=== PATIENT | female | born 1955 | race Caucasian/White ===

== ENCOUNTER → 2016-06-06 | Outpatient (CLI) | payer BC ==
[2016-05-04 11:00] VITALS: BP 147/66
[~2016-06-06] MED LIST: AMLO10TA2 PO; AMOX1TAB10 PO; ASPI325T4 PO; BENA20TA16 PO; CALC1TAB PO; FERR-26 PO; FLUC200T4 PO; GABA-586 PO; GEMF600T3 PO; GLYB5TAB3 PO; HYDR-2672 PO; HYDR-971 PO; HYDR1TAB12 PO; HYDR200T PO; HYDR50TA6 PO; IBUP-1060 PO; IOHEXOL 180 MG/ML 10 ML VIAL. ONE; ISOS30TA17 PO; KRIL1CAP10 PO; LEVO75TA PO; MULT-658 PO; NYST30PO9 TP; PARO20TA55 PO; PHEN100C PO; PIOG1TAB15 PO; TOLT2CAP PO; VERA120T PO; methylPREDNISolone ACETATE 40 MG/ML VIAL. ONE; methylPREDNISolone ACETATE 80 MG/ML VIAL. ONE
--- NOTE | 2016-06-07 01:52 | PAIN ---
DATE OF SERVICE: 06/06/2016 DIAGNOSES: Lumbar radiculopathy with lumbar spinal stenosis and lumbar herniated disk with post-lumbar laminectomy syndrome. HISTORY OF PRESENT ILLNESS: The patient is a 61-year-old female who returns for followup status post lumbar epidural steroid injection x 1. The patient reports about 45% improvement in the low back and left lower extremity pain, still has some pain in that region, but only a dull ache at this time, which is much more improved and she has been getting around much more easily, walking with greater ease than she had previously, which is her main complaint at this time, much better in the low back and left leg. The patient reports it as a 4/5 on a scale of 10, dull aching pain, been sleeping better at night, increasing activity with greater comfort and especially walking with greater ease which she is very pleased about. The patient still reports some pain in the low back, radiating into the posterior gluteus, posterior thigh, lateral thigh, but much improved from previous exam. The patient reports no new motor or sensory deficits, no new bowel or bladder incontinence or other complaints. PHYSICAL EXAMINATION: VITAL SIGNS: The patient's blood pressure is 139/63, pulse is 87, respirations 18, temperature 97.8 degrees Fahrenheit, height is 5 feet 8 inches, weight is 277 pounds. GENERAL: The patient is awake, alert, oriented, appropriate, very pleasant demeanor. HEENT: Shows normocephalic, atraumatic. Extraocular movements are intact, symmetrical. Oral cavity, mucous membranes are moist and pink. Dentition is intact. NECK: Shows anterior throat supple without palpable lymphadenopathy noted. Swallow reflex is symmetrical. Neck shows full rotational motion of the cervical spine without difficulty or tenderness. CHEST: Shows normal on inspection. Breath sounds are clear to auscultation bilaterally. HEART: Shows S1 and S2 clear. ABDOMEN: Obese, soft, nontender, nondistended. No palpable organomegaly is noted. No rebound or guarding demonstrated. BACK: Shows spine grossly midline. Slight flattening of lumbar lordotic curvature. Again, well-healed surgical scar is noted. Lumbar paraspinous musculature shows some diffuse tenderness throughout the upper, middle and lower distribution of paraspinous muscles, but only very mildly, but is symmetrical with normal muscle girth, on palpation, firm, but without radiation or trigger points. No tenderness over the sacrum or sacroiliac regions. The patient shows good rotational motion of the lumbar spine, both laterally as well as extension and flexion without difficulty or pain reported. EXTREMITIES: Lower extremities show deep tendon reflexes at 1+ in the patellar and tendo calcaneus tendons are equal. Motor exam is 5/5 with dorsiflexion, extension and equal bilaterally. Options were discussed with the patient. The patient's old chart was reviewed as her current medication regimen updated. Current review of systems updated today as well. We will proceed with a second lumbar epidural steroid injection today with fluoroscopic guidance. Risks were again discussed including, but not limited to bleeding, infection, possibility of epidural hematoma and subsequent neurological compromise, dural puncture, headaches, spinal cord and/or nerve damage, side effects of steroid medication and poor results regarding pain control. The patient understands and wishes to proceed. The patient will return to clinic in approximately 2 weeks for followup, was counseled on return appointment, activity level and side effects to be aware of. DIAGNOSES: Lumbar radiculopathy with lumbar spinal stenosis, herniated lumbar disk and post-lumbar laminectomy syndrome. PROCEDURE: Lumbar epidural steroid injection, translaminar approach at the L4-L5 level with a C-arm fluoroscopic guidance under sterile prep and drape using local anesthetic. Medication injected is 120 mg Depo-Medrol plus 10 mL of preservative-free normal saline and 2 mL of Isovue for contrast. Condition at discharge is stable. The patient tolerated procedure well, had no complications. TONY SMITH MD DR: TOMMY/mariela JOB#: [id number] / [id number]
== END ==
LOC: PNCL 12:48
PROVIDERS: ATTEND Anesthesiology
DX: M51.16 Intervertebral disc disorders with radiculopathy, lumbar region (principal); M48.06 Spinal stenosis, lumbar region; M96.1 Postlaminectomy syndrome, not elsewhere classified; E78.00 Pure hypercholesterolemia, unspecified; E11.9 Type 2 diabetes mellitus without complications; F32.9 Major depressive disorder, single episode, unspecified; I10 Essential (primary) hypertension; I25.10 Atherosclerotic heart disease of native coronary artery without angina pectoris; G40.909 Epilepsy, unspecified, not intractable, without status epilepticus; E03.9 Hypothyroidism, unspecified; Z87.39 Personal history of other diseases of the musculoskeletal system and connective tissue; Z98.890 Other specified postprocedural states
CPT/HCPCS: 62323; J1030; J1040

== ENCOUNTER 2016-11-30 01:01 | Inpatient (IN) | payer BC ==
[~2016-11-30] VITALS: Ht 172.7 cm; Wt 127.7 kg
[~2016-11-30 01:01] MED LIST changes: -ASPI325T4 PO; +ASPI325T8 PO; -HYDR-2672 PO; +HYDR-2766 PO; -IOHEXOL 180 MG/ML 10 ML VIAL. ONE; -ISOS30TA17 PO; +ISOS30TA19 PO; -KRIL1CAP10 PO; +KRIL1CAP11 PO; +NYST15PO9 TP; -NYST30PO9 TP; -PARO20TA55 PO; +PARO20TA99 PO; -PIOG1TAB15 PO; +PIOG1TAB24 PO; -methylPREDNISolone ACETATE 40 MG/ML VIAL. ONE; -methylPREDNISolone ACETATE 80 MG/ML VIAL. ONE
--- NOTE | 2016-11-30 02:28 | PHYS DOC ---
Past Medical History Past Medical History: CAD, Diabetes-Type II, Hypertension, Hypothyroid, HI, Seizure Past Surgical History: Appendectomy, Tonsillectomy, Other Additional Past Surgical Histo: back, lap, I&D, r shoulder, Alcohol Use: None Drug Use: Opiates Adult General Chief Complaint Chief Complaint: CHEST PAIN HPI HPI Patient is a 61 year old [f__sex] who presents with [] Review of Systems Review of Systems Constitutional: Denies fever or chills [] Eyes: Denies change in visual acuity, redness, or eye pain [] HENT: Denies nasal congestion or sore throat [] Respiratory: Denies cough or shortness of breath [] Cardiovascular: No additional information not addressed in HPI [] GI: Denies abdominal pain, nausea, vomiting, bloody stools or diarrhea [] : Denies dysuria or hematuria [] Musculoskeletal: Denies back pain or joint pain [] Integument: Denies rash or skin lesions [] Neurologic: Denies headache, focal weakness or sensory changes [] Endocrine: Denies polyuria or polydipsia [] Allergies Allergies Allergies Coded Allergies Type Severity Reaction Last Updated Verified vancomycin Allergy Intermediate 02/06/14 Yes Physical Exam Physical Exam Constitutional: Well developed, well nourished, no acute distress, non-toxic appearance. [] HENT: Normocephalic, atraumatic, bilateral external ears normal, oropharynx moist, no oral exudates, nose normal. [] Eyes: PERRLA, EOMI, conjunctiva normal, no discharge. [] Neck: Normal range of motion, no tenderness, supple, no stridor. [] Cardiovascular:Heart rate regular rhythm, no murmur [] Lungs & Thorax: Bilateral breath sounds clear to auscultation [] Abdomen: Bowel sounds normal, soft, no tenderness, no masses, no pulsatile masses. [] Skin: Warm, dry, no erythema, no rash. [] Back: No tenderness, no CVA tenderness. [] Extremities: No tenderness, no cyanosis, no clubbing, ROM intact, no edema. [] Neurologic: Alert and oriented X 3, normal motor function, normal sensory function, no focal deficits noted. [] Psychologic: Affect normal, judgement normal, mood normal. [] Current Patient Data Vital Signs Vital Signs Date Time Temp Pulse Resp B/P (MAP) Pulse Ox O2 Delivery O2 Flow Rate FiO2 11/30/16 01:10 98.8 80 16 200/87 (124) 98 Room Air 98.8 EKG EKG [] Radiology/Procedures Radiology/Procedures [] Course & Med Decision Making Course & Med Decision Making Pertinent Labs and Imaging studies reviewed. (See chart for details) [] Dragon Disclaimer Dragon Disclaimer This electronic medical record was generated, in whole or in part, using a voice recognition dictation system. Departure Departure Impression: Primary Impression: Chest pain Additional Impression: Unstable angina Disposition: 01 HOME, SELF-CARE Admitting Physician: Other (reusch) Condition: STABLE Referrals: CARLOS RICK Jr, MD (PCP) Problem Qualifiers YOJANA VALENTIN MD Nov 30, 2016 02:28
[2016-11-30] MEDS ORDERED: ACETAMINOPHEN 325 MG TABLET. PO PRN ×2 (02:45→10:30)
[2016-11-30] MEDS ORDERED: NITROGLYCERIN SUBLINGUAL 0.4 MG BOTTLE OF 25. SL PRN (02:45)
[2016-11-30] MEDS ORDERED: ONDANSETRON PF 4 MG/2 ML VIAL. IV PRN ×2 (02:45→10:30)
[2016-11-30] MEDS ORDERED: MORPHINE SULFATE 2 MG/ML DISP.SYRIN. IV PRN (02:45)
[2016-11-30] MEDS ORDERED: NITROGLYCERIN OINT 1 GM PACKET. TP ONE (03:00)
[2016-11-30] MEDS ORDERED: ASPIRIN CHEWABLE 81 MG TABLET. PO ONE (03:00)
[2016-11-30 03:17] LABS: BASO % 0 % (0-3); EOS % 3 % (0-3); HEMATOCRIT 28.1 % (36.0-47.0); HEMOGLOBIN 9.1 g/dL (12.0-15.5); LYMPH # 0.8 x10^3/uL (1.0-4.8); LYMPH % 14 % (24-48); MEAN CORPUSCULAR HEMOGLOBIN 27 pg (25-35); MEAN CORPUSCULAR HGB CONC 32 g/dL (31-37); MEAN CORPUSCULAR VOLUME 85 fL (79-100); MONO % 9 % (0-9); NEUT % 75 % (31-73); PLATELET COUNT 202 x10^3/uL (140-400); RED BLOOD COUNT 3.31 x10^6/uL (3.50-5.40); RED CELL DISTRIBUTION WIDTH 15.1 % (11.5-14.5); WHITE BLOOD COUNT 5.9 x10^3/uL (4.0-11.0)
[2016-11-30 03:37] LABS: CALCIUM 9.3 mg/dL (8.5-10.1); CREATININE 0.7 mg/dL (0.6-1.0); GFR 85.4; POTASSIUM 4.1 mmol/L (3.5-5.1)
[2016-11-30 03:39] LABS: ALBUMIN 3.8 g/dL (3.4-5.0); TOTAL BILIRUBIN 0.2 mg/dL (0.2-1.0); TOTAL PROTEIN 7.5 g/dL (6.4-8.2)
[2016-11-30 05:11] VITALS: BP 162/69
[2016-11-30 07:36] VITALS: BP 166/77
--- NOTE | 2016-11-30 07:38 | EKG ---
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
--- NOTE | 2016-11-30 08:09 | RAD ---
Indication chest pain. A single view of the chest was obtained and is compared to an examination May 30, 2012. Heart size is slightly enlarged. There is probable mild pulmonary vascular congestion. A focal infiltrate is not seen. Significant pleural fluid is not present. There is no pneumothorax. IMPRESSION: Mild cardiomegaly. Suspect mild pulmonary vascular congestion. No focal consolidated pneumonia is seen
--- NOTE | 2016-11-30 10:19 | PDOC1 ---
History and Physical Past Medical History Past Medical History PAST MEDICAL HISTORY: Hypertension, hypothyroidism, seizures, coronary artery disease, low back pain, rheumatoid arthritis. PAST SURGICAL HISTORY: Laminectomy and tonsillectomy. PERSONAL HISTORY: Former smoker. Denies any substance abuse or alcohol abuse. FAMILY HISTORY: History of rheumatoid arthritis. ALLERGIES: VANCOMYCIN Cardiovascular: CAD, HTN, NC CENTRAL NERVOUS SYSTEM: Seizure Endocrine: Diabetes Past Surgical History Past Surgical History: Tonsillectomy, Other Family History Family History: No Significant Social History ALCOHOL: none Drugs: None Current Problem List Problem List Problems Medical Problems: (1) Chest pain Status: Acute (2) Unstable angina Status: Acute Current Medications Current Medications Current Medications Medications (Trade) Dose Ordered Sig/Kobe Start Time Stop Time Status Last Admin Dose Admin Acetaminophen (Tylenol) 650 mg PRN Q4HRS PRN 11/30/16 02:45 12/01/16 02:44 Aspirin (Children'S Aspirin) 324 mg 1X ONCE 11/30/16 03:00 11/30/16 03:01 DC 11/30/16 02:53 324 MG Morphine Sulfate 2 mg PRN Q2HR PRN 11/30/16 02:45 12/01/16 02:44 Nitroglycerin (Nitro-Bid Oint) 1 inch 1X ONCE 11/30/16 03:00 11/30/16 03:01 DC 11/30/16 02:53 1 INCH Nitroglycerin (Nitrostat) 0.4 mg PRN Q5MIN PRN 11/30/16 02:45 12/01/16 02:44 Ondansetron HCl (Zofran) 4 mg PRN Q8HRS PRN 11/30/16 02:45 12/01/16 02:44 Allergies Allergies Allergies Coded Allergies Type Severity Reaction Last Updated Verified vancomycin Allergy Intermediate 02/06/14 Yes ROS Review of System CONSTITUTIONAL: No fever or chills EYES: No recent changes SKIN: No rash or itching CARDIOVASCULAR: chest pain, no syncope, palpitations, or edema RESPIRATORY: No SOB or cough GASTROINTESTINAL: No nausea, vomiting or abdominal pain NEUROLOGICAL: No headaches or weakness ENDOCRINE: No cold or heat intolerance GENITOURINARY: No urgency or frequency of urination MUSCULOSKELETAL: No back pain or joint pain LYMPHATICS: No enlarged lymph nodes PSYCHIATRIC: No anxiety or depression Physical Exam Physical Exam GEN.: No apparent distress. Alert and oriented 3 HEENT: Head is normocephalic, atraumatic NECK: Supple. no jvd LUNGS: Clear to auscultation. normal airflow HEART: RRR, S1, S2 present. Peripheral pulses intact ABDOMEN: Soft, nontender. Positive bowel sounds. EXTREMITIES: Without any cyanosis. NEUROLOGIC: Normal speech, normal tone PSYCHIATRIC: Normal affect, normal mood. SKIN: No ulcerations Vitals Vitals Vital Signs Date Time Temp Pulse Resp B/P (MAP) Pulse Ox O2 Delivery O2 Flow Rate FiO2 11/30/16 07:36 97.4 78 18 166/77 (106) 94 Room Air 97.4 Labs Labs Laboratory Tests Test 11/30/16 03:08 11/30/16 08:46 White Blood Count 5.9 x10^3/uL (4.0-11.0) Red Blood Count 3.31 x10^6/uL (3.50-5.40) Hemoglobin 9.1 g/dL (12.0-15.5) Hematocrit 28.1 % (36.0-47.0) Mean Corpuscular Volume 85 fL (79-100) Mean Corpuscular Hemoglobin 27 pg (25-35) Mean Corpuscular Hemoglobin Concent 32 g/dL (31-37) Red Cell Distribution Width 15.1 % (11.5-14.5) Platelet Count 202 x10^3/uL (140-400) Neutrophils (%) (Auto) 75 % (31-73) Lymphocytes (%) (Auto) 14 % (24-48) Monocytes (%) (Auto) 9 % (0-9) Eosinophils (%) (Auto) 3 % (0-3) Basophils (%) (Auto) 0 % (0-3) Neutrophils # (Auto) 4.4 x10^3uL (1.8-7.7) Lymphocytes # (Auto) 0.8 x10^3/uL (1.0-4.8) Monocytes # (Auto) 0.5 x10^3/uL (0.0-1.1) Eosinophils # (Auto) 0.1 x10^3/uL (0.0-0.7) Basophils # (Auto) 0.0 x10^3/uL (0.0-0.2) Sodium Level 140 mmol/L (136-145) Potassium Level 4.1 mmol/L (3.5-5.1) Chloride Level 103 mmol/L (98-107) Carbon Dioxide Level 27 mmol/L (21-32) Anion Gap 10 (6-14) Blood Urea Nitrogen 15 mg/dL (7-20) Creatinine 0.7 mg/dL (0.6-1.0) Estimated GFR (Cockcroft-Gault) 85.4 BUN/Creatinine Ratio 21 (6-20) Glucose Level 112 mg/dL (70-99) Calcium Level 9.3 mg/dL (8.5-10.1) Total Bilirubin 0.2 mg/dL (0.2-1.0) Aspartate Amino Transf (AST/SGOT) 19 U/L (15-37) Alanine Aminotransferase (ALT/SGPT) 16 U/L (14-59) Alkaline Phosphatase 130 U/L (46-116) Troponin I Quantitative < 0.017 ng/mL (0.000-0.055) < 0.017 ng/mL (0.000-0.055) DY-Dvr-O-Type Natriuretic Peptide 105 pg/mL (0-124) Total Protein 7.5 g/dL (6.4-8.2) Albumin 3.8 g/dL (3.4-5.0) Albumin/Globulin Ratio 1.0 (1.0-1.7) Phenytoin (Dilantin) Level 9.4 mcg/mL (10.0-20.0) Phenytoin Last Dose Date Unknown Phenytoin Last Dose Time Unknown Laboratory Tests Test 11/30/16 03:08 11/30/16 08:46 White Blood Count 5.9 x10^3/uL (4.0-11.0) Red Blood Count 3.31 x10^6/uL (3.50-5.40) Hemoglobin 9.1 g/dL (12.0-15.5) Hematocrit 28.1 % (36.0-47.0) Mean Corpuscular Volume 85 fL (79-100) Mean Corpuscular Hemoglobin 27 pg (25-35) Mean Corpuscular Hemoglobin Concent 32 g/dL (31-37) Red Cell Distribution Width 15.1 % (11.5-14.5) Platelet Count 202 x10^3/uL (140-400) Neutrophils (%) (Auto) 75 % (31-73) Lymphocytes (%) (Auto) 14 % (24-48) Monocytes (%) (Auto) 9 % (0-9) Eosinophils (%) (Auto) 3 % (0-3) Basophils (%) (Auto) 0 % (0-3) Neutrophils # (Auto) 4.4 x10^3uL (1.8-7.7) Lymphocytes # (Auto) 0.8 x10^3/uL (1.0-4.8) Monocytes # (Auto) 0.5 x10^3/uL (0.0-1.1) Eosinophils # (Auto) 0.1 x10^3/uL (0.0-0.7) Basophils # (Auto) 0.0 x10^3/uL (0.0-0.2) Sodium Level 140 mmol/L (136-145) Potassium Level 4.1 mmol/L (3.5-5.1) Chloride Level 103 mmol/L (98-107) Carbon Dioxide Level 27 mmol/L (21-32) Anion Gap 10 (6-14) Blood Urea Nitrogen 15 mg/dL (7-20) Creatinine 0.7 mg/dL (0.6-1.0) Estimated GFR (Cockcroft-Gault) 85.4 BUN/Creatinine Ratio 21 (6-20) Glucose Level 112 mg/dL (70-99) Calcium Level 9.3 mg/dL (8.5-10.1) Total Bilirubin 0.2 mg/dL (0.2-1.0) Aspartate Amino Transf (AST/SGOT) 19 U/L (15-37) Alanine Aminotransferase (ALT/SGPT) 16 U/L (14-59) Alkaline Phosphatase 130 U/L (46-116) Troponin I Quantitative < 0.017 ng/mL (0.000-0.055) < 0.017 ng/mL (0.000-0.055) MT-Fjv-I-Type Natriuretic Peptide 105 pg/mL (0-124) Total Protein 7.5 g/dL (6.4-8.2) Albumin 3.8 g/dL (3.4-5.0) Albumin/Globulin Ratio 1.0 (1.0-1.7) Phenytoin (Dilantin) Level 9.4 mcg/mL (10.0-20.0) Phenytoin Last Dose Date Unknown Phenytoin Last Dose Time Unknown VTE Prophylaxis Ordered VTE Prophylaxis Devices: No VTE Pharmacological Prophylaxi: No MAREK CRANE MD Nov 30, 2016 10:19
[2016-11-30] MEDS ORDERED: hydrALAZINE 20 MG/ML VIAL. IVP PRN (10:30)
[2016-11-30] MEDS ORDERED: HYDROcodone/APAP 5/325MG 1 TAB TABLET PO PRN (10:30)
[2016-11-30] MEDS ORDERED: ALBUTEROL SULFATE 2.5 MG/3 ML NEBU. NEB PRN (10:30)
[2016-11-30 11:00] VITALS: BP 155/69
[2016-11-30] MEDS: VERAPAMIL SR 120 MG TABLET.ER. PO SCH (12:00)
--- NOTE | 2016-11-30 12:27 | HP ---
ADMIT DATE: 11/30/2016 CHIEF COMPLAINT: Chest pain. HISTORY OF PRESENT ILLNESS: A 61-year-old female with prior history of coronary artery disease, hypothyroidism, hypertension and diabetes mellitus, presented to the ER with complaints of chest pain located in the center of the chest, no nausea, vomiting, sweating, or no radiation to neck. No tingling or numbness. The patient has been feeling progressively shortness of breath for nearly 1 week. The shortness of breath is increased lately even she could not walk few steps, shortness of breath worse with taking stairs. She denies any syncope or palpitations. The patient denies any symptoms similar to her heart attack in the past. At the time of examination, symptoms resolved. Denies any aggravating or relieving factors. PAST MEDICAL HISTORY, REVIEW OF SYSTEMS AND PHYSICAL EXAMINATION: Please see my electronic H and P. LABORATORY FINDINGS: CBC: Hemoglobin is 9.1 and previous hemoglobin is 11.6, MCV is 85, platelets 202. Chemistry: Glucose is 112. Sodium 140, potassium 4.1, chloride is 103, anion gap is 10. Two sets of troponins negative. Toxicology, phenytoin level is 9.4. Urine blood negative, nitrites negative, bilirubin negative. EKG personally reviewed, no acute ST-T wave changes, sinus arrhythmia noted. IMAGING STUDIES: Chest x-ray: Mild cardiomegaly, suspected mild pulmonary congestion. ASSESSMENT: 1. Shortness of breath with possible differentials, coronary artery disease related or deconditioning versus congestive heart failure. 2. Type 2 diabetes mellitus non-insulin dependent. 3. Hypertension. 4. Prior history of rheumatoid arthritis, not on any medications. PLAN: 1. Cardiology has been consulted. Two sets of troponins negative. EKG did not suggestive of any acute STEMI or N-STEMI. 2. Continue telemetry. We are going to adjust her medications. I will try one-time dose of Lasix. 3. I will get an echocardiogram. 4. Dr. Suárez, has been consulted. 5. Home medications reviewed and reconciled. All her chronic conditions appears to be stable condition. 6. P.r.n. hydralazine for hypertension. 7. Physical therapy and occupational therapy. MAREK CRANE MD DR: ADRIANA/mariela JOB#: [id number] / [id number]
[2016-11-30] MEDS: OMEGA-3 FATTY ACIDS/FISH OIL 1,000 MG CAPSULE. PO SCH (12:32)
[2016-11-30] MEDS: PARoxetine 20 MG TABLET PO SCH (12:32)
[2016-11-30] MEDS: ASPIRIN 325 MG TABLET PO SCH (12:32)
[2016-11-30] MEDS: OXYBUTYNIN CHLORIDE 5 MG TABLET PO SCH ×2 (12:32→20:25)
[2016-11-30] MEDS: PANTOPRAZOLE 40 MG TABLET.DR. PO SCH (12:32)
[2016-11-30] MEDS: LISINOPRIL 20 MG TABLET PO SCH (12:32)
[2016-11-30] MEDS: GEMFIBROZIL 600 MG TABLET. PO SCH ×2 (12:32→20:24)
[2016-11-30] MEDS: MULTIVITAMIN with MINERAL TABLET. PO SCH (12:32)
[2016-11-30] MEDS: ISOSORBIDE MONONITRATE ER 30 MG TAB.ER.24H PO SCH (12:33)
[2016-11-30] MEDS: hydroCHLOROthiazide 25 MG TABLET PO SCH (12:33)
[2016-11-30 15:13] VITALS: BP 165/78
--- NOTE | 2016-11-30 15:58 | PDOC2 ---
CONSULT Date of Consult Date of Consult DATE: 11/30/16 TIME: 15:53 Reason for Consult Reason for Consult: Chest pain and dyspnea Identification/Chief Complaint Chief Complaint Chest pain and dyspnea Problems: History of Present Illness Reason for Visit: This patient is a very pleasant 61%-year-old lady with a known history of coronary artery disease, hypertension, diabetes. For about a week the patient has been having some mild dyspnea. And 3 days ago she started having some chest discomfort. The chest discomforts started getting worse and radiated to the back with associated dyspnea. In the past her angina caused her to have the discomfort radiating to the neck and down the left arm there was no radiation to neck or arm in the discomforts that she's had over the past couple of days. At the time that I saw the patient she denies having any chest discomfort or rest dyspnea. After admission the enzymes have been negative and the EKG did not show any acute changes. Past Medical History Cardiovascular: CAD, HTN, LA CENTRAL NERVOUS SYSTEM: Seizure Endocrine: Diabetes Past Surgical History Past Surgical History: Tonsillectomy, Other Family History Family History: No Significant Social History ALCOHOL: none Drugs: None Lives: with Family Current Problem List Problem List Problems Medical Problems: (1) Chest pain Status: Acute (2) Unstable angina Status: Acute Current Medications Current Medications Current Medications Ondansetron HCl (Zofran) 4 mg PRN Q8HRS PRN IV NAUSEA/VOMITING; Start 11/30/16 at 02:45; Stop 12/01/16 at 02:44 Morphine Sulfate 2 mg PRN Q2HR PRN IV SEVERE PAIN; Start 11/30/16 at 02:45; Stop 12/01/16 at 02:44 Acetaminophen (Tylenol) 650 mg PRN Q4HRS PRN PO FEVER; Start 11/30/16 at 02:45 ; Stop 12/01/16 at 02:44 Nitroglycerin (Nitrostat) 0.4 mg PRN Q5MIN PRN SL CHEST PAIN; Start 11/30/16 at 02:45; Stop 12/01/16 at 02:44 Aspirin (Children'S Aspirin) 324 mg 1X ONCE PO Last administered on 11/30/16t 02:53; Start 11/30/16 at 03:00; Stop 11/30/16 at 03:01; Status DC Nitroglycerin (Nitro-Bid Oint) 1 inch 1X ONCE TP Last administered on 02:53; Start 11/30/16 at 03:00; Stop 11/30/16 at 03:01; Status DC Acetaminophen (Tylenol) 325 mg PRN Q6HRS PRN PO MILD PAIN / TEMP; Start at 10:30 Acetaminophen/ Hydrocodone Bitart (Lortab 5/325) 1 tab PRN Q6HRS PRN PO MODERATE TO SEVERE PAIN; Start 11/30/16 at 10:30 Hydralazine HCl (Apresoline) 10 mg PRN Q4HRS PRN IVP ELEVATED BP, SEE COMMENTS ; Start 11/30/16 at 10:30 Ondansetron HCl (Zofran) 4 mg PRN Q8HRS PRN IV NAUSEA/VOMITING; Start 11/30/16 at 10:30 Albuterol Sulfate (Ventolin Neb Soln) 2.5 mg PRN Q4HRS PRN NEB SHORTNESS OF BREATH Last administered on 11/30/16 12:19; Start 11/30/16 at 10:30 Aspirin (Pretty Aspirin) 325 mg DAILY PO Last administered on 11/30/16 12:32; Start 11/30/16 at 12:00 Gemfibrozil (Lopid) 600 mg BID PO Last administered on 11/30/16 12:32; Start 11/30/16 at 12:00 Glyburide (Diabeta) 10 mg BIDWMEALS PO ; Start 11/30/16 at 21:00 Paroxetine HCl (Paxil) 20 mg DAILY PO Last administered on 11/30/16 12:32; Start 11/30/16 at 12:00 Phenytoin Sodium (Dilantin) 300 mg BID PO ; Start 11/30/16 at 21:00 Lisinopril (Prinivil) 20 mg DAILY PO Last administered on 11/30/16 12:32; Start 11/30/16 at 12:00 Calcium/Vitamin D (Oscal D 500mg/ 200uts) 1 tab DAILYWBKFT PO ; Start 11/30/16 at 17:00 Hydrochlorothiazide (Hydrodiuril) 25 mg DAILY PO Last administered on 12:33; Start 11/30/16 at 12:00 Isosorbide Mononitrate (Imdur) 30 mg DAILY PO Last administered on 11/30/16 12 :33; Start 11/30/16 at 12:00 Fish Oil (Fish Oil) 1,000 mg DAILY PO Last administered on 11/30/16 12:32; Start 11/30/16 at 12:00 Multivitamins (Thera M Plus) 1 tab DAILY PO Last administered on 11/30/16 12: 32; Start 11/30/16 at 12:00 Pioglitazone HCl (Actos) 15 mg TIDWMEALS PO ; Start 11/30/16 at 17:00 Oxybutynin Chloride (Ditropan) 5 mg BID PO Last administered on 11/30/16 12:32 ; Start 11/30/16 at 12:00 Verapamil HCl (Calan Sr) 240 mg DAILY PO ; Start 11/30/16 at 12:00 Pantoprazole Sodium (Protonix) 40 mg DAILYAC PO Last administered on 11/30/16 12:32; Start 11/30/16 at 12:00 Metformin HCl (Glucophage) 850 mg TIDWMEALS PO ; Start 11/30/16 at 17:00 Active Scripts Active Reported Krill Oil 300 Mg Softgel (Krill/[place]-3/Dha/Epa/Lipids) 1 Each Capsule 1 Each PO DAILY Aspirin 325 Mg Tablet 1 Tab PO DAILY Caltrate 600 + D Tablet (Calcium Carbonate/Vitamin D3) 1 Each Tablet 1 Each PO DAILY Centrum Silver Tablet (Multivits-Min/Fa/Lycopene/Lut) 1 Each Tablet 1 Each PO DAILY Detrol La (Tolterodine Tartrate) 2 Mg Cap.er.24h 2 Mg PO DAILY Isosorbide Dinitrate 30 Mg Tablet 30 Mg PO DAILY Lotensin (Benazepril Hcl) 20 Mg Tablet 20 Mg PO DAILY Hydrochlorothiazide Tablet (Hydrochlorothiazide) 50 Mg Tablet 25 Mg PO DAILY Calan (Verapamil Hcl) 120 Mg Tablet 240 Mg PO DAILY Paxil (Paroxetine Hcl) 20 Mg Tablet 1 Tab PO DAILY Dilantin (Phenytoin Sodium Extended) 100 Mg Capsule 3 Cap PO BID Actoplus Met 15 Mg-850 Mg Tab (Pioglitazone Hcl/Metformin Hcl) 1 Each Tablet 3 Tab PO UD Gemfibrozil 600 Mg Tablet 600 Mg PO BID Glyburide 5 Mg Tablet 2 Tab PO BID Allergies Allergies: Coded Allergies: vancomycin (Verified Allergy, Intermediate, 02/06/14) Physical Exam General: Alert HEENT: PERRLA Lungs: Other (a few crackles but no wheezing no Rales) Heart: Regular rate, Normal S1, Normal S2 Abdomen: Normal bowel sounds, Soft Extremities: Other (1+ edema) Vitals VITALS Vital Signs Date Time Temp Pulse Resp B/P (MAP) Pulse Ox O2 Delivery O2 Flow Rate FiO2 11/30/16 15:13 97.7 80 20 165/78 (107) 98 97.7 11/30/16 12:21 Room Air Labs Labs Laboratory Tests Test 11/30/16 03:08 11/30/16 08:46 11/30/16 14:30 White Blood Count 5.9 x10^3/uL (4.0-11.0) Red Blood Count 3.31 x10^6/uL (3.50-5.40) Hemoglobin 9.1 g/dL (12.0-15.5) Hematocrit 28.1 % (36.0-47.0) Mean Corpuscular Volume 85 fL (79-100) Mean Corpuscular Hemoglobin 27 pg (25-35) Mean Corpuscular Hemoglobin Concent 32 g/dL (31-37) Red Cell Distribution Width 15.1 % (11.5-14.5) Platelet Count 202 x10^3/uL (140-400) Neutrophils (%) (Auto) 75 % (31-73) Lymphocytes (%) (Auto) 14 % (24-48) Monocytes (%) (Auto) 9 % (0-9) Eosinophils (%) (Auto) 3 % (0-3) Basophils (%) (Auto) 0 % (0-3) Neutrophils # (Auto) 4.4 x10^3uL (1.8-7.7) Lymphocytes # (Auto) 0.8 x10^3/uL (1.0-4.8) Monocytes # (Auto) 0.5 x10^3/uL (0.0-1.1) Eosinophils # (Auto) 0.1 x10^3/uL (0.0-0.7) Basophils # (Auto) 0.0 x10^3/uL (0.0-0.2) Sodium Level 140 mmol/L (136-145) Potassium Level 4.1 mmol/L (3.5-5.1) Chloride Level 103 mmol/L (98-107) Carbon Dioxide Level 27 mmol/L (21-32) Anion Gap 10 (6-14) Blood Urea Nitrogen 15 mg/dL (7-20) Creatinine 0.7 mg/dL (0.6-1.0) Estimated GFR (Cockcroft-Gault) 85.4 BUN/Creatinine Ratio 21 (6-20) Glucose Level 112 mg/dL (70-99) Calcium Level 9.3 mg/dL (8.5-10.1) Total Bilirubin 0.2 mg/dL (0.2-1.0) Aspartate Amino Transf (AST/SGOT) 19 U/L (15-37) Alanine Aminotransferase (ALT/SGPT) 16 U/L (14-59) Alkaline Phosphatase 130 U/L (46-116) Troponin I Quantitative < 0.017 ng/mL (0.000-0.055) < 0.017 ng/mL (0.000-0.055) < 0.017 ng/mL (0.000-0.055) KX-Exw-M-Type Natriuretic Peptide 105 pg/mL (0-124) Total Protein 7.5 g/dL (6.4-8.2) Albumin 3.8 g/dL (3.4-5.0) Albumin/Globulin Ratio 1.0 (1.0-1.7) Phenytoin (Dilantin) Level 9.4 mcg/mL (10.0-20.0) Phenytoin Last Dose Date Unknown Phenytoin Last Dose Time Unknown Laboratory Tests Test 11/30/16 03:08 11/30/16 08:46 11/30/16 14:30 White Blood Count 5.9 x10^3/uL (4.0-11.0) Red Blood Count 3.31 x10^6/uL (3.50-5.40) Hemoglobin 9.1 g/dL (12.0-15.5) Hematocrit 28.1 % (36.0-47.0) Mean Corpuscular Volume 85 fL (79-100) Mean Corpuscular Hemoglobin 27 pg (25-35) Mean Corpuscular Hemoglobin Concent 32 g/dL (31-37) Red Cell Distribution Width 15.1 % (11.5-14.5) Platelet Count 202 x10^3/uL (140-400) Neutrophils (%) (Auto) 75 % (31-73) Lymphocytes (%) (Auto) 14 % (24-48) Monocytes (%) (Auto) 9 % (0-9) Eosinophils (%) (Auto) 3 % (0-3) Basophils (%) (Auto) 0 % (0-3) Neutrophils # (Auto) 4.4 x10^3uL (1.8-7.7) Lymphocytes # (Auto) 0.8 x10^3/uL (1.0-4.8) Monocytes # (Auto) 0.5 x10^3/uL (0.0-1.1) Eosinophils # (Auto) 0.1 x10^3/uL (0.0-0.7) Basophils # (Auto) 0.0 x10^3/uL (0.0-0.2) Sodium Level 140 mmol/L (136-145) Potassium Level 4.1 mmol/L (3.5-5.1) Chloride Level 103 mmol/L (98-107) Carbon Dioxide Level 27 mmol/L (21-32) Anion Gap 10 (6-14) Blood Urea Nitrogen 15 mg/dL (7-20) Creatinine 0.7 mg/dL (0.6-1.0) Estimated GFR (Cockcroft-Gault) 85.4 BUN/Creatinine Ratio 21 (6-20) Glucose Level 112 mg/dL (70-99) Calcium Level 9.3 mg/dL (8.5-10.1) Total Bilirubin 0.2 mg/dL (0.2-1.0) Aspartate Amino Transf (AST/SGOT) 19 U/L (15-37) Alanine Aminotransferase (ALT/SGPT) 16 U/L (14-59) Alkaline Phosphatase 130 U/L (46-116) Troponin I Quantitative < 0.017 ng/mL (0.000-0.055) < 0.017 ng/mL (0.000-0.055) < 0.017 ng/mL (0.000-0.055) HV-Pfj-K-Type Natriuretic Peptide 105 pg/mL (0-124) Total Protein 7.5 g/dL (6.4-8.2) Albumin 3.8 g/dL (3.4-5.0) Albumin/Globulin Ratio 1.0 (1.0-1.7) Phenytoin (Dilantin) Level 9.4 mcg/mL (10.0-20.0) Phenytoin Last Dose Date Unknown Phenytoin Last Dose Time Unknown Assessment/Plan Assessment/Plan This patient with a known history of coronary artery disease comes in with some chest discomfort and dyspnea. The chest discomfort is somewhat different to her previous angina. So far the workup has been negative to rule out an LA. I would like to get a Lexiscan MPI as well as an echocardiogram. I have discussed this with the patient. Thank you very much for asking me to participate in the care of this patient. CHANCE WAHL MD Nov 30, 2016 15:58
[2016-11-30] MEDS: metFORMIN 850 MG TABLET PO SCH (17:00)
[2016-11-30] MEDS: glyBURIDE 5 MG TABLET PO SCH (17:00)
[2016-11-30] MEDS: PIOGLITAZONE 15 MG TABLET. PO SCH (17:00)
[2016-11-30] MEDS: CALCIUM CARB/VIT D3 500/200 TABLET. PO SCH (17:00)
[2016-11-30 19:00] VITALS: BP 132/55
[2016-11-30] MEDS: PHENYTOIN SODIUM EXTENDED 100 MG CAPSULE PO SCH (20:25)
[2016-11-30] MEDS ORDERED: glyBURIDE 5 MG TABLET PO SCH (21:00)
[2016-11-30 23:03] VITALS: BP 116/48
[2016-12-01 03:00] VITALS: BP 141/64
--- NOTE | 2016-12-01 03:08 | ACF ---
Admission Forms Criteria CHEST PAIN Clinical Indications for Admission to Inpatient Care (Place 'X' for any and all applicable criteria): Admission is indicated for chest pain and ANY ONE of the following(1)(2)(3)(4)(5 ): [ ]I. Angina with acute coronary syndrome (Also use Myocardial Infarction or Angina guideline) [ ]II. Hemodynamic instability [ X]III. Angina needing acute intervention as indicated by ALL of the following (11)(12): [ X]a) Unstable angina is present as indicated by angina that is ANY ONE of the following: [ ]i) New onset [ ]ii) Nocturnal [ ]iii) Prolonged at rest [X ]iv) Progressive [X ]b) Angina warrants acute intervention as indicated by ANY ONE of the following: [ ]i) Recurrent angina (e.g, not responding as previously to treatment) [ ]ii) Angina at rest or with low-level activities despite initial medical therapy [ ]iii) New or presumably new ST-segment depression on ECG [ ]iv) Signs or symptoms of heart failure (eg, dyspnea, pulmonary edema) [ ]v) New or worsening mitral regurgitation [ ]vi) Hemodynamic instability [ ]vii) Dangerous arrhythmia (eg, sustained ventricular tachycardia) [ ]viii) History of percutaneous coronary intervention within 6 months [ ]ix) History of coronary artery bypass graft surgery [ ]x) JUAN risk score of 2 or greater[A] [ X]xi) History of Diabetes(14) [ ]xii) High-risk cardiac ischemia findings on noninvasive testing (e.g, echocardiogram, treadmill testing, nuclear scan) [ ]xiii) Chronic renal insufficiency (ie, estimated GFR less than 60 mL/min/1.732m) [ ]xiv) Left ventricular ejection fraction less than 40% [ ]IV. Evidence of OR (eg, cardiac biomarkers positive, ST-segment elevation on ECG) also use Myocardial Infarction Criteria Form. [ ]V. Pulmonary edema [ ]. Respiratory distress [ ]VII. Chest pain indicative of serious diagnosis other than coronary artery disease (eg, aortic dissection) [ ]VIII. Contraindications and/or Inappropriate clinical situations for Observational Care in patients with Chest Pain, when ANY ONE of the following is required: [ ]a) Patient with risk factor for pulmonary embolism, acute coronary syndrome and myocardial infarction (18) [ ]b) Patient with Pulmonary embolism require an average LOS of 4.3 days, therefore emergency department observation management is inappropriate 18,23 [ ]c) Painful condition/s in the elderly, have the highest rate of recidivism after emergency department observation management (10.8%) 20,21,22 [ ]d) Elevated cardiac biomarker requires intensive and exhaustive care (19) [ ]IX. General contraindications and/or Inappropriate clinical situations for Observational Care in patients with Chest Pain, when ANY ONE of the following is required: [ ]a) Prediction of prolongation of LOS based on ANY ONE of the following may be considered as a contraindication for observational care 2, 3, 4, 5, 6, 7, 8, 9, 10, 11 [ ]i) Age > 65 yrs. [ ]ii) Patient arriving by ambulance [ ]iii) Patient with high acuity [ ]iv) Patient requiring vital sign monitoring [ ]v) Patient on IV medication [ ]b) Systolic blood pressures 180mmHg 3,12 [ ]c) Patient with altered mental status including delirium and other alteration of consciousness, (3) [ ]d) Patient whose discharge disposition will be to a [facility] home or rehabilitation home should not be managed in Emergency Department Observation Unit. CMS rule requires 3 days hospital stay before such placement. 3,13 [ ]e) Patient with failure to thrive due to broad array of etiologies 3,16,17 [ ]f) Inability to ambulate 3,14 Extended stay beyond goal length of stay may be needed for (1)(28): [ ]a) Specific condition diagnosed after evaluation (eg, pulmonary embolism, aortic dissection) [ ]b) Unstable angina [ ]c) Continued suspicion of acute coronary syndrome with inability to complete needed cardiac evaluation (eg, patient clinically unable to undergo stress testing) [ ]d) Myocardial infarction (Contents from ANGINA and CHEST PAIN clinical indications for admission to inpatient care have been integrated in this form) The original [employer] content created by [employer] has been revised. The portions of the content which have been revised are identified through the use of italic text or in bold, and [facility] has neither reviewed nor approved the modified material. All other unmodified content is copyright [employer]. Please see references footnoted in the original [facility] edition 2016 Admission Criteria Met?: Yes JACQUES TOURE Dec 01, 2016 03:08
[2016-12-01 05:41] LABS: BASO % 0 % (0-3); EOS % 2 % (0-3); LYMPH # 0.8 x10^3/uL (1.0-4.8); LYMPH % 13 % (24-48); MEAN CORPUSCULAR HEMOGLOBIN 27 pg (25-35); MEAN CORPUSCULAR HGB CONC 32 g/dL (31-37); MEAN CORPUSCULAR VOLUME 85 fL (79-100); MONO % 8 % (0-9); NEUT % 76 % (31-73); PLATELET COUNT 196 x10^3/uL (140-400); RED BLOOD COUNT 3.31 x10^6/uL (3.50-5.40); RED CELL DISTRIBUTION WIDTH 14.9 % (11.5-14.5)
[2016-12-01 06:09] LABS: CALCIUM 8.6 mg/dL (8.5-10.1); CREATININE 0.7 mg/dL (0.6-1.0); GFR 85.4; POTASSIUM 4.2 mmol/L (3.5-5.1)
[2016-12-01 07:00] VITALS: BP 165/79
[2016-12-01] MEDS: PIOGLITAZONE 15 MG TABLET. PO SCH ×3 (08:00→16:32)
[2016-12-01] MEDS: glyBURIDE 5 MG TABLET PO SCH ×2 (08:00→16:32)
[2016-12-01] MEDS: metFORMIN 850 MG TABLET PO SCH ×3 (08:00→16:32)
[2016-12-01] MEDS ORDERED: REGADENOSON 0.4 MG/5 ML DISP.SYRIN. IV ONE (09:30)
[2016-12-01 11:18] VITALS: BP 170/75
[2016-12-01] MEDS: PANTOPRAZOLE 40 MG TABLET.DR. PO SCH (12:28)
[2016-12-01] MEDS: MULTIVITAMIN with MINERAL TABLET. PO SCH (12:29)
[2016-12-01] MEDS: ASPIRIN 325 MG TABLET PO SCH (12:29)
[2016-12-01] MEDS: VERAPAMIL SR 120 MG TABLET.ER. PO SCH (12:29)
[2016-12-01] MEDS: GEMFIBROZIL 600 MG TABLET. PO SCH ×2 (12:29→20:56)
[2016-12-01] MEDS: PARoxetine 20 MG TABLET PO SCH (12:29)
[2016-12-01] MEDS: CALCIUM CARB/VIT D3 500/200 TABLET. PO SCH (12:29)
[2016-12-01] MEDS: OXYBUTYNIN CHLORIDE 5 MG TABLET PO SCH ×2 (12:29→20:56)
[2016-12-01] MEDS: LISINOPRIL 20 MG TABLET PO SCH (12:30)
[2016-12-01] MEDS: ISOSORBIDE MONONITRATE ER 30 MG TAB.ER.24H PO SCH (12:30)
[2016-12-01] MEDS: hydroCHLOROthiazide 25 MG TABLET PO SCH (12:30)
[2016-12-01] MEDS: OMEGA-3 FATTY ACIDS/FISH OIL 1,000 MG CAPSULE. PO SCH (12:30)
[2016-12-01] MEDS: PHENYTOIN SODIUM EXTENDED 100 MG CAPSULE PO SCH ×2 (12:31→20:57)
--- NOTE | 2016-12-01 13:02 | PDOC ---
PROGRESS NOTES Chief Complaint Chief Complaint Chief complaint chest pain assessment and plan 1. Shortness of breath 2. Type 2 diabetes mellitus non-insulin dependent. 3. Hypertension. 4. Prior history of rheumatoid arthritis, not on any medications. Plan Echo cardigan pending Nuclear stress test pending Continue current regimen As needed oxygen Physical therapy occupational therapy before discharge Discharge planning based on the stress test results Vitals Vitals Vital Signs Date Time Temp Pulse Resp B/P (MAP) Pulse Ox O2 Delivery O2 Flow Rate FiO2 12/01/16 12:30 91 170/75 12/01/16 11:18 14 95 Room Air 12/01/16 07:00 97.6 97.6 Physical Exam General: Alert, Oriented X3 Heart: Regular rate, Normal S1, Normal S2 Lungs: Clear Abdomen: Normal bowel sounds, Soft Extremities: Other (1+ edema) Labs LABS Laboratory Tests Test 11/30/16 14:30 12/01/16 04:00 12/01/16 07:57 Troponin I Quantitative < 0.017 ng/mL (0.000-0.055) White Blood Count 6.0 x10^3/uL (4.0-11.0) Red Blood Count 3.31 x10^6/uL (3.50-5.40) Hemoglobin 9.0 g/dL (12.0-15.5) Hematocrit 28.0 % (36.0-47.0) Mean Corpuscular Volume 85 fL (79-100) Mean Corpuscular Hemoglobin 27 pg (25-35) Mean Corpuscular Hemoglobin Concent 32 g/dL (31-37) Red Cell Distribution Width 14.9 % (11.5-14.5) Platelet Count 196 x10^3/uL (140-400) Neutrophils (%) (Auto) 76 % (31-73) Lymphocytes (%) (Auto) 13 % (24-48) Monocytes (%) (Auto) 8 % (0-9) Eosinophils (%) (Auto) 2 % (0-3) Basophils (%) (Auto) 0 % (0-3) Neutrophils # (Auto) 4.5 x10^3uL (1.8-7.7) Lymphocytes # (Auto) 0.8 x10^3/uL (1.0-4.8) Monocytes # (Auto) 0.5 x10^3/uL (0.0-1.1) Eosinophils # (Auto) 0.1 x10^3/uL (0.0-0.7) Basophils # (Auto) 0.0 x10^3/uL (0.0-0.2) Sodium Level 141 mmol/L (136-145) Potassium Level 4.2 mmol/L (3.5-5.1) Chloride Level 105 mmol/L (98-107) Carbon Dioxide Level 27 mmol/L (21-32) Anion Gap 9 (6-14) Blood Urea Nitrogen 16 mg/dL (7-20) Creatinine 0.7 mg/dL (0.6-1.0) Estimated GFR (Cockcroft-Gault) 85.4 Glucose Level 122 mg/dL (70-99) Calcium Level 8.6 mg/dL (8.5-10.1) Glucose (Fingerstick) 120 mg/dL (70-99) Assessment and Plan Assessmemt and Plan Problems Medical Problems: (1) Chest pain Status: Acute (2) Unstable angina Status: Acute Problems: Comment Review of Relevant I have reviewed the following items sheri (where applicable) has been applied. Labs Laboratory Tests Test 11/30/16 03:08 11/30/16 08:46 11/30/16 14:30 12/01/16 04:00 White Blood Count 5.9 x10^3/uL (4.0-11.0) 6.0 x10^3/uL (4.0-11.0) Red Blood Count 3.31 x10^6/uL (3.50-5.40) 3.31 x10^6/uL (3.50-5.40) Hemoglobin 9.1 g/dL (12.0-15.5) 9.0 g/dL (12.0-15.5) Hematocrit 28.1 % (36.0-47.0) 28.0 % (36.0-47.0) Mean Corpuscular Volume 85 fL (79-100) 85 fL (79-100) Mean Corpuscular Hemoglobin 27 pg (25-35) 27 pg (25-35) Mean Corpuscular Hemoglobin Concent 32 g/dL (31-37) 32 g/dL (31-37) Red Cell Distribution Width 15.1 % (11.5-14.5) 14.9 % (11.5-14.5) Platelet Count 202 x10^3/uL (140-400) 196 x10^3/uL (140-400) Neutrophils (%) (Auto) 75 % (31-73) 76 % (31-73) Lymphocytes (%) (Auto) 14 % (24-48) 13 % (24-48) Monocytes (%) (Auto) 9 % (0-9) 8 % (0-9) Eosinophils (%) (Auto) 3 % (0-3) 2 % (0-3) Basophils (%) (Auto) 0 % (0-3) 0 % (0-3) Neutrophils # (Auto) 4.4 x10^3uL (1.8-7.7) 4.5 x10^3uL (1.8-7.7) Lymphocytes # (Auto) 0.8 x10^3/uL (1.0-4.8) 0.8 x10^3/uL (1.0-4.8) Monocytes # (Auto) 0.5 x10^3/uL (0.0-1.1) 0.5 x10^3/uL (0.0-1.1) Eosinophils # (Auto) 0.1 x10^3/uL (0.0-0.7) 0.1 x10^3/uL (0.0-0.7) Basophils # (Auto) 0.0 x10^3/uL (0.0-0.2) 0.0 x10^3/uL (0.0-0.2) Sodium Level 140 mmol/L (136-145) 141 mmol/L (136-145) Potassium Level 4.1 mmol/L (3.5-5.1) 4.2 mmol/L (3.5-5.1) Chloride Level 103 mmol/L (98-107) 105 mmol/L (98-107) Carbon Dioxide Level 27 mmol/L (21-32) 27 mmol/L (21-32) Anion Gap 10 (6-14) 9 (6-14) Blood Urea Nitrogen 15 mg/dL (7-20) 16 mg/dL (7-20) Creatinine 0.7 mg/dL (0.6-1.0) 0.7 mg/dL (0.6-1.0) Estimated GFR (Cockcroft-Gault) 85.4 85.4 BUN/Creatinine Ratio 21 (6-20) Glucose Level 112 mg/dL (70-99) 122 mg/dL (70-99) Calcium Level 9.3 mg/dL (8.5-10.1) 8.6 mg/dL (8.5-10.1) Total Bilirubin 0.2 mg/dL (0.2-1.0) Aspartate Amino Transf (AST/SGOT) 19 U/L (15-37) Alanine Aminotransferase (ALT/SGPT) 16 U/L (14-59) Alkaline Phosphatase 130 U/L (46-116) Troponin I Quantitative < 0.017 ng/mL (0.000-0.055) < 0.017 ng/mL (0.000-0.055) < 0.017 ng/mL (0.000-0.055) [id number]-C-Type Natriuretic Peptide 105 pg/mL (0-124) Total Protein 7.5 g/dL (6.4-8.2) Albumin 3.8 g/dL (3.4-5.0) Albumin/Globulin Ratio 1.0 (1.0-1.7) Phenytoin (Dilantin) Level 9.4 mcg/mL (10.0-20.0) Phenytoin Last Dose Date Unknown Phenytoin Last Dose Time Unknown Test 12/01/16 07:57 Glucose (Fingerstick) 120 mg/dL (70-99) Laboratory Tests Test 11/30/16 14:30 12/01/16 04:00 12/01/16 07:57 Troponin I Quantitative < 0.017 ng/mL (0.000-0.055) White Blood Count 6.0 x10^3/uL (4.0-11.0) Red Blood Count 3.31 x10^6/uL (3.50-5.40) Hemoglobin 9.0 g/dL (12.0-15.5) Hematocrit 28.0 % (36.0-47.0) Mean Corpuscular Volume 85 fL (79-100) Mean Corpuscular Hemoglobin 27 pg (25-35) Mean Corpuscular Hemoglobin Concent 32 g/dL (31-37) Red Cell Distribution Width 14.9 % (11.5-14.5) Platelet Count 196 x10^3/uL (140-400) Neutrophils (%) (Auto) 76 % (31-73) Lymphocytes (%) (Auto) 13 % (24-48) Monocytes (%) (Auto) 8 % (0-9) Eosinophils (%) (Auto) 2 % (0-3) Basophils (%) (Auto) 0 % (0-3) Neutrophils # (Auto) 4.5 x10^3uL (1.8-7.7) Lymphocytes # (Auto) 0.8 x10^3/uL (1.0-4.8) Monocytes # (Auto) 0.5 x10^3/uL (0.0-1.1) Eosinophils # (Auto) 0.1 x10^3/uL (0.0-0.7) Basophils # (Auto) 0.0 x10^3/uL (0.0-0.2) Sodium Level 141 mmol/L (136-145) Potassium Level 4.2 mmol/L (3.5-5.1) Chloride Level 105 mmol/L (98-107) Carbon Dioxide Level 27 mmol/L (21-32) Anion Gap 9 (6-14) Blood Urea Nitrogen 16 mg/dL (7-20) Creatinine 0.7 mg/dL (0.6-1.0) Estimated GFR (Cockcroft-Gault) 85.4 Glucose Level 122 mg/dL (70-99) Calcium Level 8.6 mg/dL (8.5-10.1) Glucose (Fingerstick) 120 mg/dL (70-99) Medications Current Medications Ondansetron HCl (Zofran) 4 mg PRN Q8HRS PRN IV NAUSEA/VOMITING; Start 11/30/16 at 02:45; Stop 12/01/16 at 02:44; Status DC Morphine Sulfate 2 mg PRN Q2HR PRN IV SEVERE PAIN; Start 11/30/16 at 02:45; Stop 12/01/16 at 02:44; Status DC Acetaminophen (Tylenol) 650 mg PRN Q4HRS PRN PO FEVER; Start 11/30/16 at 02:45 ; Stop 12/01/16 at 02:44; Status DC Nitroglycerin (Nitrostat) 0.4 mg PRN Q5MIN PRN SL CHEST PAIN; Start 11/30/16 at 02:45; Stop 12/01/16 at 02:44; Status DC Aspirin (Children'S Aspirin) 324 mg 1X ONCE PO Last administered on 11/30/16 02:53; Start 11/30/16 at 03:00; Stop 11/30/16 at 03:01; Status DC Nitroglycerin (Nitro-Bid Oint) 1 inch 1X ONCE TP Last administered on 02:53; Start 11/30/16 at 03:00; Stop 11/30/16 at 03:01; Status DC Acetaminophen (Tylenol) 325 mg PRN Q6HRS PRN PO MILD PAIN / TEMP; Start at 10:30 Acetaminophen/ Hydrocodone Bitart (Lortab 5/325) 1 tab PRN Q6HRS PRN PO MODERATE TO SEVERE PAIN; Start 11/30/16 at 10:30 Hydralazine HCl (Apresoline) 10 mg PRN Q4HRS PRN IVP ELEVATED BP, SEE COMMENTS ; Start 11/30/16 at 10:30 Ondansetron HCl (Zofran) 4 mg PRN Q8HRS PRN IV NAUSEA/VOMITING; Start 11/30/16 at 10:30 Albuterol Sulfate (Ventolin Neb Soln) 2.5 mg PRN Q4HRS PRN NEB SHORTNESS OF BREATH Last administered on 11/30/16 12:19; Start 11/30/16 at 10:30 Aspirin (Pretty Aspirin) 325 mg DAILY PO Last administered on 12/01/16 12:29; Start 11/30/16 at 12:00 Gemfibrozil (Lopid) 600 mg BID PO Last administered on 12/01/16 12:29; Start 11/30/16 at 12:00 Glyburide (Diabeta) 10 mg BIDWMEALS PO ; Start 11/30/16 at 21:00; Stop 11/30/16 at 21:00; Status DC Paroxetine HCl (Paxil) 20 mg DAILY PO Last administered on 12/01/16 12:29; Start 11/30/16 at 12:00 Phenytoin Sodium (Dilantin) 300 mg BID PO Last administered on 12/01/16 12:31 ; Start 11/30/16 at 21:00 Lisinopril (Prinivil) 20 mg DAILY PO Last administered on 12/01/16 12:30; Start 11/30/16 at 12:00 Calcium/Vitamin D (Oscal D 500mg/ 200uts) 1 tab DAILYWBKFT PO Last administered on 12/01/16 12:29; Start 11/30/16 at 17:00 Hydrochlorothiazide (Hydrodiuril) 25 mg DAILY PO Last administered on 12:30; Start 11/30/16 at 12:00 Isosorbide Mononitrate (Imdur) 30 mg DAILY PO Last administered on 12/01/16 12 :30; Start 11/30/16 at 12:00 Fish Oil (Fish Oil) 1,000 mg DAILY PO Last administered on 12/01/16 12:30; Start 11/30/16 at 12:00 Multivitamins (Thera M Plus) 1 tab DAILY PO Last administered on 12/01/16 12: 29; Start 11/30/16 at 12:00 Pioglitazone HCl (Actos) 15 mg TIDWMEALS PO ; Start 11/30/16 at 17:00 Oxybutynin Chloride (Ditropan) 5 mg BID PO Last administered on 12/01/16 12:29 ; Start 11/30/16 at 12:00 Verapamil HCl (Calan Sr) 240 mg DAILY PO Last administered on 12/01/16 12:29; Start 11/30/16 at 12:00 Pantoprazole Sodium (Protonix) 40 mg DAILYAC PO Last administered on 12/01/16 12:28; Start 11/30/16 at 12:00 Metformin HCl (Glucophage) 850 mg TIDWMEALS PO ; Start 11/30/16 at 17:00 Glyburide (Diabeta) 10 mg BIDWMEALS PO ; Start 11/30/16 at 17:00 Regadenoson (Lexiscan) 0.4 mg 1X ONCE IV Last administered on 12/01/16 09:30 ; Start 12/01/16 at 09:30; Stop 12/01/16 at 09:31; Status DC Active Scripts Active Reported Krill Oil 300 Mg Softgel (Krill/Elba-3/Dha/Epa/Lipids) 1 Each Capsule 1 Each PO DAILY Aspirin 325 Mg Tablet 1 Tab PO DAILY Caltrate 600 + D Tablet (Calcium Carbonate/Vitamin D3) 1 Each Tablet 1 Each PO DAILY Centrum Silver Tablet (Multivits-Min/Fa/Lycopene/Lut) 1 Each Tablet 1 Each PO DAILY Detrol La (Tolterodine Tartrate) 2 Mg Cap.er.24h 2 Mg PO DAILY Isosorbide Dinitrate 30 Mg Tablet 30 Mg PO DAILY Lotensin (Benazepril Hcl) 20 Mg Tablet 20 Mg PO DAILY Hydrochlorothiazide Tablet (Hydrochlorothiazide) 50 Mg Tablet 25 Mg PO DAILY Calan (Verapamil Hcl) 120 Mg Tablet 240 Mg PO DAILY Paxil (Paroxetine Hcl) 20 Mg Tablet 1 Tab PO DAILY Dilantin (Phenytoin Sodium Extended) 100 Mg Capsule 3 Cap PO BID Actoplus Met 15 Mg-850 Mg Tab (Pioglitazone Hcl/Metformin Hcl) 1 Each Tablet 3 Tab PO UD Gemfibrozil 600 Mg Tablet 600 Mg PO BID Glyburide 5 Mg Tablet 2 Tab PO BID Vitals/I & O Vital Sign - Last 24 Hours 11/30/16 11/30/16 11/30/16 11/30/16 15:13 19:00 20:00 23:03 Temp 97.7 98.5 98.4 97.7 98.5 98.4 Pulse 80 79 80 Resp 20 20 22 B/P (MAP) 165/78 (107) 132/55 (80) 116/48 (70) Pulse Ox 98 98 94 O2 Delivery Room Air Room Air Room Air 12/01/16 12/01/16 12/01/16 12/01/16 03:00 07:00 08:00 11:18 Temp 98.0 97.6 98.0 97.6 Pulse 68 79 91 Resp 20 16 14 B/P (MAP) 141/64 (89) 165/79 (107) 170/75 (106) Pulse Ox 97 98 95 O2 Delivery Room Air Room Air Room Air Room Air 12/01/16 12/01/16 12/01/16 12:29 12:30 12:30 Pulse 91 91 91 B/P (MAP) 170/75 170/75 170/75 Intake and Output 11/30/16 11/30/16 12/01/16 15:00 23:00 07:00 Intake Total 600 ml 400 ml Output Total 650 ml 300 ml 2300 ml Balance -650 ml 300 ml -1900 ml VASIREDDI,MAREK R MD Dec 01, 2016 13:02
[2016-12-01 15:00] VITALS: BP 156/70
--- NOTE | 2016-12-01 15:43 | RAD ---
APPROVED REPORT Test Type: Pharmacological Stress Nurse/Tech: denzel hernandez Test Indications: unstable angina Cardiac History: CAD, HTN, CHOLESTEROLEMIA, PVD, SEE EHR Medications: SEE EHR Medical History: REMOTE SMOKING HISTORY, DIABETES,EPILEPSY, SEE EHR Resting ECG: SR Resting Heart Rate: 79 bpm Resting Blood Pressure: 151/72mmHg Pretest Chest Pain: No chest pain Nurse/Tech Notes NO SIGNS OF RESPIRATOY DISTRESS, NSR UPON INITIAL EKG READING. Consent: The procedure was explained to the patient in lay terms. Informed consent was witnessed. Satinder eout was entered into [employer]. History and Stress Test performed by SHAINA Patel Pharm. Details Pharmacologic stress testing was performed using 0.4mg per 5ml of regadenoson given intravenously ove r 7-10 seconds. Stress Symptoms HEADACHE POST EXERCISE Reason for Termination: Infusion complete Max HR: 86 bpm Max Blood Pressure: 151/72mmHg Chest Pain: No. Arrhythmia: No. ST Change: No. Imaging Protocol IMAGE PROTOCOL: Stress Tc-99m/rest Tc-99m 2 days Rest: Stress: Viability: Radiopharm.Tc99m Sestamibi [id number] Duration 12min. Img Date 12/01/2016 Inj-Img [id number]. STRESS DATA End Diast. Vol.138.0mlAv. Heart Rate84.0bpm End Syst. Vol.39.0mlCO Index BSA0.0L/min Myocardial Okmy527.0gEject. Wyyppwkl85.0% Stress Rates Pk. Fill Rate2.34EDV/secLVtime Pk. Fill 176.54msec Pk. Empty Rate3.06ESV/secLVtime Pk. Otkfr938.05msec 05/14 Pk. Fill1.58EDV/sec Stress Scores Regional WT0.00Summed WT4.00 Regional WM0.00Summed WM0.00 LV Perf. Quant 17 Seg. SSS1.00 Stress Defect Extent (% LAD)0.00Rest Defect Extent (% LAD)Rev. Defect Extent (% LAD)0.00 Stress Defect Extent (% LCX) 11.30Rest Defect Extent (% LCX)Rev. Defect Extent (% LCX)0.00 Stress Defect Extent (% RCA)0.00Rest Defect Extent (% RCA)Rev. Defect Extent (% RCA)0.00 Stress Defect Extent (% VINICIUS)2.80Rest Defect Extent (% VINICIUS)Rev. Defect Extent (% VINICIUS)0.00 Conclusion 1. No electrocardiographic changes suggestive of myocardial ischemiawith pharmacological stress 2. No significant perfusion defects to siggeast myocardial ischemia or scar with stress imagin 3. There is thus no need to do rest imaging 4. Normal wall motion and wall thickening with an ejection fraction of 72%. 5. Scan indicates low risk for future cardiac events
--- NOTE | 2016-12-01 16:35 | PDOC ---
Provider Note Provider Note Covering for Dr. Downs MPI shows no significant perfusion defects . No CP since admission. OK with me to discharge today. Follow up with FILOMENA Mcclain MD Dec 01, 2016 16:35
[2016-12-01 19:53] VITALS: BP 142/63
[2016-12-01 22:11] VITALS: BP 122/64
[2016-12-02 03:37] VITALS: BP 164/75
[2016-12-02 04:53] LABS: BASO % 0 % (0-3); EOS % 2 % (0-3); HEMATOCRIT 27.4 % (36.0-47.0); LYMPH # 0.8 x10^3/uL (1.0-4.8); LYMPH % 12 % (24-48); MEAN CORPUSCULAR HEMOGLOBIN 27 pg (25-35); MEAN CORPUSCULAR HGB CONC 33 g/dL (31-37); MEAN CORPUSCULAR VOLUME 83 fL (79-100); MONO % 8 % (0-9); NEUT % 78 % (31-73); PLATELET COUNT 198 x10^3/uL (140-400); WHITE BLOOD COUNT 6.7 x10^3/uL (4.0-11.0)
[2016-12-02 05:17] LABS: CALCIUM 8.5 mg/dL (8.5-10.1); CREATININE 0.7 mg/dL (0.6-1.0); GFR 85.4; POTASSIUM 3.8 mmol/L (3.5-5.1)
[2016-12-02 07:00] VITALS: BP 139/75
[2016-12-02] MEDS: metFORMIN 850 MG TABLET PO SCH ×2 (08:42→13:01)
[2016-12-02] MEDS: GEMFIBROZIL 600 MG TABLET. PO SCH (08:42)
[2016-12-02] MEDS: OMEGA-3 FATTY ACIDS/FISH OIL 1,000 MG CAPSULE. PO SCH (08:42)
[2016-12-02] MEDS: CALCIUM CARB/VIT D3 500/200 TABLET. PO SCH (08:42)
[2016-12-02] MEDS: PANTOPRAZOLE 40 MG TABLET.DR. PO SCH (08:42)
[2016-12-02] MEDS: MULTIVITAMIN with MINERAL TABLET. PO SCH (08:43)
[2016-12-02] MEDS: hydroCHLOROthiazide 25 MG TABLET PO SCH (08:43)
[2016-12-02] MEDS: glyBURIDE 5 MG TABLET PO SCH (08:43)
[2016-12-02] MEDS: ASPIRIN 325 MG TABLET PO SCH (08:43)
[2016-12-02] MEDS: VERAPAMIL SR 120 MG TABLET.ER. PO SCH (08:43)
[2016-12-02] MEDS: PARoxetine 20 MG TABLET PO SCH (08:44)
[2016-12-02] MEDS: PHENYTOIN SODIUM EXTENDED 100 MG CAPSULE PO SCH (08:44)
[2016-12-02] MEDS: LISINOPRIL 20 MG TABLET PO SCH (08:44)
[2016-12-02] MEDS: OXYBUTYNIN CHLORIDE 5 MG TABLET PO SCH (08:44)
[2016-12-02] MEDS: ISOSORBIDE MONONITRATE ER 30 MG TAB.ER.24H PO SCH (08:44)
[2016-12-02] MEDS: PIOGLITAZONE 15 MG TABLET. PO SCH ×2 (08:45→13:01)
[2016-12-02 11:00] VITALS: BP 129/62
--- NOTE | 2016-12-02 11:21 | PDOC ---
PROGRESS NOTES Subjective Subjective Ms Fleming is lying comfortably in bed this AM. She reports no chest pain or shortness of breath. She is hoping to go home today. Objective Objective Vital Signs Date Time Temp Pulse Resp B/P (MAP) Pulse Ox O2 Delivery O2 Flow Rate FiO2 12/02/16 11:00 98.2 67 18 129/62 (84) 94 Room Air 98.2 Intake and Output 12/02/16 07:00 Intake Total 2400 ml Output Total 5400 ml Balance -3000 ml Intake Oral 2400 ml Output Urine Total 5400 ml # Voids 1 Physical Exam Heart: Regular rate (and rhythm), Normal S1, Normal S2 Extremities: Normal pulses (2/4 radial b/l) General: Alert, No acute distress Lungs: Clear to auscultation (b/l), Normal air movement Assessment Assessment Ms Fleming reports no chest pain or shortness of breath Her Lexiscan was (-) for ischemia and showed EF of 72% Echo results pending If negative, patient is stable from cardiac standpoint for discharge Comment Review of Relevant I have reviewed the following items sheri (where applicable) has been applied. Labs Laboratory Tests Test 11/30/16 14:30 12/01/16 04:00 12/01/16 07:57 12/01/16 16:16 Troponin I Quantitative < 0.017 ng/mL (0.000-0.055) White Blood Count 6.0 x10^3/uL (4.0-11.0) Red Blood Count 3.31 x10^6/uL (3.50-5.40) Hemoglobin 9.0 g/dL (12.0-15.5) Hematocrit 28.0 % (36.0-47.0) Mean Corpuscular Volume 85 fL (79-100) Mean Corpuscular Hemoglobin 27 pg (25-35) Mean Corpuscular Hemoglobin Concent 32 g/dL (31-37) Red Cell Distribution Width 14.9 % (11.5-14.5) Platelet Count 196 x10^3/uL (140-400) Neutrophils (%) (Auto) 76 % (31-73) Lymphocytes (%) (Auto) 13 % (24-48) Monocytes (%) (Auto) 8 % (0-9) Eosinophils (%) (Auto) 2 % (0-3) Basophils (%) (Auto) 0 % (0-3) Neutrophils # (Auto) 4.5 x10^3uL (1.8-7.7) Lymphocytes # (Auto) 0.8 x10^3/uL (1.0-4.8) Monocytes # (Auto) 0.5 x10^3/uL (0.0-1.1) Eosinophils # (Auto) 0.1 x10^3/uL (0.0-0.7) Basophils # (Auto) 0.0 x10^3/uL (0.0-0.2) Sodium Level 141 mmol/L (136-145) Potassium Level 4.2 mmol/L (3.5-5.1) Chloride Level 105 mmol/L (98-107) Carbon Dioxide Level 27 mmol/L (21-32) Anion Gap 9 (6-14) Blood Urea Nitrogen 16 mg/dL (7-20) Creatinine 0.7 mg/dL (0.6-1.0) Estimated GFR (Cockcroft-Gault) 85.4 Glucose Level 122 mg/dL (70-99) Calcium Level 8.6 mg/dL (8.5-10.1) Glucose (Fingerstick) 120 mg/dL (70-99) 308 mg/dL (70-99) Test 12/01/16 20:59 12/02/16 04:24 12/02/16 07:42 Glucose (Fingerstick) 144 mg/dL (70-99) 79 mg/dL (70-99) White Blood Count 6.7 x10^3/uL (4.0-11.0) Red Blood Count 3.30 x10^6/uL (3.50-5.40) Hemoglobin 9.0 g/dL (12.0-15.5) Hematocrit 27.4 % (36.0-47.0) Mean Corpuscular Volume 83 fL (79-100) Mean Corpuscular Hemoglobin 27 pg (25-35) Mean Corpuscular Hemoglobin Concent 33 g/dL (31-37) Red Cell Distribution Width 15.0 % (11.5-14.5) Platelet Count 198 x10^3/uL (140-400) Neutrophils (%) (Auto) 78 % (31-73) Lymphocytes (%) (Auto) 12 % (24-48) Monocytes (%) (Auto) 8 % (0-9) Eosinophils (%) (Auto) 2 % (0-3) Basophils (%) (Auto) 0 % (0-3) Neutrophils # (Auto) 5.2 x10^3uL (1.8-7.7) Lymphocytes # (Auto) 0.8 x10^3/uL (1.0-4.8) Monocytes # (Auto) 0.6 x10^3/uL (0.0-1.1) Eosinophils # (Auto) 0.1 x10^3/uL (0.0-0.7) Basophils # (Auto) 0.0 x10^3/uL (0.0-0.2) Sodium Level 138 mmol/L (136-145) Potassium Level 3.8 mmol/L (3.5-5.1) Chloride Level 103 mmol/L (98-107) Carbon Dioxide Level 25 mmol/L (21-32) Anion Gap 10 (6-14) Blood Urea Nitrogen 17 mg/dL (7-20) Creatinine 0.7 mg/dL (0.6-1.0) Estimated GFR (Cockcroft-Gault) 85.4 Glucose Level 103 mg/dL (70-99) Calcium Level 8.5 mg/dL (8.5-10.1) Laboratory Tests Test 12/01/16 16:16 12/01/16 20:59 12/02/16 04:24 12/02/16 07:42 Glucose (Fingerstick) 308 mg/dL (70-99) 144 mg/dL (70-99) 79 mg/dL (70-99) White Blood Count 6.7 x10^3/uL (4.0-11.0) Red Blood Count 3.30 x10^6/uL (3.50-5.40) Hemoglobin 9.0 g/dL (12.0-15.5) Hematocrit 27.4 % (36.0-47.0) Mean Corpuscular Volume 83 fL (79-100) Mean Corpuscular Hemoglobin 27 pg (25-35) Mean Corpuscular Hemoglobin Concent 33 g/dL (31-37) Red Cell Distribution Width 15.0 % (11.5-14.5) Platelet Count 198 x10^3/uL (140-400) Neutrophils (%) (Auto) 78 % (31-73) Lymphocytes (%) (Auto) 12 % (24-48) Monocytes (%) (Auto) 8 % (0-9) Eosinophils (%) (Auto) 2 % (0-3) Basophils (%) (Auto) 0 % (0-3) Neutrophils # (Auto) 5.2 x10^3uL (1.8-7.7) Lymphocytes # (Auto) 0.8 x10^3/uL (1.0-4.8) Monocytes # (Auto) 0.6 x10^3/uL (0.0-1.1) Eosinophils # (Auto) 0.1 x10^3/uL (0.0-0.7) Basophils # (Auto) 0.0 x10^3/uL (0.0-0.2) Sodium Level 138 mmol/L (136-145) Potassium Level 3.8 mmol/L (3.5-5.1) Chloride Level 103 mmol/L (98-107) Carbon Dioxide Level 25 mmol/L (21-32) Anion Gap 10 (6-14) Blood Urea Nitrogen 17 mg/dL (7-20) Creatinine 0.7 mg/dL (0.6-1.0) Estimated GFR (Cockcroft-Gault) 85.4 Glucose Level 103 mg/dL (70-99) Calcium Level 8.5 mg/dL (8.5-10.1) Medications Current Medications Ondansetron HCl (Zofran) 4 mg PRN Q8HRS PRN IV NAUSEA/VOMITING; Start 11/30/16 at 02:45; Stop 12/01/16 at 02:44; Status DC Morphine Sulfate 2 mg PRN Q2HR PRN IV SEVERE PAIN; Start 11/30/16 at 02:45; Stop 12/01/16 at 02:44; Status DC Acetaminophen (Tylenol) 650 mg PRN Q4HRS PRN PO FEVER; Start 11/30/16 at 02:45 ; Stop 12/01/16 at 02:44; Status DC Nitroglycerin (Nitrostat) 0.4 mg PRN Q5MIN PRN SL CHEST PAIN; Start 11/30/16 at 02:45; Stop 12/01/16 at 02:44; Status DC Aspirin (Children'S Aspirin) 324 mg 1X ONCE PO Last administered on 11/30/16 02:53; Start 11/30/16 at 03:00; Stop 11/30/16 at 03:01; Status DC Nitroglycerin (Nitro-Bid Oint) 1 inch 1X ONCE TP Last administered on 02:53; Start 11/30/16 at 03:00; Stop 11/30/16 at 03:01; Status DC Acetaminophen (Tylenol) 325 mg PRN Q6HRS PRN PO MILD PAIN / TEMP; Start at 10:30 Acetaminophen/ Hydrocodone Bitart (Lortab 5/325) 1 tab PRN Q6HRS PRN PO MODERATE TO SEVERE PAIN; Start 11/30/16 at 10:30 Hydralazine HCl (Apresoline) 10 mg PRN Q4HRS PRN IVP ELEVATED BP, SEE COMMENTS ; Start 11/30/16 at 10:30 Ondansetron HCl (Zofran) 4 mg PRN Q8HRS PRN IV NAUSEA/VOMITING; Start 11/30/16 at 10:30 Albuterol Sulfate (Ventolin Neb Soln) 2.5 mg PRN Q4HRS PRN NEB SHORTNESS OF BREATH Last administered on 11/30/16 12:19; Start 11/30/16 at 10:30 Aspirin (Pretty Aspirin) 325 mg DAILY PO Last administered on 12/02/16 08:43; Start 11/30/16 at 12:00 Gemfibrozil (Lopid) 600 mg BID PO Last administered on 12/02/16 08:42; Start 11/30/16 at 12:00 Glyburide (Diabeta) 10 mg BIDWMEALS PO ; Start 11/30/16 at 21:00; Stop 11/30/16 at 21:00; Status DC Paroxetine HCl (Paxil) 20 mg DAILY PO Last administered on 12/02/16 08:44; Start 11/30/16 at 12:00 Phenytoin Sodium (Dilantin) 300 mg BID PO Last administered on 12/02/16 08:44 ; Start 11/30/16 at 21:00 Lisinopril (Prinivil) 20 mg DAILY PO Last administered on 12/02/16 08:44; Start 11/30/16 at 12:00 Calcium/Vitamin D (Oscal D 500mg/ 200uts) 1 tab DAILYWBKFT PO Last administered on 12/02/16 08:42; Start 11/30/16 at 17:00 Hydrochlorothiazide (Hydrodiuril) 25 mg DAILY PO Last administered on 08:43; Start 11/30/16 at 12:00 Isosorbide Mononitrate (Imdur) 30 mg DAILY PO Last administered on 12/02/16 08 :44; Start 11/30/16 at 12:00 Fish Oil (Fish Oil) 1,000 mg DAILY PO Last administered on 12/02/16 08:42; Start 11/30/16 at 12:00 Multivitamins (Thera M Plus) 1 tab DAILY PO Last administered on 12/02/16 08: 43; Start 11/30/16 at 12:00 Pioglitazone HCl (Actos) 15 mg TIDWMEALS PO Last administered on 12/02/16 08: 45; Start 11/30/16 at 17:00 Oxybutynin Chloride (Ditropan) 5 mg BID PO Last administered on 12/02/16 08:44 ; Start 11/30/16 at 12:00 Verapamil HCl (Calan Sr) 240 mg DAILY PO Last administered on 12/02/16 08:43; Start 11/30/16 at 12:00 Pantoprazole Sodium (Protonix) 40 mg DAILYAC PO Last administered on 12/02/16 08:42; Start 11/30/16 at 12:00 Metformin HCl (Glucophage) 850 mg TIDWMEALS PO Last administered on 12/02/16 08:42; Start 11/30/16 at 17:00 Glyburide (Diabeta) 10 mg BIDWMEALS PO Last administered on 12/02/16 08:43; Start 11/30/16 at 17:00 Regadenoson (Lexiscan) 0.4 mg 1X ONCE IV Last administered on 12/01/16 09:30 ; Start 12/01/16 at 09:30; Stop 12/01/16 at 09:31; Status DC Active Scripts Active Reported Krill Oil 300 Mg Softgel (Krill/Webster-3/Dha/Epa/Lipids) 1 Each Capsule 1 Each PO DAILY Aspirin 325 Mg Tablet 1 Tab PO DAILY Caltrate 600 + D Tablet (Calcium Carbonate/Vitamin D3) 1 Each Tablet 1 Each PO DAILY Centrum Silver Tablet (Multivits-Min/Fa/Lycopene/Lut) 1 Each Tablet 1 Each PO DAILY Detrol La (Tolterodine Tartrate) 2 Mg Cap.er.24h 2 Mg PO DAILY Isosorbide Dinitrate 30 Mg Tablet 30 Mg PO DAILY Lotensin (Benazepril Hcl) 20 Mg Tablet 20 Mg PO DAILY Hydrochlorothiazide Tablet (Hydrochlorothiazide) 50 Mg Tablet 25 Mg PO DAILY Calan (Verapamil Hcl) 120 Mg Tablet 240 Mg PO DAILY Paxil (Paroxetine Hcl) 20 Mg Tablet 1 Tab PO DAILY Dilantin (Phenytoin Sodium Extended) 100 Mg Capsule 3 Cap PO BID Actoplus Met 15 Mg-850 Mg Tab (Pioglitazone Hcl/Metformin Hcl) 1 Each Tablet 3 Tab PO UD Gemfibrozil 600 Mg Tablet 600 Mg PO BID Glyburide 5 Mg Tablet 2 Tab PO BID Vitals/I & O Vital Sign - Last 24 Hours 12/01/16 12/01/16 12/01/16 12/01/16 12:29 12:30 12:30 15:00 Temp 97.5 97.5 Pulse 91 91 91 70 Resp 16 B/P (MAP) 170/75 170/75 170/75 156/70 (98) Pulse Ox 96 O2 Delivery Room Air 12/01/16 12/01/16 12/01/16 12/02/16 19:53 20:09 22:11 03:37 Temp 98.3 98.5 98.3 98.5 Pulse 78 73 84 Resp 20 18 16 B/P (MAP) 142/63 (89) 122/64 (83) 164/75 (104) Pulse Ox 98 98 96 O2 Delivery Room Air Room Air Room Air Room Air 12/02/16 12/02/16 12/02/16 12/02/16 07:00 08:34 08:43 08:44 Temp 97.7 97.7 Pulse 68 66 68 Resp 20 B/P (MAP) 139/75 (96) 135/75 139/75 Pulse Ox 100 O2 Delivery Room Air Room Air 12/02/16 12/02/16 08:44 11:00 Temp 98.2 98.2 Pulse 68 67 Resp 18 B/P (MAP) 139/75 129/62 (84) Pulse Ox 94 O2 Delivery Room Air Intake and Output 12/01/16 12/01/16 12/02/16 15:00 23:00 07:00 Intake Total 1500 ml 500 ml 400 ml Output Total 2300 ml 1900 ml 1200 ml Balance -800 ml -1400 ml -800 ml CHANCE WAHL MD Dec 02, 2016 11:21
--- NOTE | 2016-12-02 14:00 | PDOC3 ---
Discharge Summary [facility] Date of Admission: Nov 30, 2016 Discharge Date: Dec 02, 2016 Admitting Diagnosis 1. Shortness of breath with chest pain 2/2 anxiety? 2. Type 2 diabetes mellitus non-insulin dependent. 3. Hypertension. 4. Prior history of rheumatoid arthritis, not on any medications. Problems: Final Diagnosis CONSULTS card Brief Hospital Course Ms. Fleming is a 61 old F, dm2, COMES for some sob and chest pain, MPI neg. Echo done today, result pending. dc home if ok with card dc tiem 35min General: Alert, Oriented X3 Heart: Regular rate, Normal S1, Normal S2 Lungs: Clear Abdomen: Normal bowel sounds, Soft Extremities: Other (1+ edema) Patient History: FHx: breast cancer 32 MOTHER FHx: cardiovascular disease 33 FATHER 32 MOTHER FHx: diabetes mellitus 33 FATHER 32 MOTHER FHx: skin cancer 33 FATHER Hypertension Problems: Disposition home CONDITION AT DISCHARGE: Improved Diet ada Scheduled Aspirin (Aspirin), 1 TAB PO DAILY, (Reported) Benazepril Hcl (Lotensin), 20 MG PO DAILY, (Reported) Calcium Carbonate/Vitamin D3 (Caltrate 600 + D Tablet), 1 EACH PO DAILY, ( Reported) Gemfibrozil (Gemfibrozil), 600 MG PO BID, (Reported) Glyburide (Glyburide), 2 TAB PO BID, (Reported) Hydrochlorothiazide (Hydrochlorothiazide Tablet), 25 MG PO DAILY, (Reported) Isosorbide Dinitrate (Isosorbide Dinitrate), 30 MG PO DAILY, (Reported) Krill/[place]-3/Dha/Epa/Lipids (Krill Oil 300 Mg Softgel), 1 EACH PO DAILY, ( Reported) Multivits-Min/Fa/Lycopene/Lut (Centrum Silver Tablet), 1 EACH PO DAILY, ( Reported) Paroxetine Hcl (Paxil), 1 TAB PO DAILY, (Reported) Phenytoin Sodium Extended (Dilantin), 3 CAP PO BID, (Reported) Pioglitazone Hcl/Metformin Hcl (Actoplus Met 15 Mg-850 Mg Tab), 3 TAB PO UD, ( Reported) Tolterodine Tartrate (Detrol La), 2 MG PO DAILY, (Reported) Verapamil Hcl (Calan), 240 MG PO DAILY, (Reported) Follow Up pcp and card in2 weeks SUSAN GUIDRY MD Dec 02, 2016 14:00
--- NOTE | 2016-12-02 19:02 | CARD ---
APPROVED REPORT EXAM: Two-dimensional and M-mode echocardiogram with Doppler and color Doppler. Other Information Quality : AverageFair INDICATION SOA 2D DIMENSIONS RVDd3.3 (2.9-3.5cm)Left Atrium(2D)3.1 (1.6-4.0cm) IVSd1.0 (0.7-1.1cm)Aortic Root(2D)2.6 (2.0-3.7cm) LVDd6.0 (3.9-5.9cm)LVOT Diameter1.8 (1.8-2.4cm) PWd1.0 (0.7-1.1cm)LVDs4.9 (2.5-4.0cm) SV72.5 mlLVEF(%)55.0 (>50%) Aortic Valve AoV Peak Ramón.166.2cm/sAoV VTI32.7cm AO Peak GR.11.1mmHgLVOT Peak Ramón.100.5cm/s LVOT VTI 23.78cmAO Mean GR.6mmHg CAL (VMAX)1.17xt3XLJ (VTI)1.83cm2 Mitral Valve MV E Oipcvkpl44.5cm/sMV DECEL [id number] MV A Qwffujkp245.4cm/sMV E Mean Gr.3mmHg MV ZAC55uwZ/A Ratio1.0 MV A Kgmwsuhq475szHPX (PHT)3.27cm2 TDI E/Lateral E'11.7E/Medial E'9.8 Pulmonary Valve PV Peak Abxtaedr96.8cm/sPV Peak Grad.4mmHg RVOT VTI16.5cm Tricuspid Valve TR P. Gwilusnk920vp/sTR Peak Gr.36mmHg Pulmonary Vein S1 Pklylnfw14.7cm/sD2 Qaltcnem99.9cm/s LEFT VENTRICLE The Left Ventricle is borderline dilated. There is normal left ventricular wall thickness. The left v entricular systolic function is normal and the ejection fraction is within normal range. There is nor mal LV segmental wall motion. The left ventricular diastolic function and filling is normal for age. RIGHT VENTRICLE The right ventricle is normal size. There is normal right ventricular wall thickness. The right ventr icular systolic function is normal. ATRIA The left atrium size is normal. The right atrium size is normal. The interatrial septum is intact wit h no evidence for an atrial septal defect or patent foramen ovale as noted on 2-D or Doppler imaging. AORTIC VALVE The aortic valve is normal in structure and function. Doppler and Color Flow revealed no significant aortic regurgitation. MITRAL VALVE The mitral valve is normal in structure and function. Doppler and Color Flow revealed no mitral valve regurgitation noted. TRICUSPID VALVE The tricuspid valve is normal in structure Doppler and Color Flow revealed mild tricuspid regurgitati on. The PA pressure was estimated at 39 mmHg. PULMONIC VALVE The pulmonary valve is normal in structure Doppler and Color Flow revealed trace pulmonic valvular re gurgitation. GREAT VESSELS The aortic root is normal in size. Normal pulmonary venous flow (Doppler). The IVC is normal in size and collapses >50% with inspiration. PERICARDIAL EFFUSION There is no pleural effusion. There is no evidence of significant pericardial effusion. Critical Notification Critical Value: No <Conclusion> The Left Ventricle is borderline dilated. The left ventricular systolic function is normal and the ejection fraction is within normal range. The left atrium size is normal. The right atrium size is normal. The aortic valve is normal in structure and function. The mitral valve is normal in structure and function. Doppler and Color Flow revealed no mitral valve regurgitation noted. Doppler and Color Flow revealed mild tricuspid regurgitation. The PA pressure was estimated at 39 mmHg. The pulmonary valve is normal in structure Doppler and Color Flow revealed trace pulmonic valvular regurgitation. There is no evidence of significant pericardial effusion.
== END 2016-12-02 15:35 | disposition home or self-care (01) | DRG 880 ==
LOC: ER 01:01 → 2 SOUTH 02:26
PROVIDERS: ADMIT Internal Medicine Hematology & Oncology; ATTEND Internal Medicine Hematology & Oncology
DX: F41.9 Anxiety disorder, unspecified (principal); I25.110 Atherosclerotic heart disease of native coronary artery with unstable angina pectoris; E03.9 Hypothyroidism, unspecified; E11.9 Type 2 diabetes mellitus without complications; I10 Essential (primary) hypertension; M06.9 Rheumatoid arthritis, unspecified; Z87.891 Personal history of nicotine dependence; Z90.49 Acquired absence of other specified parts of digestive tract; I25.2 Old myocardial infarction; Z88.1 Allergy status to other antibiotic agents; Z80.3 Family history of malignant neoplasm of breast; Z80.8 Family history of malignant neoplasm of other organs or systems; Z82.49 Family history of ischemic heart disease and other diseases of the circulatory system; Z83.3 Family history of diabetes mellitus; M54.5 Low back pain; Z90.89 Acquired absence of other organs
CPT/HCPCS: 36415; 71010; 78452; 80048; 80053; 80185; 82962; 83880; 84484; 85027; 93005; 93017; 93306; 94250; 94640; 96374; 96375; A9500; J2785; J7613; 99285-25; A6539

== ENCOUNTER 2017-03-17 09:20 | Inpatient (IN) | payer BC ==
[~2017-03-17] VITALS: Ht 175.3 cm; Wt 139.7 kg
[~2017-03-17 09:20] MED LIST changes: +KRIL1CAP10 PO; -KRIL1CAP11 PO
--- NOTE | 2017-03-17 09:32 | PHYS DOC ---
Past Medical History Past Medical History: CAD, Diabetes-Type II, Hypertension, Hypothyroid, PA, Seizure Past Surgical History: Appendectomy, Tonsillectomy, Other Additional Past Surgical Histo: back, lap, I&D, r shoulder, Alcohol Use: None Drug Use: Opiates Adult General Chief Complaint Chief Complaint: right knee pain [facility] HPI Patient is a 62 year old female who presents with a fall. She states she tripped and fell forwards landing on her right knee. She states she heard something pop. She states she's got pain right above her right knee. She also complains about right elbow pain. She denies hitting her head neck. She denies about any new back pain other than her chronic pain. Review of Systems Review of Systems Constitutional: Denies fever or chills [] Eyes: Denies change in visual acuity, redness, or eye pain [] HENT: Denies nasal congestion or sore throat [] Respiratory: Denies cough or shortness of breath [] Cardiovascular: No additional information not addressed in HPI [] GI: Denies abdominal pain, nausea, vomiting, bloody stools or diarrhea [] : Denies dysuria or hematuria [] Musculoskeletal: Positive if her right knee and elbow pain Integument: Denies rash or skin lesions [] Neurologic: Denies headache, focal weakness or sensory changes [] Endocrine: Denies polyuria or polydipsia [] Allergies Allergies Allergies Coded Allergies Type Severity Reaction Last Updated Verified vancomycin Allergy Intermediate 02/06/14 Yes Physical Exam Physical Exam Constitutional: Well developed, well nourished, no acute distress, non-toxic appearance. [] HENT: Normocephalic, atraumatic, bilateral external ears normal, oropharynx moist, no oral exudates, nose normal. [] Eyes: PERRLA, EOMI, conjunctiva normal, no discharge. [] Neck: Normal range of motion, no tenderness, supple, no stridor. [] Cardiovascular:Heart rate regular rhythm, no murmur [] Lungs & Thorax: Bilateral breath sounds clear to auscultation [] Abdomen: Bowel sounds normal, soft, no tenderness, no masses, no pulsatile masses. [] Skin: Warm, dry, no erythema, no rash. [] Back: No tenderness, no CVA tenderness. [] Extremities: Tender palpation about the right knee, no obvious deformity noted secondary to body habitus dorsal pedis pulse 2+ in the right lower extremities, mild tender palpation over the right elbow without any obvious deformity. Remaining extremities no cyanosis, no clubbing, ROM intact, no edema. [] Neurologic: Alert and oriented X 3, normal motor function, normal sensory function, no focal deficits noted. [] Psychologic: Affect normal, judgement normal, mood normal. [] Current Patient Data Vital Signs Vital Signs Date Time Temp Pulse Resp B/P (MAP) Pulse Ox O2 Delivery O2 Flow Rate FiO2 03/17/17 09:29 97.9 72 14 98 97.9 EKG EKG [] Radiology/Procedures Radiology/Procedures [facility] [address] [place], [place] [id number] IMAGING REPORT Signed PATIENT: JENNIFER MEDELLIN ACCOUNT: [id number] : 1955 LOCATION: ER AGE: 62 SEX: F EXAM [id number] STATUS: REG ER ORD. PHYSICIAN: DENNY SOLANO MD REASON: fall/pain PROCEDURE: ELBOW RIGHT 3V; RIGHT FEMUR XRAY Indications: Fall this a.m. Distal right femur pain. Right elbow pain. Two-view study of the right femur: There is a comminuted oblique fracture of the distal femoral shaft and metaphysis. No significant displacement or angulation is evident. No osteolytic process is seen. 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 IMPRESSION: Posttraumatic comminuted fracture of the distal right femur. 3 view right elbow study: No joint effusion is seen. However, there is a step-off deformity of the lateral aspect of the proximal right radial metaphysis. Therefore, this could represent a possible occult fracture. Alignment is normal. No osteolytic process is seen. IMPRESSION: Possible occult fracture of the proximal right radius. DICTATED and SIGNED BY: ALENA GIRALDO MD DATE: 03/17/17 1118 CC: DENNY SOLANO MD; CARLOS RICK Jr, MD ~ Impressions: Questionable right radius fracture Right femur fracture Coronary disease Course & Med Decision Making Course & Med Decision Making Pertinent Labs and Imaging studies reviewed. (See chart for details) X-rays show fractures of her right humerus and a possible right radial head fracture. Spoke with Dr. Mesa, regarding right humerus fracture. Patient was put in a knee immobilizer. Dorsal pedis pulses intact. She has sensation and motor intact. We'll put her in a sling for right upper extremities. He should be admitted to the hospitalist in stable condition this time. Dragon Disclaimer Dragon Disclaimer This electronic medical record was generated, in whole or in part, using a voice recognition dictation system. Departure Departure Impression: Primary Impression: Femur fracture Disposition: 09 ADMITTED INPATIENT Admitting Physician: Shayna Fletcher Condition: STABLE Referrals: CARLOS RICK Jr, MD (PCP) Problem Qualifiers Primary Impression: Femur fracture Encounter type: initial encounter Femur location: unspecified portion of femur Fracture type: closed Laterality: right DENNY SOLANO MD Mar 17, 2017 09:32
--- NOTE | 2017-03-17 11:29 | RAD ---
Indications: Fall this a.m. Distal right femur pain. Right elbow pain. Two-view study of the right femur: There is a comminuted oblique fracture of the distal femoral shaft and metaphysis. No significant displacement or angulation is evident. No osteolytic process is seen. 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 IMPRESSION: Posttraumatic comminuted fracture of the distal right femur. 3 view right elbow study: No joint effusion is seen. However, there is a step-off deformity of the lateral aspect of the proximal right radial metaphysis. Therefore, this could represent a possible occult fracture. Alignment is normal. No osteolytic process is seen. IMPRESSION: Possible occult fracture of the proximal right radius.
[2017-03-17] MEDS ORDERED: MORPHINE SULFATE 2 MG/ML DISP.SYRIN. IV/SQ ONE (11:45)
[2017-03-17 12:42] LABS: BASO % 0 % (0-3); EOS % 0 % (0-3); HEMOGLOBIN 8.9 g/dL (12.0-15.5); LYMPH # 0.6 x10^3/uL (1.0-4.8); LYMPH % 7 % (24-48); MEAN CORPUSCULAR HEMOGLOBIN 25 pg (25-35); MEAN CORPUSCULAR HGB CONC 32 g/dL (31-37); MEAN CORPUSCULAR VOLUME 77 fL (79-100); MONO % 5 % (0-9); NEUT % 87 % (31-73); PLATELET COUNT 193 x10^3/uL (140-400); RED BLOOD COUNT 3.63 x10^6/uL (3.50-5.40); WHITE BLOOD COUNT 8.5 x10^3/uL (4.0-11.0)
[2017-03-17] MEDS ORDERED: PIOGLITAZONE HCL PO SCH (12:45)
[2017-03-17] MEDS ORDERED: [UNRECOGNIZED DRUG - OTHER] PO SCH (12:45)
[2017-03-17] MEDS ORDERED: METFORMIN HCL PO SCH (12:45)
--- NOTE | 2017-03-17 12:52 | PDOC1 ---
History and Physical Date of Admission Date of Admission DATE: 03/17/17 TIME: 12:46 Identification/Chief Complaint Chief Complaint fall at home Problems: Source Source: Caregiver, Chart review, Patient History of Present Illness History of Present Illness 62 y.o obese female who has had her share of mSK issues like shoulder sprain.fx, back pain,etc last admit was here for the ff: 1. Severe degenerative disk disease with central canal stenosis at L4-L5, severe and moderate at L2 and L3. 2. Morbid obesity. 3. Type 2 diabetes mellitus. 4. Hypertension. 5. Hypothyroidism. 6. Rheumatoid arthritis. 7. Intractable pain requiring IV narcotics. HAd a mechanical fall at home today, hit her RT hip and was unable to bear weight since then, ER showed possible occult fx distal femur, Admitted with ortho consulted. PAin ok as long as not moving, No knwon hx CAD, but DM on OHA, at bedside. Agreeable to sx if needed, PAin ok with morphine from ER Past Medical History Cardiovascular: CAD, HTN, [place] CENTRAL NERVOUS SYSTEM: Seizure Endocrine: Diabetes Past Surgical History Past Surgical History: Tonsillectomy, Other Family History Family History: No Significant Social History Smoke: No ALCOHOL: none Drugs: None Current Medications Current Medications Current Medications Morphine Sulfate 2 mg 1X ONCE IV/SQ Last administered on 03/17/17t 11:46; Start 03/17/17 at 11:45; Stop 03/17/17 at 11:46; Status DC Fentanyl Citrate (Fentanyl 2ml Vial) 50 mcg PRN Q2HR PRN IV PAIN; Start at 12:45; Status UNV Acetaminophen/ Hydrocodone Bitart (Lortab 5/325) 1 tab PRN Q4HRS PRN PO PAIN; Start 03/17/17 at 12:45; Status UNV Acetaminophen/ Hydrocodone Bitart (Lortab 7.5/325) 1 tab PRN Q6HRS PRN PO PAIN ; Start 03/17/17 at 12:45; Status UNV Gemfibrozil (Lopid) 600 mg BID PO ; Start 03/17/17 at 21:00; Status UNV Glyburide (Diabeta) 10 mg BID PO ; Start 03/17/17 at 21:00; Status UNV Paroxetine HCl (Paxil) 20 mg DAILY PO ; Start 03/18/17 at 09:00; Status UNV Phenytoin Sodium (Dilantin) 300 mg BID PO ; Start 03/17/17 at 21:00; Status UNV Non-Formulary Medication 20 mg DAILY PO ; Start 03/18/17 at 09:00; Status UNV Non-Formulary Medication 1 each DAILY PO ; Start 03/18/17 at 09:00; Status UNV Active Scripts Active Reported Krill Oil 300 Mg Softgel (Krill/[place]-3/Dha/Epa/Lipids) 1 Each Capsule 1 Each PO DAILY Aspirin 325 Mg Tablet 1 Tab PO DAILY Caltrate 600 + D Tablet (Calcium Carbonate/Vitamin D3) 1 Each Tablet 1 Each PO DAILY Centrum Silver Tablet (Multivits-Min/Fa/Lycopene/Lut) 1 Each Tablet 1 Each PO DAILY Detrol La (Tolterodine Tartrate) 2 Mg Cap.er.24h 2 Mg PO DAILY Isosorbide Dinitrate 30 Mg Tablet 30 Mg PO DAILY Lotensin (Benazepril Hcl) 20 Mg Tablet 20 Mg PO DAILY Hydrochlorothiazide Tablet (Hydrochlorothiazide) 50 Mg Tablet 25 Mg PO DAILY Calan (Verapamil Hcl) 120 Mg Tablet 240 Mg PO DAILY Paxil (Paroxetine Hcl) 20 Mg Tablet 1 Tab PO DAILY Dilantin (Phenytoin Sodium Extended) 100 Mg Capsule 3 Cap PO BID Actoplus Met 15 Mg-850 Mg Tab (Pioglitazone Hcl/Metformin Hcl) 1 Each Tablet 3 Tab PO UD Gemfibrozil 600 Mg Tablet 600 Mg PO BID Glyburide 5 Mg Tablet 2 Tab PO BID Allergies Allergies: Coded Allergies: vancomycin (Verified Allergy, Intermediate, 02/06/14) ROS Review of System hip pain, chronic back pain, otherwise, no PC, SOA, abd pain, diarrhea etc all 14 pt reviewed Physical Exam General: Alert, Oriented X3, Cooperative, No acute distress HEENT: Atraumatic, PERRLA, EOMI Lungs: Clear to auscultation, Normal air movement Heart: S1S2, RRR, no thrills, no rubs, no gallops, no murmurs Cardiovascular: S1, S2 Breasts: Normal, Rt breast nml w/o mass, Lt breast nml w/o mass, Nipples normal Abdomen: Normal bowel sounds, Soft, No tenderness, No hepatosplenomegaly, No masses Male Genitals Exam: normal genitalia, normal prostate Rectal Exam: not examined Extremities: Other (RT leg externaly rotated) Skin: No rashes, No breakdown, No significant lesion, Other (nystatin podwer in between excessive skin folds) Neuro: Normal gait, Normal speech, Strength at 5/5 X4 ext, Normal tone, Sensation intact, Cranial nerves 3-12 NL, Reflexes 2+ Psych/Mental Status: Mental status NL, Mood NL Vitals Vitals Vital Signs Date Time Temp Pulse Resp B/P (MAP) Pulse Ox O2 Delivery O2 Flow Rate FiO2 03/17/17 11:46 18 96 Room Air 03/17/17 09:29 97.9 72 97.9 Labs Labs Laboratory Tests Test 03/17/17 11:37 White Blood Count 8.5 x10^3/uL (4.0-11.0) Red Blood Count 3.63 x10^6/uL (3.50-5.40) Hemoglobin 8.9 g/dL (12.0-15.5) Hematocrit 28.0 % (36.0-47.0) Mean Corpuscular Volume 77 fL (79-100) Mean Corpuscular Hemoglobin 25 pg (25-35) Mean Corpuscular Hemoglobin Concent 32 g/dL (31-37) Red Cell Distribution Width 16.0 % (11.5-14.5) Platelet Count 193 x10^3/uL (140-400) Neutrophils (%) (Auto) 87 % (31-73) Lymphocytes (%) (Auto) 7 % (24-48) Monocytes (%) (Auto) 5 % (0-9) Eosinophils (%) (Auto) 0 % (0-3) Basophils (%) (Auto) 0 % (0-3) Neutrophils # (Auto) 7.4 x10^3uL (1.8-7.7) Lymphocytes # (Auto) 0.6 x10^3/uL (1.0-4.8) Monocytes # (Auto) 0.5 x10^3/uL (0.0-1.1) Eosinophils # (Auto) 0.0 x10^3/uL (0.0-0.7) Basophils # (Auto) 0.0 x10^3/uL (0.0-0.2) Laboratory Tests Test 03/17/17 11:37 White Blood Count 8.5 x10^3/uL (4.0-11.0) Red Blood Count 3.63 x10^6/uL (3.50-5.40) Hemoglobin 8.9 g/dL (12.0-15.5) Hematocrit 28.0 % (36.0-47.0) Mean Corpuscular Volume 77 fL (79-100) Mean Corpuscular Hemoglobin 25 pg (25-35) Mean Corpuscular Hemoglobin Concent 32 g/dL (31-37) Red Cell Distribution Width 16.0 % (11.5-14.5) Platelet Count 193 x10^3/uL (140-400) Neutrophils (%) (Auto) 87 % (31-73) Lymphocytes (%) (Auto) 7 % (24-48) Monocytes (%) (Auto) 5 % (0-9) Eosinophils (%) (Auto) 0 % (0-3) Basophils (%) (Auto) 0 % (0-3) Neutrophils # (Auto) 7.4 x10^3uL (1.8-7.7) Lymphocytes # (Auto) 0.6 x10^3/uL (1.0-4.8) Monocytes # (Auto) 0.5 x10^3/uL (0.0-1.1) Eosinophils # (Auto) 0.0 x10^3/uL (0.0-0.7) Basophils # (Auto) 0.0 x10^3/uL (0.0-0.2) VTE Prophylaxis Ordered VTE Prophylaxis Devices: Yes VTE Pharmacological Prophylaxi: Yes Assessment/Plan Assessment/Plan 1. OCcult RT femur Fx after mechanical fall, traumatic, mechanical 2. Obese 3. hx Severe degenerative disk disease with central canal stenosis at L4-L5, severe and moderate at L2 and L3. 4. Type 2 diabetes mellitus. 5. Hypertension. 6. Hypothyroidism. 7. Rheumatoid arthritis. chronic stable PLAn: Admit 2 mN LIquid diet today, NPO post MN MOderate SSI Hold Glyburide for now NO basic labs yet Check vit D 25 OH levels Ortho consult OT.OT Resume home meds Seen at ER Dw pt,. and Dr, LIZBETH Tran MD Mar 17, 2017 12:52
[2017-03-17 12:58] LABS: ALBUMIN 3.2 g/dL (3.4-5.0); ALBUMIN/GLOBULIN RATIO 0.8 (1.0-1.7); CREATININE 0.7 mg/dL (0.6-1.0); GFR 85.1; POTASSIUM 4.2 mmol/L (3.5-5.1); TOTAL BILIRUBIN 0.3 mg/dL (0.2-1.0); TOTAL PROTEIN 7.1 g/dL (6.4-8.2)
[2017-03-17] MEDS: PARoxetine 20 MG TABLET PO SCH (13:00)
[2017-03-17] MEDS ORDERED: MORPHINE SULFATE 4 MG/ML DISP.SYRIN. IV PRN (13:00)
[2017-03-17] MEDS: LISINOPRIL 20 MG TABLET PO SCH (13:00)
[2017-03-17] MEDS: PIOGLITAZONE 15 MG TABLET. PO SCH ×2 (13:00→17:30)
[2017-03-17] MEDS: hydroCHLOROthiazide 25 MG TABLET PO SCH (13:00)
[2017-03-17] MEDS: ISOSORBIDE MONONITRATE ER 30 MG TAB.ER.24H PO SCH (13:00)
[2017-03-17] MEDS ORDERED: ONDANSETRON PF 4 MG/2 ML VIAL. IV PRN (13:00)
[2017-03-17] MEDS: INSULIN ASPART 300 UNITS/3 ML INSULN.PEN SQ SCH ×2 (13:00→17:35)
[2017-03-17] MEDS: VERAPAMIL SR 120 MG TABLET.ER. PO SCH (13:00)
[2017-03-17] MEDS: metFORMIN 850 MG TABLET PO SCH ×2 (13:00→17:30)
[2017-03-17 13:49] VITALS: BP 157/73
[2017-03-17 15:29] VITALS: BP 153/88
[2017-03-17] MEDS: fentaNYL PF VIAL 100 MCG/2 ML VIAL IV PRN ×2 (15:29→20:26)
[2017-03-17] MEDS: glyBURIDE 5 MG TABLET PO SCH (17:30)
[2017-03-17 17:33] LABS: INR 1.1 (0.8-1.1); PROTHROMBIN TIME PATIENT 13.5 SEC (11.7-14.0)
[2017-03-17 19:00] VITALS: BP 141/63
[2017-03-17] MEDS: GEMFIBROZIL 600 MG TABLET. PO SCH (22:10)
[2017-03-17] MEDS: OXYBUTYNIN CHLORIDE 5 MG TABLET PO SCH (22:10)
[2017-03-17] MEDS: HYDROcodone/APAP 5/325MG 1 TAB TABLET PO PRN (22:10)
[2017-03-17] MEDS: PHENYTOIN SODIUM EXTENDED 100 MG CAPSULE PO SCH (22:10)
--- NOTE | 2017-03-17 22:15 | CONS ---
DATE OF CONSULTATION: 03/17/2017 REFERRING PROVIDER: Dr. Fletcher. CONSULTING PROVIDER: Fernando Ackerman MD REASON FOR CONSULTATION: Right distal femur fracture and right elbow fracture. CHIEF COMPLAINT: Right leg pain. HISTORY OF PRESENT ILLNESS: The patient is a very pleasant 62-year-old female who had a ground-level fall with no preceding symptoms, then was unable to ambulate or move her leg secondary to pain. She was brought in to the Emergency Department for evaluation. She is also complaining of right elbow pain. She normally is able to ambulate well with a cane and a walker alternating from time to time. She denies any dizziness or lightheadedness or funny feelings in her chest prior to this fall. She tells me she has a history of degenerative disk disease and this causes her some numbness in bilateral legs and some difficulty walking from time to time, but overall she feels like she had been doing well before this. She is complaining of pain above her knee. It does radiate to her leg. It is worse with any movement. It is better at rest and in the knee brace. ALLERGIES: VANCOMYCIN. PAST MEDICAL HISTORY: Significant for coronary artery disease, hypertension, history of myocardial infarction, seizure disorder, type 2 diabetes. PAST SURGICAL HISTORY: Tonsillectomy. REVIEW OF SYSTEMS: Twelve point review of systems negative except as per HPI. FAMILY HISTORY: Noncontributory. SOCIAL HISTORY: No alcohol or tobacco. She is normally a community ambulator. MEDICATIONS: Reviewed, please see MRAD. PHYSICAL EXAMINATION: VITAL SIGNS: Reviewed. GENERAL: The patient is awake and alert. Speech is clear. Mood and affect are appropriate. Mild acute distress at rest secondary to pain. She is examined lying in hospital bed. HEENT: Normocephalic, atraumatic. Extraocular muscles are intact. CARDIOVASCULAR: Regular rate and rhythm. No edema at her ankles. Dorsalis pedis 2+ and symmetric. LUNGS: Respirations are unlabored and symmetric chest rise. ABDOMEN: Soft, obese. EXTREMITIES: Examination of bilateral upper extremities reveals tenderness and pain with range of motion in her right elbow. She is tender over her lateral elbow. Mild tenderness around her olecranon as well. Examination of her lower extremities reveals right lower extremity is slightly shorter and externally rotated. She does have an effusion in her knee present. She is tender globally around her knee. She can wiggle her toes and ankle. EHL and FHL are 5/5. Decreased sensation medial and lateral ankle and medial and lateral foot. This is symmetric with her contralateral side. LABORATORY DATA: Reviewed. CBC and CMP were reviewed. X-rays were interpreted by myself. Elbow x-rays show a nondisplaced radial neck fracture. Femur x-rays show a comminuted right distal femur fracture without any obvious intra-articular extension. Report for these studies was also reviewed. IMPRESSION: 1. Closed right comminuted distal femur fracture. 2. Closed right radial neck fracture. PLAN: She should be nonweightbearing for both of her injuries. I did talk about the risks, benefits, and alternatives to operative intervention and she elects to proceed with surgery. We will plan on operative intervention tomorrow morning. I did discuss with her the postop rehab. She does have degenerative changes present tricompartmentally in her knee, but she had been having some pain there, and I told her that her knee pain may get worse with this rehabilitation in the postoperative course. We did talk about the importance of blood sugar control as well as risks of blood clots, infection and non or delayed union as well amongst others. FERNANDO ACKERMAN MD DR: WAQAR/mariela JOB#: [id number] / [id number] CRYSTAL
[2017-03-17 22:32] VITALS: BP 144/66
[2017-03-18] VITALS (11 sets, daily range): BP systolic 132–151; BP diastolic 53–69
[2017-03-18] MEDS: fentaNYL PF VIAL 100 MCG/2 ML VIAL IV PRN ×4 (00:40→18:08)
[2017-03-18 05:31] LABS: BASO % 0 % (0-3); EOS % 2 % (0-3); HEMATOCRIT 25.4 % (36.0-47.0); HEMOGLOBIN 8.2 g/dL (12.0-15.5); LYMPH # 0.6 x10^3/uL (1.0-4.8); LYMPH % 7 % (24-48); MEAN CORPUSCULAR HEMOGLOBIN 24 pg (25-35); MEAN CORPUSCULAR HGB CONC 32 g/dL (31-37); MEAN CORPUSCULAR VOLUME 76 fL (79-100); MONO % 6 % (0-9); NEUT % 84 % (31-73); PLATELET COUNT 177 x10^3/uL (140-400); RED BLOOD COUNT 3.36 x10^6/uL (3.50-5.40); RED CELL DISTRIBUTION WIDTH 16.3 % (11.5-14.5); WHITE BLOOD COUNT 9.4 x10^3/uL (4.0-11.0)
[2017-03-18 05:40] LABS: CALCIUM 8.6 mg/dL (8.5-10.1); CREATININE 0.7 mg/dL (0.6-1.0); GFR 85.1; POTASSIUM 3.9 mmol/L (3.5-5.1)
[2017-03-18] MEDS ORDERED: ceFAZolin SODIUM 3 GM in IV DEXTROSE 5% 100 ML IV ONE (06:00)
[2017-03-18] MEDS ORDERED: BUPIVACAINE MPF 0.5% 30 ML VIAL. ONE ×2 (06:54→10:04)
[2017-03-18] MEDS ORDERED: LIDOCAINE 1% PF 30 ML VIAL. ONE (06:54)
[2017-03-18] MEDS ORDERED: fentaNYL PF VIAL 100 MCG/2 ML VIAL IV PRN ×2 (07:00)
[2017-03-18] MEDS ORDERED: MORPHINE SULFATE 2 MG/ML DISP.SYRIN. IV PRN (07:00)
[2017-03-18] MEDS ORDERED: IV RINGERS,LACTATED 1000ML 1,000 ML IV SCH (07:00)
[2017-03-18] MEDS ORDERED: HYDROmorphone 2 MG/ML VIAL IV PRN (07:00)
[2017-03-18] MEDS ORDERED: LIDOCAINE 1% PF 2 ML VIAL. ID PRN (07:00)
[2017-03-18] MEDS ORDERED: ONDANSETRON PF 4 MG/2 ML VIAL. IV PRN (07:00)
[2017-03-18] MEDS ORDERED: PROCHLORPERAZINE 10 MG/2 ML VIAL. IV PRN (07:00)
[2017-03-18] MEDS: metFORMIN 850 MG TABLET PO SCH ×3 (08:00→18:02)
[2017-03-18] MEDS: PIOGLITAZONE 15 MG TABLET. PO SCH ×3 (08:00→18:02)
[2017-03-18] MEDS: glyBURIDE 5 MG TABLET PO SCH ×2 (08:00→18:03)
[2017-03-18] MEDS: INSULIN ASPART 300 UNITS/3 ML INSULN.PEN SQ SCH ×3 (08:00→18:11)
[2017-03-18] MEDS: CALCIUM CARB/VIT D3 500/200 TABLET. PO SCH (09:00)
[2017-03-18] MEDS: VERAPAMIL SR 120 MG TABLET.ER. PO SCH (09:00)
[2017-03-18] MEDS: hydroCHLOROthiazide 25 MG TABLET PO SCH (09:00)
[2017-03-18] MEDS: LISINOPRIL 20 MG TABLET PO SCH (09:00)
[2017-03-18] MEDS: PARoxetine 20 MG TABLET PO SCH (09:00)
[2017-03-18] MEDS: OMEGA-3 FATTY ACIDS/FISH OIL 1,000 MG CAPSULE. PO SCH (09:00)
[2017-03-18] MEDS: OXYBUTYNIN CHLORIDE 5 MG TABLET PO SCH ×2 (09:00→22:37)
[2017-03-18] MEDS: PHENYTOIN SODIUM EXTENDED 100 MG CAPSULE PO SCH ×2 (09:00→22:38)
[2017-03-18] MEDS: GEMFIBROZIL 600 MG TABLET. PO SCH ×2 (09:00→22:37)
[2017-03-18] MEDS: MULTIVITAMIN with MINERAL TABLET. PO SCH (09:00)
[2017-03-18] MEDS: ISOSORBIDE MONONITRATE ER 30 MG TAB.ER.24H PO SCH (09:00)
[2017-03-18] MEDS ORDERED: INSULIN ASPART 100 UNIT/ML 10ML VIAL. SQ ONE (09:45)
[2017-03-18] MEDS ORDERED: INSULIN ASPART 100 UNIT/ML 10ML VIAL. SQ STA (09:49)
[2017-03-18] MEDS ORDERED: ONDANSETRON PF 4 MG/2 ML VIAL. ONE (10:01)
[2017-03-18] MEDS ORDERED: PROPOFOL 20 ML IV ONE (10:01)
[2017-03-18] MEDS ORDERED: MIDAZOLAM HCL/PF 2 MG/2 ML VIAL. ONE (10:01)
[2017-03-18] MEDS ORDERED: DEXAMETHASONE SOD PHOS 20 MG/5 ML VIAL. ONE (10:01)
[2017-03-18] MEDS ORDERED: LIDOCAINE 2% PF Vial for OR 5 ML VIAL. ONE (10:01)
[2017-03-18] MEDS ORDERED: FAMOTIDINE 20 MG/2 ML VIAL ONE (10:01)
[2017-03-18] MEDS ORDERED: fentaNYL PF VIAL 100 MCG/2 ML VIAL ONE ×2 (10:01→11:37)
[2017-03-18] MEDS ORDERED: SUCCINYLCHOLINE 200 MG/10 ML VIAL. ONE (10:04)
--- NOTE | 2017-03-18 11:40 | PDOC ---
BRIEF OPERATIVE NOTE Date: Mar 18, 2017 Pre-Op Diagnosis R distal femur fx Closed R radial neck fracture Post-Op Diagnosis same Procedure Performed ORIF R distal femur Nonoperative treatment of Right radial neck fracture Surgeon Bonita Roes Anesthesiologist Sandoval Anesthesia Type: General, Local Blood Loss see op report Complications none SENG ACKERMAN II, MD Mar 18, 2017 11:40
[2017-03-18] MEDS ORDERED: MORPHINE SULFATE 5 MG, KETOROLAC 30 MG, ROPIVacaine 0.5% PF 60 ML, EPINEPHrine 0.5 MG i... INT ART ONE ×5 (12:00)
[2017-03-18] MEDS ORDERED: VASOPRESSIN 20 UNIT/ML VIAL. ONE (12:15)
--- NOTE | 2017-03-18 12:34 | PDOC ---
PROGRESS NOTES Chief Complaint Chief Complaint 1. OCcult RT femur Fx after mechanical fall, traumatic, mechanical 2. Obese 3. hx Severe degenerative disk disease with central canal stenosis at L4-L5, severe and moderate at L2 and L3. 4. Type 2 diabetes mellitus. 5. Hypertension. 6. Hypothyroidism. 7. Rheumatoid arthritis. chronic stable 8. Vit D deficiency History of Present Illness History of Present Illness VIt D levels only 8 Out having OR PLAn: LAbs post op PT/OT Sw dc plans - Start ergocalciferol q weekly x 12 weeks Vitals Vitals Vital Signs Date Time Temp Pulse Resp B/P (MAP) Pulse Ox O2 Delivery O2 Flow Rate FiO2 03/18/17 09:31 98.6 95 20 155/66 94 Room Air 98.6 Physical Exam General: Alert, Oriented X3, Cooperative, No acute distress Lungs: Clear Abdomen: Normal bowel sounds, Soft, No tenderness, No hepatosplenomegaly, No masses Extremities: Other (RT leg externaly rotated) Skin: No rashes, No breakdown, No significant lesion, Other (nystatin podwer in between excessive skin folds) Labs LABS Laboratory Tests Test 03/17/17 16:40 03/17/17 16:48 03/17/17 22:22 03/18/17 04:50 Nasal Screen MRSA (PCR) Positive (Negative) Glucose (Fingerstick) 269 mg/dL (70-99) 281 mg/dL (70-99) White Blood Count 9.4 x10^3/uL (4.0-11.0) Red Blood Count 3.36 x10^6/uL (3.50-5.40) Hemoglobin 8.2 g/dL (12.0-15.5) Hematocrit 25.4 % (36.0-47.0) Mean Corpuscular Volume 76 fL (79-100) Mean Corpuscular Hemoglobin 24 pg (25-35) Mean Corpuscular Hemoglobin Concent 32 g/dL (31-37) Red Cell Distribution Width 16.3 % (11.5-14.5) Platelet Count 177 x10^3/uL (140-400) Neutrophils (%) (Auto) 84 % (31-73) Lymphocytes (%) (Auto) 7 % (24-48) Monocytes (%) (Auto) 6 % (0-9) Eosinophils (%) (Auto) 2 % (0-3) Basophils (%) (Auto) 0 % (0-3) Neutrophils # (Auto) 7.9 x10^3uL (1.8-7.7) Lymphocytes # (Auto) 0.6 x10^3/uL (1.0-4.8) Monocytes # (Auto) 0.6 x10^3/uL (0.0-1.1) Eosinophils # (Auto) 0.2 x10^3/uL (0.0-0.7) Basophils # (Auto) 0.0 x10^3/uL (0.0-0.2) Sodium Level 134 mmol/L (136-145) Potassium Level 3.9 mmol/L (3.5-5.1) Chloride Level 100 mmol/L (98-107) Carbon Dioxide Level 24 mmol/L (21-32) Anion Gap 10 (6-14) Blood Urea Nitrogen 17 mg/dL (7-20) Creatinine 0.7 mg/dL (0.6-1.0) Estimated GFR (Cockcroft-Gault) 85.1 Glucose Level 228 mg/dL (70-99) Calcium Level 8.6 mg/dL (8.5-10.1) Test 03/18/17 07:26 03/18/17 09:36 Glucose (Fingerstick) 237 mg/dL (70-99) 260 mg/dL (70-99) Review of Systems Review of Systems out having OR Assessment and Plan Assessmemt and Plan Problems Medical Problems: (1) Femur fracture Status: Acute Problems: Comment Review of Relevant I have reviewed the following items sheri (where applicable) has been applied. Labs Laboratory Tests Test 03/17/17 11:37 03/17/17 16:40 03/17/17 16:48 03/17/17 22:22 White Blood Count 8.5 x10^3/uL (4.0-11.0) Red Blood Count 3.63 x10^6/uL (3.50-5.40) Hemoglobin 8.9 g/dL (12.0-15.5) Hematocrit 28.0 % (36.0-47.0) Mean Corpuscular Volume 77 fL (79-100) Mean Corpuscular Hemoglobin 25 pg (25-35) Mean Corpuscular Hemoglobin Concent 32 g/dL (31-37) Red Cell Distribution Width 16.0 % (11.5-14.5) Platelet Count 193 x10^3/uL (140-400) Neutrophils (%) (Auto) 87 % (31-73) Lymphocytes (%) (Auto) 7 % (24-48) Monocytes (%) (Auto) 5 % (0-9) Eosinophils (%) (Auto) 0 % (0-3) Basophils (%) (Auto) 0 % (0-3) Neutrophils # (Auto) 7.4 x10^3uL (1.8-7.7) Lymphocytes # (Auto) 0.6 x10^3/uL (1.0-4.8) Monocytes # (Auto) 0.5 x10^3/uL (0.0-1.1) Eosinophils # (Auto) 0.0 x10^3/uL (0.0-0.7) Basophils # (Auto) 0.0 x10^3/uL (0.0-0.2) Prothrombin Time 13.5 SEC (11.7-14.0) Prothromb Time International Ratio 1.1 (0.8-1.1) Sodium Level 135 mmol/L (136-145) Potassium Level 4.2 mmol/L (3.5-5.1) Chloride Level 101 mmol/L (98-107) Carbon Dioxide Level 27 mmol/L (21-32) Anion Gap 7 (6-14) Blood Urea Nitrogen 15 mg/dL (7-20) Creatinine 0.7 mg/dL (0.6-1.0) Estimated GFR (Cockcroft-Gault) 85.1 BUN/Creatinine Ratio 21 (6-20) Glucose Level 237 mg/dL (70-99) Calcium Level 9.0 mg/dL (8.5-10.1) Total Bilirubin 0.3 mg/dL (0.2-1.0) Aspartate Amino Transf (AST/SGOT) 20 U/L (15-37) Alanine Aminotransferase (ALT/SGPT) 21 U/L (14-59) Alkaline Phosphatase 122 U/L (46-116) Total Protein 7.1 g/dL (6.4-8.2) Albumin 3.2 g/dL (3.4-5.0) Albumin/Globulin Ratio 0.8 (1.0-1.7) 25-Hydroxy Vitamin D Total 8.6 ng/mL (30.0-100.0) Nasal Screen MRSA (PCR) Positive (Negative) Glucose (Fingerstick) 269 mg/dL (70-99) 281 mg/dL (70-99) Test 03/18/17 04:50 03/18/17 07:26 03/18/17 09:36 White Blood Count 9.4 x10^3/uL (4.0-11.0) Red Blood Count 3.36 x10^6/uL (3.50-5.40) Hemoglobin 8.2 g/dL (12.0-15.5) Hematocrit 25.4 % (36.0-47.0) Mean Corpuscular Volume 76 fL (79-100) Mean Corpuscular Hemoglobin 24 pg (25-35) Mean Corpuscular Hemoglobin Concent 32 g/dL (31-37) Red Cell Distribution Width 16.3 % (11.5-14.5) Platelet Count 177 x10^3/uL (140-400) Neutrophils (%) (Auto) 84 % (31-73) Lymphocytes (%) (Auto) 7 % (24-48) Monocytes (%) (Auto) 6 % (0-9) Eosinophils (%) (Auto) 2 % (0-3) Basophils (%) (Auto) 0 % (0-3) Neutrophils # (Auto) 7.9 x10^3uL (1.8-7.7) Lymphocytes # (Auto) 0.6 x10^3/uL (1.0-4.8) Monocytes # (Auto) 0.6 x10^3/uL (0.0-1.1) Eosinophils # (Auto) 0.2 x10^3/uL (0.0-0.7) Basophils # (Auto) 0.0 x10^3/uL (0.0-0.2) Sodium Level 134 mmol/L (136-145) Potassium Level 3.9 mmol/L (3.5-5.1) Chloride Level 100 mmol/L (98-107) Carbon Dioxide Level 24 mmol/L (21-32) Anion Gap 10 (6-14) Blood Urea Nitrogen 17 mg/dL (7-20) Creatinine 0.7 mg/dL (0.6-1.0) Estimated GFR (Cockcroft-Gault) 85.1 Glucose Level 228 mg/dL (70-99) Calcium Level 8.6 mg/dL (8.5-10.1) Glucose (Fingerstick) 237 mg/dL (70-99) 260 mg/dL (70-99) Laboratory Tests Test 03/17/17 16:40 03/17/17 16:48 03/17/17 22:22 03/18/17 04:50 Nasal Screen MRSA (PCR) Positive (Negative) Glucose (Fingerstick) 269 mg/dL (70-99) 281 mg/dL (70-99) White Blood Count 9.4 x10^3/uL (4.0-11.0) Red Blood Count 3.36 x10^6/uL (3.50-5.40) Hemoglobin 8.2 g/dL (12.0-15.5) Hematocrit 25.4 % (36.0-47.0) Mean Corpuscular Volume 76 fL (79-100) Mean Corpuscular Hemoglobin 24 pg (25-35) Mean Corpuscular Hemoglobin Concent 32 g/dL (31-37) Red Cell Distribution Width 16.3 % (11.5-14.5) Platelet Count 177 x10^3/uL (140-400) Neutrophils (%) (Auto) 84 % (31-73) Lymphocytes (%) (Auto) 7 % (24-48) Monocytes (%) (Auto) 6 % (0-9) Eosinophils (%) (Auto) 2 % (0-3) Basophils (%) (Auto) 0 % (0-3) Neutrophils # (Auto) 7.9 x10^3uL (1.8-7.7) Lymphocytes # (Auto) 0.6 x10^3/uL (1.0-4.8) Monocytes # (Auto) 0.6 x10^3/uL (0.0-1.1) Eosinophils # (Auto) 0.2 x10^3/uL (0.0-0.7) Basophils # (Auto) 0.0 x10^3/uL (0.0-0.2) Sodium Level 134 mmol/L (136-145) Potassium Level 3.9 mmol/L (3.5-5.1) Chloride Level 100 mmol/L (98-107) Carbon Dioxide Level 24 mmol/L (21-32) Anion Gap 10 (6-14) Blood Urea Nitrogen 17 mg/dL (7-20) Creatinine 0.7 mg/dL (0.6-1.0) Estimated GFR (Cockcroft-Gault) 85.1 Glucose Level 228 mg/dL (70-99) Calcium Level 8.6 mg/dL (8.5-10.1) Test 03/18/17 07:26 03/18/17 09:36 Glucose (Fingerstick) 237 mg/dL (70-99) 260 mg/dL (70-99) Medications Current Medications Morphine Sulfate 2 mg 1X ONCE IV/SQ Last administered on 03/17/17 11:46; Start 03/17/17 at 11:45; Stop 03/17/17 at 11:46; Status DC Fentanyl Citrate (Fentanyl 2ml Vial) 50 mcg PRN Q2HR PRN IV PAIN Last administered on 03/18/17 08:34; Start 03/17/17 at 12:45 Acetaminophen/ Hydrocodone Bitart (Lortab 5/325) 1 tab PRN Q4HRS PRN PO PAIN Last administered on 03/17/17 22:10; Start 03/17/17 at 12:45 Acetaminophen/ Hydrocodone Bitart (Lortab 7.5/325) 1 tab PRN Q6HRS PRN PO PAIN ; Start 03/17/17 at 12:45 Gemfibrozil (Lopid) 600 mg BID PO Last administered on 03/17/17 22:10; Start 03/17/17 at 21:00 Glyburide (Diabeta) 10 mg BIDWMEALS PO Last administered on 03/17/17 17:30; Start 03/17/17 at 17:00 Paroxetine HCl (Paxil) 20 mg DAILY PO ; Start 03/17/17 at 13:00 Phenytoin Sodium (Dilantin) 300 mg BID PO Last administered on 03/17/17 22:10 ; Start 03/17/17 at 21:00 Lisinopril (Prinivil) 20 mg DAILY PO ; Start 03/17/17 at 13:00 Calcium/Vitamin D (Oscal D 500mg/ 200uts) 1 tab DAILY PO ; Start 03/18/17 at 09: 00 Hydrochlorothiazide (Hydrodiuril) 25 mg DAILY PO ; Start 03/17/17 at 13:00 Isosorbide Mononitrate (Imdur) 30 mg DAILY PO ; Start 03/17/17 at 13:00 Fish Oil (Fish Oil) 1,000 mg DAILY PO ; Start 03/18/17 at 09:00 Multivitamins (Thera M Plus) 1 tab DAILY PO ; Start 03/18/17 at 09:00 Non-Formulary Medication 3 tab UD PO ; Start 03/17/17 at 12:45; Status UNV Oxybutynin Chloride (Ditropan) 5 mg BID PO Last administered on 03/17/17 22:10 ; Start 03/17/17 at 21:00 Verapamil HCl (Calan Sr) 240 mg DAILY PO ; Start 03/17/17 at 13:00 Insulin Aspart (NovoLOG) 0-7 UNITS TIDWMEALS SQ Last administered on 03/17/17 17:35; Start 03/17/17 at 13:00 Dextrose (Dextrose 50%-Water Syringe) 12.5 gm PRN Q15MIN PRN IV SEE COMMENTS; Start 03/17/17 at 12:45 Ondansetron HCl (Zofran) 4 mg PRN Q8HRS PRN IV NAUSEA/VOMITING; Start 03/17/17 at 13:00; Stop 03/18/17 at 12:59 Morphine Sulfate 2 mg PRN Q2HR PRN IV PAIN; Start 03/17/17 at 13:00; Stop 03/18 at 12:59 Pioglitazone HCl (Actos) 15 mg TIDWMEALS PO Last administered on 03/17/17 17: 30; Start 03/17/17 at 13:00 Metformin HCl (Glucophage) 850 mg TIDWMEALS PO Last administered on 03/17/17 17:30; Start 03/17/17 at 13:00 Cefazolin Sodium 3 gm/Dextrose 100 ml @ 200 mls/hr 1X ONCE IV ; Start at 06:00; Stop 03/18/17 at 06:29; Status DC Ondansetron HCl (Zofran) 4 mg PRN Q6HRS PRN IV NAUSEA/VOMITING; Start 03/18/17 at 07:00; Stop 03/19/17 at 06:59 Fentanyl Citrate (Fentanyl 2ml Vial) 25 mcg PRN Q5MIN PRN IV MILD PAIN; Start 03/18/17 at 07:00; Stop 03/19/17 at 06:59 Fentanyl Citrate (Fentanyl 2ml Vial) 50 mcg PRN Q5MIN PRN IV MODERATE PAIN; Start 03/18/17 at 07:00; Stop 03/19/17 at 06:59 Morphine Sulfate 1 mg PRN Q10MIN PRN IV SEVERE PAIN; Start 03/18/17 at 07:00; Stop 03/19/17 at 06:59 Ringer's Solution 1,000 ml @ 0 mls/hr Q0M IV Last administered on 03/18/17 09 :55; Start 03/18/17 at 07:00; Stop 03/18/17 at 18:59 Lidocaine HCl (Xylocaine-Mpf 1% Vial) 2 ml PRN 1X PRN ID PRIOR TO IV START; Start 03/18/17 at 07:00; Stop 03/19/17 at 06:59 Hydromorphone HCl (Dilaudid) 0.5 mg PRN Q10MIN PRN IV SEV PAIN, Second choice; Start 03/18/17 at 07:00; Stop 03/19/17 at 06:59 Prochlorperazine Edisylate (Compazine) 5 mg PACU PRN PRN IV NAUSEA, MRX1; Start 03/18/17 at 07:00; Stop 03/19/17 at 06:59 Lidocaine HCl 30 ml STK-MED ONCE .ROUTE ; Start 03/18/17 at 06:54; Stop at 06:55; Status DC Bupivacaine HCl (Sensorcaine Mpf 0.5%) 30 ml STK-MED ONCE .ROUTE ; Start at 06:54; Stop 03/18/17 at 06:55; Status DC Insulin Aspart (NovoLOG VIAL) 100 unit STK-MED ONCE SQ ; Start 03/18/17 at 09:45 ; Stop 03/18/17 at 09:46; Status DC Insulin Aspart (NovoLOG VIAL) 8 unit 1X STAT SQ Last administered on 09:52; Start 03/18/17 at 09:49; Stop 03/18/17 at 09:50; Status DC Propofol 20 ml @ As Directed STK-MED ONCE IV ; Start 03/18/17 at 10:01; Stop at 10:03; Status DC Dexamethasone Sodium Phosphate (Decadron) 20 mg STK-MED ONCE .ROUTE ; Start 03/18/17 at 10:01; Stop 03/18/17 at 10:03; Status DC Famotidine (Pepcid) 20 mg STK-MED ONCE .ROUTE ; Start 03/18/17 at 10:01; Stop 03/18/17 at 10:03; Status DC Lidocaine HCl (Lidocaine Pf 2% Vial) 5 ml STK-MED ONCE .ROUTE ; Start 03/18/17 at 10:01; Stop 03/18/17 at 10:03; Status DC Ondansetron HCl (Zofran) 4 mg STK-MED ONCE .ROUTE ; Start 03/18/17 at 10:01; Stop 03/18/17 at 10:03; Status DC Fentanyl Citrate (Fentanyl 2ml Vial) 100 mcg STK-MED ONCE .ROUTE ; Start at 10:01; Stop 03/18/17 at 10:03; Status DC Midazolam HCl (Versed) 2 mg STK-MED ONCE .ROUTE ; Start 03/18/17 at 10:01; Stop 03/18/17 at 10:03; Status DC Bupivacaine HCl (Sensorcaine Mpf 0.5%) 30 ml STK-MED ONCE .ROUTE ; Start at 10:04; Stop 03/18/17 at 10:05; Status DC Succinylcholine Chloride (Anectine) 200 mg STK-MED ONCE .ROUTE ; Start 03/18/17 at 10:04; Stop 03/18/17 at 10:05; Status DC Fentanyl Citrate (Fentanyl 2ml Vial) 100 mcg STK-MED ONCE .ROUTE ; Start at 11:37; Stop 03/18/17 at 11:38; Status DC Enoxaparin Sodium (Lovenox 40mg Syringe) 40 mg Q12HR SQ ; Start 03/18/17 at 21: 00 Cefazolin Sodium 3 gm/Dextrose 100 ml @ 200 mls/hr Q6H IV ; Start 03/18/17 at 11:45; Stop 03/19/17 at 00:14; Status UNV Ergocalciferol (Vitamin D2) 50,000 unit WEEKLY PO ; Start 03/19/17 at 09:00 Morphine Sulfate 5 mg/Ketorolac Tromethamine 30 mg/Ropivacaine 60 ml/ Epinephrine HCl 0.5 mg/Sodium Chloride 100 ml @ 100 mls/hr 1X PERIOP ONCE INT ART ; Start 03/18/17 at 12:00; Stop 03/18/17 at 12:59 Vasopressin (Vasostrict) 20 unit STK-MED ONCE .ROUTE ; Start 03/18/17 at 12:15; Stop 03/18/17 at 12:16; Status DC Active Scripts Active Reported Krill Oil 300 Mg Softgel (Krill/[place]-3/Dha/Epa/Lipids) 1 Each Capsule 1 Each PO DAILY Aspirin 325 Mg Tablet 1 Tab PO DAILY Caltrate 600 + D Tablet (Calcium Carbonate/Vitamin D3) 1 Each Tablet 1 Each PO DAILY Centrum Silver Tablet (Multivits-Min/Fa/Lycopene/Lut) 1 Each Tablet 1 Each PO DAILY Detrol La (Tolterodine Tartrate) 2 Mg Cap.er.24h 2 Mg PO DAILY Isosorbide Dinitrate 30 Mg Tablet 30 Mg PO DAILY Lotensin (Benazepril Hcl) 20 Mg Tablet 20 Mg PO DAILY Hydrochlorothiazide Tablet (Hydrochlorothiazide) 50 Mg Tablet 25 Mg PO DAILY Calan (Verapamil Hcl) 120 Mg Tablet 240 Mg PO DAILY Paxil (Paroxetine Hcl) 20 Mg Tablet 1 Tab PO DAILY Dilantin (Phenytoin Sodium Extended) 100 Mg Capsule 3 Cap PO BID Actoplus Met 15 Mg-850 Mg Tab (Pioglitazone Hcl/Metformin Hcl) 1 Each Tablet 3 Tab PO UD Gemfibrozil 600 Mg Tablet 600 Mg PO BID Glyburide 5 Mg Tablet 2 Tab PO BID Vitals/I & O Vital Sign - Last 24 Hours 03/17/17 03/17/17 03/17/17 03/17/17 12:53 12:54 13:49 15:29 Temp 98.1 97.7 98.1 97.7 Pulse 86 84 89 93 Resp 16 18 24 24 B/P (MAP) 155/70 (98) 155/70 (98) 157/73 (101) 153/88 (109) Pulse Ox 95 95 94 92 O2 Delivery Room Air Room Air Room Air Room Air 03/17/17 03/17/17 03/17/17 03/17/17 15:29 17:09 19:00 20:00 Temp 98.5 98.5 Pulse 99 Resp 19 B/P (MAP) 141/63 (89) Pulse Ox 93 O2 Delivery Room Air Room Air Room Air Room Air 03/17/17 03/17/17 03/17/17 03/17/17 20:26 22:10 22:32 23:10 Temp 97.9 97.9 Pulse 98 Resp 20 20 18 20 B/P (MAP) 144/66 (92) Pulse Ox 93 93 96 95 O2 Delivery Room Air Room Air Room Air Room Air 03/18/17 03/18/17 03/18/17 03/18/17 00:40 02:33 05:21 05:51 Temp 98.2 98.2 Pulse 88 Resp 20 18 20 20 B/P (MAP) 146/69 (94) Pulse Ox 96 95 95 O2 Delivery Room Air Room Air Room Air 03/18/17 03/18/17 03/18/17 03/18/17 07:00 07:30 08:34 09:15 Temp 98.7 98.7 Pulse 95 Resp 18 B/P (MAP) 133/67 (89) Pulse Ox 95 95 94 O2 Delivery Room Air Room Air Room Air Room Air 03/18/17 09:31 Temp 98.6 98.6 Pulse 95 Resp 20 B/P (MAP) 155/66 Pulse Ox 94 O2 Delivery Room Air LIZBETH PARSONS MD Mar 18, 2017 12:34
[2017-03-18] MEDS ORDERED: SEVOFLURANE 61 TO 120 MINUTES. IH ONE (12:43)
[2017-03-18] MEDS ORDERED: INSULIN ASPART 100 UNIT/ML 10ML VIAL. SQ PRN (13:45)
[2017-03-18] MEDS ORDERED: FLU VACC QS2017-18 (36MOS+)/PF 0.5 ML SYRINGE. VAX IM ONE (16:00)
--- NOTE | 2017-03-18 17:39 | OP ---
DATE OF SURGERY: 03/18/2017 SURGEON: Fernando Ackerman MD FUR BUYER: Sana Rose. ANESTHESIA: General plus local at the end. PREOPERATIVE DIAGNOSES: 1. Closed right comminuted distal femoral fracture. 2. Closed right radial neck fracture. POSTOPERATIVE DIAGNOSES: 1. Closed right comminuted distal femoral fracture. 2. Closed right radial neck fracture. PROCEDURE PERFORMED: 1. ORIF right distal femur fracture. 2. Nonoperative treatment of closed right radial neck fracture. COMPONENTS INSERTED: [employer] 8-hole distal femur locking plate. COMPLICATIONS: None. TOURNIQUET TIME: 50 minutes. ESTIMATED BLOOD LOSS: 250 mL. REASON FOR PROCEDURE: The patient is a 62-year-old female who was able to ambulate with the assistance of a cane or walker and had a ground level fall. Please see my full dictated outpatient consult note for further details. We had discussion of risks, benefits, alternatives of the above surgery and she elected to proceed. DESCRIPTION OF PROCEDURE: The patient was greeted in the preoperative area by myself. The correct extremity was marked and verified. She was taken back to the Operative Suite and antibiotics were started en route. Once in the OR, she was transferred gently supine to the OR table and secured to the bed with all pressure points padded after a large bump placed under her right hip. We then proceeded to prep and drape her right lower extremity in our usual sterile fashion and conducted a standard preoperative timeout. We then applied a sterile tourniquet to her right upper thigh and held it in place with Ioban. After this, I palpated and marked with surface anatomy, of course I was able to and made a straight lateral incision over distal femur and knee region. I incised skin with a scalpel and dissected a subcutaneous tissue with electrocautery until I encountered the fascia. At this point, I put some laps over the area and then we put the tourniquet up to save some tourniquet time. I then continued on with my dissection. I used a Garcia to remove some of the adherent subcutaneous tissues off of the IT band and fascia for later identification and repair. I then incised the fascia in line with skin incision and bluntly dissected down to the lateral epicondyle and then to the fracture site. She had stripped lot of the vastus lateralis off of this area and there was a large amount of hematoma, which I evacuated. Using a metal tip suction device, I debrided the hematoma from the fracture site. I then used electrocautery to essentially lift the vastus lateralis off the lateral intermuscular septum. Perforators were cauterized as they were visualized. I then placed self-retaining retractors and continued on with my exposure. I then pulled traction and held a valgus force at the fracture site and checked my AP and was happy with this alignment. She has a little bit of extension, so I placed a towel wrapped bump underneath her posterior distal femur and this helped restore her more natural alignment. I then provisionally held the plate against bone and checked AP and lateral and then pinned into place once I was happy with my position. I then placed a nonlocking screw through the distal holes and then filled the remainder of the distal holes distal to the fracture site with locking screws. I then had an blacksmith assistant pulled traction and hold the reduction and that will be checked under biplanar fluoroscopy. Then, I secured the plate to the bone proximally with a nonlocking screw. I then filled the remainder of the holes with locking screws with the exception of a nonlocking screw proximally. I then traded out my initial reduction screw for a locking screw after remeasuring this. I then checked my final AP and lateral images and was happy with the fracture reduction and hardware position. We then irrigated out the operative field with sterile normal saline. I let the tourniquet down and there was some venous oozing, but no overt bleeding. I then placed a 1/8 inch Hemovac exiting anterolaterally from her knee region and then closed the IT band and fascia with [id number] in simple interrupted #1 Vicryls. I made sure the drain was freely mobile. After this, we used inverted interrupted 2-0 in a multilayered fashion for subcutaneous tissue and patrick for skin. I then infiltrated the sharan-incisional area with my periarticular local anesthetic mixture, 60 mL. She tolerated surgery well. Prior to completion of wound closure, all counts were reported correct x 2. No complications. At the conclusion of surgery, she was awakened from anesthesia, transferred gently supine to the hospital cart and taken to the PACU in stable and extubated condition. Postoperative plan is nonweightbearing x 6 weeks. She will receive DVT and antibiotic prophylaxis. She will be readmitted the hospitalist service. I will follow along with her care. FERNANDO ACKERMAN MD DR: WAQAR/mariela JOB#: [id number] / [id number] CRYSTAL
[2017-03-18] MEDS: ENOXAPARIN 40 MG/0.4 ML SYRINGE. SQ SCH (22:39)
[2017-03-19] MEDS: HYDROcodone/APAP 7.5/325MG 1 TAB TABLET PO PRN (01:07)
[2017-03-19 03:00] VITALS: BP 138/59
[2017-03-19] MEDS: fentaNYL PF VIAL 100 MCG/2 ML VIAL IV PRN ×7 (06:33→23:39)
[2017-03-19 07:00] VITALS: BP 132/60
[2017-03-19] MEDS: INSULIN ASPART 300 UNITS/3 ML INSULN.PEN SQ SCH ×3 (08:50→17:41)
[2017-03-19] MEDS: VERAPAMIL SR 120 MG TABLET.ER. PO SCH (10:02)
[2017-03-19] MEDS: OMEGA-3 FATTY ACIDS/FISH OIL 1,000 MG CAPSULE. PO SCH (10:03)
[2017-03-19] MEDS: ONDANSETRON PF 4 MG/2 ML VIAL. IV PRN (10:03)
[2017-03-19] MEDS: glyBURIDE 5 MG TABLET PO SCH ×2 (10:04→17:40)
[2017-03-19] MEDS: PIOGLITAZONE 15 MG TABLET. PO SCH ×3 (10:04→17:40)
[2017-03-19] MEDS: metFORMIN 850 MG TABLET PO SCH ×3 (10:04→17:40)
[2017-03-19] MEDS: ISOSORBIDE MONONITRATE ER 30 MG TAB.ER.24H PO SCH (10:04)
[2017-03-19] MEDS: CALCIUM CARB/VIT D3 500/200 TABLET. PO SCH (10:05)
[2017-03-19] MEDS: PHENYTOIN SODIUM EXTENDED 100 MG CAPSULE PO SCH ×2 (10:05→20:58)
[2017-03-19] MEDS: PARoxetine 20 MG TABLET PO SCH (10:05)
[2017-03-19] MEDS: ERGOCALCIFEROL (VITAMIN D2) 50,000 UNIT CAPSULE. PO SCH (10:05)
[2017-03-19] MEDS: GEMFIBROZIL 600 MG TABLET. PO SCH ×2 (10:05→20:58)
[2017-03-19] MEDS: OXYBUTYNIN CHLORIDE 5 MG TABLET PO SCH ×2 (10:06→20:58)
[2017-03-19] MEDS: LISINOPRIL 20 MG TABLET PO SCH (10:06)
[2017-03-19] MEDS: MULTIVITAMIN with MINERAL TABLET. PO SCH (10:06)
[2017-03-19] MEDS: hydroCHLOROthiazide 25 MG TABLET PO SCH (10:07)
[2017-03-19] MEDS: ENOXAPARIN 40 MG/0.4 ML SYRINGE. SQ SCH ×2 (10:10→20:59)
[2017-03-19] MEDS ORDERED: IBUPROFEN 600 MG TABLET. PO PRN (10:45)
[2017-03-19 11:00] VITALS: BP 148/64
--- NOTE | 2017-03-19 11:16 | PDOC ---
JORGEEDGARDO J CABIN AGENT 03/19/17 1116: ORTHO PROGRESS NOTES Subjective Patient is doing ok. Pain is moderately controlled with oral pain meds. Complains of some nausea, not sure if it is from the pain meds. Admits to a history of Gerd and taking carafate. Denies SOB/CP Post-op Day: 1 (ORIF right distal femur fracture) Vitals Vital Signs Date Time Temp Pulse Resp B/P (MAP) Pulse Ox O2 Delivery O2 Flow Rate FiO2 03/19/17 10:11 Nasal Cannula 03/19/17 10:06 78 132/60 03/19/17 07:00 98.4 18 98 98.4 03/19/17 06:33 2.0 Labs Laboratory Tests Test 03/17/17 11:37 03/17/17 16:40 03/17/17 16:48 03/17/17 22:22 White Blood Count 8.5 x10^3/uL (4.0-11.0) Red Blood Count 3.63 x10^6/uL (3.50-5.40) Hemoglobin 8.9 g/dL (12.0-15.5) Hematocrit 28.0 % (36.0-47.0) Mean Corpuscular Volume 77 fL (79-100) Mean Corpuscular Hemoglobin 25 pg (25-35) Mean Corpuscular Hemoglobin Concent 32 g/dL (31-37) Red Cell Distribution Width 16.0 % (11.5-14.5) Platelet Count 193 x10^3/uL (140-400) Neutrophils (%) (Auto) 87 % (31-73) Lymphocytes (%) (Auto) 7 % (24-48) Monocytes (%) (Auto) 5 % (0-9) Eosinophils (%) (Auto) 0 % (0-3) Basophils (%) (Auto) 0 % (0-3) Neutrophils # (Auto) 7.4 x10^3uL (1.8-7.7) Lymphocytes # (Auto) 0.6 x10^3/uL (1.0-4.8) Monocytes # (Auto) 0.5 x10^3/uL (0.0-1.1) Eosinophils # (Auto) 0.0 x10^3/uL (0.0-0.7) Basophils # (Auto) 0.0 x10^3/uL (0.0-0.2) Prothrombin Time 13.5 SEC (11.7-14.0) Prothromb Time International Ratio 1.1 (0.8-1.1) Sodium Level 135 mmol/L (136-145) Potassium Level 4.2 mmol/L (3.5-5.1) Chloride Level 101 mmol/L (98-107) Carbon Dioxide Level 27 mmol/L (21-32) Anion Gap 7 (6-14) Blood Urea Nitrogen 15 mg/dL (7-20) Creatinine 0.7 mg/dL (0.6-1.0) Estimated GFR (Cockcroft-Gault) 85.1 BUN/Creatinine Ratio 21 (6-20) Glucose Level 237 mg/dL (70-99) Calcium Level 9.0 mg/dL (8.5-10.1) Total Bilirubin 0.3 mg/dL (0.2-1.0) Aspartate Amino Transf (AST/SGOT) 20 U/L (15-37) Alanine Aminotransferase (ALT/SGPT) 21 U/L (14-59) Alkaline Phosphatase 122 U/L (46-116) Total Protein 7.1 g/dL (6.4-8.2) Albumin 3.2 g/dL (3.4-5.0) Albumin/Globulin Ratio 0.8 (1.0-1.7) 25-Hydroxy Vitamin D Total 8.6 ng/mL (30.0-100.0) Nasal Screen MRSA (PCR) Positive (Negative) Glucose (Fingerstick) 269 mg/dL (70-99) 281 mg/dL (70-99) Test 03/18/17 04:50 03/18/17 07:26 03/18/17 09:36 03/18/17 13:38 White Blood Count 9.4 x10^3/uL (4.0-11.0) Red Blood Count 3.36 x10^6/uL (3.50-5.40) Hemoglobin 8.2 g/dL (12.0-15.5) Hematocrit 25.4 % (36.0-47.0) Mean Corpuscular Volume 76 fL (79-100) Mean Corpuscular Hemoglobin 24 pg (25-35) Mean Corpuscular Hemoglobin Concent 32 g/dL (31-37) Red Cell Distribution Width 16.3 % (11.5-14.5) Platelet Count 177 x10^3/uL (140-400) Neutrophils (%) (Auto) 84 % (31-73) Lymphocytes (%) (Auto) 7 % (24-48) Monocytes (%) (Auto) 6 % (0-9) Eosinophils (%) (Auto) 2 % (0-3) Basophils (%) (Auto) 0 % (0-3) Neutrophils # (Auto) 7.9 x10^3uL (1.8-7.7) Lymphocytes # (Auto) 0.6 x10^3/uL (1.0-4.8) Monocytes # (Auto) 0.6 x10^3/uL (0.0-1.1) Eosinophils # (Auto) 0.2 x10^3/uL (0.0-0.7) Basophils # (Auto) 0.0 x10^3/uL (0.0-0.2) Sodium Level 134 mmol/L (136-145) Potassium Level 3.9 mmol/L (3.5-5.1) Chloride Level 100 mmol/L (98-107) Carbon Dioxide Level 24 mmol/L (21-32) Anion Gap 10 (6-14) Blood Urea Nitrogen 17 mg/dL (7-20) Creatinine 0.7 mg/dL (0.6-1.0) Estimated GFR (Cockcroft-Gault) 85.1 Glucose Level 228 mg/dL (70-99) Calcium Level 8.6 mg/dL (8.5-10.1) Glucose (Fingerstick) 237 mg/dL (70-99) 260 mg/dL (70-99) 269 mg/dL (70-99) Test 03/18/17 14:15 03/18/17 16:31 03/18/17 21:10 03/19/17 06:59 Glucose (Fingerstick) 298 mg/dL (70-99) 285 mg/dL (70-99) 251 mg/dL (70-99) 123 mg/dL (70-99) Laboratory Tests Test 03/18/17 13:38 03/18/17 14:15 03/18/17 16:31 03/18/17 21:10 Glucose (Fingerstick) 269 mg/dL (70-99) 298 mg/dL (70-99) 285 mg/dL (70-99) 251 mg/dL (70-99) Test 03/19/17 06:59 Glucose (Fingerstick) 123 mg/dL (70-99) Notes Patient is awake and alert, sitting in bed. breathing nonlabored, no acute distress. Incision covered with dressing, hemovac with dark red bloody drainage. Feet warm, PPP, able to wiggle toes, skin pink good cap refill. Problems: (1) Femur fracture Assessment and Plan Pain moderately controlled Nausea- zofran helping. Will start protonix NWB PT for transfers and gait training. Plan to DC to rehab because she does not have help at home SENG ACKERMAN II, MD 03/20/17 0926: Problem Qualifiers (1) Femur fracture: Encounter type: initial encounter Femur location: unspecified portion of femur Fracture type: closed Laterality: right EDGARDO PATEL APRN Mar 19, 2017 11:16 SENG ACKERMAN II, MD Mar 20, 2017 09:26
--- NOTE | 2017-03-19 12:00 | PDOC ---
PROGRESS NOTES Chief Complaint Chief Complaint 1. ORIF R distal femur Nonoperative treatment of Right radial neck fracture 2. Obese 3. hx Severe degenerative disk disease with central canal stenosis at L4-L5, severe and moderate at L2 and L3. 4. Type 2 diabetes mellitus. 5. Hypertension. 6. Hypothyroidism. 7. Rheumatoid arthritis. chronic stable 8. Vit D deficiency History of Present Illness History of Present Illness DOing ok Was instructed non weight bear on that RT leg Agreeable to SNU ON ergocalciferol bec vit D is only 8 LAbs post op so far ok plan: sw CONSULT for SNU - discussed LAbs tmr again - hgb slight drop today Vitals Vitals Vital Signs Date Time Temp Pulse Resp B/P (MAP) Pulse Ox O2 Delivery O2 Flow Rate FiO2 03/19/17 11:00 98.6 100 18 148/64 (92) 96 Room Air 98.6 03/19/17 06:33 2.0 Physical Exam General: Alert, Oriented X3, Cooperative, No acute distress Lungs: Clear Abdomen: Normal bowel sounds, Soft, No tenderness, No hepatosplenomegaly, No masses Extremities: Other (RT leg externaly rotated) Skin: No rashes, No breakdown, No significant lesion, Other (nystatin podwer in between excessive skin folds) Labs LABS Laboratory Tests Test 03/18/17 13:38 03/18/17 14:15 03/18/17 16:31 03/18/17 21:10 Glucose (Fingerstick) 269 mg/dL (70-99) 298 mg/dL (70-99) 285 mg/dL (70-99) 251 mg/dL (70-99) Test 03/19/17 06:59 03/19/17 10:41 Glucose (Fingerstick) 123 mg/dL (70-99) 144 mg/dL (70-99) Review of Systems Review of Systems post op pain, no cp, no soa, no abd pain Assessment and Plan Assessmemt and Plan Problems Medical Problems: (1) Femur fracture Status: Acute Problems: Comment Review of Relevant I have reviewed the following items sheri (where applicable) has been applied. Labs Laboratory Tests Test 03/17/17 16:40 03/17/17 16:48 03/17/17 22:22 03/18/17 04:50 Nasal Screen MRSA (PCR) Positive (Negative) Glucose (Fingerstick) 269 mg/dL (70-99) 281 mg/dL (70-99) White Blood Count 9.4 x10^3/uL (4.0-11.0) Red Blood Count 3.36 x10^6/uL (3.50-5.40) Hemoglobin 8.2 g/dL (12.0-15.5) Hematocrit 25.4 % (36.0-47.0) Mean Corpuscular Volume 76 fL (79-100) Mean Corpuscular Hemoglobin 24 pg (25-35) Mean Corpuscular Hemoglobin Concent 32 g/dL (31-37) Red Cell Distribution Width 16.3 % (11.5-14.5) Platelet Count 177 x10^3/uL (140-400) Neutrophils (%) (Auto) 84 % (31-73) Lymphocytes (%) (Auto) 7 % (24-48) Monocytes (%) (Auto) 6 % (0-9) Eosinophils (%) (Auto) 2 % (0-3) Basophils (%) (Auto) 0 % (0-3) Neutrophils # (Auto) 7.9 x10^3uL (1.8-7.7) Lymphocytes # (Auto) 0.6 x10^3/uL (1.0-4.8) Monocytes # (Auto) 0.6 x10^3/uL (0.0-1.1) Eosinophils # (Auto) 0.2 x10^3/uL (0.0-0.7) Basophils # (Auto) 0.0 x10^3/uL (0.0-0.2) Sodium Level 134 mmol/L (136-145) Potassium Level 3.9 mmol/L (3.5-5.1) Chloride Level 100 mmol/L (98-107) Carbon Dioxide Level 24 mmol/L (21-32) Anion Gap 10 (6-14) Blood Urea Nitrogen 17 mg/dL (7-20) Creatinine 0.7 mg/dL (0.6-1.0) Estimated GFR (Cockcroft-Gault) 85.1 Glucose Level 228 mg/dL (70-99) Calcium Level 8.6 mg/dL (8.5-10.1) Test 03/18/17 07:26 03/18/17 09:36 03/18/17 13:38 03/18/17 14:15 Glucose (Fingerstick) 237 mg/dL (70-99) 260 mg/dL (70-99) 269 mg/dL (70-99) 298 mg/dL (70-99) Test 03/18/17 16:31 03/18/17 21:10 03/19/17 06:59 03/19/17 10:41 Glucose (Fingerstick) 285 mg/dL (70-99) 251 mg/dL (70-99) 123 mg/dL (70-99) 144 mg/dL (70-99) Laboratory Tests Test 03/18/17 13:38 03/18/17 14:15 03/18/17 16:31 03/18/17 21:10 Glucose (Fingerstick) 269 mg/dL (70-99) 298 mg/dL (70-99) 285 mg/dL (70-99) 251 mg/dL (70-99) Test 03/19/17 06:59 03/19/17 10:41 Glucose (Fingerstick) 123 mg/dL (70-99) 144 mg/dL (70-99) Medications Current Medications Morphine Sulfate 2 mg 1X ONCE IV/SQ Last administered on 03/17/17 11:46; Start 03/17/17 at 11:45; Stop 03/17/17 at 11:46; Status DC Fentanyl Citrate (Fentanyl 2ml Vial) 50 mcg PRN Q2HR PRN IV PAIN Last administered on 03/19/17 08:49; Start 03/17/17 at 12:45 Acetaminophen/ Hydrocodone Bitart (Lortab 5/325) 1 tab PRN Q4HRS PRN PO PAIN Last administered on 03/17/17 22:10; Start 03/17/17 at 12:45 Acetaminophen/ Hydrocodone Bitart (Lortab 7.5/325) 1 tab PRN Q6HRS PRN PO PAIN Last administered on 03/19/17 01:07; Start 03/17/17 at 12:45 Gemfibrozil (Lopid) 600 mg BID PO Last administered on 03/19/17 10:05; Start 03/17/17 at 21:00 Glyburide (Diabeta) 10 mg BIDWMEALS PO Last administered on 03/19/17 10:04; Start 03/17/17 at 17:00 Paroxetine HCl (Paxil) 20 mg DAILY PO Last administered on 03/19/17 10:05; Start 03/17/17 at 13:00 Phenytoin Sodium (Dilantin) 300 mg BID PO Last administered on 03/19/17 10:05 ; Start 03/17/17 at 21:00 Lisinopril (Prinivil) 20 mg DAILY PO Last administered on 03/19/17 10:06; Start 03/17/17 at 13:00 Calcium/Vitamin D (Oscal D 500mg/ 200uts) 1 tab DAILY PO Last administered on 03/19/17 10:05; Start 03/18/17 at 09:00 Hydrochlorothiazide (Hydrodiuril) 25 mg DAILY PO Last administered on 10:07; Start 03/17/17 at 13:00 Isosorbide Mononitrate (Imdur) 30 mg DAILY PO Last administered on 03/19/17 10 :04; Start 03/17/17 at 13:00 Fish Oil (Fish Oil) 1,000 mg DAILY PO Last administered on 03/19/17 10:03; Start 03/18/17 at 09:00 Multivitamins (Thera M Plus) 1 tab DAILY PO Last administered on 03/19/17 10: 06; Start 03/18/17 at 09:00 Non-Formulary Medication 3 tab UD PO ; Start 03/17/17 at 12:45; Status UNV Oxybutynin Chloride (Ditropan) 5 mg BID PO Last administered on 03/19/17 10:06 ; Start 03/17/17 at 21:00 Verapamil HCl (Calan Sr) 240 mg DAILY PO Last administered on 03/19/17 10:02; Start 03/17/17 at 13:00 Insulin Aspart (NovoLOG) 0-7 UNITS TIDWMEALS SQ Last administered on 03/18/17 18:11; Start 03/17/17 at 13:00 Dextrose (Dextrose 50%-Water Syringe) 12.5 gm PRN Q15MIN PRN IV SEE COMMENTS; Start 03/17/17 at 12:45 Ondansetron HCl (Zofran) 4 mg PRN Q8HRS PRN IV NAUSEA/VOMITING; Start 03/17/17 at 13:00; Stop 03/18/17 at 12:59; Status DC Morphine Sulfate 2 mg PRN Q2HR PRN IV PAIN; Start 03/17/17 at 13:00; Stop 03/18 at 12:59; Status DC Pioglitazone HCl (Actos) 15 mg TIDWMEALS PO Last administered on 03/19/17 10: 04; Start 03/17/17 at 13:00 Metformin HCl (Glucophage) 850 mg TIDWMEALS PO Last administered on 03/19/17 10:04; Start 03/17/17 at 13:00 Cefazolin Sodium 3 gm/Dextrose 100 ml @ 200 mls/hr 1X ONCE IV ; Start at 06:00; Stop 03/18/17 at 06:29; Status DC Ondansetron HCl (Zofran) 4 mg PRN Q6HRS PRN IV NAUSEA/VOMITING; Start 03/18/17 at 07:00; Stop 03/19/17 at 06:59; Status DC Fentanyl Citrate (Fentanyl 2ml Vial) 25 mcg PRN Q5MIN PRN IV MILD PAIN; Start 03/18/17 at 07:00; Stop 03/19/17 at 06:59; Status DC Fentanyl Citrate (Fentanyl 2ml Vial) 50 mcg PRN Q5MIN PRN IV MODERATE PAIN; Start 03/18/17 at 07:00; Stop 03/19/17 at 06:59; Status DC Morphine Sulfate 1 mg PRN Q10MIN PRN IV SEVERE PAIN Last administered on 13:35; Start 03/18/17 at 07:00; Stop 03/19/17 at 06:59; Status DC Ringer's Solution 1,000 ml @ 0 mls/hr Q0M IV Last administered on 03/18/17 09 :55; Start 03/18/17 at 07:00; Stop 03/18/17 at 18:59; Status DC Lidocaine HCl (Xylocaine-Mpf 1% Vial) 2 ml PRN 1X PRN ID PRIOR TO IV START; Start 03/18/17 at 07:00; Stop 03/19/17 at 06:59; Status DC Hydromorphone HCl (Dilaudid) 0.5 mg PRN Q10MIN PRN IV SEV PAIN, Second choice Last administered on 11/7/17at 13:56; Start 03/18/17 at 07:00; Stop 03/19/17 at 06:59; Status DC Prochlorperazine Edisylate (Compazine) 5 mg PACU PRN PRN IV NAUSEA, MRX1; Start 03/18/17 at 07:00; Stop 03/19/17 at 06:59; Status DC Lidocaine HCl 30 ml STK-MED ONCE .ROUTE ; Start 03/18/17 at 06:54; Stop at 06:55; Status DC Bupivacaine HCl (Sensorcaine Mpf 0.5%) 30 ml STK-MED ONCE .ROUTE ; Start at 06:54; Stop 03/18/17 at 06:55; Status DC Insulin Aspart (NovoLOG VIAL) 100 unit STK-MED ONCE SQ ; Start 03/18/17 at 09:45 ; Stop 03/18/17 at 09:46; Status DC Insulin Aspart (NovoLOG VIAL) 8 unit 1X STAT SQ Last administered on t 09:52; Start 03/18/17 at 09:49; Stop 03/18/17 at 09:50; Status DC Propofol 20 ml @ As Directed STK-MED ONCE IV ; Start 03/18/17 at 10:01; Stop at 10:03; Status DC Dexamethasone Sodium Phosphate (Decadron) 20 mg STK-MED ONCE .ROUTE ; Start 03/18/17 at 10:01; Stop 03/18/17 at 10:03; Status DC Famotidine (Pepcid) 20 mg STK-MED ONCE .ROUTE ; Start 03/18/17 at 10:01; Stop 03/18/17 at 10:03; Status DC Lidocaine HCl (Lidocaine Pf 2% Vial) 5 ml STK-MED ONCE .ROUTE ; Start 03/18/17 at 10:01; Stop 03/18/17 at 10:03; Status DC Ondansetron HCl (Zofran) 4 mg STK-MED ONCE .ROUTE ; Start 03/18/17 at 10:01; Stop 03/18/17 at 10:03; Status DC Fentanyl Citrate (Fentanyl 2ml Vial) 100 mcg STK-MED ONCE .ROUTE ; Start at 10:01; Stop 03/18/17 at 10:03; Status DC Midazolam HCl (Versed) 2 mg STK-MED ONCE .ROUTE ; Start 03/18/17 at 10:01; Stop 03/18/17 at 10:03; Status DC Bupivacaine HCl (Sensorcaine Mpf 0.5%) 30 ml STK-MED ONCE .ROUTE ; Start at 10:04; Stop 03/18/17 at 10:05; Status DC Succinylcholine Chloride (Anectine) 200 mg STK-MED ONCE .ROUTE ; Start 03/18/17 at 10:04; Stop 03/18/17 at 10:05; Status DC Fentanyl Citrate (Fentanyl 2ml Vial) 100 mcg STK-MED ONCE .ROUTE ; Start at 11:37; Stop 03/18/17 at 11:38; Status DC Enoxaparin Sodium (Lovenox 40mg Syringe) 40 mg Q12HR SQ Last administered on 10:10; Start 03/18/17 at 21:00 Cefazolin Sodium 3 gm/Sodium Chloride 100 ml @ 200 mls/hr Q6H IV Last administered on 03/19/17 06:34; Start 03/18/17 at 15:30; Stop 03/19/17 at 06:59 ; Status DC Ergocalciferol (Vitamin D2) 50,000 unit WEEKLY PO Last administered on 10:05; Start 03/19/17 at 09:00 Morphine Sulfate 5 mg/Ketorolac Tromethamine 30 mg/Ropivacaine 60 ml/ Epinephrine HCl 0.5 mg/Sodium Chloride 100 ml @ 100 mls/hr 1X PERIOP ONCE INT ART Last administered on 03/18/17 12:33; Start 03/18/17 at 12:00; Stop at 12:59; Status DC Vasopressin (Vasostrict) 20 unit STK-MED ONCE .ROUTE ; Start 03/18/17 at 12:15; Stop 03/18/17 at 12:16; Status DC Sevoflurane (Ultane) 60 ml STK-MED ONCE IH ; Start 03/18/17 at 12:43; Stop 03/18 at 12:44; Status DC Insulin Aspart (NovoLOG VIAL) 8 unit 1X PACU PRN SQ SEE COMMENTS Last administered on 03/18/17 13:50; Start 03/18/17 at 13:45; Stop 03/18/17 at 18:00 ; Status DC Influenza Virus Vaccine Quadrival (Fluarix Quad [id number] Syringe) 0.5 ml ONCE ONCE VAX IM ; Start 03/18/17 at 16:00; Stop 03/18/17 at 16:01; Status DC Ondansetron HCl (Zofran) 4 mg PRN Q6HRS PRN IV NAUSEA/VOMITING Last administered on 03/19/17t 10:03; Start 03/19/17 at 09:15 Ibuprofen (Motrin) 600 mg PRN Q6HRS PRN PO INFLAMMATION; Start 03/19/17 at 10: 45 Pantoprazole Sodium (Protonix) 40 mg DAILYAC PO ; Start 03/19/17 at 11:30 Active Scripts Active Reported Krill Oil 300 Mg Softgel (Krill/[place]-3/Dha/Epa/Lipids) 1 Each Capsule 1 Each PO DAILY Aspirin 325 Mg Tablet 1 Tab PO DAILY Caltrate 600 + D Tablet (Calcium Carbonate/Vitamin D3) 1 Each Tablet 1 Each PO DAILY Centrum Silver Tablet (Multivits-Min/Fa/Lycopene/Lut) 1 Each Tablet 1 Each PO DAILY Detrol La (Tolterodine Tartrate) 2 Mg Cap.er.24h 2 Mg PO DAILY Isosorbide Dinitrate 30 Mg Tablet 30 Mg PO DAILY Lotensin (Benazepril Hcl) 20 Mg Tablet 20 Mg PO DAILY Hydrochlorothiazide Tablet (Hydrochlorothiazide) 50 Mg Tablet 25 Mg PO DAILY Calan (Verapamil Hcl) 120 Mg Tablet 240 Mg PO DAILY Paxil (Paroxetine Hcl) 20 Mg Tablet 1 Tab PO DAILY Dilantin (Phenytoin Sodium Extended) 100 Mg Capsule 3 Cap PO BID Actoplus Met 15 Mg-850 Mg Tab (Pioglitazone Hcl/Metformin Hcl) 1 Each Tablet 3 Tab PO UD Gemfibrozil 600 Mg Tablet 600 Mg PO BID Glyburide 5 Mg Tablet 2 Tab PO BID Vitals/I & O Vital Sign - Last 24 Hours 03/18/17 03/18/17 03/18/17 03/18/17 13:24 13:24 13:35 13:39 Temp 99.8 99.8 Pulse 84 80 Resp 16 20 21 B/P (MAP) 146/59 134/60 Pulse Ox 99 93 91 O2 Delivery Simple Mask Nasal Cannula Room Air O2 Flow Rate 10 10 2.0 03/18/17 03/18/17 03/18/17 03/18/17 13:54 13:56 14:09 14:24 Temp 98.5 98.5 Pulse 80 80 80 Resp 21 21 18 18 B/P (MAP) 137/62 158/65 148/61 Pulse Ox 96 98 96 96 O2 Delivery Nasal Cannula Nasal Cannula Nasal Cannula Nasal Cannula O2 Flow Rate 3 2.0 3 3 03/18/17 03/18/17 03/18/17 03/18/17 15:30 16:45 17:00 17:15 Temp 97.5 97.5 97.5 97.5 Pulse 84 84 86 78 Resp 18 18 18 18 B/P (MAP) 132/53 (79) 132/53 (79) 140/58 (85) 151/63 (92) Pulse Ox 94 94 94 94 O2 Delivery Room Air Room Air Room Air Room Air 03/18/17 03/18/17 03/18/17 03/18/17 17:30 17:45 18:00 18:08 Pulse 82 79 78 Resp 18 18 18 B/P (MAP) 136/63 (87) 135/60 (85) 148/55 (86) Pulse Ox 97 95 96 94 O2 Delivery Room Air Room Air Room Air Room Air O2 Flow Rate 3.0 03/18/17 03/18/17 03/18/17 03/18/17 18:50 19:00 20:00 23:00 Temp 98.7 98.3 98.7 98.3 Pulse 81 87 Resp 18 18 B/P (MAP) 137/62 (87) 143/67 (92) Pulse Ox 94 93 90 O2 Delivery Room Air Nasal Cannula Room Air O2 Flow Rate 3.0 3.0 03/19/17 03/19/17 03/19/17 03/19/17 01:07 02:07 03:00 06:33 Temp 97.9 97.9 Pulse 88 Resp 18 18 18 18 B/P (MAP) 138/59 (85) Pulse Ox 97 O2 Delivery Nasal Cannula Nasal Cannula Room Air Nasal Cannula O2 Flow Rate 2.0 2.0 2.0 03/19/17 03/19/17 03/19/17 03/19/17 07:00 08:49 10:02 10:04 Temp 98.4 98.4 Pulse 78 78 78 Resp 18 B/P (MAP) 132/60 (84) 132/60 132/60 Pulse Ox 98 O2 Delivery Room Air Nasal Cannula 03/19/17 03/19/17 03/19/17 10:06 10:11 11:00 Temp 98.6 98.6 Pulse 78 100 Resp 18 B/P (MAP) 132/60 148/64 (92) Pulse Ox 96 O2 Delivery Nasal Cannula Room Air LIZBETH PARSONS MD Mar 19, 2017 12:00
[2017-03-19] MEDS: PANTOPRAZOLE 40 MG TABLET.DR. PO SCH (12:03)
[2017-03-19 15:00] VITALS: BP 112/46
[2017-03-19 19:00] VITALS: BP 107/49
[2017-03-19 23:00] VITALS: BP 103/47
[2017-03-20] VITALS (16 sets, daily range): BP systolic 97–151; BP diastolic 48–94
[2017-03-20] MEDS: fentaNYL PF VIAL 100 MCG/2 ML VIAL IV PRN ×5 (02:44→18:38)
[2017-03-20 06:19] LABS: CALCIUM 8.3 mg/dL (8.5-10.1); CREATININE 0.9 mg/dL (0.6-1.0); GFR 63.7; HEMOGLOBIN 6.5 g/dL (12.0-15.5); POTASSIUM 3.5 mmol/L (3.5-5.1)
[2017-03-20 06:20] LABS: HEMATOCRIT 20.4 % (36.0-47.0)
[2017-03-20] MEDS: ONDANSETRON PF 4 MG/2 ML VIAL. IV PRN ×2 (07:55→18:38)
[2017-03-20] MEDS: MULTIVITAMIN with MINERAL TABLET. PO SCH (07:58)
[2017-03-20] MEDS: OMEGA-3 FATTY ACIDS/FISH OIL 1,000 MG CAPSULE. PO SCH (07:58)
[2017-03-20] MEDS: PARoxetine 20 MG TABLET PO SCH (07:59)
[2017-03-20] MEDS: ENOXAPARIN 40 MG/0.4 ML SYRINGE. SQ SCH (07:59)
[2017-03-20] MEDS: OXYBUTYNIN CHLORIDE 5 MG TABLET PO SCH ×2 (07:59→20:16)
[2017-03-20] MEDS: INSULIN ASPART 300 UNITS/3 ML INSULN.PEN SQ SCH ×3 (08:00→16:52)
[2017-03-20] MEDS: LISINOPRIL 20 MG TABLET PO SCH (08:00)
[2017-03-20] MEDS: metFORMIN 850 MG TABLET PO SCH ×3 (08:00→16:52)
[2017-03-20] MEDS: glyBURIDE 5 MG TABLET PO SCH ×2 (08:00→16:52)
[2017-03-20] MEDS: PIOGLITAZONE 15 MG TABLET. PO SCH ×3 (08:00→16:52)
[2017-03-20] MEDS: VERAPAMIL SR 120 MG TABLET.ER. PO SCH (08:07)
[2017-03-20] MEDS: PHENYTOIN SODIUM EXTENDED 100 MG CAPSULE PO SCH ×2 (08:07→20:15)
[2017-03-20] MEDS: hydroCHLOROthiazide 25 MG TABLET PO SCH (08:08)
[2017-03-20] MEDS: ISOSORBIDE MONONITRATE ER 30 MG TAB.ER.24H PO SCH (08:08)
[2017-03-20] MEDS: GEMFIBROZIL 600 MG TABLET. PO SCH ×2 (08:08→20:16)
[2017-03-20] MEDS: CALCIUM CARB/VIT D3 500/200 TABLET. PO SCH (08:08)
[2017-03-20] MEDS: PANTOPRAZOLE 40 MG TABLET.DR. PO SCH (08:08)
--- NOTE | 2017-03-20 08:18 | PDOC ---
ORTHO PROGRESS NOTES Subjective c/o R buttock pain. Knee pain tolerable. Feels pretty tired Vitals Vital Signs Date Time Temp Pulse Resp B/P (MAP) Pulse Ox O2 Delivery O2 Flow Rate FiO2 03/20/17 08:08 85 114/48 03/20/17 08:01 Nasal Cannula 2.0 03/20/17 07:00 97.8 18 96 97.8 Labs Laboratory Tests Test 03/18/17 09:36 03/18/17 13:38 03/18/17 14:15 03/18/17 16:31 Glucose (Fingerstick) 260 mg/dL (70-99) 269 mg/dL (70-99) 298 mg/dL (70-99) 285 mg/dL (70-99) Test 03/18/17 21:10 03/19/17 06:59 03/19/17 10:41 03/19/17 17:00 Glucose (Fingerstick) 251 mg/dL (70-99) 123 mg/dL (70-99) 144 mg/dL (70-99) 131 mg/dL (70-99) Test 03/19/17 21:36 03/20/17 04:55 03/20/17 05:10 03/20/17 07:14 Glucose (Fingerstick) 124 mg/dL (70-99) 70 mg/dL (70-99) 73 mg/dL (70-99) Hemoglobin 6.5 g/dL (12.0-15.5) Hematocrit 20.4 % (36.0-47.0) Mean Corpuscular Hemoglobin Concent 32 g/dL (31-37) Sodium Level 128 mmol/L (136-145) Potassium Level 3.5 mmol/L (3.5-5.1) Chloride Level 95 mmol/L (98-107) Carbon Dioxide Level 24 mmol/L (21-32) Anion Gap 9 (6-14) Blood Urea Nitrogen 24 mg/dL (7-20) Creatinine 0.9 mg/dL (0.6-1.0) Estimated GFR (Cockcroft-Gault) 63.7 Glucose Level 87 mg/dL (70-99) Calcium Level 8.3 mg/dL (8.5-10.1) Laboratory Tests Test 03/19/17 10:41 03/19/17 17:00 03/19/17 21:36 11/9/17 04:55 Glucose (Fingerstick) 144 mg/dL (70-99) 131 mg/dL (70-99) 124 mg/dL (70-99) 70 mg/dL (70-99) Test 03/20/17 05:10 03/20/17 07:14 Hemoglobin 6.5 g/dL (12.0-15.5) Hematocrit 20.4 % (36.0-47.0) Mean Corpuscular Hemoglobin Concent 32 g/dL (31-37) Sodium Level 128 mmol/L (136-145) Potassium Level 3.5 mmol/L (3.5-5.1) Chloride Level 95 mmol/L (98-107) Carbon Dioxide Level 24 mmol/L (21-32) Anion Gap 9 (6-14) Blood Urea Nitrogen 24 mg/dL (7-20) Creatinine 0.9 mg/dL (0.6-1.0) Estimated GFR (Cockcroft-Gault) 63.7 Glucose Level 87 mg/dL (70-99) Calcium Level 8.3 mg/dL (8.5-10.1) Glucose (Fingerstick) 73 mg/dL (70-99) Notes A and A speech clear RLE: DP palp wiggles toes incision looks good Assessment and Plan blood loss anemia, transfusion today supine exercises with PT? I do not think she will be able to comply with the strict NWB RLE Aquacel over incision today SENG ACKERMAN II, MD Mar 20, 2017 08:18
--- NOTE | 2017-03-20 10:37 | PDOC ---
PROGRESS NOTES Chief Complaint Chief Complaint 1. ORIF R distal femur Nonoperative treatment of Right radial neck fracture 2. Obese 3. hx Severe degenerative disk disease with central canal stenosis at L4-L5, severe and moderate at L2 and L3. 4. Type 2 diabetes mellitus. 5. Hypertension. 6. Hypothyroidism. 7. Rheumatoid arthritis. chronic stable 8. Vit D deficiency 9. Acute precipitous drop in hgb History of Present Illness History of Present Illness Hgb 6 today DOesnt feel well Right side back is hurting Rt shoulder is hurting - but can elevate above head CLaims SOA, no desats NO tachy Auscultation, diminished PLAN: Transfuse 1 pRBC for now, recheck HH 2 hrs post BT LIdoderm patch to shoulder/back NOt ready for dc to SNu today REcheck labs tmr If SOA persists, CXR Vitals Vitals Vital Signs Date Time Temp Pulse Resp B/P (MAP) Pulse Ox O2 Delivery O2 Flow Rate FiO2 03/20/17 08:30 Nasal Cannula 2.0 03/20/17 08:08 85 114/48 03/20/17 07:00 97.8 18 96 97.8 Physical Exam General: Alert, Oriented X3, Cooperative, No acute distress Lungs: Clear Abdomen: Normal bowel sounds, Soft, No tenderness, No hepatosplenomegaly, No masses Extremities: Other (RT leg externaly rotated) Skin: No rashes, No breakdown, No significant lesion, Other (nystatin podwer in between excessive skin folds) Labs LABS Laboratory Tests Test 03/19/17 10:41 03/19/17 17:00 03/19/17 21:36 03/20/17 04:55 Glucose (Fingerstick) 144 mg/dL (70-99) 131 mg/dL (70-99) 124 mg/dL (70-99) 70 mg/dL (70-99) Test 03/20/17 05:10 03/20/17 07:14 Hemoglobin 6.5 g/dL (12.0-15.5) Hematocrit 20.4 % (36.0-47.0) Mean Corpuscular Hemoglobin Concent 32 g/dL (31-37) Sodium Level 128 mmol/L (136-145) Potassium Level 3.5 mmol/L (3.5-5.1) Chloride Level 95 mmol/L (98-107) Carbon Dioxide Level 24 mmol/L (21-32) Anion Gap 9 (6-14) Blood Urea Nitrogen 24 mg/dL (7-20) Creatinine 0.9 mg/dL (0.6-1.0) Estimated GFR (Cockcroft-Gault) 63.7 Glucose Level 87 mg/dL (70-99) Calcium Level 8.3 mg/dL (8.5-10.1) Glucose (Fingerstick) 73 mg/dL (70-99) Review of Systems Review of Systems as per HPI< no cp, some SOA, post op pain and mSK pain Assessment and Plan Assessmemt and Plan Problems Medical Problems: (1) Femur fracture Status: Acute Problems: Comment Review of Relevant I have reviewed the following items sheri (where applicable) has been applied. Labs Laboratory Tests Test 03/18/17 13:38 03/18/17 14:15 03/18/17 16:31 03/18/17 21:10 Glucose (Fingerstick) 269 mg/dL (70-99) 298 mg/dL (70-99) 285 mg/dL (70-99) 251 mg/dL (70-99) Test 03/19/17 06:59 03/19/17 10:41 03/19/17 17:00 03/19/17 21:36 Glucose (Fingerstick) 123 mg/dL (70-99) 144 mg/dL (70-99) 131 mg/dL (70-99) 124 mg/dL (70-99) Test 03/20/17 04:55 03/20/17 05:10 03/20/17 07:14 Glucose (Fingerstick) 70 mg/dL (70-99) 73 mg/dL (70-99) Hemoglobin 6.5 g/dL (12.0-15.5) Hematocrit 20.4 % (36.0-47.0) Mean Corpuscular Hemoglobin Concent 32 g/dL (31-37) Sodium Level 128 mmol/L (136-145) Potassium Level 3.5 mmol/L (3.5-5.1) Chloride Level 95 mmol/L (98-107) Carbon Dioxide Level 24 mmol/L (21-32) Anion Gap 9 (6-14) Blood Urea Nitrogen 24 mg/dL (7-20) Creatinine 0.9 mg/dL (0.6-1.0) Estimated GFR (Cockcroft-Gault) 63.7 Glucose Level 87 mg/dL (70-99) Calcium Level 8.3 mg/dL (8.5-10.1) Laboratory Tests Test 03/19/17 10:41 03/19/17 17:00 03/19/17 21:36 03/20/17 04:55 Glucose (Fingerstick) 144 mg/dL (70-99) 131 mg/dL (70-99) 124 mg/dL (70-99) 70 mg/dL (70-99) Test 03/20/17 05:10 03/20/17 07:14 Hemoglobin 6.5 g/dL (12.0-15.5) Hematocrit 20.4 % (36.0-47.0) Mean Corpuscular Hemoglobin Concent 32 g/dL (31-37) Sodium Level 128 mmol/L (136-145) Potassium Level 3.5 mmol/L (3.5-5.1) Chloride Level 95 mmol/L (98-107) Carbon Dioxide Level 24 mmol/L (21-32) Anion Gap 9 (6-14) Blood Urea Nitrogen 24 mg/dL (7-20) Creatinine 0.9 mg/dL (0.6-1.0) Estimated GFR (Cockcroft-Gault) 63.7 Glucose Level 87 mg/dL (70-99) Calcium Level 8.3 mg/dL (8.5-10.1) Glucose (Fingerstick) 73 mg/dL (70-99) Medications Current Medications Morphine Sulfate 2 mg 1X ONCE IV/SQ Last administered on 03/17/17 11:46; Start 03/17/17 at 11:45; Stop 03/17/17 at 11:46; Status DC Fentanyl Citrate (Fentanyl 2ml Vial) 50 mcg PRN Q2HR PRN IV PAIN Last administered on 03/20/17 08:01; Start 03/17/17 at 12:45 Acetaminophen/ Hydrocodone Bitart (Lortab 5/325) 1 tab PRN Q4HRS PRN PO MILD - MODERATE PAIN Last administered on 03/17/17 22:10; Start 03/17/17 at 12:45 Acetaminophen/ Hydrocodone Bitart (Lortab 7.5/325) 1 tab PRN Q6HRS PRN PO SEVERE PAIN Last administered on 03/19/17 01:07; Start 03/17/17 at 12:45 Gemfibrozil (Lopid) 600 mg BID PO Last administered on 03/20/17 08:08; Start 03/17/17 at 21:00 Glyburide (Diabeta) 10 mg BIDWMEALS PO Last administered on 03/19/17 17:40; Start 03/17/17 at 17:00 Paroxetine HCl (Paxil) 20 mg DAILY PO Last administered on 03/20/17 07:59; Start 03/17/17 at 13:00 Phenytoin Sodium (Dilantin) 300 mg BID PO Last administered on 03/20/17 08:07 ; Start 03/17/17 at 21:00 Lisinopril (Prinivil) 20 mg DAILY PO Last administered on 03/20/17 08:00; Start 03/17/17 at 13:00 Calcium/Vitamin D (Oscal D 500mg/ 200uts) 1 tab DAILY PO Last administered on 03/20/17 08:08; Start 03/18/17 at 09:00 Hydrochlorothiazide (Hydrodiuril) 25 mg DAILY PO Last administered on 08:08; Start 03/17/17 at 13:00 Isosorbide Mononitrate (Imdur) 30 mg DAILY PO Last administered on 03/20/17 08 :08; Start 03/17/17 at 13:00 Fish Oil (Fish Oil) 1,000 mg DAILY PO Last administered on 03/20/17 07:58; Start 03/18/17 at 09:00 Multivitamins (Thera M Plus) 1 tab DAILY PO Last administered on 03/20/17 07: 58; Start 03/18/17 at 09:00 Non-Formulary Medication 3 tab UD PO ; Start 03/17/17 at 12:45; Status UNV Oxybutynin Chloride (Ditropan) 5 mg BID PO Last administered on 03/20/17 07:59 ; Start 03/17/17 at 21:00 Verapamil HCl (Calan Sr) 240 mg DAILY PO Last administered on 03/20/17 08:07; Start 03/17/17 at 13:00 Insulin Aspart (NovoLOG) 0-7 UNITS TIDWMEALS SQ Last administered on 03/18/17 18:11; Start 03/17/17 at 13:00 Dextrose (Dextrose 50%-Water Syringe) 12.5 gm PRN Q15MIN PRN IV SEE COMMENTS; Start 03/17/17 at 12:45 Ondansetron HCl (Zofran) 4 mg PRN Q8HRS PRN IV NAUSEA/VOMITING; Start 03/17/17 at 13:00; Stop 03/18/17 at 12:59; Status DC Morphine Sulfate 2 mg PRN Q2HR PRN IV PAIN; Start 03/17/17 at 13:00; Stop 03/18 at 12:59; Status DC Pioglitazone HCl (Actos) 15 mg TIDWMEALS PO Last administered on 03/19/17 17: 40; Start 03/17/17 at 13:00 Metformin HCl (Glucophage) 850 mg TIDWMEALS PO Last administered on 03/19/17 17:40; Start 03/17/17 at 13:00 Cefazolin Sodium 3 gm/Dextrose 100 ml @ 200 mls/hr 1X ONCE IV ; Start at 06:00; Stop 03/18/17 at 06:29; Status DC Ondansetron HCl (Zofran) 4 mg PRN Q6HRS PRN IV NAUSEA/VOMITING; Start 03/18/17 at 07:00; Stop 03/19/17 at 06:59; Status DC Fentanyl Citrate (Fentanyl 2ml Vial) 25 mcg PRN Q5MIN PRN IV MILD PAIN; Start 03/18/17 at 07:00; Stop 03/19/17 at 06:59; Status DC Fentanyl Citrate (Fentanyl 2ml Vial) 50 mcg PRN Q5MIN PRN IV MODERATE PAIN; Start 03/18/17 at 07:00; Stop 03/19/17 at 06:59; Status DC Morphine Sulfate 1 mg PRN Q10MIN PRN IV SEVERE PAIN Last administered on 13:35; Start 03/18/17 at 07:00; Stop 03/19/17 at 06:59; Status DC Ringer's Solution 1,000 ml @ 0 mls/hr Q0M IV Last administered on 03/18/17 09 :55; Start 03/18/17 at 07:00; Stop 03/18/17 at 18:59; Status DC Lidocaine HCl (Xylocaine-Mpf 1% Vial) 2 ml PRN 1X PRN ID PRIOR TO IV START; Start 03/18/17 at 07:00; Stop 03/19/17 at 06:59; Status DC Hydromorphone HCl (Dilaudid) 0.5 mg PRN Q10MIN PRN IV SEV PAIN, Second choice Last administered on 03/18/17t 13:56; Start 03/18/17 at 07:00; Stop 03/19/17 at 06:59; Status DC Prochlorperazine Edisylate (Compazine) 5 mg PACU PRN PRN IV NAUSEA, MRX1; Start 03/18/17 at 07:00; Stop 03/19/17 at 06:59; Status DC Lidocaine HCl 30 ml STK-MED ONCE .ROUTE ; Start 03/18/17 at 06:54; Stop at 06:55; Status DC Bupivacaine HCl (Sensorcaine Mpf 0.5%) 30 ml STK-MED ONCE .ROUTE ; Start at 06:54; Stop 03/18/17 at 06:55; Status DC Insulin Aspart (NovoLOG VIAL) 100 unit STK-MED ONCE SQ ; Start 03/18/17 at 09:45 ; Stop 03/18/17 at 09:46; Status DC Insulin Aspart (NovoLOG VIAL) 8 unit 1X STAT SQ Last administered on 09:52; Start 03/18/17 at 09:49; Stop 03/18/17 at 09:50; Status DC Propofol 20 ml @ As Directed STK-MED ONCE IV ; Start 03/18/17 at 10:01; Stop at 10:03; Status DC Dexamethasone Sodium Phosphate (Decadron) 20 mg STK-MED ONCE .ROUTE ; Start 03/18/17 at 10:01; Stop 03/18/17 at 10:03; Status DC Famotidine (Pepcid) 20 mg STK-MED ONCE .ROUTE ; Start 03/18/17 at 10:01; Stop 03/18/17 at 10:03; Status DC Lidocaine HCl (Lidocaine Pf 2% Vial) 5 ml STK-MED ONCE .ROUTE ; Start 03/18/17 at 10:01; Stop 03/18/17 at 10:03; Status DC Ondansetron HCl (Zofran) 4 mg STK-MED ONCE .ROUTE ; Start 03/18/17 at 10:01; Stop 03/18/17 at 10:03; Status DC Fentanyl Citrate (Fentanyl 2ml Vial) 100 mcg STK-MED ONCE .ROUTE ; Start at 10:01; Stop 03/18/17 at 10:03; Status DC Midazolam HCl (Versed) 2 mg STK-MED ONCE .ROUTE ; Start 03/18/17 at 10:01; Stop 03/18/17 at 10:03; Status DC Bupivacaine HCl (Sensorcaine Mpf 0.5%) 30 ml STK-MED ONCE .ROUTE ; Start at 10:04; Stop 03/18/17 at 10:05; Status DC Succinylcholine Chloride (Anectine) 200 mg STK-MED ONCE .ROUTE ; Start 03/18/17 at 10:04; Stop 03/18/17 at 10:05; Status DC Fentanyl Citrate (Fentanyl 2ml Vial) 100 mcg STK-MED ONCE .ROUTE ; Start at 11:37; Stop 03/18/17 at 11:38; Status DC Enoxaparin Sodium (Lovenox 40mg Syringe) 40 mg Q12HR SQ Last administered on 07:59; Start 03/18/17 at 21:00; Stop 03/20/17 at 08:55; Status DC Cefazolin Sodium 3 gm/Sodium Chloride 100 ml @ 200 mls/hr Q6H IV Last administered on 03/19/17 06:34; Start 03/18/17 at 15:30; Stop 03/19/17 at 06:59 ; Status DC Ergocalciferol (Vitamin D2) 50,000 unit WEEKLY PO Last administered on 10:05; Start 03/19/17 at 09:00 Morphine Sulfate 5 mg/Ketorolac Tromethamine 30 mg/Ropivacaine 60 ml/ Epinephrine HCl 0.5 mg/Sodium Chloride 100 ml @ 100 mls/hr 1X PERIOP ONCE INT ART Last administered on 03/18/17 12:33; Start 03/18/17 at 12:00; Stop at 12:59; Status DC Vasopressin (Vasostrict) 20 unit STK-MED ONCE .ROUTE ; Start 03/18/17 at 12:15; Stop 03/18/17 at 12:16; Status DC Sevoflurane (Ultane) 60 ml STK-MED ONCE IH ; Start 03/18/17 at 12:43; Stop 03/18 at 12:44; Status DC Insulin Aspart (NovoLOG VIAL) 8 unit 1X PACU PRN SQ SEE COMMENTS Last administered on 03/18/17 13:50; Start 03/18/17 at 13:45; Stop 03/18/17 at 18:00 ; Status DC Influenza Virus Vaccine Quadrival (Fluarix Quad [id number] Syringe) 0.5 ml ONCE ONCE VAX IM ; Start 03/18/17 at 16:00; Stop 03/18/17 at 16:01; Status DC Ondansetron HCl (Zofran) 4 mg PRN Q6HRS PRN IV NAUSEA/VOMITING Last administered on 03/20/17 07:55; Start 03/19/17 at 09:15 Ibuprofen (Motrin) 600 mg PRN Q6HRS PRN PO INFLAMMATION; Start 03/19/17 at 10: 45; Stop 03/20/17 at 08:55; Status DC Pantoprazole Sodium (Protonix) 40 mg DAILYAC PO Last administered on 03/20/17 08:08; Start 03/19/17 at 11:30 Active Scripts Active Reported Krill Oil 300 Mg Softgel (Krill/Wrights-3/Dha/Epa/Lipids) 1 Each Capsule 1 Each PO DAILY Aspirin 325 Mg Tablet 1 Tab PO DAILY Caltrate 600 + D Tablet (Calcium Carbonate/Vitamin D3) 1 Each Tablet 1 Each PO DAILY Centrum Silver Tablet (Multivits-Min/Fa/Lycopene/Lut) 1 Each Tablet 1 Each PO DAILY Detrol La (Tolterodine Tartrate) 2 Mg Cap.er.24h 2 Mg PO DAILY Isosorbide Dinitrate 30 Mg Tablet 30 Mg PO DAILY Lotensin (Benazepril Hcl) 20 Mg Tablet 20 Mg PO DAILY Hydrochlorothiazide Tablet (Hydrochlorothiazide) 50 Mg Tablet 25 Mg PO DAILY Calan (Verapamil Hcl) 120 Mg Tablet 240 Mg PO DAILY Paxil (Paroxetine Hcl) 20 Mg Tablet 1 Tab PO DAILY Dilantin (Phenytoin Sodium Extended) 100 Mg Capsule 3 Cap PO BID Actoplus Met 15 Mg-850 Mg Tab (Pioglitazone Hcl/Metformin Hcl) 1 Each Tablet 3 Tab PO UD Gemfibrozil 600 Mg Tablet 600 Mg PO BID Glyburide 5 Mg Tablet 2 Tab PO BID Vitals/I & O Vital Sign - Last 24 Hours 03/19/17 03/19/17 03/19/17 03/19/17 11:00 12:03 14:23 15:00 Temp 98.6 97.9 98.6 97.9 Pulse 100 82 Resp 18 18 B/P (MAP) 148/64 (92) 112/46 (68) Pulse Ox 96 91 O2 Delivery Room Air Nasal Cannula Nasal Cannula Room Air 03/19/17 03/19/17 03/19/17 03/19/17 16:25 19:00 20:00 21:09 Temp 97.9 97.9 Pulse 100 Resp 18 18 B/P (MAP) 107/49 (68) Pulse Ox 93 O2 Delivery Nasal Cannula Room Air Nasal Cannula Nasal Cannula O2 Flow Rate 2.0 2.0 03/19/17 03/19/17 03/20/17 03/20/17 23:00 23:39 02:44 03:00 Temp 96.3 97.9 96.3 97.9 Pulse 85 Resp 20 18 18 20 B/P (MAP) 103/47 (65) 114/48 (70) Pulse Ox 65 94 O2 Delivery Room Air Nasal Cannula Nasal Cannula Room Air O2 Flow Rate 2.0 2.0 03/20/17 03/20/17 03/20/17 03/20/17 03:14 07:00 08:00 08:01 Temp 97.8 97.8 Pulse 84 85 Resp 18 18 B/P (MAP) 114/84 (94) 114/48 Pulse Ox 96 O2 Delivery Room Air Nasal Cannula O2 Flow Rate 2.0 03/20/17 03/20/17 03/20/17 08:07 08:08 08:30 Pulse 85 85 B/P (MAP) 114/48 114/48 O2 Delivery Nasal Cannula O2 Flow Rate 2.0 Intake and Output 03/20/17 03/20/17 03/21/17 15:00 23:00 07:00 Intake Total 300 ml Balance 300 ml LIZBETH PARSONS MD Mar 20, 2017 10:37
[2017-03-20] MEDS: DEXTROSE 50% 25 GM / 50ML DISP.SYRIN. IV PRN ×2 (11:59→16:50)
--- NOTE | 2017-03-20 15:47 | RAD ---
EXAM: Chest one view. HISTORY: Shortness of breath, left chest pain. COMPARISON: 11/30/2016. FINDINGS: A frontal view of the chest is obtained. There are small bilateral pleural effusions. Mild interstitial opacities in the bases indicate atelectasis and possibly mild pulmonary edema. There is no pneumothorax. The heart is not enlarged. IMPRESSION: 1. Small bilateral pleural effusions, likely with mild pulmonary edema.
[2017-03-20 16:21] LABS: HEMATOCRIT 21.4 % (36.0-47.0)
[2017-03-20 16:25] LABS: HEMOGLOBIN 6.8 g/dL (12.0-15.5)
[2017-03-20] MEDS: HYDROcodone/APAP 5/325MG 1 TAB TABLET PO PRN (20:15)
[2017-03-21 00:18] LABS: NEG OBC FOB NEG; POS OBC FOB POS
[2017-03-21] MEDS: HYDROcodone/APAP 5/325MG 1 TAB TABLET PO PRN (00:37)
[2017-03-21] MEDS: ONDANSETRON PF 4 MG/2 ML VIAL. IV PRN ×4 (00:38→15:47)
[2017-03-21 03:00] VITALS: BP 152/59
[2017-03-21] MEDS: DEXTROSE 50% 25 GM / 50ML DISP.SYRIN. IV PRN ×5 (05:01→19:10)
[2017-03-21] MEDS: PANTOPRAZOLE 40 MG TABLET.DR. PO SCH (06:16)
[2017-03-21] MEDS: fentaNYL PF VIAL 100 MCG/2 ML VIAL IV PRN ×3 (06:17→18:15)
[2017-03-21 06:28] LABS: CALCIUM 8.4 mg/dL (8.5-10.1); CREATININE 0.7 mg/dL (0.6-1.0); GFR 85.1; POTASSIUM 3.4 mmol/L (3.5-5.1)
[2017-03-21 06:42] LABS: BASO % 0 % (0-3); EOS % 0 % (0-3); HEMATOCRIT 24.7 % (36.0-47.0); LYMPH # 0.4 x10^3/uL (1.0-4.8); LYMPH % 4 % (24-48); MEAN CORPUSCULAR HEMOGLOBIN 26 pg (25-35); MEAN CORPUSCULAR HGB CONC 33 g/dL (31-37); MEAN CORPUSCULAR VOLUME 79 fL (79-100); MONO % 8 % (0-9); NEUT % 88 % (31-73); PLATELET COUNT 131 x10^3/uL (140-400); RED BLOOD COUNT 3.15 x10^6/uL (3.50-5.40); RED CELL DISTRIBUTION WIDTH 17.1 % (11.5-14.5); WHITE BLOOD COUNT 10.9 x10^3/uL (4.0-11.0)
[2017-03-21 07:00] VITALS: BP 126/65
[2017-03-21] MEDS: INSULIN ASPART 300 UNITS/3 ML INSULN.PEN SQ SCH ×3 (08:00→17:00)
[2017-03-21] MEDS: OMEGA-3 FATTY ACIDS/FISH OIL 1,000 MG CAPSULE. PO SCH (09:12)
[2017-03-21] MEDS: VERAPAMIL SR 120 MG TABLET.ER. PO SCH (09:12)
[2017-03-21] MEDS: OXYBUTYNIN CHLORIDE 5 MG TABLET PO SCH ×2 (09:12→21:03)
[2017-03-21] MEDS: PARoxetine 20 MG TABLET PO SCH (09:13)
[2017-03-21] MEDS: MULTIVITAMIN with MINERAL TABLET. PO SCH (09:13)
[2017-03-21] MEDS: PHENYTOIN SODIUM EXTENDED 100 MG CAPSULE PO SCH ×2 (09:14→21:03)
[2017-03-21] MEDS: GEMFIBROZIL 600 MG TABLET. PO SCH ×2 (09:14→21:02)
[2017-03-21] MEDS: LISINOPRIL 20 MG TABLET PO SCH (09:14)
[2017-03-21] MEDS: CALCIUM CARB/VIT D3 500/200 TABLET. PO SCH (09:14)
[2017-03-21] MEDS: metFORMIN 850 MG TABLET PO SCH ×3 (09:15→17:00)
[2017-03-21] MEDS: hydroCHLOROthiazide 25 MG TABLET PO SCH (09:15)
[2017-03-21] MEDS: ISOSORBIDE MONONITRATE ER 30 MG TAB.ER.24H PO SCH (09:15)
[2017-03-21] MEDS: PIOGLITAZONE 15 MG TABLET. PO SCH ×3 (09:15→17:00)
[2017-03-21] MEDS: glyBURIDE 5 MG TABLET PO SCH ×2 (09:27→17:00)
[2017-03-21] MEDS ORDERED: IV NORMAL SALINE 1000ML BAG 1,000 ML IV SCH (10:00)
[2017-03-21 10:52] VITALS: BP 129/64
[2017-03-21 12:12] LABS: % EOS 1 % (0-5); NUCLEATED RBC 1
[2017-03-21 12:15] LABS: ANISOCYTOSIS SLIGHT; HYPOCHROMIA SLIGHT; MICROCYTOSIS SLIGHT; PLT ESTIMATE DECREASED (ADEQUATE)
--- NOTE | 2017-03-21 13:30 | PDOC ---
PROGRESS NOTES Chief Complaint Chief Complaint 1. ORIF R distal femur Nonoperative treatment of Right radial neck fracture 2. Obese 3. hx Severe degenerative disk disease with central canal stenosis at L4-L5, severe and moderate at L2 and L3. 4. Type 2 diabetes mellitus. 5. Hypertension. 6. Hypothyroidism. 7. Rheumatoid arthritis. chronic stable 8. Vit D deficiency 9. Acute precipitous drop in hgb 10. HYponatremia History of Present Illness History of Present Illness Feels fair Needed 2 pRBC to raise hgb from 6 to normal range POst op site is dry, no hematoma appreciable clinically FOBT neg LAst c scope ok, due C scope ,. Pretty Apr 2017 Na 123, on SSRI and HCTZ for yrs Dw her will dc that bec of hyponatremia, she ok with that K 3.4 PLAN: STart NS 100c.hr Lytes on HIOld SSRI (paxil) and hCTz Replace Kcl orally COnt pT;OT SNU on - friday HH tmr Vitals Vitals Vital Signs Date Time Temp Pulse Resp B/P (MAP) Pulse Ox O2 Delivery O2 Flow Rate FiO2 03/21/17 10:52 97.9 71 18 129/64 (85) 98 Nasal Cannula 2.0 97.9 Physical Exam General: Alert, Oriented X3, Cooperative, No acute distress Lungs: Clear Abdomen: Normal bowel sounds, Soft, No tenderness, No hepatosplenomegaly, No masses Extremities: Other (RT leg externaly rotated) Skin: No rashes, No breakdown, No significant lesion, Other (nystatin podwer in between excessive skin folds) Labs LABS Laboratory Tests Test 03/20/17 16:10 03/20/17 16:26 03/20/17 17:03 03/20/17 20:19 Hemoglobin 6.8 g/dL (12.0-15.5) Hematocrit 21.4 % (36.0-47.0) Mean Corpuscular Hemoglobin Concent 32 g/dL (31-37) Glucose (Fingerstick) 68 mg/dL (70-99) 114 mg/dL (70-99) 67 mg/dL (70-99) Test 03/20/17 21:19 03/20/17 22:20 03/21/17 04:54 03/21/17 05:11 Glucose (Fingerstick) 84 mg/dL (70-99) 54 mg/dL (70-99) 111 mg/dL (70-99) Stool Occult Blood Negative (NEG) Test 03/21/17 05:50 03/21/17 07:02 03/21/17 11:14 03/21/17 13:00 White Blood Count 10.9 x10^3/uL (4.0-11.0) Red Blood Count 3.15 x10^6/uL (3.50-5.40) Hemoglobin 8.0 g/dL (12.0-15.5) Hematocrit 24.7 % (36.0-47.0) Mean Corpuscular Volume 79 fL (79-100) Mean Corpuscular Hemoglobin 26 pg (25-35) Mean Corpuscular Hemoglobin Concent 33 g/dL (31-37) Red Cell Distribution Width 17.1 % (11.5-14.5) Platelet Count 131 x10^3/uL (140-400) Neutrophils (%) (Auto) 88 % (31-73) Lymphocytes (%) (Auto) 4 % (24-48) Monocytes (%) (Auto) 8 % (0-9) Eosinophils (%) (Auto) 0 % (0-3) Basophils (%) (Auto) 0 % (0-3) Neutrophils # (Auto) 9.6 x10^3uL (1.8-7.7) Lymphocytes # (Auto) 0.4 x10^3/uL (1.0-4.8) Monocytes # (Auto) 0.9 x10^3/uL (0.0-1.1) Eosinophils # (Auto) 0.0 x10^3/uL (0.0-0.7) Basophils # (Auto) 0.0 x10^3/uL (0.0-0.2) Segmented Neutrophils % 78 % (35-66) Band Neutrophils % 15 % (0-9) Lymphocytes % 2 % (24-48) Monocytes % 4 % (0-10) Eosinophils % 1 % (0-5) Nucleated Red Blood Cells 1 Platelet Estimate Decreased (ADEQUATE) Hypochromasia Slight Anisocytosis Slight Microcytosis Slight Sodium Level 123 mmol/L (136-145) Potassium Level 3.4 mmol/L (3.5-5.1) Chloride Level 90 mmol/L (98-107) Carbon Dioxide Level 23 mmol/L (21-32) Anion Gap 10 (6-14) Blood Urea Nitrogen 23 mg/dL (7-20) Creatinine 0.7 mg/dL (0.6-1.0) Estimated GFR (Cockcroft-Gault) 85.1 Glucose Level 83 mg/dL (70-99) Calcium Level 8.4 mg/dL (8.5-10.1) Thyroid Stimulating Hormone (TSH) 0.025 uIU/mL (0.358-3.74) Glucose (Fingerstick) 75 mg/dL (70-99) 52 mg/dL (70-99) 68 mg/dL (70-99) Review of Systems Review of Systems weak, no soa, cp, abd pain, or emesis Assessment and Plan Assessmemt and Plan Problems Medical Problems: (1) Femur fracture Status: Acute Problems: Comment Review of Relevant I have reviewed the following items sheri (where applicable) has been applied. Labs Laboratory Tests Test 03/19/17 17:00 03/19/17 21:36 03/20/17 04:55 03/20/17 05:10 Glucose (Fingerstick) 131 mg/dL (70-99) 124 mg/dL (70-99) 70 mg/dL (70-99) Hemoglobin 6.5 g/dL (12.0-15.5) Hematocrit 20.4 % (36.0-47.0) Mean Corpuscular Hemoglobin Concent 32 g/dL (31-37) Sodium Level 128 mmol/L (136-145) Potassium Level 3.5 mmol/L (3.5-5.1) Chloride Level 95 mmol/L (98-107) Carbon Dioxide Level 24 mmol/L (21-32) Anion Gap 9 (6-14) Blood Urea Nitrogen 24 mg/dL (7-20) Creatinine 0.9 mg/dL (0.6-1.0) Estimated GFR (Cockcroft-Gault) 63.7 Glucose Level 87 mg/dL (70-99) Calcium Level 8.3 mg/dL (8.5-10.1) Test 03/20/17 07:14 03/20/17 10:15 03/20/17 10:34 03/20/17 11:56 Glucose (Fingerstick) 73 mg/dL (70-99) 61 mg/dL (70-99) 69 mg/dL (70-99) 68 mg/dL (70-99) Test 03/20/17 12:17 03/20/17 16:10 03/20/17 16:26 03/20/17 17:03 Glucose (Fingerstick) 106 mg/dL (70-99) 68 mg/dL (70-99) 114 mg/dL (70-99) Hemoglobin 6.8 g/dL (12.0-15.5) Hematocrit 21.4 % (36.0-47.0) Mean Corpuscular Hemoglobin Concent 32 g/dL (31-37) Test 03/20/17 20:19 03/20/17 21:19 03/20/17 22:20 03/21/17 04:54 Glucose (Fingerstick) 67 mg/dL (70-99) 84 mg/dL (70-99) 54 mg/dL (70-99) Stool Occult Blood Negative (NEG) Test 03/21/17 05:11 03/21/17 05:50 03/21/17 07:02 03/21/17 11:14 Glucose (Fingerstick) 111 mg/dL (70-99) 75 mg/dL (70-99) 52 mg/dL (70-99) White Blood Count 10.9 x10^3/uL (4.0-11.0) Red Blood Count 3.15 x10^6/uL (3.50-5.40) Hemoglobin 8.0 g/dL (12.0-15.5) Hematocrit 24.7 % (36.0-47.0) Mean Corpuscular Volume 79 fL (79-100) Mean Corpuscular Hemoglobin 26 pg (25-35) Mean Corpuscular Hemoglobin Concent 33 g/dL (31-37) Red Cell Distribution Width 17.1 % (11.5-14.5) Platelet Count 131 x10^3/uL (140-400) Neutrophils (%) (Auto) 88 % (31-73) Lymphocytes (%) (Auto) 4 % (24-48) Monocytes (%) (Auto) 8 % (0-9) Eosinophils (%) (Auto) 0 % (0-3) Basophils (%) (Auto) 0 % (0-3) Neutrophils # (Auto) 9.6 x10^3uL (1.8-7.7) Lymphocytes # (Auto) 0.4 x10^3/uL (1.0-4.8) Monocytes # (Auto) 0.9 x10^3/uL (0.0-1.1) Eosinophils # (Auto) 0.0 x10^3/uL (0.0-0.7) Basophils # (Auto) 0.0 x10^3/uL (0.0-0.2) Segmented Neutrophils % 78 % (35-66) Band Neutrophils % 15 % (0-9) Lymphocytes % 2 % (24-48) Monocytes % 4 % (0-10) Eosinophils % 1 % (0-5) Nucleated Red Blood Cells 1 Platelet Estimate Decreased (ADEQUATE) Hypochromasia Slight Anisocytosis Slight Microcytosis Slight Sodium Level 123 mmol/L (136-145) Potassium Level 3.4 mmol/L (3.5-5.1) Chloride Level 90 mmol/L (98-107) Carbon Dioxide Level 23 mmol/L (21-32) Anion Gap 10 (6-14) Blood Urea Nitrogen 23 mg/dL (7-20) Creatinine 0.7 mg/dL (0.6-1.0) Estimated GFR (Cockcroft-Gault) 85.1 Glucose Level 83 mg/dL (70-99) Calcium Level 8.4 mg/dL (8.5-10.1) Thyroid Stimulating Hormone (TSH) 0.025 uIU/mL (0.358-3.74) Test 03/21/17 13:00 Glucose (Fingerstick) 68 mg/dL (70-99) Laboratory Tests Test 03/20/17 16:10 03/20/17 16:26 03/20/17 17:03 03/20/17 20:19 Hemoglobin 6.8 g/dL (12.0-15.5) Hematocrit 21.4 % (36.0-47.0) Mean Corpuscular Hemoglobin Concent 32 g/dL (31-37) Glucose (Fingerstick) 68 mg/dL (70-99) 114 mg/dL (70-99) 67 mg/dL (70-99) Test 03/20/17 21:19 03/20/17 22:20 03/21/17 04:54 03/21/17 05:11 Glucose (Fingerstick) 84 mg/dL (70-99) 54 mg/dL (70-99) 111 mg/dL (70-99) Stool Occult Blood Negative (NEG) Test 03/21/17 05:50 03/21/17 07:02 03/21/17 11:14 03/21/17 13:00 White Blood Count 10.9 x10^3/uL (4.0-11.0) Red Blood Count 3.15 x10^6/uL (3.50-5.40) Hemoglobin 8.0 g/dL (12.0-15.5) Hematocrit 24.7 % (36.0-47.0) Mean Corpuscular Volume 79 fL (79-100) Mean Corpuscular Hemoglobin 26 pg (25-35) Mean Corpuscular Hemoglobin Concent 33 g/dL (31-37) Red Cell Distribution Width 17.1 % (11.5-14.5) Platelet Count 131 x10^3/uL (140-400) Neutrophils (%) (Auto) 88 % (31-73) Lymphocytes (%) (Auto) 4 % (24-48) Monocytes (%) (Auto) 8 % (0-9) Eosinophils (%) (Auto) 0 % (0-3) Basophils (%) (Auto) 0 % (0-3) Neutrophils # (Auto) 9.6 x10^3uL (1.8-7.7) Lymphocytes # (Auto) 0.4 x10^3/uL (1.0-4.8) Monocytes # (Auto) 0.9 x10^3/uL (0.0-1.1) Eosinophils # (Auto) 0.0 x10^3/uL (0.0-0.7) Basophils # (Auto) 0.0 x10^3/uL (0.0-0.2) Segmented Neutrophils % 78 % (35-66) Band Neutrophils % 15 % (0-9) Lymphocytes % 2 % (24-48) Monocytes % 4 % (0-10) Eosinophils % 1 % (0-5) Nucleated Red Blood Cells 1 Platelet Estimate Decreased (ADEQUATE) Hypochromasia Slight Anisocytosis Slight Microcytosis Slight Sodium Level 123 mmol/L (136-145) Potassium Level 3.4 mmol/L (3.5-5.1) Chloride Level 90 mmol/L (98-107) Carbon Dioxide Level 23 mmol/L (21-32) Anion Gap 10 (6-14) Blood Urea Nitrogen 23 mg/dL (7-20) Creatinine 0.7 mg/dL (0.6-1.0) Estimated GFR (Cockcroft-Gault) 85.1 Glucose Level 83 mg/dL (70-99) Calcium Level 8.4 mg/dL (8.5-10.1) Thyroid Stimulating Hormone (TSH) 0.025 uIU/mL (0.358-3.74) Glucose (Fingerstick) 75 mg/dL (70-99) 52 mg/dL (70-99) 68 mg/dL (70-99) Medications Current Medications Morphine Sulfate 2 mg 1X ONCE IV/SQ Last administered on 03/17/17 11:46; Start 03/17/17 at 11:45; Stop 03/17/17 at 11:46; Status DC Fentanyl Citrate (Fentanyl 2ml Vial) 50 mcg PRN Q2HR PRN IV PAIN Last administered on 03/21/17 09:28; Start 03/17/17 at 12:45 Acetaminophen/ Hydrocodone Bitart (Lortab 5/325) 1 tab PRN Q4HRS PRN PO MILD - MODERATE PAIN Last administered on 03/21/17 00:37; Start 03/17/17 at 12:45 Acetaminophen/ Hydrocodone Bitart (Lortab 7.5/325) 1 tab PRN Q6HRS PRN PO SEVERE PAIN Last administered on 03/19/17 01:07; Start 03/17/17 at 12:45 Gemfibrozil (Lopid) 600 mg BID PO Last administered on 03/21/17 09:14; Start 03/17/17 at 21:00 Glyburide (Diabeta) 10 mg BIDWMEALS PO Last administered on 03/21/17 09:27; Start 03/17/17 at 17:00 Paroxetine HCl (Paxil) 20 mg DAILY PO Last administered on 03/21/17 09:13; Start 03/17/17 at 13:00; Stop 03/21/17 at 09:45; Status DC Phenytoin Sodium (Dilantin) 300 mg BID PO Last administered on 03/21/17 09:14 ; Start 03/17/17 at 21:00 Lisinopril (Prinivil) 20 mg DAILY PO Last administered on 03/21/17 09:14; Start 03/17/17 at 13:00 Calcium/Vitamin D (Oscal D 500mg/ 200uts) 1 tab DAILY PO Last administered on 03/21/17 09:14; Start 03/18/17 at 09:00 Hydrochlorothiazide (Hydrodiuril) 25 mg DAILY PO Last administered on 09:15; Start 03/17/17 at 13:00; Stop 03/21/17 at 09:45; Status DC Isosorbide Mononitrate (Imdur) 30 mg DAILY PO Last administered on 03/21/17 09:15; Start 03/17/17 at 13:00 Fish Oil (Fish Oil) 1,000 mg DAILY PO Last administered on 03/21/17 09:12; Start 03/18/17 at 09:00 Multivitamins (Thera M Plus) 1 tab DAILY PO Last administered on 03/21/17 09: 13; Start 03/18/17 at 09:00 Non-Formulary Medication 3 tab UD PO ; Start 03/17/17 at 12:45; Status UNV Oxybutynin Chloride (Ditropan) 5 mg BID PO Last administered on 03/21/17 09: 12; Start 03/17/17 at 21:00 Verapamil HCl (Calan Sr) 240 mg DAILY PO Last administered on 03/21/17 09:12 ; Start 03/17/17 at 13:00 Insulin Aspart (NovoLOG) 0-7 UNITS TIDWMEALS SQ Last administered on 03/18/17 18:11; Start 03/17/17 at 13:00 Dextrose (Dextrose 50%-Water Syringe) 12.5 gm PRN Q15MIN PRN IV SEE COMMENTS Last administered on 03/21/17 11:33; Start 03/17/17 at 12:45 Ondansetron HCl (Zofran) 4 mg PRN Q8HRS PRN IV NAUSEA/VOMITING; Start 03/17/17 at 13:00; Stop 03/18/17 at 12:59; Status DC Morphine Sulfate 2 mg PRN Q2HR PRN IV PAIN; Start 03/17/17 at 13:00; Stop 03/18 at 12:59; Status DC Pioglitazone HCl (Actos) 15 mg TIDWMEALS PO Last administered on 03/21/17 09: 15; Start 03/17/17 at 13:00 Metformin HCl (Glucophage) 850 mg TIDWMEALS PO Last administered on 03/21/17 09:15; Start 03/17/17 at 13:00 Cefazolin Sodium 3 gm/Dextrose 100 ml @ 200 mls/hr 1X ONCE IV ; Start at 06:00; Stop 03/18/17 at 06:29; Status DC Ondansetron HCl (Zofran) 4 mg PRN Q6HRS PRN IV NAUSEA/VOMITING; Start 03/18/17 at 07:00; Stop 03/19/17 at 06:59; Status DC Fentanyl Citrate (Fentanyl 2ml Vial) 25 mcg PRN Q5MIN PRN IV MILD PAIN; Start 03/18/17 at 07:00; Stop 03/19/17 at 06:59; Status DC Fentanyl Citrate (Fentanyl 2ml Vial) 50 mcg PRN Q5MIN PRN IV MODERATE PAIN; Start 03/18/17 at 07:00; Stop 03/19/17 at 06:59; Status DC Morphine Sulfate 1 mg PRN Q10MIN PRN IV SEVERE PAIN Last administered on 13:35; Start 03/18/17 at 07:00; Stop 03/19/17 at 06:59; Status DC Ringer's Solution 1,000 ml @ 0 mls/hr Q0M IV Last administered on 03/18/17 09 :55; Start 03/18/17 at 07:00; Stop 03/18/17 at 18:59; Status DC Lidocaine HCl (Xylocaine-Mpf 1% Vial) 2 ml PRN 1X PRN ID PRIOR TO IV START; Start 03/18/17 at 07:00; Stop 03/19/17 at 06:59; Status DC Hydromorphone HCl (Dilaudid) 0.5 mg PRN Q10MIN PRN IV SEV PAIN, Second choice Last administered on 03/18/17 13:56; Start 03/18/17 at 07:00; Stop 03/19/17 at 06:59; Status DC Prochlorperazine Edisylate (Compazine) 5 mg PACU PRN PRN IV NAUSEA, MRX1; Start 03/18/17 at 07:00; Stop 03/19/17 at 06:59; Status DC Lidocaine HCl 30 ml STK-MED ONCE .ROUTE ; Start 03/18/17 at 06:54; Stop at 06:55; Status DC Bupivacaine HCl (Sensorcaine Mpf 0.5%) 30 ml STK-MED ONCE .ROUTE ; Start at 06:54; Stop 03/18/17 at 06:55; Status DC Insulin Aspart (NovoLOG VIAL) 100 unit STK-MED ONCE SQ ; Start 03/18/17 at 09:45 ; Stop 03/18/17 at 09:46; Status DC Insulin Aspart (NovoLOG VIAL) 8 unit 1X STAT SQ Last administered on t 09:52; Start 03/18/17 at 09:49; Stop 03/18/17 at 09:50; Status DC Propofol 20 ml @ As Directed STK-MED ONCE IV ; Start 03/18/17 at 10:01; Stop at 10:03; Status DC Dexamethasone Sodium Phosphate (Decadron) 20 mg STK-MED ONCE .ROUTE ; Start 03/18/17 at 10:01; Stop 03/18/17 at 10:03; Status DC Famotidine (Pepcid) 20 mg STK-MED ONCE .ROUTE ; Start 03/18/17 at 10:01; Stop 03/18/17 at 10:03; Status DC Lidocaine HCl (Lidocaine Pf 2% Vial) 5 ml STK-MED ONCE .ROUTE ; Start 03/18/17 at 10:01; Stop 03/18/17 at 10:03; Status DC Ondansetron HCl (Zofran) 4 mg STK-MED ONCE .ROUTE ; Start 03/18/17 at 10:01; Stop 03/18/17 at 10:03; Status DC Fentanyl Citrate (Fentanyl 2ml Vial) 100 mcg STK-MED ONCE .ROUTE ; Start at 10:01; Stop 03/18/17 at 10:03; Status DC Midazolam HCl (Versed) 2 mg STK-MED ONCE .ROUTE ; Start 03/18/17 at 10:01; Stop 03/18/17 at 10:03; Status DC Bupivacaine HCl (Sensorcaine Mpf 0.5%) 30 ml STK-MED ONCE .ROUTE ; Start at 10:04; Stop 03/18/17 at 10:05; Status DC Succinylcholine Chloride (Anectine) 200 mg STK-MED ONCE .ROUTE ; Start 03/18/17 at 10:04; Stop 03/18/17 at 10:05; Status DC Fentanyl Citrate (Fentanyl 2ml Vial) 100 mcg STK-MED ONCE .ROUTE ; Start at 11:37; Stop 03/18/17 at 11:38; Status DC Enoxaparin Sodium (Lovenox 40mg Syringe) 40 mg Q12HR SQ Last administered on 07:59; Start 03/18/17 at 21:00; Stop 03/20/17 at 08:55; Status DC Cefazolin Sodium 3 gm/Sodium Chloride 100 ml @ 200 mls/hr Q6H IV Last administered on 03/19/17 06:34; Start 03/18/17 at 15:30; Stop 03/19/17 at 06:59 ; Status DC Ergocalciferol (Vitamin D2) 50,000 unit WEEKLY PO Last administered on 10:05; Start 03/19/17 at 09:00 Morphine Sulfate 5 mg/Ketorolac Tromethamine 30 mg/Ropivacaine 60 ml/ Epinephrine HCl 0.5 mg/Sodium Chloride 100 ml @ 100 mls/hr 1X PERIOP ONCE INT ART Last administered on 03/18/17 12:33; Start 03/18/17 at 12:00; Stop at 12:59; Status DC Vasopressin (Vasostrict) 20 unit STK-MED ONCE .ROUTE ; Start 03/18/17 at 12:15; Stop 03/18/17 at 12:16; Status DC Sevoflurane (Ultane) 60 ml STK-MED ONCE IH ; Start 03/18/17 at 12:43; Stop 03/18 at 12:44; Status DC Insulin Aspart (NovoLOG VIAL) 8 unit 1X PACU PRN SQ SEE COMMENTS Last administered on 03/18/17 13:50; Start 03/18/17 at 13:45; Stop 03/18/17 at 18:00 ; Status DC Influenza Virus Vaccine Quadrival (Fluarix Quad 4753-5307 Syringe) 0.5 ml ONCE ONCE VAX IM ; Start 03/18/17 at 16:00; Stop 03/18/17 at 16:01; Status DC Ondansetron HCl (Zofran) 4 mg PRN Q6HRS PRN IV NAUSEA/VOMITING Last administered on 03/21/17 00:38; Start 03/19/17 at 09:15; Stop 03/21/17 at 01: 35; Status DC Ibuprofen (Motrin) 600 mg PRN Q6HRS PRN PO INFLAMMATION; Start 03/19/17 at 10: 45; Stop 03/20/17 at 08:55; Status DC Pantoprazole Sodium (Protonix) 40 mg DAILYAC PO Last administered on 06:16; Start 03/19/17 at 11:30 Ondansetron HCl (Zofran) 4 mg PRN Q4HRS PRN IV NAUSEA/VOMITING Last administered on 03/21/17 09:27; Start 03/21/17 at 01:30 Sodium Chloride 1,000 ml @ 100 mls/hr Q10H IV Last administered on 03/21/17 11:34; Start 03/21/17 at 10:00 Active Scripts Active Reported Krill Oil 300 Mg Softgel (Krill/[place]-3/Dha/Epa/Lipids) 1 Each Capsule 1 Each PO DAILY Aspirin 325 Mg Tablet 1 Tab PO DAILY Caltrate 600 + D Tablet (Calcium Carbonate/Vitamin D3) 1 Each Tablet 1 Each PO DAILY Centrum Silver Tablet (Multivits-Min/Fa/Lycopene/Lut) 1 Each Tablet 1 Each PO DAILY Detrol La (Tolterodine Tartrate) 2 Mg Cap.er.24h 2 Mg PO DAILY Isosorbide Dinitrate 30 Mg Tablet 30 Mg PO DAILY Lotensin (Benazepril Hcl) 20 Mg Tablet 20 Mg PO DAILY Hydrochlorothiazide Tablet (Hydrochlorothiazide) 50 Mg Tablet 25 Mg PO DAILY Calan (Verapamil Hcl) 120 Mg Tablet 240 Mg PO DAILY Paxil (Paroxetine Hcl) 20 Mg Tablet 1 Tab PO DAILY Dilantin (Phenytoin Sodium Extended) 100 Mg Capsule 3 Cap PO BID Actoplus Met 15 Mg-850 Mg Tab (Pioglitazone Hcl/Metformin Hcl) 1 Each Tablet 3 Tab PO UD Gemfibrozil 600 Mg Tablet 600 Mg PO BID Glyburide 5 Mg Tablet 2 Tab PO BID Vitals/I & O Vital Sign - Last 24 Hours 03/20/17 03/20/17 03/20/17 03/20/17 13:50 14:50 14:54 18:38 Temp 97.7 98.1 97.7 98.1 Pulse 79 90 Resp 20 16 B/P (MAP) 109/50 110/50 (70) Pulse Ox 94 O2 Delivery Nasal Cannula Nasal Cannula Nasal Cannula O2 Flow Rate 2.0 2.0 2.0 03/20/17 03/20/17 03/20/17 03/20/17 19:25 19:35 20:03 20:03 Temp 97.9 97.5 97.5 97.9 97.5 97.5 Pulse 76 80 80 Resp B/P (MAP) 113/58 (76) 111/55 111/55 (73) Pulse Ox 95 95 O2 Delivery Nasal Cannula Nasal Cannula Nasal Cannula O2 Flow Rate 2.0 2.0 2.0 03/20/17 03/20/17 03/20/17 03/20/17 20:15 20:18 20:18 21:18 Temp 98.1 98.1 97.5 98.1 98.1 97.5 Pulse 88 88 85 Resp B/P (MAP) 126/66 (86) 126/66 151/94 Pulse Ox 95 O2 Delivery Nasal Cannula Nasal Cannula O2 Flow Rate 2.0 2.0 03/20/17 03/20/17 03/20/17 03/20/17 21:20 22:18 22:20 23:20 Temp 97.5 97.5 97.5 97.9 97.5 97.5 97.5 97.9 Pulse 85 87 87 75 Resp B/P (MAP) 151/94 (113) 120/67 120/67 (84) 137/58 (84) Pulse Ox 94 96 95 O2 Delivery Nasal Cannula Nasal Cannula Nasal Cannula O2 Flow Rate 2.0 2.0 2.0 03/21/17 03/21/17 03/21/17 03/21/17 00:37 01:39 03:00 06:17 Temp 97.5 97.5 Resp 20 B/P (MAP) 152/59 (90) Pulse Ox 98 98 95 O2 Delivery Nasal Cannula Nasal Cannula Nasal Cannula Nasal Cannula O2 Flow Rate 2.0 2.0 2.0 2.0 03/21/17 03/21/17 03/21/17 03/21/17 07:00 08:00 09:12 09:14 Temp 98.0 98.0 Pulse 70 70 70 Resp 18 B/P (MAP) 126/65 (85) 126/65 126/65 Pulse Ox 96 O2 Delivery Nasal Cannula Nasal Cannula O2 Flow Rate 2.0 2.0 03/21/17 03/21/17 03/21/17 03/21/17 09:15 09:28 10:00 10:52 Temp 97.9 97.9 Pulse 70 71 Resp 20 20 18 B/P (MAP) 126/65 129/64 (85) Pulse Ox 96 98 98 O2 Delivery Nasal Cannula Nasal Cannula Nasal Cannula O2 Flow Rate 2.0 2.0 2.0 Intake and Output 03/21/17 03/21/17 03/22/17 14:59 22:59 06:59 Intake Total 300 ml Balance 300 ml LIZBETH PARSONS MD Mar 21, 2017 13:30
[2017-03-21 15:00] VITALS: BP 126/63
--- NOTE | 2017-03-21 15:21 | PDOC ---
ORTHO PROGRESS NOTES Subjective Pain controlled, feels tired Vitals Vital Signs Date Time Temp Pulse Resp B/P (MAP) Pulse Ox O2 Delivery O2 Flow Rate FiO2 03/21/17 10:52 97.9 71 18 129/64 (85) 98 Nasal Cannula 2.0 97.9 Labs Laboratory Tests Test 03/19/17 17:00 03/19/17 21:36 03/20/17 04:55 03/20/17 05:10 Glucose (Fingerstick) 131 mg/dL (70-99) 124 mg/dL (70-99) 70 mg/dL (70-99) Hemoglobin 6.5 g/dL (12.0-15.5) Hematocrit 20.4 % (36.0-47.0) Mean Corpuscular Hemoglobin Concent 32 g/dL (31-37) Sodium Level 128 mmol/L (136-145) Potassium Level 3.5 mmol/L (3.5-5.1) Chloride Level 95 mmol/L (98-107) Carbon Dioxide Level 24 mmol/L (21-32) Anion Gap 9 (6-14) Blood Urea Nitrogen 24 mg/dL (7-20) Creatinine 0.9 mg/dL (0.6-1.0) Estimated GFR (Cockcroft-Gault) 63.7 Glucose Level 87 mg/dL (70-99) Calcium Level 8.3 mg/dL (8.5-10.1) Test 03/20/17 07:14 03/20/17 10:15 03/20/17 10:34 03/20/17 11:56 Glucose (Fingerstick) 73 mg/dL (70-99) 61 mg/dL (70-99) 69 mg/dL (70-99) 68 mg/dL (70-99) Test 03/20/17 12:17 03/20/17 16:10 03/20/17 16:26 03/20/17 17:03 Glucose (Fingerstick) 106 mg/dL (70-99) 68 mg/dL (70-99) 114 mg/dL (70-99) Hemoglobin 6.8 g/dL (12.0-15.5) Hematocrit 21.4 % (36.0-47.0) Mean Corpuscular Hemoglobin Concent 32 g/dL (31-37) Test 03/20/17 20:19 03/20/17 21:19 03/20/17 22:20 03/21/17 04:54 Glucose (Fingerstick) 67 mg/dL (70-99) 84 mg/dL (70-99) 54 mg/dL (70-99) Stool Occult Blood Negative (NEG) Test 03/21/17 05:11 03/21/17 05:50 03/21/17 07:02 03/21/17 11:14 Glucose (Fingerstick) 111 mg/dL (70-99) 75 mg/dL (70-99) 52 mg/dL (70-99) White Blood Count 10.9 x10^3/uL (4.0-11.0) Red Blood Count 3.15 x10^6/uL (3.50-5.40) Hemoglobin 8.0 g/dL (12.0-15.5) Hematocrit 24.7 % (36.0-47.0) Mean Corpuscular Volume 79 fL (79-100) Mean Corpuscular Hemoglobin 26 pg (25-35) Mean Corpuscular Hemoglobin Concent 33 g/dL (31-37) Red Cell Distribution Width 17.1 % (11.5-14.5) Platelet Count 131 x10^3/uL (140-400) Neutrophils (%) (Auto) 88 % (31-73) Lymphocytes (%) (Auto) 4 % (24-48) Monocytes (%) (Auto) 8 % (0-9) Eosinophils (%) (Auto) 0 % (0-3) Basophils (%) (Auto) 0 % (0-3) Neutrophils # (Auto) 9.6 x10^3uL (1.8-7.7) Lymphocytes # (Auto) 0.4 x10^3/uL (1.0-4.8) Monocytes # (Auto) 0.9 x10^3/uL (0.0-1.1) Eosinophils # (Auto) 0.0 x10^3/uL (0.0-0.7) Basophils # (Auto) 0.0 x10^3/uL (0.0-0.2) Segmented Neutrophils % 78 % (35-66) Band Neutrophils % 15 % (0-9) Lymphocytes % 2 % (24-48) Monocytes % 4 % (0-10) Eosinophils % 1 % (0-5) Nucleated Red Blood Cells 1 Platelet Estimate Decreased (ADEQUATE) Hypochromasia Slight Anisocytosis Slight Microcytosis Slight Sodium Level 123 mmol/L (136-145) Potassium Level 3.4 mmol/L (3.5-5.1) Chloride Level 90 mmol/L (98-107) Carbon Dioxide Level 23 mmol/L (21-32) Anion Gap 10 (6-14) Blood Urea Nitrogen 23 mg/dL (7-20) Creatinine 0.7 mg/dL (0.6-1.0) Estimated GFR (Cockcroft-Gault) 85.1 Glucose Level 83 mg/dL (70-99) Calcium Level 8.4 mg/dL (8.5-10.1) Thyroid Stimulating Hormone (TSH) 0.025 uIU/mL (0.358-3.74) Test 03/21/17 13:00 03/21/17 13:29 03/21/17 14:12 03/21/17 14:36 Glucose (Fingerstick) 68 mg/dL (70-99) 73 mg/dL (70-99) 52 mg/dL (70-99) 73 mg/dL (70-99) Laboratory Tests Test 03/20/17 16:10 03/20/17 16:26 03/20/17 17:03 03/20/17 20:19 Hemoglobin 6.8 g/dL (12.0-15.5) Hematocrit 21.4 % (36.0-47.0) Mean Corpuscular Hemoglobin Concent 32 g/dL (31-37) Glucose (Fingerstick) 68 mg/dL (70-99) 114 mg/dL (70-99) 67 mg/dL (70-99) Test 03/20/17 21:19 03/20/17 22:20 03/21/17 04:54 03/21/17 05:11 Glucose (Fingerstick) 84 mg/dL (70-99) 54 mg/dL (70-99) 111 mg/dL (70-99) Stool Occult Blood Negative (NEG) Test 03/21/17 05:50 03/21/17 07:02 03/21/17 11:14 03/21/17 13:00 White Blood Count 10.9 x10^3/uL (4.0-11.0) Red Blood Count 3.15 x10^6/uL (3.50-5.40) Hemoglobin 8.0 g/dL (12.0-15.5) Hematocrit 24.7 % (36.0-47.0) Mean Corpuscular Volume 79 fL (79-100) Mean Corpuscular Hemoglobin 26 pg (25-35) Mean Corpuscular Hemoglobin Concent 33 g/dL (31-37) Red Cell Distribution Width 17.1 % (11.5-14.5) Platelet Count 131 x10^3/uL (140-400) Neutrophils (%) (Auto) 88 % (31-73) Lymphocytes (%) (Auto) 4 % (24-48) Monocytes (%) (Auto) 8 % (0-9) Eosinophils (%) (Auto) 0 % (0-3) Basophils (%) (Auto) 0 % (0-3) Neutrophils # (Auto) 9.6 x10^3uL (1.8-7.7) Lymphocytes # (Auto) 0.4 x10^3/uL (1.0-4.8) Monocytes # (Auto) 0.9 x10^3/uL (0.0-1.1) Eosinophils # (Auto) 0.0 x10^3/uL (0.0-0.7) Basophils # (Auto) 0.0 x10^3/uL (0.0-0.2) Segmented Neutrophils % 78 % (35-66) Band Neutrophils % 15 % (0-9) Lymphocytes % 2 % (24-48) Monocytes % 4 % (0-10) Eosinophils % 1 % (0-5) Nucleated Red Blood Cells 1 Platelet Estimate Decreased (ADEQUATE) Hypochromasia Slight Anisocytosis Slight Microcytosis Slight Sodium Level 123 mmol/L (136-145) Potassium Level 3.4 mmol/L (3.5-5.1) Chloride Level 90 mmol/L (98-107) Carbon Dioxide Level 23 mmol/L (21-32) Anion Gap 10 (6-14) Blood Urea Nitrogen 23 mg/dL (7-20) Creatinine 0.7 mg/dL (0.6-1.0) Estimated GFR (Cockcroft-Gault) 85.1 Glucose Level 83 mg/dL (70-99) Calcium Level 8.4 mg/dL (8.5-10.1) Thyroid Stimulating Hormone (TSH) 0.025 uIU/mL (0.358-3.74) Glucose (Fingerstick) 75 mg/dL (70-99) 52 mg/dL (70-99) 68 mg/dL (70-99) Test 03/21/17 13:29 03/21/17 14:12 03/21/17 14:36 Glucose (Fingerstick) 73 mg/dL (70-99) 52 mg/dL (70-99) 73 mg/dL (70-99) X-Rays CXR 03/20 reviewed Notes A and A in bed incision ok remains NVI RLE Assessment and Plan strict NWB d/w PT placement when medically stable SENG ACKERMAN II, MD Mar 21, 2017 15:21
[2017-03-21] MEDS: ENOXAPARIN 40 MG/0.4 ML SYRINGE. SQ SCH ×2 (15:47→21:03)
[2017-03-21] MEDS: IV DEXTROSE 5% - 0.9 % NACL 1,000 ML IV SCH (21:02)
[2017-03-21 23:23] VITALS: BP 120/69
[2017-03-22] MEDS: ONDANSETRON PF 4 MG/2 ML VIAL. IV PRN ×4 (01:18→21:20)
[2017-03-22] MEDS: fentaNYL PF VIAL 100 MCG/2 ML VIAL IV PRN ×7 (01:20→23:58)
[2017-03-22 03:00] VITALS: BP 119/54
[2017-03-22 04:46] LABS: BASO % 0 % (0-3); EOS % 0 % (0-3); HEMATOCRIT 22.2 % (36.0-47.0); HEMOGLOBIN 7.3 g/dL (12.0-15.5); LYMPH # 0.5 x10^3/uL (1.0-4.8); LYMPH % 4 % (24-48); MEAN CORPUSCULAR HEMOGLOBIN 26 pg (25-35); MEAN CORPUSCULAR HGB CONC 33 g/dL (31-37); MEAN CORPUSCULAR VOLUME 77 fL (79-100); MONO % 10 % (0-9); NEUT % 85 % (31-73); PLATELET COUNT 137 x10^3/uL (140-400); RED BLOOD COUNT 2.86 x10^6/uL (3.50-5.40); RED CELL DISTRIBUTION WIDTH 17.8 % (11.5-14.5); WHITE BLOOD COUNT 10.9 x10^3/uL (4.0-11.0)
[2017-03-22 05:46] LABS: CALCIUM 8.3 mg/dL (8.5-10.1); CREATININE 0.7 mg/dL (0.6-1.0); GFR 85.1
[2017-03-22] MEDS: PANTOPRAZOLE 40 MG TABLET.DR. PO SCH (06:23)
[2017-03-22 07:00] VITALS: BP 136/67
[2017-03-22] MEDS: metFORMIN 850 MG TABLET PO SCH ×3 (08:00→17:00)
[2017-03-22] MEDS: PIOGLITAZONE 15 MG TABLET. PO SCH ×3 (08:00→17:00)
[2017-03-22] MEDS: INSULIN ASPART 300 UNITS/3 ML INSULN.PEN SQ SCH ×3 (08:00→17:00)
[2017-03-22] MEDS: glyBURIDE 5 MG TABLET PO SCH ×2 (08:00→17:00)
[2017-03-22] MEDS: OMEGA-3 FATTY ACIDS/FISH OIL 1,000 MG CAPSULE. PO SCH (09:00)
[2017-03-22] MEDS: GEMFIBROZIL 600 MG TABLET. PO SCH ×2 (09:00→22:57)
[2017-03-22] MEDS: VERAPAMIL SR 120 MG TABLET.ER. PO SCH (09:00)
[2017-03-22] MEDS: MULTIVITAMIN with MINERAL TABLET. PO SCH (09:00)
[2017-03-22] MEDS: OXYBUTYNIN CHLORIDE 5 MG TABLET PO SCH ×2 (09:00→22:57)
[2017-03-22] MEDS: ISOSORBIDE MONONITRATE ER 30 MG TAB.ER.24H PO SCH (09:00)
[2017-03-22] MEDS: CALCIUM CARB/VIT D3 500/200 TABLET. PO SCH (09:00)
[2017-03-22] MEDS: LISINOPRIL 20 MG TABLET PO SCH (09:00)
[2017-03-22] MEDS: PHENYTOIN SODIUM EXTENDED 100 MG CAPSULE PO SCH ×2 (10:50→22:57)
[2017-03-22] MEDS: IV DEXTROSE 5% - 0.9 % NACL 1,000 ML IV SCH ×2 (10:50→21:19)
[2017-03-22] MEDS: ENOXAPARIN 40 MG/0.4 ML SYRINGE. SQ SCH ×2 (10:51→22:59)
[2017-03-22 11:09] VITALS: BP 137/61
--- NOTE | 2017-03-22 11:53 | PDOC ---
PROGRESS NOTES Chief Complaint Chief Complaint 1. ORIF R distal femur Nonoperative treatment of Right radial neck fracture 2. Obese 3. hx Severe degenerative disk disease with central canal stenosis at L4-L5, severe and moderate at L2 and L3. 4. Type 2 diabetes mellitus. 5. Hypertension. 6. Hypothyroidism. 7. Rheumatoid arthritis. chronic stable 8. Vit D deficiency 9. Acute precipitous drop in hgb 10. HYponatremia History of Present Illness History of Present Illness Pt is a pleasant 62 year old female who had an operative fixation on her right femur. Pt was seen at bedside resting comfortably. She has some nausea. Discussed plan with RN. Dressings are clean, dry, and intact. Discharge disposition pending to rehab. Pt is being followed by orthopedics. Will continue to monitor. Vitals Vitals Vital Signs Date Time Temp Pulse Resp B/P (MAP) Pulse Ox O2 Delivery O2 Flow Rate FiO2 03/22/17 11:09 98.1 77 16 137/61 (86) 97 Nasal Cannula 2.0 98.1 Physical Exam General: Alert, Oriented X3, Cooperative, No acute distress (Nausea) Heart: Regular rate, Normal S1, Normal S2 Lungs: Clear Abdomen: Normal bowel sounds, Soft, No tenderness, No hepatosplenomegaly, No masses Extremities: No clubbing, No cyanosis, Other (RT leg externaly rotated) Skin: No rashes, No breakdown, No significant lesion, Other (nystatin podwer in between excessive skin folds) Labs LABS Laboratory Tests Test 03/21/17 13:00 03/21/17 13:29 03/21/17 14:12 03/21/17 14:36 Glucose (Fingerstick) 68 mg/dL (70-99) 73 mg/dL (70-99) 52 mg/dL (70-99) 73 mg/dL (70-99) Test 03/21/17 16:00 03/21/17 16:58 03/21/17 19:02 03/21/17 19:49 Glucose (Fingerstick) 67 mg/dL (70-99) 86 mg/dL (70-99) 55 mg/dL (70-99) 66 mg/dL (70-99) Test 03/21/17 20:50 03/21/17 21:51 03/22/17 01:16 03/22/17 01:32 Glucose (Fingerstick) 57 mg/dL (70-99) 90 mg/dL (70-99) 67 mg/dL (70-99) 64 mg/dL (70-99) Test 03/22/17 01:46 03/22/17 02:01 03/22/17 03:55 03/22/17 05:46 Glucose (Fingerstick) 68 mg/dL (70-99) 82 mg/dL (70-99) 78 mg/dL (70-99) White Blood Count 10.9 x10^3/uL (4.0-11.0) Red Blood Count 2.86 x10^6/uL (3.50-5.40) Hemoglobin 7.3 g/dL (12.0-15.5) Hematocrit 22.2 % (36.0-47.0) Mean Corpuscular Volume 77 fL (79-100) Mean Corpuscular Hemoglobin 26 pg (25-35) Mean Corpuscular Hemoglobin Concent 33 g/dL (31-37) Red Cell Distribution Width 17.8 % (11.5-14.5) Platelet Count 137 x10^3/uL (140-400) Neutrophils (%) (Auto) 85 % (31-73) Lymphocytes (%) (Auto) 4 % (24-48) Monocytes (%) (Auto) 10 % (0-9) Eosinophils (%) (Auto) 0 % (0-3) Basophils (%) (Auto) 0 % (0-3) Neutrophils # (Auto) 9.3 x10^3uL (1.8-7.7) Lymphocytes # (Auto) 0.5 x10^3/uL (1.0-4.8) Monocytes # (Auto) 1.1 x10^3/uL (0.0-1.1) Eosinophils # (Auto) 0.0 x10^3/uL (0.0-0.7) Basophils # (Auto) 0.0 x10^3/uL (0.0-0.2) Sodium Level 122 mmol/L (136-145) Potassium Level 4.0 mmol/L (3.5-5.1) Chloride Level 90 mmol/L (98-107) Carbon Dioxide Level 23 mmol/L (21-32) Anion Gap 9 (6-14) Blood Urea Nitrogen 24 mg/dL (7-20) Creatinine 0.7 mg/dL (0.6-1.0) Estimated GFR (Cockcroft-Gault) 85.1 Glucose Level 77 mg/dL (70-99) Calcium Level 8.3 mg/dL (8.5-10.1) Test 03/22/17 07:23 03/22/17 10:51 Glucose (Fingerstick) 73 mg/dL (70-99) 60 mg/dL (70-99) Review of Systems Review of Systems Pt complains of nausea and pain at surgical site Assessment and Plan Assessmemt and Plan Problems Medical Problems: (1) Femur fracture Status: Acute Assessment: acute hypoxic respiratory failure ARDS sepsis 1. Epidural spinal abscess extending from L2/L3 through L5/S1 with moderate to severe central canal stenosis posterior to the L4 vertebral body. s/p NS on . recovering appropriately. dressing changes as per NS; MONET d/c.ed today 2. MRSA bacteremia: same as wound cult. on dapto. 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 Renal mass vs abscess: bx recommended; consider rpt CT in near future, dedicated renal , to r/o RCC 4. Facial swelling: w/o angioedema/globus/stridor; initially suspected to be allergic rxn to BRENDA-I; ? 2/2 infection 5. SHERRIE on CKD3: back to baseline creat. renal following 6. HTN: better controlled on increased BB. BRENDA-I remains on hold. 7. DM2: improved control with home metformin and increased levemir. cont ISS 8. Schizophrenia: continue home meds! 9. Agitation: better w/ IM geodon and now on Precedex with good results. 10. [facility] resident Plan: Continue home meds PT/OT Recheck labs Appreciate subspecialty input Discharge friday, disposition pending Problems: Comment Review of Relevant I have reviewed the following items sheri (where applicable) has been applied. Labs Laboratory Tests Test 03/20/17 11:56 03/20/17 12:17 03/20/17 16:10 03/20/17 16:26 Glucose (Fingerstick) 68 mg/dL (70-99) 106 mg/dL (70-99) 68 mg/dL (70-99) Hemoglobin 6.8 g/dL (12.0-15.5) Hematocrit 21.4 % (36.0-47.0) Mean Corpuscular Hemoglobin Concent 32 g/dL (31-37) Test 03/20/17 17:03 03/20/17 20:19 03/20/17 21:19 03/20/17 22:20 Glucose (Fingerstick) 114 mg/dL (70-99) 67 mg/dL (70-99) 84 mg/dL (70-99) Stool Occult Blood Negative (NEG) Clostridium difficile Toxin (PCR) Negative (Negative) Test 03/21/17 04:54 03/21/17 05:11 03/21/17 05:50 03/21/17 07:02 Glucose (Fingerstick) 54 mg/dL (70-99) 111 mg/dL (70-99) 75 mg/dL (70-99) White Blood Count 10.9 x10^3/uL (4.0-11.0) Red Blood Count 3.15 x10^6/uL (3.50-5.40) Hemoglobin 8.0 g/dL (12.0-15.5) Hematocrit 24.7 % (36.0-47.0) Mean Corpuscular Volume 79 fL (79-100) Mean Corpuscular Hemoglobin 26 pg (25-35) Mean Corpuscular Hemoglobin Concent 33 g/dL (31-37) Red Cell Distribution Width 17.1 % (11.5-14.5) Platelet Count 131 x10^3/uL (140-400) Neutrophils (%) (Auto) 88 % (31-73) Lymphocytes (%) (Auto) 4 % (24-48) Monocytes (%) (Auto) 8 % (0-9) Eosinophils (%) (Auto) 0 % (0-3) Basophils (%) (Auto) 0 % (0-3) Neutrophils # (Auto) 9.6 x10^3uL (1.8-7.7) Lymphocytes # (Auto) 0.4 x10^3/uL (1.0-4.8) Monocytes # (Auto) 0.9 x10^3/uL (0.0-1.1) Eosinophils # (Auto) 0.0 x10^3/uL (0.0-0.7) Basophils # (Auto) 0.0 x10^3/uL (0.0-0.2) Segmented Neutrophils % 78 % (35-66) Band Neutrophils % 15 % (0-9) Lymphocytes % 2 % (24-48) Monocytes % 4 % (0-10) Eosinophils % 1 % (0-5) Nucleated Red Blood Cells 1 Platelet Estimate Decreased (ADEQUATE) Hypochromasia Slight Anisocytosis Slight Microcytosis Slight Sodium Level 123 mmol/L (136-145) Potassium Level 3.4 mmol/L (3.5-5.1) Chloride Level 90 mmol/L (98-107) Carbon Dioxide Level 23 mmol/L (21-32) Anion Gap 10 (6-14) Blood Urea Nitrogen 23 mg/dL (7-20) Creatinine 0.7 mg/dL (0.6-1.0) Estimated GFR (Cockcroft-Gault) 85.1 Glucose Level 83 mg/dL (70-99) Calcium Level 8.4 mg/dL (8.5-10.1) Thyroid Stimulating Hormone (TSH) 0.025 uIU/mL (0.358-3.74) Test 03/21/17 11:14 03/21/17 13:00 03/21/17 13:29 03/21/17 14:12 Glucose (Fingerstick) 52 mg/dL (70-99) 68 mg/dL (70-99) 73 mg/dL (70-99) 52 mg/dL (70-99) Test 03/21/17 14:36 03/21/17 16:00 03/21/17 16:58 03/21/17 19:02 Glucose (Fingerstick) 73 mg/dL (70-99) 67 mg/dL (70-99) 86 mg/dL (70-99) 55 mg/dL (70-99) Test 03/21/17 19:49 03/21/17 20:50 03/21/17 21:51 03/22/17 01:16 Glucose (Fingerstick) 66 mg/dL (70-99) 57 mg/dL (70-99) 90 mg/dL (70-99) 67 mg/dL (70-99) Test 03/22/17 01:32 03/22/17 01:46 03/22/17 02:01 03/22/17 03:55 Glucose (Fingerstick) 64 mg/dL (70-99) 68 mg/dL (70-99) 82 mg/dL (70-99) White Blood Count 10.9 x10^3/uL (4.0-11.0) Red Blood Count 2.86 x10^6/uL (3.50-5.40) Hemoglobin 7.3 g/dL (12.0-15.5) Hematocrit 22.2 % (36.0-47.0) Mean Corpuscular Volume 77 fL (79-100) Mean Corpuscular Hemoglobin 26 pg (25-35) Mean Corpuscular Hemoglobin Concent 33 g/dL (31-37) Red Cell Distribution Width 17.8 % (11.5-14.5) Platelet Count 137 x10^3/uL (140-400) Neutrophils (%) (Auto) 85 % (31-73) Lymphocytes (%) (Auto) 4 % (24-48) Monocytes (%) (Auto) 10 % (0-9) Eosinophils (%) (Auto) 0 % (0-3) Basophils (%) (Auto) 0 % (0-3) Neutrophils # (Auto) 9.3 x10^3uL (1.8-7.7) Lymphocytes # (Auto) 0.5 x10^3/uL (1.0-4.8) Monocytes # (Auto) 1.1 x10^3/uL (0.0-1.1) Eosinophils # (Auto) 0.0 x10^3/uL (0.0-0.7) Basophils # (Auto) 0.0 x10^3/uL (0.0-0.2) Sodium Level 122 mmol/L (136-145) Potassium Level 4.0 mmol/L (3.5-5.1) Chloride Level 90 mmol/L (98-107) Carbon Dioxide Level 23 mmol/L (21-32) Anion Gap 9 (6-14) Blood Urea Nitrogen 24 mg/dL (7-20) Creatinine 0.7 mg/dL (0.6-1.0) Estimated GFR (Cockcroft-Gault) 85.1 Glucose Level 77 mg/dL (70-99) Calcium Level 8.3 mg/dL (8.5-10.1) Test 03/22/17 05:46 03/22/17 07:23 03/22/17 10:51 Glucose (Fingerstick) 78 mg/dL (70-99) 73 mg/dL (70-99) 60 mg/dL (70-99) Laboratory Tests Test 03/21/17 13:00 03/21/17 13:29 03/21/17 14:12 03/21/17 14:36 Glucose (Fingerstick) 68 mg/dL (70-99) 73 mg/dL (70-99) 52 mg/dL (70-99) 73 mg/dL (70-99) Test 03/21/17 16:00 03/21/17 16:58 03/21/17 19:02 03/21/17 19:49 Glucose (Fingerstick) 67 mg/dL (70-99) 86 mg/dL (70-99) 55 mg/dL (70-99) 66 mg/dL (70-99) Test 03/21/17 20:50 03/21/17 21:51 03/22/17 01:16 03/22/17 01:32 Glucose (Fingerstick) 57 mg/dL (70-99) 90 mg/dL (70-99) 67 mg/dL (70-99) 64 mg/dL (70-99) Test 03/22/17 01:46 03/22/17 02:01 03/22/17 03:55 03/22/17 05:46 Glucose (Fingerstick) 68 mg/dL (70-99) 82 mg/dL (70-99) 78 mg/dL (70-99) White Blood Count 10.9 x10^3/uL (4.0-11.0) Red Blood Count 2.86 x10^6/uL (3.50-5.40) Hemoglobin 7.3 g/dL (12.0-15.5) Hematocrit 22.2 % (36.0-47.0) Mean Corpuscular Volume 77 fL (79-100) Mean Corpuscular Hemoglobin 26 pg (25-35) Mean Corpuscular Hemoglobin Concent 33 g/dL (31-37) Red Cell Distribution Width 17.8 % (11.5-14.5) Platelet Count 137 x10^3/uL (140-400) Neutrophils (%) (Auto) 85 % (31-73) Lymphocytes (%) (Auto) 4 % (24-48) Monocytes (%) (Auto) 10 % (0-9) Eosinophils (%) (Auto) 0 % (0-3) Basophils (%) (Auto) 0 % (0-3) Neutrophils # (Auto) 9.3 x10^3uL (1.8-7.7) Lymphocytes # (Auto) 0.5 x10^3/uL (1.0-4.8) Monocytes # (Auto) 1.1 x10^3/uL (0.0-1.1) Eosinophils # (Auto) 0.0 x10^3/uL (0.0-0.7) Basophils # (Auto) 0.0 x10^3/uL (0.0-0.2) Sodium Level 122 mmol/L (136-145) Potassium Level 4.0 mmol/L (3.5-5.1) Chloride Level 90 mmol/L (98-107) Carbon Dioxide Level 23 mmol/L (21-32) Anion Gap 9 (6-14) Blood Urea Nitrogen 24 mg/dL (7-20) Creatinine 0.7 mg/dL (0.6-1.0) Estimated GFR (Cockcroft-Gault) 85.1 Glucose Level 77 mg/dL (70-99) Calcium Level 8.3 mg/dL (8.5-10.1) Test 03/22/17 07:23 03/22/17 10:51 Glucose (Fingerstick) 73 mg/dL (70-99) 60 mg/dL (70-99) Medications Current Medications Morphine Sulfate 2 mg 1X ONCE IV/SQ Last administered on 03/17/17 11:46; Start 03/17/17 at 11:45; Stop 03/17/17 at 11:46; Status DC Fentanyl Citrate (Fentanyl 2ml Vial) 50 mcg PRN Q2HR PRN IV PAIN Last administered on 03/22/17 10:48; Start 03/17/17 at 12:45 Acetaminophen/ Hydrocodone Bitart (Lortab 5/325) 1 tab PRN Q4HRS PRN PO MILD - MODERATE PAIN Last administered on 03/21/17 00:37; Start 03/17/17 at 12:45 Acetaminophen/ Hydrocodone Bitart (Lortab 7.5/325) 1 tab PRN Q6HRS PRN PO SEVERE PAIN Last administered on 03/19/17 01:07; Start 03/17/17 at 12:45 Gemfibrozil (Lopid) 600 mg BID PO Last administered on 03/21/17 21:02; Start 03/17/17 at 21:00 Glyburide (Diabeta) 10 mg BIDWMEALS PO Last administered on 03/21/17 09:27; Start 03/17/17 at 17:00 Paroxetine HCl (Paxil) 20 mg DAILY PO Last administered on 03/21/17 09:13; Start 03/17/17 at 13:00; Stop 03/21/17 at 09:45; Status DC Phenytoin Sodium (Dilantin) 300 mg BID PO Last administered on 03/22/17 10:50 ; Start 03/17/17 at 21:00 Lisinopril (Prinivil) 20 mg DAILY PO Last administered on 03/21/17 09:14; Start 03/17/17 at 13:00 Calcium/Vitamin D (Oscal D 500mg/ 200uts) 1 tab DAILY PO Last administered on 03/21/17 09:14; Start 03/18/17 at 09:00 Hydrochlorothiazide (Hydrodiuril) 25 mg DAILY PO Last administered on 09:15; Start 03/17/17 at 13:00; Stop 03/21/17 at 09:45; Status DC Isosorbide Mononitrate (Imdur) 30 mg DAILY PO Last administered on 03/21/17 09:15; Start 03/17/17 at 13:00 Fish Oil (Fish Oil) 1,000 mg DAILY PO Last administered on 03/21/17 09:12; Start 03/18/17 at 09:00 Multivitamins (Thera M Plus) 1 tab DAILY PO Last administered on 03/21/17 09: 13; Start 03/18/17 at 09:00 Non-Formulary Medication 3 tab UD PO ; Start 03/17/17 at 12:45; Status UNV Oxybutynin Chloride (Ditropan) 5 mg BID PO Last administered on 03/21/17 21: 03; Start 03/17/17 at 21:00 Verapamil HCl (Calan Sr) 240 mg DAILY PO Last administered on 03/21/17 09:12 ; Start 03/17/17 at 13:00 Insulin Aspart (NovoLOG) 0-7 UNITS TIDWMEALS SQ Last administered on 03/18/17 18:11; Start 03/17/17 at 13:00 Dextrose (Dextrose 50%-Water Syringe) 12.5 gm PRN Q15MIN PRN IV SEE COMMENTS Last administered on 03/21/17 19:10; Start 03/17/17 at 12:45 Ondansetron HCl (Zofran) 4 mg PRN Q8HRS PRN IV NAUSEA/VOMITING; Start 03/17/17 at 13:00; Stop 03/18/17 at 12:59; Status DC Morphine Sulfate 2 mg PRN Q2HR PRN IV PAIN; Start 03/17/17 at 13:00; Stop 03/18 at 12:59; Status DC Pioglitazone HCl (Actos) 15 mg TIDWMEALS PO Last administered on 03/21/17 09: 15; Start 03/17/17 at 13:00 Metformin HCl (Glucophage) 850 mg TIDWMEALS PO Last administered on 03/21/17 09:15; Start 03/17/17 at 13:00 Cefazolin Sodium 3 gm/Dextrose 100 ml @ 200 mls/hr 1X ONCE IV ; Start at 06:00; Stop 03/18/17 at 06:29; Status DC Ondansetron HCl (Zofran) 4 mg PRN Q6HRS PRN IV NAUSEA/VOMITING; Start 03/18/17 at 07:00; Stop 03/19/17 at 06:59; Status DC Fentanyl Citrate (Fentanyl 2ml Vial) 25 mcg PRN Q5MIN PRN IV MILD PAIN; Start 03/18/17 at 07:00; Stop 03/19/17 at 06:59; Status DC Fentanyl Citrate (Fentanyl 2ml Vial) 50 mcg PRN Q5MIN PRN IV MODERATE PAIN; Start 03/18/17 at 07:00; Stop 03/19/17 at 06:59; Status DC Morphine Sulfate 1 mg PRN Q10MIN PRN IV SEVERE PAIN Last administered on 13:35; Start 03/18/17 at 07:00; Stop 03/19/17 at 06:59; Status DC Ringer's Solution 1,000 ml @ 0 mls/hr Q0M IV Last administered on 03/18/17 09 :55; Start 03/18/17 at 07:00; Stop 03/18/17 at 18:59; Status DC Lidocaine HCl (Xylocaine-Mpf 1% Vial) 2 ml PRN 1X PRN ID PRIOR TO IV START; Start 03/18/17 at 07:00; Stop 03/19/17 at 06:59; Status DC Hydromorphone HCl (Dilaudid) 0.5 mg PRN Q10MIN PRN IV SEV PAIN, Second choice Last administered on 03/18/17 13:56; Start 03/18/17 at 07:00; Stop 03/19/17 at 06:59; Status DC Prochlorperazine Edisylate (Compazine) 5 mg PACU PRN PRN IV NAUSEA, MRX1; Start 03/18/17 at 07:00; Stop 03/19/17 at 06:59; Status DC Lidocaine HCl 30 ml STK-MED ONCE .ROUTE ; Start 03/18/17 at 06:54; Stop at 06:55; Status DC Bupivacaine HCl (Sensorcaine Mpf 0.5%) 30 ml STK-MED ONCE .ROUTE ; Start at 06:54; Stop 03/18/17 at 06:55; Status DC Insulin Aspart (NovoLOG VIAL) 100 unit STK-MED ONCE SQ ; Start 03/18/17 at 09:45 ; Stop 03/18/17 at 09:46; Status DC Insulin Aspart (NovoLOG VIAL) 8 unit 1X STAT SQ Last administered on 09:52; Start 03/18/17 at 09:49; Stop 03/18/17 at 09:50; Status DC Propofol 20 ml @ As Directed STK-MED ONCE IV ; Start 03/18/17 at 10:01; Stop at 10:03; Status DC Dexamethasone Sodium Phosphate (Decadron) 20 mg STK-MED ONCE .ROUTE ; Start 03/18/17 at 10:01; Stop 03/18/17 at 10:03; Status DC Famotidine (Pepcid) 20 mg STK-MED ONCE .ROUTE ; Start 03/18/17 at 10:01; Stop 03/18/17 at 10:03; Status DC Lidocaine HCl (Lidocaine Pf 2% Vial) 5 ml STK-MED ONCE .ROUTE ; Start 03/18/17 at 10:01; Stop 03/18/17 at 10:03; Status DC Ondansetron HCl (Zofran) 4 mg STK-MED ONCE .ROUTE ; Start 03/18/17 at 10:01; Stop 03/18/17 at 10:03; Status DC Fentanyl Citrate (Fentanyl 2ml Vial) 100 mcg STK-MED ONCE .ROUTE ; Start at 10:01; Stop 03/18/17 at 10:03; Status DC Midazolam HCl (Versed) 2 mg STK-MED ONCE .ROUTE ; Start 03/18/17 at 10:01; Stop 03/18/17 at 10:03; Status DC Bupivacaine HCl (Sensorcaine Mpf 0.5%) 30 ml STK-MED ONCE .ROUTE ; Start at 10:04; Stop 03/18/17 at 10:05; Status DC Succinylcholine Chloride (Anectine) 200 mg STK-MED ONCE .ROUTE ; Start 03/18/17 at 10:04; Stop 03/18/17 at 10:05; Status DC Fentanyl Citrate (Fentanyl 2ml Vial) 100 mcg STK-MED ONCE .ROUTE ; Start at 11:37; Stop 03/18/17 at 11:38; Status DC Enoxaparin Sodium (Lovenox 40mg Syringe) 40 mg Q12HR SQ Last administered on 07:59; Start 03/18/17 at 21:00; Stop 03/20/17 at 08:55; Status DC Cefazolin Sodium 3 gm/Sodium Chloride 100 ml @ 200 mls/hr Q6H IV Last administered on 03/19/17 06:34; Start 03/18/17 at 15:30; Stop 03/19/17 at 06:59 ; Status DC Ergocalciferol (Vitamin D2) 50,000 unit WEEKLY PO Last administered on 10:05; Start 03/19/17 at 09:00 Morphine Sulfate 5 mg/Ketorolac Tromethamine 30 mg/Ropivacaine 60 ml/ Epinephrine HCl 0.5 mg/Sodium Chloride 100 ml @ 100 mls/hr 1X PERIOP ONCE INT ART Last administered on 03/18/17 12:33; Start 03/18/17 at 12:00; Stop at 12:59; Status DC Vasopressin (Vasostrict) 20 unit STK-MED ONCE .ROUTE ; Start 03/18/17 at 12:15; Stop 03/18/17 at 12:16; Status DC Sevoflurane (Ultane) 60 ml STK-MED ONCE IH ; Start 03/18/17 at 12:43; Stop 03/18 at 12:44; Status DC Insulin Aspart (NovoLOG VIAL) 8 unit 1X PACU PRN SQ SEE COMMENTS Last administered on 03/18/17 13:50; Start 03/18/17 at 13:45; Stop 03/18/17 at 18:00 ; Status DC Influenza Virus Vaccine Quadrival (Fluarix Quad [id number] Syringe) 0.5 ml ONCE ONCE VAX IM ; Start 03/18/17 at 16:00; Stop 03/18/17 at 16:01; Status DC Ondansetron HCl (Zofran) 4 mg PRN Q6HRS PRN IV NAUSEA/VOMITING Last administered on 03/21/17 00:38; Start 03/19/17 at 09:15; Stop 03/21/17 at 01: 35; Status DC Ibuprofen (Motrin) 600 mg PRN Q6HRS PRN PO INFLAMMATION; Start 03/19/17 at 10: 45; Stop 03/20/17 at 08:55; Status DC Pantoprazole Sodium (Protonix) 40 mg DAILYAC PO Last administered on 06:23; Start 03/19/17 at 11:30 Ondansetron HCl (Zofran) 4 mg PRN Q4HRS PRN IV NAUSEA/VOMITING Last administered on 03/22/17 10:49; Start 03/21/17 at 01:30 Sodium Chloride 1,000 ml @ 100 mls/hr Q10H IV Last administered on 03/21/17 11:34; Start 03/21/17 at 10:00; Stop 03/21/17 at 20:01; Status DC Enoxaparin Sodium (Lovenox 40mg Syringe) 40 mg BID SQ Last administered on 10:51; Start 03/21/17 at 14:00 Dextrose/Sodium Chloride 1,000 ml @ 100 mls/hr Q10H IV Last administered on t 10:50; Start 03/21/17 at 20:15 Active Scripts Active Reported Krill Oil 300 Mg Softgel (Krill/Richton-3/Dha/Epa/Lipids) 1 Each Capsule 1 Each PO DAILY Aspirin 325 Mg Tablet 1 Tab PO DAILY Caltrate 600 + D Tablet (Calcium Carbonate/Vitamin D3) 1 Each Tablet 1 Each PO DAILY Centrum Silver Tablet (Multivits-Min/Fa/Lycopene/Lut) 1 Each Tablet 1 Each PO DAILY Detrol La (Tolterodine Tartrate) 2 Mg Cap.er.24h 2 Mg PO DAILY Isosorbide Dinitrate 30 Mg Tablet 30 Mg PO DAILY Lotensin (Benazepril Hcl) 20 Mg Tablet 20 Mg PO DAILY Hydrochlorothiazide Tablet (Hydrochlorothiazide) 50 Mg Tablet 25 Mg PO DAILY Calan (Verapamil Hcl) 120 Mg Tablet 240 Mg PO DAILY Paxil (Paroxetine Hcl) 20 Mg Tablet 1 Tab PO DAILY Dilantin (Phenytoin Sodium Extended) 100 Mg Capsule 3 Cap PO BID Actoplus Met 15 Mg-850 Mg Tab (Pioglitazone Hcl/Metformin Hcl) 1 Each Tablet 3 Tab PO UD Gemfibrozil 600 Mg Tablet 600 Mg PO BID Glyburide 5 Mg Tablet 2 Tab PO BID Vitals/I & O Vital Sign - Last 24 Hours 03/21/17 03/21/17 03/21/17 03/21/17 15:00 18:15 20:10 23:23 Temp 97.9 97.5 97.9 97.5 Pulse 70 80 Resp 18 20 20 B/P (MAP) 126/63 (84) 120/69 (86) Pulse Ox 98 98 96 O2 Delivery Nasal Cannula Nasal Cannula Nasal Cannula Nasal Cannula O2 Flow Rate 2.0 2.0 2.0 2.0 03/22/17 03/22/17 03/22/17 03/22/17 01:20 01:50 03:00 04:58 Temp 97.7 97.7 Pulse 84 Resp 20 18 20 20 B/P (MAP) 119/54 (75) Pulse Ox 96 96 95 95 O2 Delivery Nasal Cannula Nasal Cannula Nasal Cannula O2 Flow Rate 2.0 2.0 2.0 03/22/17 03/22/17 03/22/17 03/22/17 05:30 07:00 10:48 11:09 Temp 97.5 98.1 97.5 98.1 Pulse 75 77 Resp 20 20 16 B/P (MAP) 136/67 (90) 137/61 (86) Pulse Ox 96 97 O2 Delivery Nasal Cannula Room Air Nasal Cannula Nasal Cannula O2 Flow Rate 2.0 2.0 2.0 LORELEI HUMPHREYS III DO Mar 22, 2017 11:53
--- NOTE | 2017-03-22 14:23 | PDOC ---
ORTHO PROGRESS NOTES Subjective R knee pain tolerable. N and V, not much appetite Vitals Vital Signs Date Time Temp Pulse Resp B/P (MAP) Pulse Ox O2 Delivery O2 Flow Rate FiO2 03/22/17 11:18 20 97 Nasal Cannula 2.0 03/22/17 11:09 98.1 77 137/61 (86) 98.1 Labs Laboratory Tests Test 03/20/17 16:10 03/20/17 16:26 03/20/17 17:03 03/20/17 20:19 Hemoglobin 6.8 g/dL (12.0-15.5) Hematocrit 21.4 % (36.0-47.0) Mean Corpuscular Hemoglobin Concent 32 g/dL (31-37) Glucose (Fingerstick) 68 mg/dL (70-99) 114 mg/dL (70-99) 67 mg/dL (70-99) Test 03/20/17 21:19 03/20/17 22:20 03/21/17 04:54 03/21/17 05:11 Glucose (Fingerstick) 84 mg/dL (70-99) 54 mg/dL (70-99) 111 mg/dL (70-99) Stool Occult Blood Negative (NEG) Clostridium difficile Toxin (PCR) Negative (Negative) Test 03/21/17 05:50 03/21/17 07:02 03/21/17 11:14 03/21/17 13:00 White Blood Count 10.9 x10^3/uL (4.0-11.0) Red Blood Count 3.15 x10^6/uL (3.50-5.40) Hemoglobin 8.0 g/dL (12.0-15.5) Hematocrit 24.7 % (36.0-47.0) Mean Corpuscular Volume 79 fL (79-100) Mean Corpuscular Hemoglobin 26 pg (25-35) Mean Corpuscular Hemoglobin Concent 33 g/dL (31-37) Red Cell Distribution Width 17.1 % (11.5-14.5) Platelet Count 131 x10^3/uL (140-400) Neutrophils (%) (Auto) 88 % (31-73) Lymphocytes (%) (Auto) 4 % (24-48) Monocytes (%) (Auto) 8 % (0-9) Eosinophils (%) (Auto) 0 % (0-3) Basophils (%) (Auto) 0 % (0-3) Neutrophils # (Auto) 9.6 x10^3uL (1.8-7.7) Lymphocytes # (Auto) 0.4 x10^3/uL (1.0-4.8) Monocytes # (Auto) 0.9 x10^3/uL (0.0-1.1) Eosinophils # (Auto) 0.0 x10^3/uL (0.0-0.7) Basophils # (Auto) 0.0 x10^3/uL (0.0-0.2) Segmented Neutrophils % 78 % (35-66) Band Neutrophils % 15 % (0-9) Lymphocytes % 2 % (24-48) Monocytes % 4 % (0-10) Eosinophils % 1 % (0-5) Nucleated Red Blood Cells 1 Platelet Estimate Decreased (ADEQUATE) Hypochromasia Slight Anisocytosis Slight Microcytosis Slight Sodium Level 123 mmol/L (136-145) Potassium Level 3.4 mmol/L (3.5-5.1) Chloride Level 90 mmol/L (98-107) Carbon Dioxide Level 23 mmol/L (21-32) Anion Gap 10 (6-14) Blood Urea Nitrogen 23 mg/dL (7-20) Creatinine 0.7 mg/dL (0.6-1.0) Estimated GFR (Cockcroft-Gault) 85.1 Glucose Level 83 mg/dL (70-99) Calcium Level 8.4 mg/dL (8.5-10.1) Thyroid Stimulating Hormone (TSH) 0.025 uIU/mL (0.358-3.74) Glucose (Fingerstick) 75 mg/dL (70-99) 52 mg/dL (70-99) 68 mg/dL (70-99) Test 03/21/17 13:29 03/21/17 14:12 03/21/17 14:36 03/21/17 16:00 Glucose (Fingerstick) 73 mg/dL (70-99) 52 mg/dL (70-99) 73 mg/dL (70-99) 67 mg/dL (70-99) Test 03/21/17 16:58 03/21/17 19:02 03/21/17 19:49 03/21/17 20:50 Glucose (Fingerstick) 86 mg/dL (70-99) 55 mg/dL (70-99) 66 mg/dL (70-99) 57 mg/dL (70-99) Test 03/21/17 21:51 03/22/17 01:16 03/22/17 01:32 03/22/17 01:46 Glucose (Fingerstick) 90 mg/dL (70-99) 67 mg/dL (70-99) 64 mg/dL (70-99) 68 mg/dL (70-99) Test 03/22/17 02:01 03/22/17 03:55 03/22/17 05:46 03/22/17 07:23 Glucose (Fingerstick) 82 mg/dL (70-99) 78 mg/dL (70-99) 73 mg/dL (70-99) White Blood Count 10.9 x10^3/uL (4.0-11.0) Red Blood Count 2.86 x10^6/uL (3.50-5.40) Hemoglobin 7.3 g/dL (12.0-15.5) Hematocrit 22.2 % (36.0-47.0) Mean Corpuscular Volume 77 fL (79-100) Mean Corpuscular Hemoglobin 26 pg (25-35) Mean Corpuscular Hemoglobin Concent 33 g/dL (31-37) Red Cell Distribution Width 17.8 % (11.5-14.5) Platelet Count 137 x10^3/uL (140-400) Neutrophils (%) (Auto) 85 % (31-73) Lymphocytes (%) (Auto) 4 % (24-48) Monocytes (%) (Auto) 10 % (0-9) Eosinophils (%) (Auto) 0 % (0-3) Basophils (%) (Auto) 0 % (0-3) Neutrophils # (Auto) 9.3 x10^3uL (1.8-7.7) Lymphocytes # (Auto) 0.5 x10^3/uL (1.0-4.8) Monocytes # (Auto) 1.1 x10^3/uL (0.0-1.1) Eosinophils # (Auto) 0.0 x10^3/uL (0.0-0.7) Basophils # (Auto) 0.0 x10^3/uL (0.0-0.2) Sodium Level 122 mmol/L (136-145) Potassium Level 4.0 mmol/L (3.5-5.1) Chloride Level 90 mmol/L (98-107) Carbon Dioxide Level 23 mmol/L (21-32) Anion Gap 9 (6-14) Blood Urea Nitrogen 24 mg/dL (7-20) Creatinine 0.7 mg/dL (0.6-1.0) Estimated GFR (Cockcroft-Gault) 85.1 Glucose Level 77 mg/dL (70-99) Calcium Level 8.3 mg/dL (8.5-10.1) Test 03/22/17 10:51 03/22/17 12:08 Glucose (Fingerstick) 60 mg/dL (70-99) 69 mg/dL (70-99) Laboratory Tests Test 03/21/17 14:36 03/21/17 16:00 03/21/17 16:58 03/21/17 19:02 Glucose (Fingerstick) 73 mg/dL (70-99) 67 mg/dL (70-99) 86 mg/dL (70-99) 55 mg/dL (70-99) Test 03/21/17 19:49 03/21/17 20:50 03/21/17 21:51 03/22/17 01:16 Glucose (Fingerstick) 66 mg/dL (70-99) 57 mg/dL (70-99) 90 mg/dL (70-99) 67 mg/dL (70-99) Test 03/22/17 01:32 03/22/17 01:46 03/22/17 02:01 03/22/17 03:55 Glucose (Fingerstick) 64 mg/dL (70-99) 68 mg/dL (70-99) 82 mg/dL (70-99) White Blood Count 10.9 x10^3/uL (4.0-11.0) Red Blood Count 2.86 x10^6/uL (3.50-5.40) Hemoglobin 7.3 g/dL (12.0-15.5) Hematocrit 22.2 % (36.0-47.0) Mean Corpuscular Volume 77 fL (79-100) Mean Corpuscular Hemoglobin 26 pg (25-35) Mean Corpuscular Hemoglobin Concent 33 g/dL (31-37) Red Cell Distribution Width 17.8 % (11.5-14.5) Platelet Count 137 x10^3/uL (140-400) Neutrophils (%) (Auto) 85 % (31-73) Lymphocytes (%) (Auto) 4 % (24-48) Monocytes (%) (Auto) 10 % (0-9) Eosinophils (%) (Auto) 0 % (0-3) Basophils (%) (Auto) 0 % (0-3) Neutrophils # (Auto) 9.3 x10^3uL (1.8-7.7) Lymphocytes # (Auto) 0.5 x10^3/uL (1.0-4.8) Monocytes # (Auto) 1.1 x10^3/uL (0.0-1.1) Eosinophils # (Auto) 0.0 x10^3/uL (0.0-0.7) Basophils # (Auto) 0.0 x10^3/uL (0.0-0.2) Sodium Level 122 mmol/L (136-145) Potassium Level 4.0 mmol/L (3.5-5.1) Chloride Level 90 mmol/L (98-107) Carbon Dioxide Level 23 mmol/L (21-32) Anion Gap 9 (6-14) Blood Urea Nitrogen 24 mg/dL (7-20) Creatinine 0.7 mg/dL (0.6-1.0) Estimated GFR (Cockcroft-Gault) 85.1 Glucose Level 77 mg/dL (70-99) Calcium Level 8.3 mg/dL (8.5-10.1) Test 03/22/17 05:46 03/22/17 07:23 03/22/17 10:51 03/22/17 12:08 Glucose (Fingerstick) 78 mg/dL (70-99) 73 mg/dL (70-99) 60 mg/dL (70-99) 69 mg/dL (70-99) Notes A and A sitting up in bed dressing intact remains NVI RLE Assessment and Plan NWB x 6 wks PT/OT as sudeep placement when stable and available SENG ACKERMAN II, MD Mar 22, 2017 14:23
[2017-03-22 15:05] VITALS: BP 142/66
[2017-03-22 19:20] VITALS: BP 138/85
[2017-03-22 22:56] VITALS: BP 131/79
[2017-03-23] MEDS: IV DEXTROSE 5% - 0.9 % NACL 1,000 ML IV SCH ×2 (02:15→12:15)
[2017-03-23 03:25] VITALS: BP 135/69
[2017-03-23] MEDS: fentaNYL PF VIAL 100 MCG/2 ML VIAL IV PRN ×3 (03:37→14:06)
[2017-03-23 05:28] LABS: BASO % 0 % (0-3); EOS % 0 % (0-3); HEMATOCRIT 24.7 % (36.0-47.0); LYMPH # 0.4 x10^3/uL (1.0-4.8); LYMPH % 4 % (24-48); MEAN CORPUSCULAR HEMOGLOBIN 26 pg (25-35); MEAN CORPUSCULAR HGB CONC 33 g/dL (31-37); MEAN CORPUSCULAR VOLUME 79 fL (79-100); MONO % 10 % (0-9); NEUT % 85 % (31-73); PLATELET COUNT 147 x10^3/uL (140-400); RED BLOOD COUNT 3.13 x10^6/uL (3.50-5.40); RED CELL DISTRIBUTION WIDTH 17.6 % (11.5-14.5); WHITE BLOOD COUNT 8.3 x10^3/uL (4.0-11.0)
[2017-03-23 06:17] LABS: CALCIUM 8.5 mg/dL (8.5-10.1); CREATININE 0.5 mg/dL (0.6-1.0); GFR 125.4; POTASSIUM 4.1 mmol/L (3.5-5.1)
[2017-03-23 07:00] VITALS: BP 144/60
[2017-03-23] MEDS: ONDANSETRON PF 4 MG/2 ML VIAL. IV PRN (07:33)
[2017-03-23] MEDS: PANTOPRAZOLE 40 MG TABLET.DR. PO SCH (07:34)
[2017-03-23] MEDS: INSULIN ASPART 300 UNITS/3 ML INSULN.PEN SQ SCH ×3 (08:00→17:00)
[2017-03-23] MEDS: metFORMIN 850 MG TABLET PO SCH ×3 (08:00→17:24)
[2017-03-23] MEDS: glyBURIDE 5 MG TABLET PO SCH ×2 (08:00→17:24)
[2017-03-23] MEDS: PIOGLITAZONE 15 MG TABLET. PO SCH ×3 (08:00→17:24)
--- NOTE | 2017-03-23 08:10 | PDOC ---
ORTHO PROGRESS NOTES Subjective Pain tolerable. Eating breakfast, feels hungry. + flatus Vitals Vital Signs Date Time Temp Pulse Resp B/P (MAP) Pulse Ox O2 Delivery O2 Flow Rate FiO2 03/23/17 07:34 20 Nasal Cannula 2.0 03/23/17 03:25 97.8 81 135/69 (91) 93 97.8 Labs Laboratory Tests Test 03/21/17 11:14 03/21/17 13:00 03/21/17 13:29 03/21/17 14:12 Glucose (Fingerstick) 52 mg/dL (70-99) 68 mg/dL (70-99) 73 mg/dL (70-99) 52 mg/dL (70-99) Test 03/21/17 14:36 03/21/17 16:00 03/21/17 16:58 03/21/17 19:02 Glucose (Fingerstick) 73 mg/dL (70-99) 67 mg/dL (70-99) 86 mg/dL (70-99) 55 mg/dL (70-99) Test 03/21/17 19:49 03/21/17 20:50 03/21/17 21:51 03/22/17 01:16 Glucose (Fingerstick) 66 mg/dL (70-99) 57 mg/dL (70-99) 90 mg/dL (70-99) 67 mg/dL (70-99) Test 03/22/17 01:32 03/22/17 01:46 03/22/17 02:01 03/22/17 03:55 Glucose (Fingerstick) 64 mg/dL (70-99) 68 mg/dL (70-99) 82 mg/dL (70-99) White Blood Count 10.9 x10^3/uL (4.0-11.0) Red Blood Count 2.86 x10^6/uL (3.50-5.40) Hemoglobin 7.3 g/dL (12.0-15.5) Hematocrit 22.2 % (36.0-47.0) Mean Corpuscular Volume 77 fL (79-100) Mean Corpuscular Hemoglobin 26 pg (25-35) Mean Corpuscular Hemoglobin Concent 33 g/dL (31-37) Red Cell Distribution Width 17.8 % (11.5-14.5) Platelet Count 137 x10^3/uL (140-400) Neutrophils (%) (Auto) 85 % (31-73) Lymphocytes (%) (Auto) 4 % (24-48) Monocytes (%) (Auto) 10 % (0-9) Eosinophils (%) (Auto) 0 % (0-3) Basophils (%) (Auto) 0 % (0-3) Neutrophils # (Auto) 9.3 x10^3uL (1.8-7.7) Lymphocytes # (Auto) 0.5 x10^3/uL (1.0-4.8) Monocytes # (Auto) 1.1 x10^3/uL (0.0-1.1) Eosinophils # (Auto) 0.0 x10^3/uL (0.0-0.7) Basophils # (Auto) 0.0 x10^3/uL (0.0-0.2) Sodium Level 122 mmol/L (136-145) Potassium Level 4.0 mmol/L (3.5-5.1) Chloride Level 90 mmol/L (98-107) Carbon Dioxide Level 23 mmol/L (21-32) Anion Gap 9 (6-14) Blood Urea Nitrogen 24 mg/dL (7-20) Creatinine 0.7 mg/dL (0.6-1.0) Estimated GFR (Cockcroft-Gault) 85.1 Glucose Level 77 mg/dL (70-99) Calcium Level 8.3 mg/dL (8.5-10.1) Test 03/22/17 05:46 03/22/17 07:23 03/22/17 10:51 03/22/17 12:08 Glucose (Fingerstick) 78 mg/dL (70-99) 73 mg/dL (70-99) 60 mg/dL (70-99) 69 mg/dL (70-99) Test 03/22/17 16:33 03/22/17 21:08 03/23/17 04:45 Glucose (Fingerstick) 86 mg/dL (70-99) 75 mg/dL (70-99) White Blood Count 8.3 x10^3/uL (4.0-11.0) Red Blood Count 3.13 x10^6/uL (3.50-5.40) Hemoglobin 8.0 g/dL (12.0-15.5) Hematocrit 24.7 % (36.0-47.0) Mean Corpuscular Volume 79 fL (79-100) Mean Corpuscular Hemoglobin 26 pg (25-35) Mean Corpuscular Hemoglobin Concent 33 g/dL (31-37) Red Cell Distribution Width 17.6 % (11.5-14.5) Platelet Count 147 x10^3/uL (140-400) Neutrophils (%) (Auto) 85 % (31-73) Lymphocytes (%) (Auto) 4 % (24-48) Monocytes (%) (Auto) 10 % (0-9) Eosinophils (%) (Auto) 0 % (0-3) Basophils (%) (Auto) 0 % (0-3) Neutrophils # (Auto) 7.1 x10^3uL (1.8-7.7) Lymphocytes # (Auto) 0.4 x10^3/uL (1.0-4.8) Monocytes # (Auto) 0.8 x10^3/uL (0.0-1.1) Eosinophils # (Auto) 0.0 x10^3/uL (0.0-0.7) Basophils # (Auto) 0.0 x10^3/uL (0.0-0.2) Sodium Level 127 mmol/L (136-145) Potassium Level 4.1 mmol/L (3.5-5.1) Chloride Level 93 mmol/L (98-107) Carbon Dioxide Level 24 mmol/L (21-32) Anion Gap 10 (6-14) Blood Urea Nitrogen 16 mg/dL (7-20) Creatinine 0.5 mg/dL (0.6-1.0) Estimated GFR (Cockcroft-Gault) 125.4 Glucose Level 107 mg/dL (70-99) Calcium Level 8.5 mg/dL (8.5-10.1) Laboratory Tests Test 03/22/17 10:51 03/22/17 12:08 03/22/17 16:33 03/22/17 21:08 Glucose (Fingerstick) 60 mg/dL (70-99) 69 mg/dL (70-99) 86 mg/dL (70-99) 75 mg/dL (70-99) Test 03/23/17 04:45 White Blood Count 8.3 x10^3/uL (4.0-11.0) Red Blood Count 3.13 x10^6/uL (3.50-5.40) Hemoglobin 8.0 g/dL (12.0-15.5) Hematocrit 24.7 % (36.0-47.0) Mean Corpuscular Volume 79 fL (79-100) Mean Corpuscular Hemoglobin 26 pg (25-35) Mean Corpuscular Hemoglobin Concent 33 g/dL (31-37) Red Cell Distribution Width 17.6 % (11.5-14.5) Platelet Count 147 x10^3/uL (140-400) Neutrophils (%) (Auto) 85 % (31-73) Lymphocytes (%) (Auto) 4 % (24-48) Monocytes (%) (Auto) 10 % (0-9) Eosinophils (%) (Auto) 0 % (0-3) Basophils (%) (Auto) 0 % (0-3) Neutrophils # (Auto) 7.1 x10^3uL (1.8-7.7) Lymphocytes # (Auto) 0.4 x10^3/uL (1.0-4.8) Monocytes # (Auto) 0.8 x10^3/uL (0.0-1.1) Eosinophils # (Auto) 0.0 x10^3/uL (0.0-0.7) Basophils # (Auto) 0.0 x10^3/uL (0.0-0.2) Sodium Level 127 mmol/L (136-145) Potassium Level 4.1 mmol/L (3.5-5.1) Chloride Level 93 mmol/L (98-107) Carbon Dioxide Level 24 mmol/L (21-32) Anion Gap 10 (6-14) Blood Urea Nitrogen 16 mg/dL (7-20) Creatinine 0.5 mg/dL (0.6-1.0) Estimated GFR (Cockcroft-Gault) 125.4 Glucose Level 107 mg/dL (70-99) Calcium Level 8.5 mg/dL (8.5-10.1) Notes A and A sitting in bed RLE: incision ok remains NVI Assessment and Plan NWB RLE ok to transfer when stable SENG ACKERMAN II, MD Mar 23, 2017 08:10
[2017-03-23] MEDS: VERAPAMIL SR 120 MG TABLET.ER. PO SCH (08:45)
[2017-03-23] MEDS: PHENYTOIN SODIUM EXTENDED 100 MG CAPSULE PO SCH ×2 (08:45→21:29)
[2017-03-23] MEDS: ENOXAPARIN 40 MG/0.4 ML SYRINGE. SQ SCH ×2 (08:46→21:31)
[2017-03-23] MEDS: ISOSORBIDE MONONITRATE ER 30 MG TAB.ER.24H PO SCH (08:47)
[2017-03-23] MEDS: HYDROcodone/APAP 7.5/325MG 1 TAB TABLET PO PRN ×2 (08:47→21:29)
[2017-03-23] MEDS: LISINOPRIL 20 MG TABLET PO SCH (08:47)
[2017-03-23] MEDS: OMEGA-3 FATTY ACIDS/FISH OIL 1,000 MG CAPSULE. PO SCH (08:48)
[2017-03-23] MEDS: CALCIUM CARB/VIT D3 500/200 TABLET. PO SCH (08:48)
[2017-03-23] MEDS: OXYBUTYNIN CHLORIDE 5 MG TABLET PO SCH ×2 (08:48→21:29)
[2017-03-23] MEDS: GEMFIBROZIL 600 MG TABLET. PO SCH ×2 (08:48→21:29)
[2017-03-23] MEDS: MULTIVITAMIN with MINERAL TABLET. PO SCH (08:50)
[2017-03-23 11:00] VITALS: BP 119/75
--- NOTE | 2017-03-23 14:28 | PDOC ---
PROGRESS NOTES Chief Complaint Chief Complaint 1. ORIF R distal femur Nonoperative treatment of Right radial neck fracture 2. Obese 3. hx Severe degenerative disk disease with central canal stenosis at L4-L5, severe and moderate at L2 and L3. 4. Type 2 diabetes mellitus. 5. Hypertension. 6. Hypothyroidism. 7. Rheumatoid arthritis. chronic stable 8. Vit D deficiency 9. Acute precipitous drop in hgb 10. HYponatremia History of Present Illness History of Present Illness Pt is a pleasant 62 year old female who had an operative fixation on her right femur. Pt was seen at bedside resting comfortably. Dressings are clean, dry, and intact. Encourage PO intake. Recommend SNU eval. Pt has a soto catheter. Continue maintenance IV fluids. Pt is being followed by orthopedics. Will continue to monitor. Vitals Vitals Vital Signs Date Time Temp Pulse Resp B/P (MAP) Pulse Ox O2 Delivery O2 Flow Rate FiO2 03/23/17 14:06 20 Nasal Cannula 2.0 03/23/17 11:00 97.9 75 119/75 (90) 95 97.9 Physical Exam General: Alert, Oriented X3, Cooperative, No acute distress (Nausea) Heart: Regular rate, Normal S1, Normal S2, Other (Distant heart sounds) Lungs: Clear Abdomen: Normal bowel sounds, Soft, No tenderness, No hepatosplenomegaly, No masses Extremities: No clubbing, No cyanosis, Other (RT leg externaly rotated) Skin: No rashes, No breakdown, No significant lesion, Other (nystatin podwer in between excessive skin folds) Labs LABS Laboratory Tests Test 03/22/17 16:33 03/22/17 21:08 03/23/17 04:45 03/23/17 07:30 Glucose (Fingerstick) 86 mg/dL (70-99) 75 mg/dL (70-99) 127 mg/dL (70-99) White Blood Count 8.3 x10^3/uL (4.0-11.0) Red Blood Count 3.13 x10^6/uL (3.50-5.40) Hemoglobin 8.0 g/dL (12.0-15.5) Hematocrit 24.7 % (36.0-47.0) Mean Corpuscular Volume 79 fL (79-100) Mean Corpuscular Hemoglobin 26 pg (25-35) Mean Corpuscular Hemoglobin Concent 33 g/dL (31-37) Red Cell Distribution Width 17.6 % (11.5-14.5) Platelet Count 147 x10^3/uL (140-400) Neutrophils (%) (Auto) 85 % (31-73) Lymphocytes (%) (Auto) 4 % (24-48) Monocytes (%) (Auto) 10 % (0-9) Eosinophils (%) (Auto) 0 % (0-3) Basophils (%) (Auto) 0 % (0-3) Neutrophils # (Auto) 7.1 x10^3uL (1.8-7.7) Lymphocytes # (Auto) 0.4 x10^3/uL (1.0-4.8) Monocytes # (Auto) 0.8 x10^3/uL (0.0-1.1) Eosinophils # (Auto) 0.0 x10^3/uL (0.0-0.7) Basophils # (Auto) 0.0 x10^3/uL (0.0-0.2) Sodium Level 127 mmol/L (136-145) Potassium Level 4.1 mmol/L (3.5-5.1) Chloride Level 93 mmol/L (98-107) Carbon Dioxide Level 24 mmol/L (21-32) Anion Gap 10 (6-14) Blood Urea Nitrogen 16 mg/dL (7-20) Creatinine 0.5 mg/dL (0.6-1.0) Estimated GFR (Cockcroft-Gault) 125.4 Glucose Level 107 mg/dL (70-99) Calcium Level 8.5 mg/dL (8.5-10.1) Test 03/23/17 11:15 Glucose (Fingerstick) 167 mg/dL (70-99) Review of Systems Review of Systems Pt complains of pain and fatigue Assessment and Plan Assessmemt and Plan Problems Medical Problems: (1) Femur fracture Status: Acute Assessment: 1. ORIF R distal femur Nonoperative treatment of Right radial neck fracture 2. Obese 3. hx Severe degenerative disk disease with central canal stenosis at L4-L5, severe and moderate at L2 and L3. 4. Type 2 diabetes mellitus. 5. Hypertension. 6. Hypothyroidism. 7. Rheumatoid arthritis. chronic stable 8. Vit D deficiency 9. Acute precipitous drop in hgb 10. HYponatremia Plan: Continue Maintenance IV fluids Continue home meds PT/OT Recheck labs Appreciate subspecialty input Encourage PO intake SNU eval Problems: Comment Review of Relevant I have reviewed the following items sheri (where applicable) has been applied. Labs Laboratory Tests Test 03/21/17 14:36 03/21/17 16:00 03/21/17 16:58 03/21/17 19:02 Glucose (Fingerstick) 73 mg/dL (70-99) 67 mg/dL (70-99) 86 mg/dL (70-99) 55 mg/dL (70-99) Test 03/21/17 19:49 03/21/17 20:50 03/21/17 21:51 03/22/17 01:16 Glucose (Fingerstick) 66 mg/dL (70-99) 57 mg/dL (70-99) 90 mg/dL (70-99) 67 mg/dL (70-99) Test 03/22/17 01:32 03/22/17 01:46 03/22/17 02:01 03/22/17 03:55 Glucose (Fingerstick) 64 mg/dL (70-99) 68 mg/dL (70-99) 82 mg/dL (70-99) White Blood Count 10.9 x10^3/uL (4.0-11.0) Red Blood Count 2.86 x10^6/uL (3.50-5.40) Hemoglobin 7.3 g/dL (12.0-15.5) Hematocrit 22.2 % (36.0-47.0) Mean Corpuscular Volume 77 fL (79-100) Mean Corpuscular Hemoglobin 26 pg (25-35) Mean Corpuscular Hemoglobin Concent 33 g/dL (31-37) Red Cell Distribution Width 17.8 % (11.5-14.5) Platelet Count 137 x10^3/uL (140-400) Neutrophils (%) (Auto) 85 % (31-73) Lymphocytes (%) (Auto) 4 % (24-48) Monocytes (%) (Auto) 10 % (0-9) Eosinophils (%) (Auto) 0 % (0-3) Basophils (%) (Auto) 0 % (0-3) Neutrophils # (Auto) 9.3 x10^3uL (1.8-7.7) Lymphocytes # (Auto) 0.5 x10^3/uL (1.0-4.8) Monocytes # (Auto) 1.1 x10^3/uL (0.0-1.1) Eosinophils # (Auto) 0.0 x10^3/uL (0.0-0.7) Basophils # (Auto) 0.0 x10^3/uL (0.0-0.2) Sodium Level 122 mmol/L (136-145) Potassium Level 4.0 mmol/L (3.5-5.1) Chloride Level 90 mmol/L (98-107) Carbon Dioxide Level 23 mmol/L (21-32) Anion Gap 9 (6-14) Blood Urea Nitrogen 24 mg/dL (7-20) Creatinine 0.7 mg/dL (0.6-1.0) Estimated GFR (Cockcroft-Gault) 85.1 Glucose Level 77 mg/dL (70-99) Calcium Level 8.3 mg/dL (8.5-10.1) Test 03/22/17 05:46 03/22/17 07:23 03/22/17 10:51 03/22/17 12:08 Glucose (Fingerstick) 78 mg/dL (70-99) 73 mg/dL (70-99) 60 mg/dL (70-99) 69 mg/dL (70-99) Test 03/22/17 16:33 03/22/17 21:08 03/23/17 04:45 03/23/17 07:30 Glucose (Fingerstick) 86 mg/dL (70-99) 75 mg/dL (70-99) 127 mg/dL (70-99) White Blood Count 8.3 x10^3/uL (4.0-11.0) Red Blood Count 3.13 x10^6/uL (3.50-5.40) Hemoglobin 8.0 g/dL (12.0-15.5) Hematocrit 24.7 % (36.0-47.0) Mean Corpuscular Volume 79 fL (79-100) Mean Corpuscular Hemoglobin 26 pg (25-35) Mean Corpuscular Hemoglobin Concent 33 g/dL (31-37) Red Cell Distribution Width 17.6 % (11.5-14.5) Platelet Count 147 x10^3/uL (140-400) Neutrophils (%) (Auto) 85 % (31-73) Lymphocytes (%) (Auto) 4 % (24-48) Monocytes (%) (Auto) 10 % (0-9) Eosinophils (%) (Auto) 0 % (0-3) Basophils (%) (Auto) 0 % (0-3) Neutrophils # (Auto) 7.1 x10^3uL (1.8-7.7) Lymphocytes # (Auto) 0.4 x10^3/uL (1.0-4.8) Monocytes # (Auto) 0.8 x10^3/uL (0.0-1.1) Eosinophils # (Auto) 0.0 x10^3/uL (0.0-0.7) Basophils # (Auto) 0.0 x10^3/uL (0.0-0.2) Sodium Level 127 mmol/L (136-145) Potassium Level 4.1 mmol/L (3.5-5.1) Chloride Level 93 mmol/L (98-107) Carbon Dioxide Level 24 mmol/L (21-32) Anion Gap 10 (6-14) Blood Urea Nitrogen 16 mg/dL (7-20) Creatinine 0.5 mg/dL (0.6-1.0) Estimated GFR (Cockcroft-Gault) 125.4 Glucose Level 107 mg/dL (70-99) Calcium Level 8.5 mg/dL (8.5-10.1) Test 03/23/17 11:15 Glucose (Fingerstick) 167 mg/dL (70-99) Laboratory Tests Test 03/22/17 16:33 03/22/17 21:08 03/23/17 04:45 03/23/17 07:30 Glucose (Fingerstick) 86 mg/dL (70-99) 75 mg/dL (70-99) 127 mg/dL (70-99) White Blood Count 8.3 x10^3/uL (4.0-11.0) Red Blood Count 3.13 x10^6/uL (3.50-5.40) Hemoglobin 8.0 g/dL (12.0-15.5) Hematocrit 24.7 % (36.0-47.0) Mean Corpuscular Volume 79 fL (79-100) Mean Corpuscular Hemoglobin 26 pg (25-35) Mean Corpuscular Hemoglobin Concent 33 g/dL (31-37) Red Cell Distribution Width 17.6 % (11.5-14.5) Platelet Count 147 x10^3/uL (140-400) Neutrophils (%) (Auto) 85 % (31-73) Lymphocytes (%) (Auto) 4 % (24-48) Monocytes (%) (Auto) 10 % (0-9) Eosinophils (%) (Auto) 0 % (0-3) Basophils (%) (Auto) 0 % (0-3) Neutrophils # (Auto) 7.1 x10^3uL (1.8-7.7) Lymphocytes # (Auto) 0.4 x10^3/uL (1.0-4.8) Monocytes # (Auto) 0.8 x10^3/uL (0.0-1.1) Eosinophils # (Auto) 0.0 x10^3/uL (0.0-0.7) Basophils # (Auto) 0.0 x10^3/uL (0.0-0.2) Sodium Level 127 mmol/L (136-145) Potassium Level 4.1 mmol/L (3.5-5.1) Chloride Level 93 mmol/L (98-107) Carbon Dioxide Level 24 mmol/L (21-32) Anion Gap 10 (6-14) Blood Urea Nitrogen 16 mg/dL (7-20) Creatinine 0.5 mg/dL (0.6-1.0) Estimated GFR (Cockcroft-Gault) 125.4 Glucose Level 107 mg/dL (70-99) Calcium Level 8.5 mg/dL (8.5-10.1) Test 03/23/17 11:15 Glucose (Fingerstick) 167 mg/dL (70-99) Medications Current Medications Morphine Sulfate 2 mg 1X ONCE IV/SQ Last administered on 03/17/17 11:46; Start 03/17/17 at 11:45; Stop 03/17/17 at 11:46; Status DC Fentanyl Citrate (Fentanyl 2ml Vial) 50 mcg PRN Q2HR PRN IV PAIN Last administered on 03/23/17 14:06; Start 03/17/17 at 12:45 Acetaminophen/ Hydrocodone Bitart (Lortab 5/325) 1 tab PRN Q4HRS PRN PO MILD - MODERATE PAIN Last administered on 03/21/17 00:37; Start 03/17/17 at 12:45 Acetaminophen/ Hydrocodone Bitart (Lortab 7.5/325) 1 tab PRN Q6HRS PRN PO SEVERE PAIN Last administered on 03/23/17 08:47; Start 03/17/17 at 12:45 Gemfibrozil (Lopid) 600 mg BID PO Last administered on 03/22/17 22:57; Start 03/17/17 at 21:00 Glyburide (Diabeta) 10 mg BIDWMEALS PO Last administered on 03/21/17 09:27; Start 03/17/17 at 17:00 Paroxetine HCl (Paxil) 20 mg DAILY PO Last administered on 03/21/17 09:13; Start 03/17/17 at 13:00; Stop 03/21/17 at 09:45; Status DC Phenytoin Sodium (Dilantin) 300 mg BID PO Last administered on 03/23/17 08:45 ; Start 03/17/17 at 21:00 Lisinopril (Prinivil) 20 mg DAILY PO Last administered on 03/23/17 08:47; Start 03/17/17 at 13:00 Calcium/Vitamin D (Oscal D 500mg/ 200uts) 1 tab DAILY PO Last administered on 03/23/17 08:48; Start 03/18/17 at 09:00 Hydrochlorothiazide (Hydrodiuril) 25 mg DAILY PO Last administered on 09:15; Start 03/17/17 at 13:00; Stop 03/21/17 at 09:45; Status DC Isosorbide Mononitrate (Imdur) 30 mg DAILY PO Last administered on 03/23/17 08:47; Start 03/17/17 at 13:00 Fish Oil (Fish Oil) 1,000 mg DAILY PO Last administered on 03/21/17 09:12; Start 03/18/17 at 09:00 Multivitamins (Thera M Plus) 1 tab DAILY PO Last administered on 03/21/17 09: 13; Start 03/18/17 at 09:00 Non-Formulary Medication 3 tab UD PO ; Start 03/17/17 at 12:45; Status UNV Oxybutynin Chloride (Ditropan) 5 mg BID PO Last administered on 03/22/17 22: 57; Start 03/17/17 at 21:00 Verapamil HCl (Calan Sr) 240 mg DAILY PO Last administered on 03/23/17 08:45 ; Start 03/17/17 at 13:00 Insulin Aspart (NovoLOG) 0-7 UNITS TIDWMEALS SQ Last administered on 03/18/17 18:11; Start 03/17/17 at 13:00 Dextrose (Dextrose 50%-Water Syringe) 12.5 gm PRN Q15MIN PRN IV SEE COMMENTS Last administered on 03/21/17 19:10; Start 03/17/17 at 12:45 Ondansetron HCl (Zofran) 4 mg PRN Q8HRS PRN IV NAUSEA/VOMITING; Start 03/17/17 at 13:00; Stop 03/18/17 at 12:59; Status DC Morphine Sulfate 2 mg PRN Q2HR PRN IV PAIN; Start 03/17/17 at 13:00; Stop 03/18 at 12:59; Status DC Pioglitazone HCl (Actos) 15 mg TIDWMEALS PO Last administered on 03/21/17 09: 15; Start 03/17/17 at 13:00 Metformin HCl (Glucophage) 850 mg TIDWMEALS PO Last administered on 03/23/17 12:30; Start 03/17/17 at 13:00 Cefazolin Sodium 3 gm/Dextrose 100 ml @ 200 mls/hr 1X ONCE IV ; Start at 06:00; Stop 03/18/17 at 06:29; Status DC Ondansetron HCl (Zofran) 4 mg PRN Q6HRS PRN IV NAUSEA/VOMITING; Start 03/18/17 at 07:00; Stop 03/19/17 at 06:59; Status DC Fentanyl Citrate (Fentanyl 2ml Vial) 25 mcg PRN Q5MIN PRN IV MILD PAIN; Start 03/18/17 at 07:00; Stop 03/19/17 at 06:59; Status DC Fentanyl Citrate (Fentanyl 2ml Vial) 50 mcg PRN Q5MIN PRN IV MODERATE PAIN; Start 03/18/17 at 07:00; Stop 03/19/17 at 06:59; Status DC Morphine Sulfate 1 mg PRN Q10MIN PRN IV SEVERE PAIN Last administered on 13:35; Start 03/18/17 at 07:00; Stop 03/19/17 at 06:59; Status DC Ringer's Solution 1,000 ml @ 0 mls/hr Q0M IV Last administered on 03/18/17 09 :55; Start 03/18/17 at 07:00; Stop 03/18/17 at 18:59; Status DC Lidocaine HCl (Xylocaine-Mpf 1% Vial) 2 ml PRN 1X PRN ID PRIOR TO IV START; Start 03/18/17 at 07:00; Stop 03/19/17 at 06:59; Status DC Hydromorphone HCl (Dilaudid) 0.5 mg PRN Q10MIN PRN IV SEV PAIN, Second choice Last administered on 03/18/17 13:56; Start 03/18/17 at 07:00; Stop 03/19/17 at 06:59; Status DC Prochlorperazine Edisylate (Compazine) 5 mg PACU PRN PRN IV NAUSEA, MRX1; Start 03/18/17 at 07:00; Stop 03/19/17 at 06:59; Status DC Lidocaine HCl 30 ml STK-MED ONCE .ROUTE ; Start 03/18/17 at 06:54; Stop at 06:55; Status DC Bupivacaine HCl (Sensorcaine Mpf 0.5%) 30 ml STK-MED ONCE .ROUTE ; Start at 06:54; Stop 03/18/17 at 06:55; Status DC Insulin Aspart (NovoLOG VIAL) 100 unit STK-MED ONCE SQ ; Start 03/18/17 at 09:45 ; Stop 03/18/17 at 09:46; Status DC Insulin Aspart (NovoLOG VIAL) 8 unit 1X STAT SQ Last administered on 09:52; Start 03/18/17 at 09:49; Stop 03/18/17 at 09:50; Status DC Propofol 20 ml @ As Directed STK-MED ONCE IV ; Start 03/18/17 at 10:01; Stop at 10:03; Status DC Dexamethasone Sodium Phosphate (Decadron) 20 mg STK-MED ONCE .ROUTE ; Start 03/18/17 at 10:01; Stop 03/18/17 at 10:03; Status DC Famotidine (Pepcid) 20 mg STK-MED ONCE .ROUTE ; Start 03/18/17 at 10:01; Stop 03/18/17 at 10:03; Status DC Lidocaine HCl (Lidocaine Pf 2% Vial) 5 ml STK-MED ONCE .ROUTE ; Start 03/18/17 at 10:01; Stop 03/18/17 at 10:03; Status DC Ondansetron HCl (Zofran) 4 mg STK-MED ONCE .ROUTE ; Start 03/18/17 at 10:01; Stop 03/18/17 at 10:03; Status DC Fentanyl Citrate (Fentanyl 2ml Vial) 100 mcg STK-MED ONCE .ROUTE ; Start at 10:01; Stop 03/18/17 at 10:03; Status DC Midazolam HCl (Versed) 2 mg STK-MED ONCE .ROUTE ; Start 03/18/17 at 10:01; Stop 03/18/17 at 10:03; Status DC Bupivacaine HCl (Sensorcaine Mpf 0.5%) 30 ml STK-MED ONCE .ROUTE ; Start at 10:04; Stop 03/18/17 at 10:05; Status DC Succinylcholine Chloride (Anectine) 200 mg STK-MED ONCE .ROUTE ; Start 03/18/17 at 10:04; Stop 03/18/17 at 10:05; Status DC Fentanyl Citrate (Fentanyl 2ml Vial) 100 mcg STK-MED ONCE .ROUTE ; Start at 11:37; Stop 03/18/17 at 11:38; Status DC Enoxaparin Sodium (Lovenox 40mg Syringe) 40 mg Q12HR SQ Last administered on t 07:59; Start 03/18/17 at 21:00; Stop 03/20/17 at 08:55; Status DC Cefazolin Sodium 3 gm/Sodium Chloride 100 ml @ 200 mls/hr Q6H IV Last administered on 03/19/17t 06:34; Start 03/18/17 at 15:30; Stop 03/19/17 at 06:59 ; Status DC Ergocalciferol (Vitamin D2) 50,000 unit WEEKLY PO Last administered on 10:05; Start 03/19/17 at 09:00 Morphine Sulfate 5 mg/Ketorolac Tromethamine 30 mg/Ropivacaine 60 ml/ Epinephrine HCl 0.5 mg/Sodium Chloride 100 ml @ 100 mls/hr 1X PERIOP ONCE INT ART Last administered on 03/18/17 12:33; Start 03/18/17 at 12:00; Stop at 12:59; Status DC Vasopressin (Vasostrict) 20 unit STK-MED ONCE .ROUTE ; Start 03/18/17 at 12:15; Stop 03/18/17 at 12:16; Status DC Sevoflurane (Ultane) 60 ml STK-MED ONCE IH ; Start 03/18/17 at 12:43; Stop 03/18 at 12:44; Status DC Insulin Aspart (NovoLOG VIAL) 8 unit 1X PACU PRN SQ SEE COMMENTS Last administered on 03/18/17 13:50; Start 03/18/17 at 13:45; Stop 03/18/17 at 18:00 ; Status DC Influenza Virus Vaccine Quadrival (Fluarix Quad 5219-2049 Syringe) 0.5 ml ONCE ONCE VAX IM ; Start 03/18/17 at 16:00; Stop 03/18/17 at 16:01; Status DC Ondansetron HCl (Zofran) 4 mg PRN Q6HRS PRN IV NAUSEA/VOMITING Last administered on 03/21/17 00:38; Start 03/19/17 at 09:15; Stop 03/21/17 at 01: 35; Status DC Ibuprofen (Motrin) 600 mg PRN Q6HRS PRN PO INFLAMMATION; Start 03/19/17 at 10: 45; Stop 03/20/17 at 08:55; Status DC Pantoprazole Sodium (Protonix) 40 mg DAILYAC PO Last administered on 07:34; Start 03/19/17 at 11:30 Ondansetron HCl (Zofran) 4 mg PRN Q4HRS PRN IV NAUSEA/VOMITING Last administered on 03/23/17 07:33; Start 03/21/17 at 01:30 Sodium Chloride 1,000 ml @ 100 mls/hr Q10H IV Last administered on 03/21/17 11:34; Start 03/21/17 at 10:00; Stop 03/21/17 at 20:01; Status DC Enoxaparin Sodium (Lovenox 40mg Syringe) 40 mg BID SQ Last administered on 08:46; Start 03/21/17 at 14:00 Dextrose/Sodium Chloride 1,000 ml @ 100 mls/hr Q10H IV Last administered on 02:15; Start 03/21/17 at 20:15 Active Scripts Active Reported Krill Oil 300 Mg Softgel (Krill/[place]-3/Dha/Epa/Lipids) 1 Each Capsule 1 Each PO DAILY Aspirin 325 Mg Tablet 1 Tab PO DAILY Caltrate 600 + D Tablet (Calcium Carbonate/Vitamin D3) 1 Each Tablet 1 Each PO DAILY Centrum Silver Tablet (Multivits-Min/Fa/Lycopene/Lut) 1 Each Tablet 1 Each PO DAILY Detrol La (Tolterodine Tartrate) 2 Mg Cap.er.24h 2 Mg PO DAILY Isosorbide Dinitrate 30 Mg Tablet 30 Mg PO DAILY Lotensin (Benazepril Hcl) 20 Mg Tablet 20 Mg PO DAILY Hydrochlorothiazide Tablet (Hydrochlorothiazide) 50 Mg Tablet 25 Mg PO DAILY Calan (Verapamil Hcl) 120 Mg Tablet 240 Mg PO DAILY Paxil (Paroxetine Hcl) 20 Mg Tablet 1 Tab PO DAILY Dilantin (Phenytoin Sodium Extended) 100 Mg Capsule 3 Cap PO BID Actoplus Met 15 Mg-850 Mg Tab (Pioglitazone Hcl/Metformin Hcl) 1 Each Tablet 3 Tab PO UD Gemfibrozil 600 Mg Tablet 600 Mg PO BID Glyburide 5 Mg Tablet 2 Tab PO BID Vitals/I & O Vital Sign - Last 24 Hours 03/22/17 03/22/17 03/22/17 03/22/17 15:05 15:08 18:21 19:20 Temp 99.8 99.2 99.8 99.2 Pulse 81 80 Resp 18 20 22 20 B/P (MAP) 142/66 (91) 138/85 (102) Pulse Ox 96 95 O2 Delivery Nasal Cannula Nasal Cannula Nasal Cannula Nasal Cannula O2 Flow Rate 2.0 2.0 2.0 2.0 03/22/17 03/22/17 03/23/17 03/23/17 20:00 22:56 03:25 07:00 Temp 99.1 97.8 97.5 99.1 97.8 97.5 Pulse 80 81 90 Resp 18 18 20 B/P (MAP) 131/79 (96) 135/69 (91) 144/60 (88) Pulse Ox 94 93 96 O2 Delivery Nasal Cannula Nasal Cannula Nasal Cannula Nasal Cannula O2 Flow Rate 2.0 2.0 2.0 2.0 03/23/17 03/23/17 03/23/17 03/23/17 07:34 08:00 08:04 08:45 Pulse 90 Resp 20 20 B/P (MAP) 144/60 O2 Delivery Nasal Cannula Nasal Cannula Nasal Cannula O2 Flow Rate 2.0 2.0 2.0 03/23/17 03/23/17 03/23/17 03/23/17 08:47 08:47 08:47 09:47 Pulse 90 90 Resp 20 20 B/P (MAP) 144/60 144/60 Pulse Ox 2 O2 Delivery Nasal Cannula Nasal Cannula O2 Flow Rate 2.0 03/23/17 03/23/17 11:00 14:06 Temp 97.9 97.9 Pulse 75 Resp 18 20 B/P (MAP) 119/75 (90) Pulse Ox 95 O2 Delivery Nasal Cannula Nasal Cannula O2 Flow Rate 2.0 2.0 LORELEI HUMPHREYS III DO Mar 23, 2017 14:28
[2017-03-23 15:00] VITALS: BP 122/53
[2017-03-23] MEDS: IV NORMAL SALINE 1000ML BAG 1,000 ML IV SCH (17:50)
[2017-03-23 19:00] VITALS: BP 121/68
[2017-03-23 23:00] VITALS: BP 146/52
[2017-03-24] MEDS: fentaNYL PF VIAL 100 MCG/2 ML VIAL IV PRN ×5 (00:25→20:12)
[2017-03-24 03:00] VITALS: BP 124/59
[2017-03-24] MEDS: IV NORMAL SALINE 1000ML BAG 1,000 ML IV SCH ×2 (03:00→09:12)
[2017-03-24 05:02] LABS: BASO % 0 % (0-3); EOS % 0 % (0-3); HEMATOCRIT 22.6 % (36.0-47.0); HEMOGLOBIN 7.3 g/dL (12.0-15.5); LYMPH # 0.5 x10^3/uL (1.0-4.8); LYMPH % 7 % (24-48); MEAN CORPUSCULAR HEMOGLOBIN 26 pg (25-35); MEAN CORPUSCULAR HGB CONC 32 g/dL (31-37); MEAN CORPUSCULAR VOLUME 79 fL (79-100); MONO % 10 % (0-9); NEUT % 83 % (31-73); PLATELET COUNT 155 x10^3/uL (140-400); RED BLOOD COUNT 2.87 x10^6/uL (3.50-5.40); RED CELL DISTRIBUTION WIDTH 17.9 % (11.5-14.5); WHITE BLOOD COUNT 7.3 x10^3/uL (4.0-11.0)
[2017-03-24 05:49] LABS: CALCIUM 8.3 mg/dL (8.5-10.1); CREATININE 0.6 mg/dL (0.6-1.0); GFR 101.6; POTASSIUM 3.9 mmol/L (3.5-5.1)
[2017-03-24 07:00] VITALS: BP 147/69
[2017-03-24] MEDS: HYDROcodone/APAP 7.5/325MG 1 TAB TABLET PO PRN (07:38)
[2017-03-24] MEDS: INSULIN ASPART 300 UNITS/3 ML INSULN.PEN SQ SCH ×3 (08:00→17:30)
[2017-03-24] MEDS: ISOSORBIDE MONONITRATE ER 30 MG TAB.ER.24H PO SCH (09:16)
[2017-03-24] MEDS: PHENYTOIN SODIUM EXTENDED 100 MG CAPSULE PO SCH ×2 (09:16→20:10)
[2017-03-24] MEDS: MULTIVITAMIN with MINERAL TABLET. PO SCH (09:16)
[2017-03-24] MEDS: LISINOPRIL 20 MG TABLET PO SCH (09:16)
[2017-03-24] MEDS: metFORMIN 850 MG TABLET PO SCH ×3 (09:17→17:23)
[2017-03-24] MEDS: VERAPAMIL SR 120 MG TABLET.ER. PO SCH (09:17)
[2017-03-24] MEDS: PIOGLITAZONE 15 MG TABLET. PO SCH ×3 (09:17→17:23)
[2017-03-24] MEDS: glyBURIDE 5 MG TABLET PO SCH ×2 (09:17→17:24)
[2017-03-24] MEDS: OXYBUTYNIN CHLORIDE 5 MG TABLET PO SCH ×2 (09:17→20:10)
[2017-03-24] MEDS: PANTOPRAZOLE 40 MG TABLET.DR. PO SCH (09:18)
[2017-03-24] MEDS: GEMFIBROZIL 600 MG TABLET. PO SCH ×2 (09:18→20:10)
[2017-03-24] MEDS: CALCIUM CARB/VIT D3 500/200 TABLET. PO SCH (09:18)
[2017-03-24] MEDS: ENOXAPARIN 40 MG/0.4 ML SYRINGE. SQ SCH ×2 (09:18→20:11)
[2017-03-24] MEDS: OMEGA-3 FATTY ACIDS/FISH OIL 1,000 MG CAPSULE. PO SCH (09:18)
[2017-03-24 11:00] VITALS: BP 121/67
--- NOTE | 2017-03-24 11:56 | PDOC ---
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 She was up to the chair for a period of 3 hours yesterday and she feels like that was too long. She to speak going to rehabilitation. Post-op Day: 6 (ORIF R distal femur) Vitals Vital Signs Date Time Temp Pulse Resp B/P (MAP) Pulse Ox O2 Delivery O2 Flow Rate FiO2 03/24/17 10:56 Nasal Cannula 2.0 03/24/17 09:17 74 147/69 03/24/17 08:40 97 03/24/17 07:00 97.7 18 97.7 Labs Laboratory Tests Test 03/22/17 12:08 03/22/17 16:33 03/22/17 21:08 03/23/17 04:45 Glucose (Fingerstick) 69 mg/dL (70-99) 86 mg/dL (70-99) 75 mg/dL (70-99) White Blood Count 8.3 x10^3/uL (4.0-11.0) Red Blood Count 3.13 x10^6/uL (3.50-5.40) Hemoglobin 8.0 g/dL (12.0-15.5) Hematocrit 24.7 % (36.0-47.0) Mean Corpuscular Volume 79 fL (79-100) Mean Corpuscular Hemoglobin 26 pg (25-35) Mean Corpuscular Hemoglobin Concent 33 g/dL (31-37) Red Cell Distribution Width 17.6 % (11.5-14.5) Platelet Count 147 x10^3/uL (140-400) Neutrophils (%) (Auto) 85 % (31-73) Lymphocytes (%) (Auto) 4 % (24-48) Monocytes (%) (Auto) 10 % (0-9) Eosinophils (%) (Auto) 0 % (0-3) Basophils (%) (Auto) 0 % (0-3) Neutrophils # (Auto) 7.1 x10^3uL (1.8-7.7) Lymphocytes # (Auto) 0.4 x10^3/uL (1.0-4.8) Monocytes # (Auto) 0.8 x10^3/uL (0.0-1.1) Eosinophils # (Auto) 0.0 x10^3/uL (0.0-0.7) Basophils # (Auto) 0.0 x10^3/uL (0.0-0.2) Sodium Level 127 mmol/L (136-145) Potassium Level 4.1 mmol/L (3.5-5.1) Chloride Level 93 mmol/L (98-107) Carbon Dioxide Level 24 mmol/L (21-32) Anion Gap 10 (6-14) Blood Urea Nitrogen 16 mg/dL (7-20) Creatinine 0.5 mg/dL (0.6-1.0) Estimated GFR (Cockcroft-Gault) 125.4 Glucose Level 107 mg/dL (70-99) Calcium Level 8.5 mg/dL (8.5-10.1) Test 03/23/17 07:30 03/23/17 11:15 03/23/17 16:02 03/23/17 21:42 Glucose (Fingerstick) 127 mg/dL (70-99) 167 mg/dL (70-99) 206 mg/dL (70-99) 212 mg/dL (70-99) Test 03/24/17 04:30 03/24/17 07:28 03/24/17 11:06 White Blood Count 7.3 x10^3/uL (4.0-11.0) Red Blood Count 2.87 x10^6/uL (3.50-5.40) Hemoglobin 7.3 g/dL (12.0-15.5) Hematocrit 22.6 % (36.0-47.0) Mean Corpuscular Volume 79 fL (79-100) Mean Corpuscular Hemoglobin 26 pg (25-35) Mean Corpuscular Hemoglobin Concent 32 g/dL (31-37) Red Cell Distribution Width 17.9 % (11.5-14.5) Platelet Count 155 x10^3/uL (140-400) Neutrophils (%) (Auto) 83 % (31-73) Lymphocytes (%) (Auto) 7 % (24-48) Monocytes (%) (Auto) 10 % (0-9) Eosinophils (%) (Auto) 0 % (0-3) Basophils (%) (Auto) 0 % (0-3) Neutrophils # (Auto) 6.1 x10^3uL (1.8-7.7) Lymphocytes # (Auto) 0.5 x10^3/uL (1.0-4.8) Monocytes # (Auto) 0.7 x10^3/uL (0.0-1.1) Eosinophils # (Auto) 0.0 x10^3/uL (0.0-0.7) Basophils # (Auto) 0.0 x10^3/uL (0.0-0.2) Sodium Level 131 mmol/L (136-145) Potassium Level 3.9 mmol/L (3.5-5.1) Chloride Level 97 mmol/L (98-107) Carbon Dioxide Level 25 mmol/L (21-32) Anion Gap 9 (6-14) Blood Urea Nitrogen 16 mg/dL (7-20) Creatinine 0.6 mg/dL (0.6-1.0) Estimated GFR (Cockcroft-Gault) 101.6 Glucose Level 122 mg/dL (70-99) Calcium Level 8.3 mg/dL (8.5-10.1) Free Thyroxine 1.55 ng/dL (0.76-1.46) Glucose (Fingerstick) 145 mg/dL (70-99) 182 mg/dL (70-99) Laboratory Tests Test 03/23/17 16:02 03/23/17 21:42 03/24/17 04:30 03/24/17 07:28 Glucose (Fingerstick) 206 mg/dL (70-99) 212 mg/dL (70-99) 145 mg/dL (70-99) White Blood Count 7.3 x10^3/uL (4.0-11.0) Red Blood Count 2.87 x10^6/uL (3.50-5.40) Hemoglobin 7.3 g/dL (12.0-15.5) Hematocrit 22.6 % (36.0-47.0) Mean Corpuscular Volume 79 fL (79-100) Mean Corpuscular Hemoglobin 26 pg (25-35) Mean Corpuscular Hemoglobin Concent 32 g/dL (31-37) Red Cell Distribution Width 17.9 % (11.5-14.5) Platelet Count 155 x10^3/uL (140-400) Neutrophils (%) (Auto) 83 % (31-73) Lymphocytes (%) (Auto) 7 % (24-48) Monocytes (%) (Auto) 10 % (0-9) Eosinophils (%) (Auto) 0 % (0-3) Basophils (%) (Auto) 0 % (0-3) Neutrophils # (Auto) 6.1 x10^3uL (1.8-7.7) Lymphocytes # (Auto) 0.5 x10^3/uL (1.0-4.8) Monocytes # (Auto) 0.7 x10^3/uL (0.0-1.1) Eosinophils # (Auto) 0.0 x10^3/uL (0.0-0.7) Basophils # (Auto) 0.0 x10^3/uL (0.0-0.2) Sodium Level 131 mmol/L (136-145) Potassium Level 3.9 mmol/L (3.5-5.1) Chloride Level 97 mmol/L (98-107) Carbon Dioxide Level 25 mmol/L (21-32) Anion Gap 9 (6-14) Blood Urea Nitrogen 16 mg/dL (7-20) Creatinine 0.6 mg/dL (0.6-1.0) Estimated GFR (Cockcroft-Gault) 101.6 Glucose Level 122 mg/dL (70-99) Calcium Level 8.3 mg/dL (8.5-10.1) Free Thyroxine 1.55 ng/dL (0.76-1.46) Test 03/24/17 11:06 Glucose (Fingerstick) 182 mg/dL (70-99) Notes Patient is awake and alert. Laying in bed, breathing unlabored, no acute distress. Her skin color is improved, she does not look as pale as she did last week. Sensation intact, palpable pedal pulse. Moderate to severe edema right lower extremity. Incision covered with Aquacel dressing, intact without drainage. Weak right lower extremity. Problems: (1) Femur fracture Assessment and Plan I discussed with her the importance of increasing her activity level, since it has been a week since the surgery I would expect her to be able to tolerate being up at the chair for 3 hours or more. I explained that it is going to be difficult process however the longer she delays on improving her mobility the harder it will get. I strongly encouraged her to work hard in improving her mobility and improving her ability to achieve transfers. She voiced understanding Nonweightbearing right lower extremity. Okay to discharge to rehabilitation when medically stable from orthopedic standpoint. Follow-up 2 weeks postoperative with myself or SENG Jama II, MD 03/27/17 1234: Problem Qualifiers (1) Femur fracture: Encounter type: initial encounter Femur location: unspecified portion of femur Fracture type: closed Laterality: right EDGARDO PATEL APRN Mar 24, 2017 11:55 SENG ACKERMAN II, MD Mar 27, 2017 12:34
[2017-03-24] MEDS: HYDROcodone/APAP 5/325MG 1 TAB TABLET PO PRN ×3 (12:35→23:48)
--- NOTE | 2017-03-24 14:26 | PDOC ---
PROGRESS NOTES Chief Complaint Chief Complaint 1. ORIF R distal femur s/p ORIF 03/18 2. Obese 3. hx Severe degenerative disk disease with central canal stenosis at L4-L5, severe and moderate at L2 and L3. 4. Type 2 diabetes mellitus. 5. Hypertension. 6. Hyperthyroidism. 7. Rheumatoid arthritis. chronic stable 8. Vit D deficiency 9. Acute precipitous drop in hgb 10. HYponatremia plan: fu with ORtho, NWB RLE ptot pain control encourage to ambulate with PTOT, encourage to eat, then can dc ivf SW for rehab tmr added vit d History of Present Illness History of Present Illness Pt is a pleasant 62 year old female who had an operative fixation on her right femur. Pt was seen at bedside resting comfortably. Dressings are clean, dry, and intact. Encourage PO intake. Recommend SNU eval. Pt has a soto catheter. Continue maintenance IV fluids. Pt is being followed by orthopedics. Will continue to monitor. ROS: no fever, chills, sob or chest pain low po intake Vitals Vitals Vital Signs Date Time Temp Pulse Resp B/P (MAP) Pulse Ox O2 Delivery O2 Flow Rate FiO2 03/24/17 13:46 97 Nasal Cannula 2.0 03/24/17 11:00 97.6 74 18 121/67 (85) 97.6 Physical Exam General: Alert, Oriented X3, Cooperative, No acute distress (Nausea) Heart: Regular rate, Normal S1, Normal S2, Other (Distant heart sounds) Lungs: Clear Abdomen: Normal bowel sounds, Soft, No tenderness, No hepatosplenomegaly, No masses Extremities: No clubbing, No cyanosis, Other (RT leg post op with stabilizer) Skin: No rashes, No breakdown, No significant lesion, Other (nystatin podwer in between excessive skin folds) Labs LABS Laboratory Tests Test 03/23/17 16:02 03/23/17 21:42 03/24/17 04:30 03/24/17 07:28 Glucose (Fingerstick) 206 mg/dL (70-99) 212 mg/dL (70-99) 145 mg/dL (70-99) White Blood Count 7.3 x10^3/uL (4.0-11.0) Red Blood Count 2.87 x10^6/uL (3.50-5.40) Hemoglobin 7.3 g/dL (12.0-15.5) Hematocrit 22.6 % (36.0-47.0) Mean Corpuscular Volume 79 fL (79-100) Mean Corpuscular Hemoglobin 26 pg (25-35) Mean Corpuscular Hemoglobin Concent 32 g/dL (31-37) Red Cell Distribution Width 17.9 % (11.5-14.5) Platelet Count 155 x10^3/uL (140-400) Neutrophils (%) (Auto) 83 % (31-73) Lymphocytes (%) (Auto) 7 % (24-48) Monocytes (%) (Auto) 10 % (0-9) Eosinophils (%) (Auto) 0 % (0-3) Basophils (%) (Auto) 0 % (0-3) Neutrophils # (Auto) 6.1 x10^3uL (1.8-7.7) Lymphocytes # (Auto) 0.5 x10^3/uL (1.0-4.8) Monocytes # (Auto) 0.7 x10^3/uL (0.0-1.1) Eosinophils # (Auto) 0.0 x10^3/uL (0.0-0.7) Basophils # (Auto) 0.0 x10^3/uL (0.0-0.2) Sodium Level 131 mmol/L (136-145) Potassium Level 3.9 mmol/L (3.5-5.1) Chloride Level 97 mmol/L (98-107) Carbon Dioxide Level 25 mmol/L (21-32) Anion Gap 9 (6-14) Blood Urea Nitrogen 16 mg/dL (7-20) Creatinine 0.6 mg/dL (0.6-1.0) Estimated GFR (Cockcroft-Gault) 101.6 Glucose Level 122 mg/dL (70-99) Calcium Level 8.3 mg/dL (8.5-10.1) Free Thyroxine 1.55 ng/dL (0.76-1.46) Test 03/24/17 11:06 Glucose (Fingerstick) 182 mg/dL (70-99) Assessment and Plan Assessmemt and Plan Problems Medical Problems: (1) Femur fracture Status: Acute Problems: Comment Review of Relevant I have reviewed the following items sheri (where applicable) has been applied. Labs Laboratory Tests Test 03/22/17 16:33 03/22/17 21:08 03/23/17 04:45 03/23/17 07:30 Glucose (Fingerstick) 86 mg/dL (70-99) 75 mg/dL (70-99) 127 mg/dL (70-99) White Blood Count 8.3 x10^3/uL (4.0-11.0) Red Blood Count 3.13 x10^6/uL (3.50-5.40) Hemoglobin 8.0 g/dL (12.0-15.5) Hematocrit 24.7 % (36.0-47.0) Mean Corpuscular Volume 79 fL (79-100) Mean Corpuscular Hemoglobin 26 pg (25-35) Mean Corpuscular Hemoglobin Concent 33 g/dL (31-37) Red Cell Distribution Width 17.6 % (11.5-14.5) Platelet Count 147 x10^3/uL (140-400) Neutrophils (%) (Auto) 85 % (31-73) Lymphocytes (%) (Auto) 4 % (24-48) Monocytes (%) (Auto) 10 % (0-9) Eosinophils (%) (Auto) 0 % (0-3) Basophils (%) (Auto) 0 % (0-3) Neutrophils # (Auto) 7.1 x10^3uL (1.8-7.7) Lymphocytes # (Auto) 0.4 x10^3/uL (1.0-4.8) Monocytes # (Auto) 0.8 x10^3/uL (0.0-1.1) Eosinophils # (Auto) 0.0 x10^3/uL (0.0-0.7) Basophils # (Auto) 0.0 x10^3/uL (0.0-0.2) Sodium Level 127 mmol/L (136-145) Potassium Level 4.1 mmol/L (3.5-5.1) Chloride Level 93 mmol/L (98-107) Carbon Dioxide Level 24 mmol/L (21-32) Anion Gap 10 (6-14) Blood Urea Nitrogen 16 mg/dL (7-20) Creatinine 0.5 mg/dL (0.6-1.0) Estimated GFR (Cockcroft-Gault) 125.4 Glucose Level 107 mg/dL (70-99) Calcium Level 8.5 mg/dL (8.5-10.1) Test 03/23/17 11:15 03/23/17 16:02 03/23/17 21:42 03/24/17 04:30 Glucose (Fingerstick) 167 mg/dL (70-99) 206 mg/dL (70-99) 212 mg/dL (70-99) White Blood Count 7.3 x10^3/uL (4.0-11.0) Red Blood Count 2.87 x10^6/uL (3.50-5.40) Hemoglobin 7.3 g/dL (12.0-15.5) Hematocrit 22.6 % (36.0-47.0) Mean Corpuscular Volume 79 fL (79-100) Mean Corpuscular Hemoglobin 26 pg (25-35) Mean Corpuscular Hemoglobin Concent 32 g/dL (31-37) Red Cell Distribution Width 17.9 % (11.5-14.5) Platelet Count 155 x10^3/uL (140-400) Neutrophils (%) (Auto) 83 % (31-73) Lymphocytes (%) (Auto) 7 % (24-48) Monocytes (%) (Auto) 10 % (0-9) Eosinophils (%) (Auto) 0 % (0-3) Basophils (%) (Auto) 0 % (0-3) Neutrophils # (Auto) 6.1 x10^3uL (1.8-7.7) Lymphocytes # (Auto) 0.5 x10^3/uL (1.0-4.8) Monocytes # (Auto) 0.7 x10^3/uL (0.0-1.1) Eosinophils # (Auto) 0.0 x10^3/uL (0.0-0.7) Basophils # (Auto) 0.0 x10^3/uL (0.0-0.2) Sodium Level 131 mmol/L (136-145) Potassium Level 3.9 mmol/L (3.5-5.1) Chloride Level 97 mmol/L (98-107) Carbon Dioxide Level 25 mmol/L (21-32) Anion Gap 9 (6-14) Blood Urea Nitrogen 16 mg/dL (7-20) Creatinine 0.6 mg/dL (0.6-1.0) Estimated GFR (Cockcroft-Gault) 101.6 Glucose Level 122 mg/dL (70-99) Calcium Level 8.3 mg/dL (8.5-10.1) Free Thyroxine 1.55 ng/dL (0.76-1.46) Test 03/24/17 07:28 03/24/17 11:06 Glucose (Fingerstick) 145 mg/dL (70-99) 182 mg/dL (70-99) Laboratory Tests Test 03/23/17 16:02 03/23/17 21:42 03/24/17 04:30 03/24/17 07:28 Glucose (Fingerstick) 206 mg/dL (70-99) 212 mg/dL (70-99) 145 mg/dL (70-99) White Blood Count 7.3 x10^3/uL (4.0-11.0) Red Blood Count 2.87 x10^6/uL (3.50-5.40) Hemoglobin 7.3 g/dL (12.0-15.5) Hematocrit 22.6 % (36.0-47.0) Mean Corpuscular Volume 79 fL (79-100) Mean Corpuscular Hemoglobin 26 pg (25-35) Mean Corpuscular Hemoglobin Concent 32 g/dL (31-37) Red Cell Distribution Width 17.9 % (11.5-14.5) Platelet Count 155 x10^3/uL (140-400) Neutrophils (%) (Auto) 83 % (31-73) Lymphocytes (%) (Auto) 7 % (24-48) Monocytes (%) (Auto) 10 % (0-9) Eosinophils (%) (Auto) 0 % (0-3) Basophils (%) (Auto) 0 % (0-3) Neutrophils # (Auto) 6.1 x10^3uL (1.8-7.7) Lymphocytes # (Auto) 0.5 x10^3/uL (1.0-4.8) Monocytes # (Auto) 0.7 x10^3/uL (0.0-1.1) Eosinophils # (Auto) 0.0 x10^3/uL (0.0-0.7) Basophils # (Auto) 0.0 x10^3/uL (0.0-0.2) Sodium Level 131 mmol/L (136-145) Potassium Level 3.9 mmol/L (3.5-5.1) Chloride Level 97 mmol/L (98-107) Carbon Dioxide Level 25 mmol/L (21-32) Anion Gap 9 (6-14) Blood Urea Nitrogen 16 mg/dL (7-20) Creatinine 0.6 mg/dL (0.6-1.0) Estimated GFR (Cockcroft-Gault) 101.6 Glucose Level 122 mg/dL (70-99) Calcium Level 8.3 mg/dL (8.5-10.1) Free Thyroxine 1.55 ng/dL (0.76-1.46) Test 03/24/17 11:06 Glucose (Fingerstick) 182 mg/dL (70-99) Medications Current Medications Morphine Sulfate 2 mg 1X ONCE IV/SQ Last administered on 03/17/17 11:46; Start 03/17/17 at 11:45; Stop 03/17/17 at 11:46; Status DC Fentanyl Citrate (Fentanyl 2ml Vial) 50 mcg PRN Q2HR PRN IV PAIN Last administered on 03/24/17 10:56; Start 03/17/17 at 12:45 Acetaminophen/ Hydrocodone Bitart (Lortab 5/325) 1 tab PRN Q4HRS PRN PO MILD - MODERATE PAIN Last administered on 03/24/17 12:35; Start 03/17/17 at 12:45 Acetaminophen/ Hydrocodone Bitart (Lortab 7.5/325) 1 tab PRN Q6HRS PRN PO SEVERE PAIN Last administered on 03/24/17 07:38; Start 03/17/17 at 12:45 Gemfibrozil (Lopid) 600 mg BID PO Last administered on 03/24/17 09:18; Start 03/17/17 at 21:00 Glyburide (Diabeta) 10 mg BIDWMEALS PO Last administered on 03/24/17 09:17; Start 03/17/17 at 17:00 Paroxetine HCl (Paxil) 20 mg DAILY PO Last administered on 03/21/17 09:13; Start 03/17/17 at 13:00; Stop 03/21/17 at 09:45; Status DC Phenytoin Sodium (Dilantin) 300 mg BID PO Last administered on 03/24/17 09:16 ; Start 03/17/17 at 21:00 Lisinopril (Prinivil) 20 mg DAILY PO Last administered on 03/24/17 09:16; Start 03/17/17 at 13:00 Calcium/Vitamin D (Oscal D 500mg/ 200uts) 1 tab DAILY PO Last administered on 03/24/17 09:18; Start 03/18/17 at 09:00 Hydrochlorothiazide (Hydrodiuril) 25 mg DAILY PO Last administered on 09:15; Start 03/17/17 at 13:00; Stop 03/21/17 at 09:45; Status DC Isosorbide Mononitrate (Imdur) 30 mg DAILY PO Last administered on 03/24/17 09:16; Start 03/17/17 at 13:00 Fish Oil (Fish Oil) 1,000 mg DAILY PO Last administered on 03/24/17 09:18; Start 03/18/17 at 09:00 Multivitamins (Thera M Plus) 1 tab DAILY PO Last administered on 03/24/17 09: 16; Start 03/18/17 at 09:00 Non-Formulary Medication 3 tab UD PO ; Start 03/17/17 at 12:45; Status UNV Oxybutynin Chloride (Ditropan) 5 mg BID PO Last administered on 03/24/17 09: 17; Start 03/17/17 at 21:00 Verapamil HCl (Calan Sr) 240 mg DAILY PO Last administered on 03/24/17 09:17 ; Start 03/17/17 at 13:00 Insulin Aspart (NovoLOG) 0-7 UNITS TIDWMEALS SQ Last administered on 12:38; Start 03/17/17 at 13:00 Dextrose (Dextrose 50%-Water Syringe) 12.5 gm PRN Q15MIN PRN IV SEE COMMENTS Last administered on 03/21/17 19:10; Start 03/17/17 at 12:45 Ondansetron HCl (Zofran) 4 mg PRN Q8HRS PRN IV NAUSEA/VOMITING; Start 03/17/17 at 13:00; Stop 03/18/17 at 12:59; Status DC Morphine Sulfate 2 mg PRN Q2HR PRN IV PAIN; Start 03/17/17 at 13:00; Stop 03/18 at 12:59; Status DC Pioglitazone HCl (Actos) 15 mg TIDWMEALS PO Last administered on 03/24/17 12: 34; Start 03/17/17 at 13:00 Metformin HCl (Glucophage) 850 mg TIDWMEALS PO Last administered on 03/24/17 12:34; Start 03/17/17 at 13:00 Cefazolin Sodium 3 gm/Dextrose 100 ml @ 200 mls/hr 1X ONCE IV ; Start at 06:00; Stop 03/18/17 at 06:29; Status DC Ondansetron HCl (Zofran) 4 mg PRN Q6HRS PRN IV NAUSEA/VOMITING; Start 03/18/17 at 07:00; Stop 03/19/17 at 06:59; Status DC Fentanyl Citrate (Fentanyl 2ml Vial) 25 mcg PRN Q5MIN PRN IV MILD PAIN; Start 03/18/17 at 07:00; Stop 03/19/17 at 06:59; Status DC Fentanyl Citrate (Fentanyl 2ml Vial) 50 mcg PRN Q5MIN PRN IV MODERATE PAIN; Start 03/18/17 at 07:00; Stop 03/19/17 at 06:59; Status DC Morphine Sulfate 1 mg PRN Q10MIN PRN IV SEVERE PAIN Last administered on 13:35; Start 03/18/17 at 07:00; Stop 03/19/17 at 06:59; Status DC Ringer's Solution 1,000 ml @ 0 mls/hr Q0M IV Last administered on 03/18/17 09 :55; Start 03/18/17 at 07:00; Stop 03/18/17 at 18:59; Status DC Lidocaine HCl (Xylocaine-Mpf 1% Vial) 2 ml PRN 1X PRN ID PRIOR TO IV START; Start 03/18/17 at 07:00; Stop 03/19/17 at 06:59; Status DC Hydromorphone HCl (Dilaudid) 0.5 mg PRN Q10MIN PRN IV SEV PAIN, Second choice Last administered on 03/18/17 13:56; Start 03/18/17 at 07:00; Stop 03/19/17 at 06:59; Status DC Prochlorperazine Edisylate (Compazine) 5 mg PACU PRN PRN IV NAUSEA, MRX1; Start 03/18/17 at 07:00; Stop 03/19/17 at 06:59; Status DC Lidocaine HCl 30 ml STK-MED ONCE .ROUTE ; Start 03/18/17 at 06:54; Stop at 06:55; Status DC Bupivacaine HCl (Sensorcaine Mpf 0.5%) 30 ml STK-MED ONCE .ROUTE ; Start at 06:54; Stop 03/18/17 at 06:55; Status DC Insulin Aspart (NovoLOG VIAL) 100 unit STK-MED ONCE SQ ; Start 03/18/17 at 09:45 ; Stop 03/18/17 at 09:46; Status DC Insulin Aspart (NovoLOG VIAL) 8 unit 1X STAT SQ Last administered on t 09:52; Start 03/18/17 at 09:49; Stop 03/18/17 at 09:50; Status DC Propofol 20 ml @ As Directed STK-MED ONCE IV ; Start 03/18/17 at 10:01; Stop at 10:03; Status DC Dexamethasone Sodium Phosphate (Decadron) 20 mg STK-MED ONCE .ROUTE ; Start 03/18/17 at 10:01; Stop 03/18/17 at 10:03; Status DC Famotidine (Pepcid) 20 mg STK-MED ONCE .ROUTE ; Start 03/18/17 at 10:01; Stop 03/18/17 at 10:03; Status DC Lidocaine HCl (Lidocaine Pf 2% Vial) 5 ml STK-MED ONCE .ROUTE ; Start 03/18/17 at 10:01; Stop 03/18/17 at 10:03; Status DC Ondansetron HCl (Zofran) 4 mg STK-MED ONCE .ROUTE ; Start 03/18/17 at 10:01; Stop 03/18/17 at 10:03; Status DC Fentanyl Citrate (Fentanyl 2ml Vial) 100 mcg STK-MED ONCE .ROUTE ; Start at 10:01; Stop 03/18/17 at 10:03; Status DC Midazolam HCl (Versed) 2 mg STK-MED ONCE .ROUTE ; Start 03/18/17 at 10:01; Stop 03/18/17 at 10:03; Status DC Bupivacaine HCl (Sensorcaine Mpf 0.5%) 30 ml STK-MED ONCE .ROUTE ; Start at 10:04; Stop 03/18/17 at 10:05; Status DC Succinylcholine Chloride (Anectine) 200 mg STK-MED ONCE .ROUTE ; Start 03/18/17 at 10:04; Stop 03/18/17 at 10:05; Status DC Fentanyl Citrate (Fentanyl 2ml Vial) 100 mcg STK-MED ONCE .ROUTE ; Start at 11:37; Stop 03/18/17 at 11:38; Status DC Enoxaparin Sodium (Lovenox 40mg Syringe) 40 mg Q12HR SQ Last administered on 07:59; Start 03/18/17 at 21:00; Stop 03/20/17 at 08:55; Status DC Cefazolin Sodium 3 gm/Sodium Chloride 100 ml @ 200 mls/hr Q6H IV Last administered on 03/19/17 06:34; Start 03/18/17 at 15:30; Stop 03/19/17 at 06:59 ; Status DC Ergocalciferol (Vitamin D2) 50,000 unit WEEKLY PO Last administered on 10:05; Start 03/19/17 at 09:00 Morphine Sulfate 5 mg/Ketorolac Tromethamine 30 mg/Ropivacaine 60 ml/ Epinephrine HCl 0.5 mg/Sodium Chloride 100 ml @ 100 mls/hr 1X PERIOP ONCE INT ART Last administered on 03/18/17 12:33; Start 03/18/17 at 12:00; Stop at 12:59; Status DC Vasopressin (Vasostrict) 20 unit STK-MED ONCE .ROUTE ; Start 03/18/17 at 12:15; Stop 03/18/17 at 12:16; Status DC Sevoflurane (Ultane) 60 ml STK-MED ONCE IH ; Start 03/18/17 at 12:43; Stop 03/18 at 12:44; Status DC Insulin Aspart (NovoLOG VIAL) 8 unit 1X PACU PRN SQ SEE COMMENTS Last administered on 03/18/17 13:50; Start 03/18/17 at 13:45; Stop 03/18/17 at 18:00 ; Status DC Influenza Virus Vaccine Quadrival (Fluarix Quad 7013-1130 Syringe) 0.5 ml ONCE ONCE VAX IM ; Start 03/18/17 at 16:00; Stop 03/18/17 at 16:01; Status DC Ondansetron HCl (Zofran) 4 mg PRN Q6HRS PRN IV NAUSEA/VOMITING Last administered on 03/21/17 00:38; Start 03/19/17 at 09:15; Stop 03/21/17 at 01: 35; Status DC Ibuprofen (Motrin) 600 mg PRN Q6HRS PRN PO INFLAMMATION; Start 03/19/17 at 10: 45; Stop 03/20/17 at 08:55; Status DC Pantoprazole Sodium (Protonix) 40 mg DAILYAC PO Last administered on 09:18; Start 03/19/17 at 11:30 Ondansetron HCl (Zofran) 4 mg PRN Q4HRS PRN IV NAUSEA/VOMITING Last administered on 03/23/17 07:33; Start 03/21/17 at 01:30 Sodium Chloride 1,000 ml @ 100 mls/hr Q10H IV Last administered on 03/21/17 11:34; Start 03/21/17 at 10:00; Stop 03/21/17 at 20:01; Status DC Enoxaparin Sodium (Lovenox 40mg Syringe) 40 mg BID SQ Last administered on 09:18; Start 03/21/17 at 14:00 Dextrose/Sodium Chloride 1,000 ml @ 100 mls/hr Q10H IV Last administered on 02:15; Start 03/21/17 at 20:15; Stop 03/23/17 at 16:36; Status DC Sodium Chloride 1,000 ml @ 100 mls/hr Q10H IV Last administered on 03/24/17 09:12; Start 03/23/17 at 17:00 Active Scripts Active Reported Krill Oil 300 Mg Softgel (Krill/[place]-3/Dha/Epa/Lipids) 1 Each Capsule 1 Each PO DAILY Aspirin 325 Mg Tablet 1 Tab PO DAILY Caltrate 600 + D Tablet (Calcium Carbonate/Vitamin D3) 1 Each Tablet 1 Each PO DAILY Centrum Silver Tablet (Multivits-Min/Fa/Lycopene/Lut) 1 Each Tablet 1 Each PO DAILY Detrol La (Tolterodine Tartrate) 2 Mg Cap.er.24h 2 Mg PO DAILY Isosorbide Dinitrate 30 Mg Tablet 30 Mg PO DAILY Lotensin (Benazepril Hcl) 20 Mg Tablet 20 Mg PO DAILY Hydrochlorothiazide Tablet (Hydrochlorothiazide) 50 Mg Tablet 25 Mg PO DAILY Calan (Verapamil Hcl) 120 Mg Tablet 240 Mg PO DAILY Paxil (Paroxetine Hcl) 20 Mg Tablet 1 Tab PO DAILY Dilantin (Phenytoin Sodium Extended) 100 Mg Capsule 3 Cap PO BID Actoplus Met 15 Mg-850 Mg Tab (Pioglitazone Hcl/Metformin Hcl) 1 Each Tablet 3 Tab PO UD Gemfibrozil 600 Mg Tablet 600 Mg PO BID Glyburide 5 Mg Tablet 2 Tab PO BID Vitals/I & O Vital Sign - Last 24 Hours 03/23/17 03/23/17 03/23/17 03/23/17 14:36 15:00 19:00 20:00 Temp 96.3 96.6 96.3 96.6 Pulse 81 54 Resp 20 20 16 B/P (MAP) 122/53 (76) 121/68 (85) Pulse Ox 97 99 O2 Delivery Nasal Cannula Room Air Nasal Cannula O2 Flow Rate 2.0 2.0 03/23/17 03/24/17 03/24/17 03/24/17 23:00 03:00 04:21 07:00 Temp 98.1 97.8 97.7 98.1 97.8 97.7 Pulse 72 73 74 Resp 20 18 18 B/P (MAP) 146/52 (83) 124/59 (80) 147/69 (95) Pulse Ox 95 100 100 97 O2 Delivery Nasal Cannula Nasal Cannula Nasal Cannula Nasal Cannula O2 Flow Rate 2.0 2.0 03/24/17 03/24/17 03/24/17 03/24/17 08:40 09:16 09:16 09:17 Pulse 74 74 74 B/P (MAP) 147/69 147/69 147/69 Pulse Ox 97 O2 Delivery Nasal Cannula O2 Flow Rate 2.0 03/24/17 03/24/17 03/24/17 03/24/17 10:56 11:00 11:30 12:35 Temp 97.6 97.6 Pulse 74 Resp 18 B/P (MAP) 121/67 (85) Pulse Ox 96 97 97 O2 Delivery Nasal Cannula Nasal Cannula Nasal Cannula Nasal Cannula O2 Flow Rate 2.0 2.0 2.0 2.0 03/24/17 13:46 Pulse Ox 97 O2 Delivery Nasal Cannula O2 Flow Rate 2.0 Intake and Output 03/23/17 03/23/17 03/24/17 15:00 23:00 07:00 Intake Total 1850 ml Output Total 3000 ml 450 ml Balance -3000 ml 1400 ml SUSAN GUIDRY MD Mar 24, 2017 14:26
[2017-03-24 15:00] VITALS: BP 141/62
[2017-03-24 19:15] VITALS: BP 147/60
[2017-03-24 23:28] VITALS: BP 145/63
[2017-03-25 02:50] VITALS: BP 152/63
[2017-03-25] MEDS: HYDROcodone/APAP 5/325MG 1 TAB TABLET PO PRN ×2 (03:16→09:10)
[2017-03-25 05:06] LABS: BASO % 0 % (0-3); EOS % 1 % (0-3); HEMATOCRIT 24.4 % (36.0-47.0); HEMOGLOBIN 7.9 g/dL (12.0-15.5); LYMPH # 0.6 x10^3/uL (1.0-4.8); LYMPH % 7 % (24-48); MEAN CORPUSCULAR HEMOGLOBIN 26 pg (25-35); MEAN CORPUSCULAR HGB CONC 32 g/dL (31-37); MEAN CORPUSCULAR VOLUME 79 fL (79-100); MONO % 7 % (0-9); NEUT % 85 % (31-73); PLATELET COUNT 186 x10^3/uL (140-400); RED BLOOD COUNT 3.08 x10^6/uL (3.50-5.40); RED CELL DISTRIBUTION WIDTH 17.9 % (11.5-14.5); WHITE BLOOD COUNT 8.1 x10^3/uL (4.0-11.0)
[2017-03-25 05:41] LABS: CALCIUM 8.7 mg/dL (8.5-10.1); CREATININE 0.6 mg/dL (0.6-1.0); GFR 101.6; POTASSIUM 4.3 mmol/L (3.5-5.1)
[2017-03-25 07:00] VITALS: BP 170/72
[2017-03-25] MEDS: INSULIN ASPART 300 UNITS/3 ML INSULN.PEN SQ SCH ×3 (08:00→18:11)
[2017-03-25] MEDS: GEMFIBROZIL 600 MG TABLET. PO SCH ×2 (09:06→22:08)
[2017-03-25] MEDS: CALCIUM CARB/VIT D3 500/200 TABLET. PO SCH (09:06)
[2017-03-25] MEDS: MULTIVITAMIN with MINERAL TABLET. PO SCH (09:07)
[2017-03-25] MEDS: OMEGA-3 FATTY ACIDS/FISH OIL 1,000 MG CAPSULE. PO SCH (09:07)
[2017-03-25] MEDS: metFORMIN 850 MG TABLET PO SCH ×3 (09:08→18:03)
[2017-03-25] MEDS: PHENYTOIN SODIUM EXTENDED 100 MG CAPSULE PO SCH ×2 (09:08→22:08)
[2017-03-25] MEDS: OXYBUTYNIN CHLORIDE 5 MG TABLET PO SCH ×2 (09:08→22:08)
[2017-03-25] MEDS: PIOGLITAZONE 15 MG TABLET. PO SCH ×3 (09:08→18:03)
[2017-03-25] MEDS: LISINOPRIL 20 MG TABLET PO SCH (09:09)
[2017-03-25] MEDS: VERAPAMIL SR 120 MG TABLET.ER. PO SCH (09:09)
[2017-03-25] MEDS: PANTOPRAZOLE 40 MG TABLET.DR. PO SCH (09:10)
[2017-03-25] MEDS: ISOSORBIDE MONONITRATE ER 30 MG TAB.ER.24H PO SCH (09:10)
[2017-03-25] MEDS: glyBURIDE 5 MG TABLET PO SCH ×2 (09:10→18:04)
[2017-03-25] MEDS: ENOXAPARIN 40 MG/0.4 ML SYRINGE. SQ SCH ×2 (09:11→22:09)
[2017-03-25] MEDS ORDERED: FERR325T72 PO (10:34)
[2017-03-25] MEDS ORDERED: ENOX40DI3 SQ (10:34)
[2017-03-25] MEDS ORDERED: HYDR-2762 PO (10:34)
[2017-03-25] MEDS ORDERED: ERGO500027 PO (10:34)
[2017-03-25] MEDS ORDERED: METF850T PO (10:38)
[2017-03-25] MEDS: HYDROcodone/APAP 7.5/325MG 1 TAB TABLET PO PRN ×3 (13:10→22:08)
[2017-03-25] MEDS: FERROUS SULFATE 325 MG TABLET. PO SCH ×2 (13:10→22:08)
--- NOTE | 2017-03-25 14:59 | PDOC ---
PROGRESS NOTES Chief Complaint Chief Complaint 1. ORIF R distal femur s/p ORIF 03/18 2. Obese 3. hx Severe degenerative disk disease with central canal stenosis at L4-L5, severe and moderate at L2 and L3. 4. Type 2 diabetes mellitus. 5. Hypertension. 6. Hyperthyroidism. 7. Rheumatoid arthritis. chronic stable 8. Vit D deficiency 9. Acute precipitous drop in hgb 10. HYponatremia plan: fu with ORtho, NWB RLE ptot pain control encourage to ambulate with PTOT, increase lisinopril to 40mg daily SW for rehab tmr added vit d add iron po History of Present Illness History of Present Illness Pt is a pleasant 62 year old female who had an operative fixation on her right femur. Pt was seen at bedside resting comfortably. Dressings are clean, dry, and intact. Encourage PO intake. Recommend SNU eval. Pt has a soto catheter. Continue maintenance IV fluids. Pt is being followed by orthopedics. Will continue to monitor. ROS: no fever, chills, sob or chest pain low po intake, better now. Vitals Vitals Vital Signs Date Time Temp Pulse Resp B/P (MAP) Pulse Ox O2 Delivery O2 Flow Rate FiO2 03/25/17 13:10 97 Nasal Cannula 2.0 03/25/17 09:10 77 170/72 03/25/17 07:00 98.3 20 98.3 Physical Exam General: Alert, Oriented X3, Cooperative, No acute distress (Nausea) Heart: Regular rate, Normal S1, Normal S2, Other (Distant heart sounds) Lungs: Clear Abdomen: Normal bowel sounds, Soft, No tenderness, No hepatosplenomegaly, No masses Extremities: No clubbing, No cyanosis, Other (RT leg post op with stabilizer) Skin: No rashes, No breakdown, No significant lesion, Other (nystatin podwer in between excessive skin folds) Labs LABS Laboratory Tests Test 03/24/17 16:18 03/24/17 20:30 03/25/17 03:50 03/25/17 07:48 Glucose (Fingerstick) 197 mg/dL (70-99) 173 mg/dL (70-99) 137 mg/dL (70-99) White Blood Count 8.1 x10^3/uL (4.0-11.0) Red Blood Count 3.08 x10^6/uL (3.50-5.40) Hemoglobin 7.9 g/dL (12.0-15.5) Hematocrit 24.4 % (36.0-47.0) Mean Corpuscular Volume 79 fL (79-100) Mean Corpuscular Hemoglobin 26 pg (25-35) Mean Corpuscular Hemoglobin Concent 32 g/dL (31-37) Red Cell Distribution Width 17.9 % (11.5-14.5) Platelet Count 186 x10^3/uL (140-400) Neutrophils (%) (Auto) 85 % (31-73) Lymphocytes (%) (Auto) 7 % (24-48) Monocytes (%) (Auto) 7 % (0-9) Eosinophils (%) (Auto) 1 % (0-3) Basophils (%) (Auto) 0 % (0-3) Neutrophils # (Auto) 6.9 x10^3uL (1.8-7.7) Lymphocytes # (Auto) 0.6 x10^3/uL (1.0-4.8) Monocytes # (Auto) 0.6 x10^3/uL (0.0-1.1) Eosinophils # (Auto) 0.1 x10^3/uL (0.0-0.7) Basophils # (Auto) 0.0 x10^3/uL (0.0-0.2) Sodium Level 132 mmol/L (136-145) Potassium Level 4.3 mmol/L (3.5-5.1) Chloride Level 99 mmol/L (98-107) Carbon Dioxide Level 24 mmol/L (21-32) Anion Gap 9 (6-14) Blood Urea Nitrogen 14 mg/dL (7-20) Creatinine 0.6 mg/dL (0.6-1.0) Estimated GFR (Cockcroft-Gault) 101.6 Glucose Level 142 mg/dL (70-99) Calcium Level 8.7 mg/dL (8.5-10.1) Test 03/25/17 11:34 Glucose (Fingerstick) 194 mg/dL (70-99) Assessment and Plan Assessmemt and Plan Problems Medical Problems: (1) Femur fracture Status: Acute Problems: Comment Review of Relevant I have reviewed the following items sheri (where applicable) has been applied. Labs Laboratory Tests Test 03/23/17 16:02 03/23/17 21:42 03/24/17 04:30 03/24/17 07:28 Glucose (Fingerstick) 206 mg/dL (70-99) 212 mg/dL (70-99) 145 mg/dL (70-99) White Blood Count 7.3 x10^3/uL (4.0-11.0) Red Blood Count 2.87 x10^6/uL (3.50-5.40) Hemoglobin 7.3 g/dL (12.0-15.5) Hematocrit 22.6 % (36.0-47.0) Mean Corpuscular Volume 79 fL (79-100) Mean Corpuscular Hemoglobin 26 pg (25-35) Mean Corpuscular Hemoglobin Concent 32 g/dL (31-37) Red Cell Distribution Width 17.9 % (11.5-14.5) Platelet Count 155 x10^3/uL (140-400) Neutrophils (%) (Auto) 83 % (31-73) Lymphocytes (%) (Auto) 7 % (24-48) Monocytes (%) (Auto) 10 % (0-9) Eosinophils (%) (Auto) 0 % (0-3) Basophils (%) (Auto) 0 % (0-3) Neutrophils # (Auto) 6.1 x10^3uL (1.8-7.7) Lymphocytes # (Auto) 0.5 x10^3/uL (1.0-4.8) Monocytes # (Auto) 0.7 x10^3/uL (0.0-1.1) Eosinophils # (Auto) 0.0 x10^3/uL (0.0-0.7) Basophils # (Auto) 0.0 x10^3/uL (0.0-0.2) Sodium Level 131 mmol/L (136-145) Potassium Level 3.9 mmol/L (3.5-5.1) Chloride Level 97 mmol/L (98-107) Carbon Dioxide Level 25 mmol/L (21-32) Anion Gap 9 (6-14) Blood Urea Nitrogen 16 mg/dL (7-20) Creatinine 0.6 mg/dL (0.6-1.0) Estimated GFR (Cockcroft-Gault) 101.6 Glucose Level 122 mg/dL (70-99) Calcium Level 8.3 mg/dL (8.5-10.1) Free Thyroxine 1.55 ng/dL (0.76-1.46) Test 03/24/17 11:06 03/24/17 16:18 03/24/17 20:30 03/25/17 03:50 Glucose (Fingerstick) 182 mg/dL (70-99) 197 mg/dL (70-99) 173 mg/dL (70-99) White Blood Count 8.1 x10^3/uL (4.0-11.0) Red Blood Count 3.08 x10^6/uL (3.50-5.40) Hemoglobin 7.9 g/dL (12.0-15.5) Hematocrit 24.4 % (36.0-47.0) Mean Corpuscular Volume 79 fL (79-100) Mean Corpuscular Hemoglobin 26 pg (25-35) Mean Corpuscular Hemoglobin Concent 32 g/dL (31-37) Red Cell Distribution Width 17.9 % (11.5-14.5) Platelet Count 186 x10^3/uL (140-400) Neutrophils (%) (Auto) 85 % (31-73) Lymphocytes (%) (Auto) 7 % (24-48) Monocytes (%) (Auto) 7 % (0-9) Eosinophils (%) (Auto) 1 % (0-3) Basophils (%) (Auto) 0 % (0-3) Neutrophils # (Auto) 6.9 x10^3uL (1.8-7.7) Lymphocytes # (Auto) 0.6 x10^3/uL (1.0-4.8) Monocytes # (Auto) 0.6 x10^3/uL (0.0-1.1) Eosinophils # (Auto) 0.1 x10^3/uL (0.0-0.7) Basophils # (Auto) 0.0 x10^3/uL (0.0-0.2) Sodium Level 132 mmol/L (136-145) Potassium Level 4.3 mmol/L (3.5-5.1) Chloride Level 99 mmol/L (98-107) Carbon Dioxide Level 24 mmol/L (21-32) Anion Gap 9 (6-14) Blood Urea Nitrogen 14 mg/dL (7-20) Creatinine 0.6 mg/dL (0.6-1.0) Estimated GFR (Cockcroft-Gault) 101.6 Glucose Level 142 mg/dL (70-99) Calcium Level 8.7 mg/dL (8.5-10.1) Test 03/25/17 07:48 03/25/17 11:34 Glucose (Fingerstick) 137 mg/dL (70-99) 194 mg/dL (70-99) Laboratory Tests Test 03/24/17 16:18 03/24/17 20:30 03/25/17 03:50 03/25/17 07:48 Glucose (Fingerstick) 197 mg/dL (70-99) 173 mg/dL (70-99) 137 mg/dL (70-99) White Blood Count 8.1 x10^3/uL (4.0-11.0) Red Blood Count 3.08 x10^6/uL (3.50-5.40) Hemoglobin 7.9 g/dL (12.0-15.5) Hematocrit 24.4 % (36.0-47.0) Mean Corpuscular Volume 79 fL (79-100) Mean Corpuscular Hemoglobin 26 pg (25-35) Mean Corpuscular Hemoglobin Concent 32 g/dL (31-37) Red Cell Distribution Width 17.9 % (11.5-14.5) Platelet Count 186 x10^3/uL (140-400) Neutrophils (%) (Auto) 85 % (31-73) Lymphocytes (%) (Auto) 7 % (24-48) Monocytes (%) (Auto) 7 % (0-9) Eosinophils (%) (Auto) 1 % (0-3) Basophils (%) (Auto) 0 % (0-3) Neutrophils # (Auto) 6.9 x10^3uL (1.8-7.7) Lymphocytes # (Auto) 0.6 x10^3/uL (1.0-4.8) Monocytes # (Auto) 0.6 x10^3/uL (0.0-1.1) Eosinophils # (Auto) 0.1 x10^3/uL (0.0-0.7) Basophils # (Auto) 0.0 x10^3/uL (0.0-0.2) Sodium Level 132 mmol/L (136-145) Potassium Level 4.3 mmol/L (3.5-5.1) Chloride Level 99 mmol/L (98-107) Carbon Dioxide Level 24 mmol/L (21-32) Anion Gap 9 (6-14) Blood Urea Nitrogen 14 mg/dL (7-20) Creatinine 0.6 mg/dL (0.6-1.0) Estimated GFR (Cockcroft-Gault) 101.6 Glucose Level 142 mg/dL (70-99) Calcium Level 8.7 mg/dL (8.5-10.1) Test 03/25/17 11:34 Glucose (Fingerstick) 194 mg/dL (70-99) Medications Current Medications Morphine Sulfate 2 mg 1X ONCE IV/SQ Last administered on 03/17/17 11:46; Start 03/17/17 at 11:45; Stop 03/17/17 at 11:46; Status DC Fentanyl Citrate (Fentanyl 2ml Vial) 50 mcg PRN Q2HR PRN IV PAIN Last administered on 03/24/17 20:12; Start 03/17/17 at 12:45 Acetaminophen/ Hydrocodone Bitart (Lortab 5/325) 1 tab PRN Q4HRS PRN PO MILD - MODERATE PAIN Last administered on 03/25/17 09:10; Start 03/17/17 at 12:45; Stop 03/25/17 at 10:08; Status DC Acetaminophen/ Hydrocodone Bitart (Lortab 7.5/325) 1 tab PRN Q6HRS PRN PO SEVERE PAIN Last administered on 03/24/17 07:38; Start 03/17/17 at 12:45; Stop 03/25/17 at 10:08; Status DC Gemfibrozil (Lopid) 600 mg BID PO Last administered on 03/25/17 09:06; Start 03/17/17 at 21:00 Glyburide (Diabeta) 10 mg BIDWMEALS PO Last administered on 03/25/17 09:10; Start 03/17/17 at 17:00 Paroxetine HCl (Paxil) 20 mg DAILY PO Last administered on 03/21/17 09:13; Start 03/17/17 at 13:00; Stop 03/21/17 at 09:45; Status DC Phenytoin Sodium (Dilantin) 300 mg BID PO Last administered on 03/25/17 09:08 ; Start 03/17/17 at 21:00 Lisinopril (Prinivil) 20 mg DAILY PO Last administered on 03/25/17 09:09; Start 03/17/17 at 13:00 Calcium/Vitamin D (Oscal D 500mg/ 200uts) 1 tab DAILY PO Last administered on 03/25/17 09:06; Start 03/18/17 at 09:00 Hydrochlorothiazide (Hydrodiuril) 25 mg DAILY PO Last administered on 09:15; Start 03/17/17 at 13:00; Stop 03/21/17 at 09:45; Status DC Isosorbide Mononitrate (Imdur) 30 mg DAILY PO Last administered on 03/25/17 09:10; Start 03/17/17 at 13:00 Fish Oil (Fish Oil) 1,000 mg DAILY PO Last administered on 03/25/17 09:07; Start 03/18/17 at 09:00 Multivitamins (Thera M Plus) 1 tab DAILY PO Last administered on 03/25/17 09: 07; Start 03/18/17 at 09:00 Non-Formulary Medication 3 tab UD PO ; Start 03/17/17 at 12:45; Status UNV Oxybutynin Chloride (Ditropan) 5 mg BID PO Last administered on 03/25/17 09: 08; Start 03/17/17 at 21:00 Verapamil HCl (Calan Sr) 240 mg DAILY PO Last administered on 03/25/17 09:09 ; Start 03/17/17 at 13:00 Insulin Aspart (NovoLOG) 0-7 UNITS TIDWMEALS SQ Last administered on 13:16; Start 03/17/17 at 13:00 Dextrose (Dextrose 50%-Water Syringe) 12.5 gm PRN Q15MIN PRN IV SEE COMMENTS Last administered on 03/21/17 19:10; Start 03/17/17 at 12:45 Ondansetron HCl (Zofran) 4 mg PRN Q8HRS PRN IV NAUSEA/VOMITING; Start 03/17/17 at 13:00; Stop 03/18/17 at 12:59; Status DC Morphine Sulfate 2 mg PRN Q2HR PRN IV PAIN; Start 03/17/17 at 13:00; Stop 03/18 at 12:59; Status DC Pioglitazone HCl (Actos) 15 mg TIDWMEALS PO Last administered on 03/25/17 13: 09; Start 03/17/17 at 13:00 Metformin HCl (Glucophage) 850 mg TIDWMEALS PO Last administered on 03/25/17 13:09; Start 03/17/17 at 13:00 Cefazolin Sodium 3 gm/Dextrose 100 ml @ 200 mls/hr 1X ONCE IV ; Start at 06:00; Stop 03/18/17 at 06:29; Status DC Ondansetron HCl (Zofran) 4 mg PRN Q6HRS PRN IV NAUSEA/VOMITING; Start 03/18/17 at 07:00; Stop 03/19/17 at 06:59; Status DC Fentanyl Citrate (Fentanyl 2ml Vial) 25 mcg PRN Q5MIN PRN IV MILD PAIN; Start 03/18/17 at 07:00; Stop 03/19/17 at 06:59; Status DC Fentanyl Citrate (Fentanyl 2ml Vial) 50 mcg PRN Q5MIN PRN IV MODERATE PAIN; Start 03/18/17 at 07:00; Stop 03/19/17 at 06:59; Status DC Morphine Sulfate 1 mg PRN Q10MIN PRN IV SEVERE PAIN Last administered on 13:35; Start 03/18/17 at 07:00; Stop 03/19/17 at 06:59; Status DC Ringer's Solution 1,000 ml @ 0 mls/hr Q0M IV Last administered on 03/18/17 09 :55; Start 03/18/17 at 07:00; Stop 03/18/17 at 18:59; Status DC Lidocaine HCl (Xylocaine-Mpf 1% Vial) 2 ml PRN 1X PRN ID PRIOR TO IV START; Start 03/18/17 at 07:00; Stop 03/19/17 at 06:59; Status DC Hydromorphone HCl (Dilaudid) 0.5 mg PRN Q10MIN PRN IV SEV PAIN, Second choice Last administered on 03/18/17 13:56; Start 03/18/17 at 07:00; Stop 03/19/17 at 06:59; Status DC Prochlorperazine Edisylate (Compazine) 5 mg PACU PRN PRN IV NAUSEA, MRX1; Start 03/18/17 at 07:00; Stop 03/19/17 at 06:59; Status DC Lidocaine HCl 30 ml STK-MED ONCE .ROUTE ; Start 03/18/17 at 06:54; Stop at 06:55; Status DC Bupivacaine HCl (Sensorcaine Mpf 0.5%) 30 ml STK-MED ONCE .ROUTE ; Start at 06:54; Stop 03/18/17 at 06:55; Status DC Insulin Aspart (NovoLOG VIAL) 100 unit STK-MED ONCE SQ ; Start 03/18/17 at 09:45 ; Stop 03/18/17 at 09:46; Status DC Insulin Aspart (NovoLOG VIAL) 8 unit 1X STAT SQ Last administered on t 09:52; Start 03/18/17 at 09:49; Stop 03/18/17 at 09:50; Status DC Propofol 20 ml @ As Directed STK-MED ONCE IV ; Start 03/18/17 at 10:01; Stop at 10:03; Status DC Dexamethasone Sodium Phosphate (Decadron) 20 mg STK-MED ONCE .ROUTE ; Start 03/18/17 at 10:01; Stop 03/18/17 at 10:03; Status DC Famotidine (Pepcid) 20 mg STK-MED ONCE .ROUTE ; Start 03/18/17 at 10:01; Stop 03/18/17 at 10:03; Status DC Lidocaine HCl (Lidocaine Pf 2% Vial) 5 ml STK-MED ONCE .ROUTE ; Start 03/18/17 at 10:01; Stop 03/18/17 at 10:03; Status DC Ondansetron HCl (Zofran) 4 mg STK-MED ONCE .ROUTE ; Start 03/18/17 at 10:01; Stop 03/18/17 at 10:03; Status DC Fentanyl Citrate (Fentanyl 2ml Vial) 100 mcg STK-MED ONCE .ROUTE ; Start at 10:01; Stop 03/18/17 at 10:03; Status DC Midazolam HCl (Versed) 2 mg STK-MED ONCE .ROUTE ; Start 03/18/17 at 10:01; Stop 03/18/17 at 10:03; Status DC Bupivacaine HCl (Sensorcaine Mpf 0.5%) 30 ml STK-MED ONCE .ROUTE ; Start at 10:04; Stop 03/18/17 at 10:05; Status DC Succinylcholine Chloride (Anectine) 200 mg STK-MED ONCE .ROUTE ; Start 03/18/17 at 10:04; Stop 03/18/17 at 10:05; Status DC Fentanyl Citrate (Fentanyl 2ml Vial) 100 mcg STK-MED ONCE .ROUTE ; Start at 11:37; Stop 03/18/17 at 11:38; Status DC Enoxaparin Sodium (Lovenox 40mg Syringe) 40 mg Q12HR SQ Last administered on 07:59; Start 03/18/17 at 21:00; Stop 03/20/17 at 08:55; Status DC Cefazolin Sodium 3 gm/Sodium Chloride 100 ml @ 200 mls/hr Q6H IV Last administered on 03/19/17 06:34; Start 03/18/17 at 15:30; Stop 03/19/17 at 06:59 ; Status DC Ergocalciferol (Vitamin D2) 50,000 unit WEEKLY PO Last administered on 10:05; Start 03/19/17 at 09:00 Morphine Sulfate 5 mg/Ketorolac Tromethamine 30 mg/Ropivacaine 60 ml/ Epinephrine HCl 0.5 mg/Sodium Chloride 100 ml @ 100 mls/hr 1X PERIOP ONCE INT ART Last administered on 03/18/17 12:33; Start 03/18/17 at 12:00; Stop at 12:59; Status DC Vasopressin (Vasostrict) 20 unit STK-MED ONCE .ROUTE ; Start 03/18/17 at 12:15; Stop 03/18/17 at 12:16; Status DC Sevoflurane (Ultane) 60 ml STK-MED ONCE IH ; Start 03/18/17 at 12:43; Stop 03/18 at 12:44; Status DC Insulin Aspart (NovoLOG VIAL) 8 unit 1X PACU PRN SQ SEE COMMENTS Last administered on 03/18/17 13:50; Start 03/18/17 at 13:45; Stop 03/18/17 at 18:00 ; Status DC Influenza Virus Vaccine Quadrival (Fluarix Quad [id number] Syringe) 0.5 ml ONCE ONCE VAX IM ; Start 03/18/17 at 16:00; Stop 03/18/17 at 16:01; Status DC Ondansetron HCl (Zofran) 4 mg PRN Q6HRS PRN IV NAUSEA/VOMITING Last administered on 03/21/17 00:38; Start 03/19/17 at 09:15; Stop 03/21/17 at 01: 35; Status DC Ibuprofen (Motrin) 600 mg PRN Q6HRS PRN PO INFLAMMATION; Start 03/19/17 at 10: 45; Stop 03/20/17 at 08:55; Status DC Pantoprazole Sodium (Protonix) 40 mg DAILYAC PO Last administered on 09:10; Start 03/19/17 at 11:30 Ondansetron HCl (Zofran) 4 mg PRN Q4HRS PRN IV NAUSEA/VOMITING Last administered on 03/23/17 07:33; Start 03/21/17 at 01:30 Sodium Chloride 1,000 ml @ 100 mls/hr Q10H IV Last administered on 03/21/17 11:34; Start 03/21/17 at 10:00; Stop 03/21/17 at 20:01; Status DC Enoxaparin Sodium (Lovenox 40mg Syringe) 40 mg BID SQ Last administered on 09:11; Start 03/21/17 at 14:00 Dextrose/Sodium Chloride 1,000 ml @ 100 mls/hr Q10H IV Last administered on 02:15; Start 03/21/17 at 20:15; Stop 03/23/17 at 16:36; Status DC Sodium Chloride 1,000 ml @ 100 mls/hr Q10H IV Last administered on 03/24/17 09:12; Start 03/23/17 at 17:00; Stop 03/24/17 at 21:06; Status DC Acetaminophen/ Hydrocodone Bitart (Lortab 7.5/325) 1 tab PRN Q4HRS PRN PO SEVERE PAIN Last administered on 11/14/17at 13:10; Start 03/25/17 at 10:15 Ferrous Sulfate (Feosol) 325 mg BID PO Last administered on 03/25/17t 13:10; Start 03/25/17 at 11:00 Active Scripts Active Glucophage (Metformin Hcl) 850 Mg Tablet 850 Mg PO TIDWMEALS 30 Days Hydrocodone-Apap 7.5-325 (Hydrocodone Bit/Acetaminophen) 1 Each Tablet 1 Tab PO PRN Q4HRS PRN Feosol (Ferrous Sulfate) 325 Mg Tablet 325 Mg PO BID 30 Days Vitamin D2 (Ergocalciferol (Vitamin D2)) 50,000 Unit Capsule 50,000 Unit PO WEEKLY 30 Days Enoxaparin Sodium 40 Mg/0.4 Ml Disp.syrin 40 Mg SQ BID 30 Days Reported Krill Oil 300 Mg Softgel (Krill/[place]-3/Dha/Epa/Lipids) 1 Each Capsule 1 Each PO DAILY Aspirin 325 Mg Tablet 1 Tab PO DAILY Caltrate 600 + D Tablet (Calcium Carbonate/Vitamin D3) 1 Each Tablet 1 Each PO DAILY Centrum Silver Tablet (Multivits-Min/Fa/Lycopene/Lut) 1 Each Tablet 1 Each PO DAILY Detrol La (Tolterodine Tartrate) 2 Mg Cap.er.24h 2 Mg PO DAILY Isosorbide Dinitrate 30 Mg Tablet 30 Mg PO DAILY Lotensin (Benazepril Hcl) 20 Mg Tablet 20 Mg PO DAILY Hydrochlorothiazide Tablet (Hydrochlorothiazide) 50 Mg Tablet 25 Mg PO DAILY Calan (Verapamil Hcl) 120 Mg Tablet 240 Mg PO DAILY Paxil (Paroxetine Hcl) 20 Mg Tablet 1 Tab PO DAILY Dilantin (Phenytoin Sodium Extended) 100 Mg Capsule 3 Cap PO BID Actoplus Met 15 Mg-850 Mg Tab (Pioglitazone Hcl/Metformin Hcl) 1 Each Tablet 3 Tab PO UD Gemfibrozil 600 Mg Tablet 600 Mg PO BID Glyburide 5 Mg Tablet 2 Tab PO BID Vitals/I & O Vital Sign - Last 24 Hours 03/24/17 03/24/17 03/24/17 03/24/17 15:00 17:24 19:15 20:00 Temp 96.1 97.5 96.1 97.5 Pulse 74 75 Resp 18 20 B/P (MAP) 141/62 (88) 147/60 (89) Pulse Ox 98 97 97 O2 Delivery Nasal Cannula Nasal Cannula Nasal Cannula Nasal Cannula O2 Flow Rate 2.0 2.0 2.0 2.0 03/24/17 03/24/17 03/24/17 03/24/17 20:12 20:42 23:28 23:48 Temp 97.5 97.5 Pulse 85 Resp 18 16 16 16 B/P (MAP) 145/63 (90) Pulse Ox 97 2 2 O2 Delivery Nasal Cannula Nasal Cannula Nasal Cannula Nasal Cannula O2 Flow Rate 2.0 2.0 2.0 03/25/17 03/25/17 03/25/17 03/25/17 02:50 03:16 04:16 07:00 Temp 98.0 98.3 98.0 98.3 Pulse 76 77 Resp 16 16 16 20 B/P (MAP) 152/63 (92) 170/72 (104) Pulse Ox 92 92 92 97 O2 Delivery Room Air Nasal Cannula Nasal Cannula Nasal Cannula O2 Flow Rate 2.0 2.0 2.0 03/25/17 03/25/17 03/25/17 03/25/17 07:50 09:09 09:09 09:10 Pulse 77 77 B/P (MAP) 170/72 170/72 Pulse Ox 97 O2 Delivery Nasal Cannula Nasal Cannula O2 Flow Rate 2.0 2.0 03/25/17 03/25/17 09:10 13:10 Pulse 77 B/P (MAP) 170/72 Pulse Ox 97 O2 Delivery Nasal Cannula O2 Flow Rate 2.0 Intake and Output 03/24/17 03/24/17 03/25/17 15:00 23:00 07:00 Intake Total 1020 ml 520 ml Output Total 1850 ml 2950 ml Balance -1850 ml -1930 ml 520 ml SUSAN GUIDRY MD Mar 25, 2017 14:59
[2017-03-25 15:00] VITALS: BP 141/57
[2017-03-25] MEDS ORDERED: ACETAMINOPHEN 325 MG TABLET. PO PRN (15:00)
[2017-03-25] MEDS ORDERED: hydrALAZINE 20 MG/ML VIAL. IVP PRN (15:00)
[2017-03-25] MEDS ORDERED: traMADol 50 MG TABLET PO PRN (15:00)
[2017-03-25] MEDS ORDERED: MORPHINE SULFATE 4 MG/ML DISP.SYRIN. IV PRN (15:00)
[2017-03-25] MEDS ORDERED: DOCUSATE SODIUM 100 MG CAPSULE. PO PRN (15:00)
[2017-03-25] MEDS ORDERED: ONDANSETRON PF 4 MG/2 ML VIAL. IV PRN (15:00)
[2017-03-25] MEDS ORDERED: SALIVA STIMULANT AGENT 44ML SPRAY BOTTLE. PO PRN (16:45)
[2017-03-25 19:00] VITALS: BP 148/65
[2017-03-25 23:00] VITALS: BP 147/52
[2017-03-26 03:00] VITALS: BP 155/68
[2017-03-26] MEDS: HYDROcodone/APAP 7.5/325MG 1 TAB TABLET PO PRN ×3 (03:23→14:46)
[2017-03-26 04:45] LABS: BASO % 0 % (0-3); EOS % 1 % (0-3); HEMATOCRIT 24.5 % (36.0-47.0); HEMOGLOBIN 7.9 g/dL (12.0-15.5); LYMPH # 0.5 x10^3/uL (1.0-4.8); LYMPH % 7 % (24-48); MEAN CORPUSCULAR HEMOGLOBIN 26 pg (25-35); MEAN CORPUSCULAR HGB CONC 32 g/dL (31-37); MEAN CORPUSCULAR VOLUME 79 fL (79-100); MONO % 7 % (0-9); NEUT % 85 % (31-73); PLATELET COUNT 204 x10^3/uL (140-400); RED BLOOD COUNT 3.09 x10^6/uL (3.50-5.40); RED CELL DISTRIBUTION WIDTH 18.5 % (11.5-14.5); WHITE BLOOD COUNT 7.5 x10^3/uL (4.0-11.0)
[2017-03-26 05:08] LABS: CALCIUM 8.8 mg/dL (8.5-10.1); CREATININE 0.5 mg/dL (0.6-1.0); GFR 125.4; POTASSIUM 4.2 mmol/L (3.5-5.1)
[2017-03-26] MEDS: PANTOPRAZOLE 40 MG TABLET.DR. PO SCH (06:32)
[2017-03-26 07:00] VITALS: BP 150/67
[2017-03-26] MEDS: INSULIN ASPART 300 UNITS/3 ML INSULN.PEN SQ SCH ×2 (08:00→14:49)
[2017-03-26] MEDS ORDERED: LISINOPRIL 40 MG TABLET. PO SCH (09:00)
[2017-03-26] MEDS: MULTIVITAMIN with MINERAL TABLET. PO SCH (09:36)
[2017-03-26] MEDS ORDERED: LISI40TA PO (09:37)
[2017-03-26] MEDS: ISOSORBIDE MONONITRATE ER 30 MG TAB.ER.24H PO SCH (09:37)
[2017-03-26] MEDS: metFORMIN 850 MG TABLET PO SCH ×2 (09:37→14:45)
[2017-03-26] MEDS: PHENYTOIN SODIUM EXTENDED 100 MG CAPSULE PO SCH (09:37)
[2017-03-26] MEDS: OXYBUTYNIN CHLORIDE 5 MG TABLET PO SCH (09:38)
[2017-03-26] MEDS: FERROUS SULFATE 325 MG TABLET. PO SCH (09:38)
[2017-03-26] MEDS: OMEGA-3 FATTY ACIDS/FISH OIL 1,000 MG CAPSULE. PO SCH (09:38)
[2017-03-26] MEDS: ERGOCALCIFEROL (VITAMIN D2) 50,000 UNIT CAPSULE. PO SCH (09:38)
[2017-03-26] MEDS: glyBURIDE 5 MG TABLET PO SCH (09:38)
[2017-03-26] MEDS: PIOGLITAZONE 15 MG TABLET. PO SCH ×2 (09:38→14:45)
[2017-03-26] MEDS: VERAPAMIL SR 120 MG TABLET.ER. PO SCH (09:39)
[2017-03-26] MEDS: CALCIUM CARB/VIT D3 500/200 TABLET. PO SCH (09:39)
[2017-03-26] MEDS: GEMFIBROZIL 600 MG TABLET. PO SCH (09:39)
[2017-03-26] MEDS: ENOXAPARIN 40 MG/0.4 ML SYRINGE. SQ SCH (09:41)
[2017-03-26 11:00] VITALS: BP 145/64
--- NOTE | 2017-03-26 13:05 | PDOC3 ---
Discharge Summary [facility] Date of Admission: Mar 17, 2017 Discharge Date: Mar 26, 2017 Admitting Diagnosis 1. ORIF for traumatic R distal femur fx post fall, s/p ORIF 03/18 2. Obese 3. hx Severe degenerative disk disease with central canal stenosis at L4-L5, severe and moderate at L2 and L3. 4. Type 2 diabetes mellitus. 5. Hypertension. 6. Hyperthyroidism. 7. Rheumatoid arthritis. chronic stable 8. Vit D deficiency 9. Acute precipitous drop in hgb 10. HYponatremia right forearm traumatic closed fx , no sx Problems: Final Diagnosis CONSULTS dr. [place] Procedures ORIF right leg Brief Hospital Course Ms. Fleming is a 62 old F, came post fall at home, was found right distal femur fx and right forearm fx. got ORIF for rt femur fx. pt improves slowly ,with pain, non WB for right leg with PT. low po intake. stable today to dc to rehab. dc time 35min General: Alert, Oriented X3, Cooperative, No acute distress (Nausea) Heart: Regular rate, Normal S1, Normal S2, Other (Distant heart sounds) Lungs: Clear Abdomen: Normal bowel sounds, Soft, No tenderness, No hepatosplenomegaly, No masses Extremities: No clubbing, No cyanosis, Other (RT leg post op with stabilizer) right arm has sling on. Skin: No rashes, No breakdown, No significant lesion, Other (nystatin podwer in between excessive skin folds) Patient History: FHx: breast cancer 32 MOTHER FHx: cardiovascular disease 33 FATHER 32 MOTHER FHx: diabetes mellitus 33 FATHER 32 MOTHER FHx: skin cancer 33 FATHER Hypertension Problems: Disposition rehab CONDITION AT DISCHARGE: Improved Diet regular Scheduled Aspirin (Aspirin), 1 TAB PO DAILY, (Reported) Benazepril Hcl (Lotensin), 20 MG PO DAILY, (Reported) Calcium Carbonate/Vitamin D3 (Caltrate 600 + D Tablet), 1 EACH PO DAILY, ( Reported) Enoxaparin Sodium (Enoxaparin Sodium), 40 MG SQ BID Ergocalciferol (Vitamin D2) (Vitamin D2), 50,000 UNIT PO WEEKLY Ferrous Sulfate (Feosol), 325 MG PO BID Gemfibrozil (Gemfibrozil), 600 MG PO BID, (Reported) Glyburide (Glyburide), 2 TAB PO BID, (Reported) Hydrochlorothiazide (Hydrochlorothiazide Tablet), 25 MG PO DAILY, (Reported) Isosorbide Dinitrate (Isosorbide Dinitrate), 30 MG PO DAILY, (Reported) Krill/[place]-3/Dha/Epa/Lipids (Krill Oil 300 Mg Softgel), 1 EACH PO DAILY, ( Reported) Lisinopril (Lisinopril), 40 MG PO DAILY Metformin Hcl (Glucophage), 850 MG PO TIDWMEALS Multivits-Min/Fa/Lycopene/Lut (Centrum Silver Tablet), 1 EACH PO DAILY, ( Reported) Paroxetine Hcl (Paxil), 1 TAB PO DAILY, (Reported) Phenytoin Sodium Extended (Dilantin), 3 CAP PO BID, (Reported) Pioglitazone Hcl/Metformin Hcl (Actoplus Met 15 Mg-850 Mg Tab), 3 TAB PO UD, ( Reported) Tolterodine Tartrate (Detrol La), 2 MG PO DAILY, (Reported) Verapamil Hcl (Calan), 240 MG PO DAILY, (Reported) Scheduled PRN Hydrocodone Bit/Acetaminophen (Hydrocodone-Apap 7.5-325 ), 1 TAB PO PRN Q4HRS PRN for SEVERE PAIN Follow Up ortho in 2 weeks SUSAN GUIDRY MD Mar 26, 2017 13:05
== END 2017-03-26 16:00 | DRG 853 ==
LOC: ER 09:20 → 4 NORTH 10:45
PROVIDERS: ADMIT Internal Medicine; ATTEND Internal Medicine
PROC: 0QSB04Z Reposition Right Lower Femur with Internal Fixation Device, Open Approach (ICD-10-PCS; principal; 2017-03-18 10:30)
DX: A41.02 Sepsis due to Methicillin resistant Staphylococcus aureus (principal); J96.01 Acute respiratory failure with hypoxia; G06.1 Intraspinal abscess and granuloma; N17.9 Acute kidney failure, unspecified; N18.3 Chronic kidney disease, stage 3 (moderate); S72.309A Unspecified fracture of shaft of unspecified femur, initial encounter for closed fracture; E11.22 Type 2 diabetes mellitus with diabetic chronic kidney disease; E87.1 Hypo-osmolality and hyponatremia; S42.401A Unspecified fracture of lower end of right humerus, initial encounter for closed fracture; S72.401A Unspecified fracture of lower end of right femur, initial encounter for closed fracture; S52.131A Displaced fracture of neck of right radius, initial encounter for closed fracture; E66.01 Morbid (severe) obesity due to excess calories; D50.0 Iron deficiency anemia secondary to blood loss (chronic); E03.9 Hypothyroidism, unspecified; E05.90 Thyrotoxicosis, unspecified without thyrotoxic crisis or storm; E55.9 Vitamin D deficiency, unspecified; F20.9 Schizophrenia, unspecified; G40.909 Epilepsy, unspecified, not intractable, without status epilepticus; I12.9 Hypertensive chronic kidney disease with stage 1 through stage 4 chronic kidney disease, or unspecified chronic kidney disease; G89.29 Other chronic pain; I25.10 Atherosclerotic heart disease of native coronary artery without angina pectoris; I25.2 Old myocardial infarction; K21.9 Gastro-esophageal reflux disease without esophagitis; M06.9 Rheumatoid arthritis, unspecified; M19.90 Unspecified osteoarthritis, unspecified site; M48.061 Spinal stenosis, lumbar region without neurogenic claudication; M51.36 Other intervertebral disc degeneration, lumbar region; S43.409A Unspecified sprain of unspecified shoulder joint, initial encounter; W01.0XXA Fall on same level from slipping, tripping and stumbling without subsequent striking against object, initial encounter; Y93.89 Activity, other specified; Y99.8 Other external cause status; Y92.009 Unspecified place in unspecified non-institutional (private) residence as the place of occurrence of the external cause; Z80.3 Family history of malignant neoplasm of breast; Z79.2 Long term (current) use of antibiotics; Z80.8 Family history of malignant neoplasm of other organs or systems; Z82.49 Family history of ischemic heart disease and other diseases of the circulatory system; Z90.49 Acquired absence of other specified parts of digestive tract; Z83.3 Family history of diabetes mellitus
CPT/HCPCS: 36415; 71010; 73080; 73552; 76000; 80048; 80053; 82274; 82306; 82962; 84439; 84443; 85007; 85014; 85018; 85025; 85610; 86850; 86900; 86901; 86920; 87324; 87641; 90686; 96374; A4314; C1713; J0171; J0330; J0690; J1100; J1170; J1650; J1815; J1885; J2250; J2270; J2405; J2704; J2795; J3010; J3490; J7030; J7042; J7120; P9016; S0028; 97110; 97530; 97535; 99285-25; J2001

== ENCOUNTER → 2018-03-26 | Outpatient (CLI) | payer BC ==
[~2018-03-26] MED LIST changes: -AMLO10TA2 PO; +AMLO10TA6 PO; +ENOX40DI3 SQ; +ERGO500027 PO; -FERR-26 PO; +FERR325T14 PO; +FERR325T72 PO; -GEMF600T3 PO; +GEMF600T4 PO; +HYDR-2762 PO; +HYDR-3164 PO; -HYDR-971 PO; -HYDR200T PO; +HYDR200T71 PO; +LISI-130 PO; +METF850T PO
--- NOTE | 2018-03-26 17:15 | RAD ---
CLINICAL HISTORY: Bilateral thyroid nodules-suspicious COMPARISON: Thyroid ultrasound 12/10/2017 PROCEDURE: Preliminary sonographic images of the thyroid gland were obtained. Multiple thyroid nodules are seen although the index 1.6 and 1.5 cm thyroid nodules were seen bilaterally which are recommended to be biopsied as per prior diagnostic thyroid ultrasound. The procedure and risks of ultrasound guided aspiration were explained to the patient and informed written consent obtained. Verification pause was observed. Laterality was confirmed. The site of aspiration was marked. Using standard sterile technique, 3- 25 G fine needle aspirations of the right thyroid lesion after which one pass with a Rotex needle was performed. The right thyroid lesion was densely calcified and was difficult to extend into the thyroid nodule. The second and third pass and the Rotex needle were seen to extend into the thyroid nodule beyond the calcified wall. Using standard sterile technique, 3- 25 G fine needle aspirations of the left thyroid lesion after which one pass with a Rotex needle was performed. The left thyroid nodule was deep and densely calcified. The third pass likely extended into the nodule although the other passes, including the Rotex needle were predominantly at the periphery in the region of the dens calcifications. There were no immediate complications. The patient was observed in the radiology department and released in satisfactory condition. IMPRESSION: 1. FNA of bilateral densely calcified thyroid nodules was performed without complication. FNA excursions were limited within the deep left thyroid nodule as 3 of the 4 biopsy needles were unable to extend past the dense peripheral calcifications. Electronically signed by: Chance Hebert MD (03/26/2018 5:12 PM) [facility]
--- NOTE | 2018-03-30 18:07 | PATHOLOGY ---
Note [facility] Accession Number: [id number] TESTS RESULT FLAG UNITS REF RANGE LAB Clinician Provided Cytology Information No. of containers..01 Other (Miscellaneous) Source: LEFT THYROID DIAGNOSIS: LEFT THYROID NEGATIVE FOR MALIGNANT CELLS. [place] CATEGORY II. SPECIMEN CONSISTS OF BENIGN FOLLICULAR CELLS, COLLOID, AND BLOOD. 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 THIS INTERPRETATION INCLUDES EVALUATION OF A CELL BLOCK. Pathologist ICD10: 02 E04.1 Signed out by: Caesar Martinez MD, Pathologist NPI- [id number] Performed by: Guillermo Kumar, Dark Room Attendant ([facility]) Gross description: 30ML, PINK, CLEAR /LCS FLAG LEGEND: L-Low Normal,H-High Normal,LL-Alert Low,HH-Alert High <-Panic Low,>-Panic High,A-Abnormal,AA-Critical Abnormal Performed at: [address] [place] [address] Jeremiah Hooker MD, [address] [facility] [address] [place] [address] Caesar Martinez MD, Specimen Comment: A courtesy copy of this report has been sent to Specimen Comment: [phone]. Specimen Comment: Report sent to Dr. HELLER Performed at: [address], [place], [place] [id number] MD Jeremiah Hooker MD Phone: [phone]
--- NOTE | 2018-03-30 18:07 | PATHOLOGY ---
Note [facility] Accession Number: [id number] TESTS RESULT FLAG UNITS REF RANGE LAB Clinician Provided Cytology Information No. of containers..01 Other (Miscellaneous) Source: RIGHT THYROID DIAGNOSIS: RIGHT THYROID NEGATIVE FOR MALIGNANT CELLS. [place] CATEGORY II. SPECIMEN CONSISTS OF BENIGN FOLLICULAR CELLS, HEMOSIDERIN-LADEN MACROPHAGES, FEW HURTHLE CELLS, COLLOID, AND BLOOD. 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 THIS INTERPRETATION INCLUDES EVALUATION OF A CELL BLOCK. Pathologist ICD10: 02 E04.1 Signed out by: Caesar Martinez MD, Pathologist NPI- [id number] Performed by: Guillermo Kumar, Sharepoint Specialist ([facility]) Gross description: 01 30ML, PINK, CLEAR /LCS FLAG LEGEND: L-Low Normal,H-High Normal,LL-Alert Low,HH-Alert High <-Panic Low,>-Panic High,A-Abnormal,AA-Critical Abnormal Performed at: 01 [facility] [address] [place] [address] Jeremiah Hooker MD, 02 [facility] [address] [place] [address] Caesar Martinez MD, Specimen Comment: A courtesy copy of this report has been sent to Specimen Comment: [phone]. Specimen Comment: Report sent to Performed at: 01 [facility] [place] [address], [place], [place] [id number] MD Jeremiah Hooker MD Phone: [phone]
== END | disposition home or self-care (01) ==
LOC: US 15:14
PROVIDERS: ATTEND Surgery
DX: E04.1 Nontoxic single thyroid nodule (principal); Z79.899 Other long term (current) drug therapy; Z88.1 Allergy status to other antibiotic agents; Z88.8 Allergy status to other drugs, medicaments and biological substances
CPT/HCPCS: 10022; 60300; 76942; 88173; 88305

== ENCOUNTER 2019-05-29 08:10 | Emergency (ER) | payer BC ==
[~2019-05-29 08:10] MED LIST changes: -AMLO10TA6 PO; +AMLO10TA8 PO; -GABA-586 PO; +GABA300C18 PO; -GEMF600T4 PO; +GEMF600T8 PO; -HYDR-2762 PO; +HYDR-2765 PO; -HYDR-2766 PO; +HYDR-2769 PO; -HYDR1TAB12 PO; +HYDR1TAB13 PO
--- NOTE | 2019-05-29 08:18 | PHYS DOC ---
Past Medical History Past Medical History: Diabetes-Type II, High Cholesterol, Hypertension, H ypothyroid, UT, Seizure Past Surgical History: Angioplasty, Appendectomy, Tonsillectomy Additional Past Surgical Histo: back, lap, I&D, r shoulder, Alcohol Use: None Drug Use: None Adult General Chief Complaint Chief Complaint: MECHANICAL FALL HPI HPI Patient is a 64-year-old female who presents with complaint of pain in her right thigh that started this morning. Patient had surgery on her right femur with a charles placement back in 2017 for fracture. Patient states that about a week ago she had fallen onto the area and thought that she just bruised it. She states that she is still been having pain in the area but this morning when she got up to go to the bathroom, she pivoted her walker and started to twist her leg and f elt a pop. She states that since feeling a pop in her leg, she has had increase in pain and greater difficulty with weightbearing. She states that the pop was in the vicinity of where she had the surgery. She rates pain as moderate and states that pain is worsened with weightbearing.[] Review of Systems Review of Systems Constitutional: Denies fever or chills [] Respiratory: Denies cough or shortness of breath [] Cardiovascular: No additional information not addressed in HPI [] Musculoskeletal: Complains of right thigh pain [] Integument: Denies rash or skin lesions [] Neurologic: Denies headache, focal weakness or sensory changes [] Current Medications Current Medications Current Medications Medications (Trade) Dose Ordered Sig/[facility] Start Time Stop Time Status Last Admin Dose Admin Fentanyl Citrate (Fentanyl 2ml Vial) 50 mcg 1X ONCE 05/29/19 08:30 05/29/19 08:32 DC 05/29/19 08:30 50 MCG Ondansetron HCl (Zofran) 4 mg 1X ONCE 05/29/19 08:30 05/29/19 08:32 DC 05/29/19 08:30 4 MG Allergies Allergies Allergies Coded Allergies Type Severity Reaction Last Updated Verified vancomycin Allergy Intermediate 05/29/19 Yes I S O L A T I O N *CONTACT* Allergy Unknown 05/29/19 Yes Physical Exam Physical Exam Constitutional: Well developed, well nourished, no acute distress, non-toxic appearance. [] Cardiovascular: Regular rate and rhythm[] Lungs & Thorax: Bilateral breath sounds clear to auscultation [] Extremities: Examination of right leg demonstrates some tenderness to palpation in region of mid thigh, laterally. [] Neurologic: Alert and oriented X 3, no focal deficits noted. [] Current Patient Data Vital Signs Vital Signs Date Time Temp Pulse Resp B/P (MAP) Pulse Ox O2 Delivery O2 Flow Rate FiO2 05/29/19 08:30 16 05/29/19 08:12 98.6 84 167/54 (91) 100 Room Air 98.6 EKG EKG [] Radiology/Procedures Radiology/Procedures [] Impressions: X-ray of right femur demonstrates no acute bony abnormalities. Course & Med Decision Making Course & Med Decision Making Pertinent Labs and Imaging studies reviewed. (See chart for details) [] Dragon Disclaimer Dragon Disclaimer This electronic medical record was generated, in whole or in part, using a voice recognition dictation system. Departure Departure Impression: Primary Impression: Muscle strain of right thigh Disposition: HOME, SELF-CARE Condition: STABLE Referrals: CARLOS RICK Jr, MD (PCP) Patient Instructions: Muscle Strain Scripts Hydrocodone/Apap 5-325 (NORCO 5-325 TABLET) 1 Each Tablet 1-2 EACH PO PRN Q6HRS PRN for PAIN, #15 as needed for pain Prov: DIEGO ENG Jr. DO 05/29/19 Problem Qualifiers Primary Impression: Muscle strain of right thigh Encounter type: initial encounter Qualified Codes: S76.911A - Strain of unspecified muscles, fascia and tendons at thigh level, right thigh, initial encounter DIEGO ENG Jr. DO May 29, 2019 08:18
[2019-05-29] MEDS ORDERED: fentaNYL PF VIAL 100 MCG/2 ML VIAL IVP ONE (08:30)
[2019-05-29] MEDS ORDERED: ONDANSETRON PF 4 MG/2 ML VIAL. IVP ONE (08:30)
[2019-05-29] MEDS ORDERED: HYDR-3164 PO (09:11)
--- NOTE | 2019-05-29 09:13 | RAD ---
Two-view right femur dated 05/29/2019. Comparison made to 03/17/2017. INDICATION: Right thigh pain. History of prior fracture. FINDINGS: 2 views obtained. Deformity of the distal femur system with old healed fracture. There is been lateral plate and screw fixation. Hardware is intact. No radiolucency along the screw margins. Proximal femoral shaft is intact. No new fracture or periostitis. IMPRESSION: 1. No acute radiographic abnormality. 2. Old healed fracture of the distal femur status post ORIF. Electronically signed by: Romeo Tsang MD (05/29/2019 9:10 AM) [facility]
[2019-05-29 09:20] VITALS: BP 180/63
== END 2019-05-29 09:30 | disposition home or self-care (01) ==
LOC: ER 08:10
DX: S76.911A Strain of unspecified muscles, fascia and tendons at thigh level, right thigh, initial encounter (principal); E11.9 Type 2 diabetes mellitus without complications; E78.00 Pure hypercholesterolemia, unspecified; I10 Essential (primary) hypertension; E03.9 Hypothyroidism, unspecified; I25.2 Old myocardial infarction; Z90.89 Acquired absence of other organs; Z98.890 Other specified postprocedural states; Z88.1 Allergy status to other antibiotic agents; Z88.8 Allergy status to other drugs, medicaments and biological substances
CPT/HCPCS: 73552; 96374; 96375; 99284; J2405; J3010